=== PATIENT | female | born 1960 | race Caucasian/White ===

== ENCOUNTER 2022-09-12 20:34 | Outpatient (REF) | payer MEDICAID, SELFPAY ==
[2022-09-12 16:09] LABS: Abs Immature Grans 0.02 10^3/uL (0.0-0.06); Absolute Basophil Count 0.06 10^3/uL (0.0-0.2); Absolute Eosinophil Count 0.09 10^3/uL (0.0-0.7); Absolute Lymphocyte Count 2.05 10^3/uL (1.2-3.4); Absolute Monocyte Count 0.46 10^3/uL (0.1-0.8); Absolute Neutrophil Count 3.65 10^3/uL (1.2-6.7); Basophils % 0.9; Eosinophils % 1.4; HCT 37.1 % (36.0-46.0); HGB 12.4 g/dL (11.2-15.7); Immature Grans % 0.3; Lymphocytes % 32.4; MCH 30.4 pg (27.0-33.0); MCHC 33.4 % (32.0-36.0); MCV 91 fL (80-95); MPV 9.8 fL (8.0-11.0); Monocytes % 7.3; Neutrophils % 57.7; Platelet Count 298 10^3/uL (130-400); RBC 4.08 10^6/uL (3.93-5.22); RDW 12.5 % (11.7-14.6); RDW-SD 41.4 fL; WBC 6.33 10^3/uL (4.4-10.8)
[2022-09-13 08:33] LABS: IgE 11 IU/mL (<158)
== END 2022-09-12 20:35 | disposition home or self-care (01) ==
LOC: LBN 20:34
PROVIDERS: Visit Provider Physician Assistant Surgical
DX: J45.909 Unspecified asthma, uncomplicated (principal)
CPT/HCPCS: 82785; 85025

== ENCOUNTER → 2023-07-04 16:42 | Outpatient (CLI) | payer MEDICAID, SELFPAY ==
--- NOTE | 2023-07-04 | DI.RAD_ITS ---
Exam(s) XR CHEST 2V PA LATERAL EXAM: XR CHEST 2V PA LATERAL CLINICAL HISTORY: Cough, R05.9 TECHNIQUE: 2D digital imaging was performed. Two views. COMPARISON: CT CT CHEST LOW DOSE CA SCREENING from 09/19/2022 FINDINGS: HEART: Normal size. Aorta: Not dilated. PULMONARY VASCULATURE: Normal. LUNGS: Mild patchy infiltrate seen in the left mid and lower lobes. No area of consolidation. Right lung appears clear. PLEURAL SPACE: No pleural effusion or pneumothorax. BONE:Unremarkable for age. Soft tissues: Unremarkable. IMPRESSION: Mild infiltrates left lower lung field. DATA REPOSITORY: RADIATION DOSE DELIVERED:
== END ==
PROVIDERS: Visit Provider Physician Assistant Medical
DX: R05.9 Cough, unspecified (principal); R91.8 Other nonspecific abnormal finding of lung field
CPT/HCPCS: 71046

== ENCOUNTER → 2023-08-16 00:20 | Outpatient (CLI) | payer MEDICAID, SELFPAY ==
--- NOTE | 2023-08-16 10:45 | DI.CT_ITS ---
Exam(s) CT CHEST WO EXAM: CT CHEST WO CLINICAL HISTORY: prolonged allergic asthma exacerbation >3 months, J45.901, J45.909 TECHNIQUE: Imaging Protocol: Axial computed tomography images with coronal and sagittal reformatted images were created and reviewed CONTRAST MATERIAL: Intravenous: Omnipaque 350 Contrast volume:structured data ml. COMPARISON: CT CT CHEST LOW DOSE CA SCREENING from 09/19/2022 CR XR CHEST 2V PA LATERAL from 07/04/2023 FINDINGS: Pulmonary parenchyma: No consolidation. No dominant measurable mass. Scattered micro nodules, unchan ged from prior. Minimal emphysematous changes at the lung apices. Minimal scarring or atelectasis a t the inferior lingula. Tracheobronchial tree: No bronchiectasis . Mild bronchial wall thickening noted in the left lower lo be. Mild mucous plugging shows distally in the anterior aspect of the left lower lobe. Mediastinum and Shefali: No dominant adenopathy or fluid collection. Pleura: No effusion. No pneumothorax. Heart: The heart is not dilated. Minimal coronary artery calcifications are seen. Aorta: Thoracic aorta non-dilated. Mild atherosclerotic changes. Pulmonary arteries: No gross evidence of emboli. Upper abdomen: No acute findings. Bones: Degenerative changes in the spine. Soft tissues: Unremarkable. IMPRESSION: Mild bronchial wall thickening in the left lower lobe. Mild mucous plugging anteriorly in the left l ower lobe. Lingular scarring/atelectasis. RADIATION DOSE DELIVERED: Total DLP DATA REPOSITORY: All CT scans at this facility are submitted to the National Radiology Data Registry (NRDR) Dose Index Registry (DIR) with the [employer] (ACR). RADIATION OPTIMIZATION: All CT scans at this facility use at least one of these dose optimization te chniques: automated exposure control; mA and/or kV adjustment per patient size (includes targeted exa ms where dose is matched to clinical indication); or iterative reconstruction.
== END ==
PROVIDERS: Visit Provider Physician Assistant Surgical
DX: J45.909 Unspecified asthma, uncomplicated (principal); J45.901 Unspecified asthma with (acute) exacerbation
CPT/HCPCS: 71250

== ENCOUNTER 2023-08-17 19:59 | Outpatient (REF) | payer MEDICAID, SELFPAY ==
--- OUTSIDE RECORDS SUMMARY | 2023-08-17 20:10 | XMS_ITS ---
Author Organization Unknown Address [address] [place] [phone] Phone Care Team Providers Care Electric Truck Driver Name Role Phone MARIAMA Sanchez Attending Unavailable EMILIA Rouse Primary Unavailable Social History Type Status Start Date End Date Code Code Syst em Sex Female Hospital Discharge Instructions Should you have any questions prior to discharge, please contact a member of your healthcare team. If you have left the hospital and have any questions, please contact your primary care physician. Reason For Referral No Data Found Plan of Treatment No Data Found Encounters Encounter Diagnosis Start Date Code Code Sys tem Peripheral vascular disease 09/14/2022 [id number] SNOMED-CT Personal Care Team Section Performer Name Performer Role Active Date Inactive Da te
--- OUTSIDE RECORDS SUMMARY | 2023-08-17 20:11 | XMS_ITS | Encounter Summary ---
Author Organization [facility] Address [facility] [place] [address] Care Team Providers Care Personal Banker Name Role Phone Joey Ambrose APRN Primary Care Provider + Encounter Details Date Type Department Care Team (Late st Contact Info) Description 02/12/2023 [place] [phone] Park Gross PA [facility] [place] [address] Social History Tobacco Use Types Packs/Day Years Used Date Smoking Tobacco: Former Cigarettes Q uit: 2022 Smokeless Tobacco: Never Sex and Gender Information Value Date Recorded Sex Assigned at Not on file Gender Identity Not on file Sexual Orientation Not on file documented as of this encounter Miscellaneous Notes * Telephone Encounter - Park Gross PA - 02/12/2023 4:37 PM EST Call to pt to relay DM medication adjustment recommendations. No answer so left voicemail. Plan is to stop glipizide, increase Lantus to 18U and discuss timing of mealtime insulin, may need to increase either breakfast or lunch dose. Park Gross PA-C Department of Endocrinology [place], [place] documented in this encounter Plan of Treatment Not on file documented as of this encounter Visit Diagnoses Not on filedocumented in this encounter Care Teams Personal Banker Relationship Specialty Start Date End Date Joey Ambrose ORGANIZATIONAL CONSULTANT [address] [place] [address] [place] [address] PCP - General Family Medicine 11/09/22 documented as of this encounter
--- OUTSIDE RECORDS SUMMARY | 2023-08-17 20:11 | XMS_ITS | Encounter Summary ---
Author Organization [facility] [place] [address] Care Team Providers Care Cut Out Press Operator Name Role Phone Joey Ambrose APRN Primary Care Provider + Encounter Details Date Type Department Care Team (Late st Contact Info) Description 03/09/2023 Telephone [place] [phone] Veronica Rios RN Social History Tobacco Use Types Packs/Day Years Used Date Smoking Tobacco: Former Cigarettes Q uit: 2022 Smokeless Tobacco: Never Sex and Gender Information Value Date Recorded Sex Assigned at Not on file Gender Identity Not on file Sexual Orientation Not on file documented as of this encounter Miscellaneous Notes * Telephone Encounter - Lidia De La Paz RN - 03/14/2023 3:08 PM EST This RN called the patient, name and was verified. Patient wanted to know what the results of her A1c was, this RN gave her the results. Patient verbalized understanding. * Telephone Encounter - Lynette Robins - 03/14/2023 10:23 AM EST Patient returned call to nurse for lab results. Please call patient after noon on her cell phone listed [phone]. * Telephone Encounter - Veronica Rios RN - 03/09/2023 10:54 AM EST Copied from [facility] #[id number]. Topic: Specialty Dept CRMs - Generic Call >> Mar 09, 2023 10:44 AM May wrote: Specialist: Ginny Relationship (if other than patient-full name): Self Reason for Call: Patient returning call to provider documented in this encounter Plan of Treatment Not on file documented as of this encounter Visit Diagnoses Not on filedocumented in this encounter Care Teams Cut Out Press Operator Relationship Specialty Start Date End Date Joey Ambrose, BELT DRESSER [address] [place] [id number] PCP - General Family Medicine 11/09/22 documented as of this encounter
--- OUTSIDE RECORDS SUMMARY | 2023-08-17 20:11 | XMS_ITS | Encounter Summary ---
Author Organization [facility] [place] [address] Care Team Providers Care Armature Repairer Name Role Phone Joey Ambrose APRN Primary Care Provider + Encounter Details Date Type Department Care Team (Latest Contact Info) Description 02/08/2023 11:30 AM EST Laboratory Appointment Lab [address] [place] [phone] Type 2 diabetes mellitus with hyperglycemia, with long-term current use of insulin Social History Tobacco Use Types Packs/Day Years Used Date Smoking Tobacco: Former Cigarettes Q uit: 2022 Smokeless Tobacco: Never Sex and Gender Information Value Date Recorded Sex Assigned at Not on file Gender Identity Not on file Sexual Orientation Not on file documented as of this encounter Plan of Treatment Not on file documented as of this encounter Procedures Procedure Name Priority Date/Time Associated Diagnosis Comments HC HEMOGLOBIN A1C Routine 02/08/2023 11: 36 AM EST Type 2 diabetes mellitus with hyperglycemia, with long-term current use of insulin documented in this encounter Results * (ABNORMAL) Hemoglobin A1c (02/08/2023 11:36 AM EST) Hemoglobin A1C 7.6(H) 4.3 - 5.6 % [facility] Comment: Reference Range: 4.3 - 5.6% 5.7 - 6.4% - Increased Risk of Developing Diabetes Mellitus >= 6.5% - Consistent with diagnosis of Diabetes Mellitus In the absence of hyperglycemia (i.e. plasma glucose > 200 mg/dL) or classic symptoms of hyperglycemia a repeat measurement of HbA1c should be performed on a separate sample to confirm the diagnosis. Diagnosis and Classification of Diabetes Mellitus, Diabetes Care 2013; 36: Suppl. 1, S67-23 Est Avg Gluc 173 mg/dL [facility] Comment: Note: The eAG calculation has not been proven valid for women, individuals below 18 years old or above 70 years old, or individuals with hemoglobinopathies. Estimated average glucose (eAG) is calculated from the equation described in: Arthur DM, Chloe J, Compa R, et al. ??Translating the A1C assay into estimated average glucose values. ??Diabetes Care 2008:31(8):0519-7211. Additional resources are available on the ADA website (diabetes.org). Blood 02/08/2023 11:3 6 AM EST 02/08/2023 11:49 AM EST Narrative Resulting Agency Comment Spec In Lab Ajay Ferrari MD CHEMISTRY ORDERABLES [facility] [place] [id number] documented in this encounter Visit Diagnoses Diagnosis Type 2 diabetes mellitus with hyperglycemia, with long-term current use of insulin documented in this encounter Care Teams Armature Repairer Relationship Specialty Start Date End Date Joey Ambrose, REED [address] [place] [address] [place] [address] PCP - General Family Medicine 11/09/22 documented as of this encounter
--- OUTSIDE RECORDS SUMMARY | 2023-08-17 20:11 | XMS_ITS | Encounter Summary ---
Author Organization [facility] Address [facility] [place] [address] Care Team Providers Care Sales Agent Food Vending Service Name Role Phone Joey Ambrose APRN Primary Care Provider + Encounter Details Date Type Department Care Team (Late st Contact Info) Description 06/28/2023 10:30 AM EDT Office Visit [place] [phone] Roverto Burnette MD [facility] [place] [address] Type 2 diabetes mellitus with hyperglycemia, with long-term current use of insulin Social History Tobacco Use Types Packs/Day Years Used Date Smoking Tobacco: Former Cigarettes Q uit: 2022 Smokeless Tobacco: Never Sex and Gender Information Value Date Recorded Sex Assigned at Not on file Gender Identity Not on file Sexual Orientation Not on file documented as of this encounter Last Filed Vital Signs Vital Sign Reading Time Taken Comments Blood Pressure 148/82 06/28/2023 9:56 AM EDT Pulse 85 06/28/2023 9:56 AM EDT Temperature 35.6 ??C (96.1 ??F) 06/28/2023 9:56 AM ED T Respiratory Rate - - Oxygen Saturation 99% 06/28/2023 9:56 AM EDT Inhaled Oxygen Concentration - - Weight 81 kg (178 lb 9.6 oz) 06/28/2023 9:56 AM EDT Height 163.8 cm (5' 4.5) 06/28/2023 9:56 AM EDT Body Mass Index 30.18 06/28/2023 9:56 AM EDT documented in this encounter Progress Notes * Roverto Burnette MD - 06/28/2023 10:30 AM EDT Images from the original note were not included. We are asked to see this 62 year old woman to review Type 2 diabetes This patient has been in our practice since November 2022 , evaluated by HEAVEN Gross: From [place] 11/2022 Had a DM specialist in [place] and the last time she saw them she was on Lantus 20 units/day and was taking Humalog ~10 units before meals. Was also on Januvia. After move to [place], pt's new PCP had pt taking Lantus 10 units/day, now titrated up to 16 units and using a sliding scale for Humalog. Lowest A1C was 6.5% in [place]. Summer 2021 at time of referral to it was >13% From 02/2022 Patient concerns: pt says that DM has been out of control. Pt was having lows after starting glipizide. Decreased long acting insulin to 14U and eating sweets before bed to avoid overnight lows. Now at 16U of Lantus. Takes 4 units TID of mealtime insulin. Notable medical comorbidities: CKD, HTN Current DM meds: glipizide 10mg/day, humalog, lantus Latest Reference Range & Units 11/09/22 14:42 02/08/23 11:36 Hemoglobin A1C 4.3 - 5.6 % 8.3 (H) 7.6 (H) (H): Data is abnormally high Latest Reference Range & Units 11/09/22 14:42 11/09/22 14:45 LDL Chol Direct mg/dL 54 25-OH Vit D Total 21 - 100 ng/mL 51 25-OH Vit D Interp Sufficient GAD65 Ab <=0.02 nmol/L 0.02 TSH 0.27 - 4.20 mcIU/mL 0.99 Alb/Cr Ratio, Random 0 - 29 mcg/mg Cr 78 (H) (H): Data is abnormally high History Diabetes x 20 years or more Has gained 40 lbs since starting insulin (used weigh 40 lbs) Interim Tried ozempic but was nauseated Egan glipizide did much better but had many low sugar episodes Used trulicity in the past without problems Regimen Oral medications glipizide stopped Basal insulin lantus 22 Bolus (meal and correction) insulin novolog 10 units with meals 10 units correction as needed If pump: FREQUENCY OF SET CHANGES Every ___ Days Home glucose monitoring: TIR 25 % GMI 9.0 marked hyperglycemia after lunch (first meal of day) Episodes of hypoglycemia Warning signs: feels lite headed Frequency of self treated episodes around once a week Frequency of episodes needing assistance none Dietary plan: 24 hour diet recall: Breakast 2 eggs eng muffin sausage AM snack Lunch salad usually a sandwich Afternoon snack Dinner steak green beans After dinner snack Exercise routine Preferred exercise uses 2 lb weights Frequency daily aerobic is limited by asthma Diabetes complications review eyes + retinopathy ? Has had cataract surgery feet Abnormal shape NO Symptoms burning NO Foot ulcers: None NO Prior amputations Overall risk of foot problems Low YES Uses prescription Inserts Shoes kidneys none Autonomic neuropathies : NO Early satiety /nausea (gastroparesis) SOME Problems emptying bladder NO Unable to detect low sugars Persistent rapid heartrate tachycardia cardiac NO chest pain on exertion YES shortness of breath on 1 flight of stairs NO Shortness of breath at rest NO history of Cardiac stent Cardiac bypass surgery Congestive heart failure Peripheral vascular disease: Neck arteries (carotids) Leg arterieis Stroke Diabetes preventative services last eye exam: within 2 mo last urine protein measurement last kidney function test (creatinine) last cholesterol panel: regular drum drier operator visits: YES special shoes: YES flu shot : NO COVID NO vaccinations Has had covid once pneumovax: YES prevnar (pneumonia shot update) NO Kidney protection: Uses lisinopril or losartan type medications: YES, losartan Blood pressure 148/82 Heart protection: Uses low dose aspirin NO Uses cholesterol lowering medication ( statin) YES PMH 1) ashtma 2) DM2 3) tubal at age 25 4) oophorectomy, has one left 5) thyroid 6) poor L leg circulation? 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 appearance: pleasant conversant woman wt Change up 18 since last visit in feb eyes: no retinopathy seen by green light ext: no pitting edema feet: shape is normal skin is normal nails are not mycotic pulses in feet : dorsalis pedis-yes posterior tibial-yes neuro: gait is normal appreciation of 10 g of pressure is present Recent Results (from the past 24 hour(s)) TSH Result Value Ref Range TSH 2.32 0.27 - 4.20 mcIU/mL Creatinine Result Value Ref Range Creatinine 1.13 0.70 - 1.20 mg/dL Estimated GFR 55 (L) >=60 mL/min/1.73 m?? Hemoglobin A1c Result Value Ref Range Hemoglobin A1C 8.3 (H) 4.3 - 5.6 % Est Avg Gluc 191 mg/dL U Albumin/Cre Ratio Result Value Ref Range Alb/Cr Ratio, Random 108 (H) 0 - 29 mcg/mg Cr U Albumin Conc, Random 55.0 mg/L U Creatinine 51 mg/dL 1) DM2 - her diabetes control is reasonable overall (ha1C) BUT HER 2 WEEK SOFIYA LOOKS MUCH WORSE (gmi 9.0), tir 25 %. tHE ENTIRE DIURNAL GLUCOSE level is elevated . We could put back glyburide, which would risk returnof low sugar events but I am also concerned about the 18 lb weight gain - so I recommended adding Rybelsus 3 and then 7 mg to see if we couldn't get an HA1c under 8 % AND weight loss. She will let meknow if Rybelsus is not covered - if so perhaps we can returnt o dulaglutide injections at the 3.0 dose 2) CKD3A- mild 3) microalbuminuria- she is on losartan and has reasonable BP control 4) R 1st plantar MTP callus- this is in a worrisome location as it is in constant pressure while walking / standing- she has it regularly attended to by podiatry This was a 40 min visit in total time for precharting, interview and counseling, new medication discussion, review of outside labs as above, ordering labs and charting Bilateral first nail mycosis documented in this encounter Plan of Treatment Not on file documented as of this encounter Procedures Procedure Name Priority Date/Time Associated Diagnosis Comments HC CREATININE - NON BLOOD Routine 06/28/2023 11:19 AM EDT Type 2 diabetes mellitus with hyperglycemia, with long-term current use of insulin HC CREATININE Routine 06/28/2023 11:17 AM EDT Type 2 diabetes mellitus with hyperglycemia, with long-term current use of insulin HC VENIPUNCTURE Routine 06/28/2023 11:17 AM EDT Type 2 diabetes mellitus with hyperglycemia, with long-term current use of insulin HC HEMOGLOBIN A1C Routine 06/28/2023 11: 17 AM EDT Type 2 diabetes mellitus with hyperglycemia, with long-term current use of insulin documented in this encounter Results * (ABNORMAL) U Albumin/Cre Ratio (06/28/2023 11:19 AM EDT) Alb/Cr Ratio, Random 108(H) 0 - 29 mcg/mg Cr [facility] Comment: Reference Ranges: <30 mcg/mg: Normal 30-300 mcg/mg: Moderately increased albuminuria.* >300 mcg/mg: Severely increased albuminuria. * ACEI or ARB recommended if diabetic; suggested if BP>130/80 without diabetes ACEI or ARB strongly recommended if diabetic; recommended if BP>130/80 without diabetes Two of three specimens collected within a 3 to 6 month period should be abnormal before considering a patient to have albuminuria. Transient causes: exercise, fever, infection, CHF, marked hyperglycemia or hypertension. Persistent albuminuria indicates CKD and is an independent risk factor for ASCVD. ADA Standards of Medical Care in Diabetes-2016; KDIGO: Kidney International Supplements (2012) 2, 357? 362 U Albumin Conc, Random 55.0 mg/L [facility] U Creatinine 51 mg/dL [facility] Urine 06/28/2023 11:1 9 AM EDT 06/28/2023 11:28 AM EDT Narrative Resulting Agency Comment Spec In Lab Roverto Burnette MD URINE ORDERABLES Performing Organization Address City/[facility]/ZIP Co de Phone Number [facility] [place] [address] * TSH (06/28/2023 11:17 AM EDT) TSH 2.32 0.27 - 4.20 mcIU/mL [facility] Comment: Reference Interval (mcIU/mL): Females: ??First Trimester: 0.23-3.88 ??Second Trimester: 0.22-3.90 ??Third Trimester: 0.44-4.66 Blood 06/28/2023 11:1 7 AM EDT 06/28/2023 11:33 AM EDT Narrative Resulting Agency Comment Spec In Lab Roverto Burnette MD CHEMISTRY ORDERABLES Performing Organization Address [facility] Co de Phone Number [facility] [place] [address] * (ABNORMAL) Creatinine (06/28/2023 11:17 AM EDT) Creatinine 1.13 0.70 - 1.20 mg/dL [facility] Estimated GFR 55(L) >=60 mL/min/1. 73 m?? [facility] Comment: This patient's estimated GFR was calculated using the 2020 CKD-EPI equation. The estimated GFR can vary from the measured GFR by up to 30% in the absence of rapidly changing kidney function. Assessment of the estimated GFR is not appropriate when creatinine concentrations are rapidly changing. For clinical situations in which a more precise estimate of GFR is necessary, consider alternative methods of GFR estimation such as a 24-hour urine creatinine clearance. Assignment of CKD stage 1-5 for patients with an eGFR near the transition point between stages may be based on clinical assessment of muscle mass and symptoms in addition to eGFR. Blood 06/28/2023 11:1 7 AM EDT 06/28/2023 11:33 AM EDT Narrative Resulting Agency Comment Spec In Lab Roverto Burnette MD CHEMISTRY ORDERABLES Performing Organization Address City/[facility]/ZIP Co de Phone Number [facility] [place] [address] * (ABNORMAL) Hemoglobin A1c (06/28/2023 11:17 AM EDT) Hemoglobin A1C 8.3(H) 4.3 - 5.6 % [facility] Comment: Reference Range: 4.3 - 5.6% [...] Mellitus, Diabetes Care 2013; 36: Suppl. 1, S67-74 Est Avg Gluc 191 mg/dL [facility] Blood 06/28/2023 11:1 7 AM EDT 06/28/2023 11:33 AM EDT Narrative Resulting Agency Comment Spec In Lab Roverto Burnette MD CHEMISTRY ORDERABLES Performing Organization Address [facility] Co de Phone Number [facility] [place] [address] documented in this encounter Visit Diagnoses Diagnosis Type 2 diabetes mellitus with hyperglycemia, with long-term current use of insulin documented in this encounter Care Teams Sales Agent Food Vending Service Relationship Specialty Start Date End Date Joey Ambrose, REED [address] [place] [address] [place] [address] PCP - General Family Medicine 11/09/22 documented as of this encounter
--- OUTSIDE RECORDS SUMMARY | 2023-08-17 20:11 | XMS_ITS | Encounter Summary ---
Author Organization [facility] [place] [address] Care Team Providers Care Oim Consultant Name Role Phone Joey Ambrose APRN Primary Care Provider + Encounter Details Date Type Department Care Team (Late st Contact Info) Description 11/10/2022 Orders Only [place] [address] Park Gross PA [facility] [place] [address] Type 2 diabetes mellitus with hyperglycemia, with [...] documented as of this encounter Visit Diagnoses Diagnosis Type 2 diabetes mellitus with hyperglycemia, with long-term current use of insulin documented in this encounter Care Teams Oim Consultant Relationship Specialty Start Date End Date Joey Ambrose APRN [address] [place] [address] [place] [address] PCP - General Family Medicine 11/09/22 documented as of this encounter
--- OUTSIDE RECORDS SUMMARY | 2023-08-17 20:11 | XMS_ITS | Referral Summary ---
Author Organization [facility] Address [address] [place] [address] Care Team Providers Care Technology Infusion Specialist Name Role Phone Hubert Taladulce Joey Padma [facility] Primary Care Provider Social History Tobacco Use Types Packs/Day Years Used Date Smoking Tobacco: Never Assessed Sex and Gender Information Value Date Recorded Sex Assigned at Not on file Gender Identity Female 10/11/2022 8:17 EDT Sexual Orientation Not on file Plan of Treatment Not on file Care Teams Technology Infusion Specialist Relationship Specialty Start Date End Date Joey Ambrose, [facility] [address] [place] [address] [place] [phone] PCP - General Family Medicine - Primary Care 10/11/22
--- OUTSIDE RECORDS SUMMARY | 2023-08-17 20:11 | XMS_ITS | Encounter Summary ---
Author Organization [facility] Address [facility] [place] [address] Care Team Providers Care Laundry Machine Tender Name Role Phone Joey Ambrose APRN Primary Care Provider + Encounter Details Date Type Department Care Team (Late st Contact Info) Description 04/17/2023 Telephone [place] [phone] Park Gross PA [facility] [place] [address] Social History Tobacco Use Types Packs/Day Years Used Date Smoking Tobacco: Former Cigarettes Q uit: 2022 Smokeless Tobacco: Never Sex and Gender Information Value Date Recorded Sex Assigned at Not on file Gender Identity Not on file Sexual Orientation Not on file documented as of this encounter Miscellaneous Notes * Telephone Encounter - Park Gross PA - 04/17/2023 4:18 PM EDT Returned call to pt, attempted 4x and each time went to voicemail. Relayed instructions to nurse for her to call pt. Take Lantus as prescribed and hold mealtime insulin until eating again. Nurse had to leave message--no answer as well. No [facility] patient portal set up so unable to write message to patient. Park Gross PA-C Department of Endocrinology [place], [place] documented in this encounter Plan of Treatment Not on file documented as of this encounter Visit Diagnoses Not on filedocumented in this encounter Care Teams Laundry Machine Tender Relationship Specialty Start Date End Date Joey Ambrose, CREW SUPERVISOR [address] [place] [address] [place] [address] PCP - General Family Medicine 11/09/22 documented as of this encounter
--- OUTSIDE RECORDS SUMMARY | 2023-08-17 20:11 | XMS_ITS | Clinical Summary ---
Author Organization [facility] Address [address] [place] [address] Care Team Providers Care Pipe Fitter Welding Name Role Phone Hubert Soriano Joey Padma [facility] Primary Care Provider Social History Tobacco Use Types Packs/Day Years Used Date Smoking Tobacco: Never Assessed Sex and Gender Information Value Date Recorded Sex Assigned at Not on file Gender Identity Female 10/11/2022 8:17 EDT Sexual Orientation Not on file Plan of Treatment Health Maintenance Due Date Last Done Comments Hepatitis C Screen 1960 RSV Immunization ( o r 60+ Years) (1 - 1-dose 60+ series) 2019 COVID-19 Vaccine (2022- season) 2022 Care Teams Pipe Fitter Welding Relationship Specialty Start Date End Date Joey Ambrose, [facility]- [address] [place] [address] [place] [id number] PCP - General Family Medicine - Primary Care 10/11/22
--- OUTSIDE RECORDS SUMMARY | 2023-08-17 20:11 | XMS_ITS | Data Portability ---
Author Organization [facility] Address Susanne Whelan [facility] [place] [address] Care Team Providers Care Brake Tester Name Role Phone JESSI SAENZ Primary Care Provider Assessment No assessment recorded. Plan of Treatment Reminders Order Date Submit Date Provider Last Modified By Organization Details Last Modified Time Details Appointments Acute 10 2023 01:54P Daniel HARDY Not available Not available Not available Lab rapid strep group A, throat [address], [address], [address], 07/04/2023 15:03:14 influenza virus A + B + SARS-CoV- 2 (COVID19) Ag panel, rapid IA, upper respirato ry specimen [address], [address], 07/04/2023 15:03:17 urinalysi s, dipstick [address], [address], [address], 08/17/2023 16:24:41 culture, urine + sensitivi ty 2023 024 [email or web address] [address] [place], [address] 08/17/2023 18:46:20 microscop ic method, urine [address] [place], [address] 08/17/2023 18:50:38 Referral None recorded. Procedures None recorded. Surgeries None recorded. Imaging XR, chest, 2 view [address] [place], [address] 07/18/2023 08:57:41 Medication Orders prednison e 20 mg tablet 2023 024 [email or web address] [facility], [address] [place] [address], [id number], 08/17/2023 15:55:25 doxycycli ne hyclate 100 mg capsule 2023 024 [facility], [address] [place] [address], [id number], 08/17/2023 15:54:49 prednison e 20 mg tablet 2023 024 [facility], [address] [place] [address], [id number], 08/17/2023 16:42:35 ipratropi um 0.5 mg-albute rol 3 mg (2.5 mg base)/3 mL nebulizat ion soln 2023 024 [facility], [address] [place] [address], [id number], 08/17/2023 17:33:19 cephalexi n 500 mg capsule 2023 024 [facility], [address] [place] [address], [id number], 08/17/2023 16:42:34 Patient TargetsNo targets recorded. Patient Instructions Encounter Date Encounter Id Patient Instructions Last Modified By Organization Details Last Modified Time 07/04/2023 [id number] 1. X-rays have been ordered and will take place to the hospital today. I typically get results 2-3 hours later and we will communicate these to you when they become available and discuss further management. 2. In the meantime I have sent prescription for prednisone which she will take daily in the morning for total of 5 days. Please remember to take this medication with food. No ibuprofen at the same time. 3. If x-ray returned showing concerns for pneumonia I will also send prescription for antibiotic. If does not show pneumonia we will not send in prescription for antibiotic. Not available 07/04/2023 13:48:01 08/17/2023 [id number] 1. Your urine di p here is concerning for UTI thus I have gone ahead and started you on an antibiotic called cephalexin you will take twice a day for the next 7 days. I have sent a urine culture which will take 2 days to return. I will call you on Sunday to go over them and see how you are doing. 2. I am also concerned for exacerbation of your asthma given the increased need for your inhaler despite your use of your maintenance inhaler. I have sent prescription for prednisone 40 mg which you will take daily in the morning over the next 5 days. Please be careful to watch her blood sugars during this time. 3. I did review your recent CT scan which shows no signs of pneumonia. I do not feel that chest x-ray is needed today. 4. I do not expect you should have any sudden worsening of symptoms between now and Sunday when I called to follow-up. If so please seek follow-up as needed. Not available 08/17/2023 17:18:06 Reason for Referral None Reported. Results Created Date Observation Date Name Description Value Unit Range Abnormal Flag LastModifiedBy Organization Detail LastModifiedTime 07/04/19 24 07/04/2023 influ mike virus A + B + SARS- CoV-2 (COVI D19) Ag panel , rapid IA, upper respi rator y speci men Influenza A positi ve Not Available [address], [place], [address], 07/04/2023 12:31:18 07/04/19 24 07/04/2023 influ mike virus A + B + SARS- CoV-2 (COVI D19) Ag panel , rapid IA, upper respi rator y speci men Influenza B positi ve Not Available [address], [place], [address], 07/04/2023 12:31:18 07/04/19 24 07/04/2023 influ mike virus A + B + SARS- CoV-2 (COVI D19) Ag panel , rapid IA, upper respi rator y speci men SARS-COV-2 positi ve Not Available [address], [place], [address], 07/04/2023 12:31:18 07/04/19 24 07/04/2023 rapid strep group A, throa t Strep negati ve Not Available [address], [place], [address], 07/04/2023 12:30:41 08/17/19 24 08/17/2023 urina lysis , dipst ick Leukocytes Trace Not Available [address], [place], [address], 08/17/2023 16:05:03 08/17/19 24 08/17/2023 urina lysis , dipst ick Nitrite positi ve Not Available [address], [place], [address], 08/17/2023 16:05:03 08/17/19 24 08/17/2023 urina lysis , dipst ick Urobilinogen .2 Not Available [address] [address], [place], [address], 08/17/2023 16:05:03 08/17/19 24 08/17/2023 urina lysis , dipst ick Protein 300 Not Available Anand cruz [address], [place], [address], 08/17/2023 16:05:03 08/17/19 24 08/17/2023 urina lysis , dipst ick pH 7.5 Not Available Anand cruz [address], [place], [address], 08/17/2023 16:05:03 08/17/19 24 08/17/2023 urina lysis , dipst ick Blood Negati ve Not Available [address], [place], [address], 08/17/2023 16:05:03 08/17/19 24 08/17/2023 urina lysis , dipst ick Specific [place] 1.010 Not Available [address], [place], [address], 08/17/2023 16:05:03 08/17/19 24 08/17/2023 urina lysis , dipst ick Ketone Trace Not Available Anand cruz [address], [place], [address], 08/17/2023 16:05:03 08/17/19 24 08/17/2023 urina lysis , dipst ick Bilirubin Small Not Available Anand cruz [address], [place], [address], 08/17/2023 16:05:03 08/17/19 24 08/17/2023 urina lysis , dipst ick Glucose Negati ve Not Available [address], [place], [address], 08/17/2023 16:05:03 08/17/19 24 08/17/2023 urina lysis , dipst ick Appearance Clear Not Available [address], [place], [address], 08/17/2023 16:05:03 08/17/19 24 08/17/2023 urina lysis , dipst ick Color Dark Yellow Not Available [address], [place], [address], 08/17/2023 16:05:03 07/04/19 24 07/04/2023 XR, chest , 2 view No observ ation record ed. Not Available 07/05/2023 07:27:39 07/04/19 24 07/04/2023 XR, chest , 2 view Patien t Name: MARY DENNY Unit #: [id number] [facility] Savanna Hardy Accoun t #: [id number] Status : PRE CLI Primar y Care Provid er: Date of Exam: Sex: F Admiss ion Date: : 1960 Age: 62 Exam(s ) XR CHEST 2V PA LATERA L EXAM: XR CHEST 2V PA LATERA L CLINIC AL HISTOR Y: Cough, R05.9 TECHNI QUE: 2D digita l imagin g was perfor med. Two views. COMPAR RHONDA: CT CT CHEST LOW DOSE CA SCREEN ING from 2022 FINDIN GS: HEART: Normal size. Aorta: Not dilate d. PULMON IRVIN VASCUL ATURE: Normal . LUNGS: Mild patchy infilt rate seen in the left mid and lower lobes. No area of consol idatio n. Right lung appear s clear. PLEURA L SPACE: No pleura l effusi on or pneumo thorax . BONE:U nremar kable for age. Soft tissue s: Unrema rkable . IMPRES FIDELINA: Mild infilt rates left lower lung field. DATA REPOSI TORY: RADIAT ION DOSE DELIVE RED: Ordere d By: Savanna Hardy CC: ------ ------ ------ ------ ------ ------ ------ ------ ------ ------ ------ ------ - Dictat ed By: Hollie Ayala [id number] Transc ribed By: Lexa Hernandez 143 This is privil eged, confid ential inform ation intend ed only for the provid er named. Any use or distri bution by any person other than this provid er is strict ly prohib ited. If you receiv e this report in error, please notify us immedi ately at and return the origin al report to us at the addres s above. Thank- you. [email or web address] [facility] [address], [place], [address] 07/18/2023 08:57:41 Result Notes None recorded. Problems Name Status Onset Date Resolution Date Notes Provider Name and Address Organization Details Recorded Time Cough Active [address], [facility] [address], [facility] 07/04/2023 13:46:24 Pneumonia Active [address], [facility] [address], [facility] 07/04/2023 15:02:31 Asthma Active [address], [place], [address], [facility] 08/17/2023 16:41:58 Dysuria Active [address], [place], [address], [facility] 08/17/2023 16:48:50 Problem Notes None recorded. Procedures Surgical History Date Name Laterality Status Provider Name and Address Organization Details Recorded Time 4 Nebulizer tx completed [address], [place], [address], [facility] 08/17/2023 17:33:01 4 Nebulizer tx completed [address], [place], [address], [facility] 07/04/2023 15:07:04 Imaging Results Imaging Date Name Status LastModified by Organiz ation Details LastModified Time 07/04/2023 XR, chest, 2 view completed Information not available 07/05/2023 07:27:39 07/04/2023 XR, chest, 2 view completed [email or web address] [facility] [address], [place], [address] 07/18/2023 08:57:41 Procedure Notes None recorded. Medical Equipment None Reported. Allergies No known drug allergies Medications Name Sig Start Date Stop Date Status Note LastModified by Organization Details LastModified Time doxycycline hyclate 100 mg capsule Take 1 capsule twice a day by oral route for 5 days, for pneumonia . 08/16 completed Not Available Not Available Not Available ipratropium 0.5 mg-albutero l 3 mg (2.5 mg base)/3 mL nebulizatio n soln Inhale 3 mL by nebulizat ion route. 2023 active Not Available Not Available Not Avai lable prednisone 20 mg tablet Take 2 tablets every day by oral route with meal(s) for 5 days. 2023 active Not Available Not Available Not Avai lable magnesium oxide 400 mg (241.3 mg magnesium) tablet Take by oral route. active Not Available Not Available No t Available cephalexin 500 mg capsule Take 1 capsule twice a day by oral route for 7 days. 2023 active Not Available Not Available Not Avai lable cyclobenzap rine 5 mg tablet Take 1 tablet 3 times a day by oral route. active Not Available Not Available No t Available lidocaine active Not Available Not Chapis ilable Not Available Novolog Mix 70-30FlexPe n U-100 active Not Available Not Available Not Available Symbicort 160 mcg-4.5 mcg/actuati on HFA aerosol inhaler Inhale 2 puffs twice a day by inhalatio n route. active Not Available Not Available No t Available TechLITE Insulin Syringe active Not Available Not Available Not Available Rybelsus 7 mg tablet Take 1 tablet every day by oral route. active Not Available Not Available No t Available FreeStyle Daniel 2 Sensor active Not Available Not Available Not Available Vitals Date Recorded Body height Body mass index (BMI) Body weight Body temperature Oxygen saturation Oxygen saturation in Arterial blood by Pulse oximetry Heart rate Respiratory rate Systolic blood pressure Diastolic blood pressure Provider Name and Address Organization Details Last Updated DateTime 4 163.83 cm 30.1 kg/m2 16535.4 4 g 98.2 [degF] 97 % 97 % 93 /min 18 /min 132 mm[Hg] 82 mm[Hg] Liliana Vale [facility] 12:21:27 Date Recorded Body height Body mass index (BMI) Body weight Body temperature Oxygen saturation Oxygen saturation in Arterial blood by Pulse oximetry Heart rate Respiratory rate Oxygen saturation Oxygen saturation in Arterial blood by Pulse oximetry Heart rate Systolic blood pressure Diastolic blood pressure Provider Name and Address Organization Details Last Updated DateTime 4 163.83 cm 29.2 kg/m2 60539.6 9 g 98.1 [degF] 94 % 94 % 98 /min 20 /min 96 % 96 % 96 /min 112 mm[Hg] 75 mm[Hg] Rozina Weller MA [facility] 4 15:52:33 Social History Question Answer Notes LastModified by Organizat ion Details LastModified Time Tobacco Smoking Status [facility] 07/04/2023 12:23:26 When Did You Quit Smoking? 1-5yearssinc [email or web address] te Information not available 07/04/2023 What Was The Date Of Your Most Recent Tobacco Screening? 08/17/2023 [email or web address] Information not available 08/17/2023 Has Tobacco Cessation Counseling Been Provided? Yes Information not available 07/04/2023 On What Date Was Tobacco Cessation Counseling Provided? 08/17/2023 [email or web address] Information not available 08/17/2023 Do You Or Have You Ever Used Any Other Forms Of Tobacco Or Nicotine? No Information not available 07/04/2023 Sex: Female Functional Status None recorded. Mental Status None recorded. Family History Nothing Reported. Medical History No medical history recorded. Gynecological HistoryNo gynecological history recorded. Obstetrics History GPAL:G 0 P 0 0 0 0 Immunizations Vaccine Type Date Status Provider Name and Address Organization Details Recorded Time Td (adult), 2 Lf tetanus toxoid, preservative free, adsorbed 01/05/2017 completed Kala Irene RN [facility] 08/17/2023 16:07:40 Past Encounters Encounter ID Performer Location Encounter Start Date Encounter Closed Date Diagnosis/Indication Diagnosis SNOMED-CT Code [id number] [address],[facility] [address] [place] [address] 07/04/2023 10:37:13 07/04/2023 14:05:00 Pneumonia 185225360 [id number] [address],[facility] [address] [place] [address] 08/17/2023 13:55:26 08/17/2023 17:19:45 Dysuria 40673064 Asthma 105225334 Health Concerns Section Related Observation LastModified by Organization Detai ls LastModified Time None Recorded Concern Status LastModified by Organization Details LastModified Time None Recorded Advance Directives Directive None Recorded Payers Encounter Date Sequence Insurance Name Policy Number Policy Roberson Covered Member ID Roberson Member ID Guarantor Name 07/04/2023 1 [facility] (MEDICAID) Noreen Denny [id number] Noreen Denisha 08/17/2023 1 [facility] (MEDICAID) Noreenshana Denny [id number] Noreenshana Denny Notes Date Note Type Note Provider Name and Address Organization Details Recorded Time 07/04/2023 text/html HPI Notes: Mary brown is a 62-year-old female who has been sick for about 3 weeks. Has intermittent sore throat and now has developed some worsening congestion in the last couple of days making her feel like she is needed her inhaler often than usual. She reports cough has had yellow productive sputum. She has felt short of breath but does not feel that she has been excessively wheezing. She does endorse she had bronchitis about a month and a half ago where she did antibiotics and steroids. She tolerates steroids well. With her asthma she has never had to go to the emergency room or be admitted to the hospital. She has no history of COPD but she does endorse that she was a pack-a-day smoker until last year. She began smoking at age 7. She has been attempting to improve symptoms with use of Mucinex, Symbicort and albuterol. She uses her Symbicort twice a day during times of wellness and illness. When she is not ill she does not typically need her albuterol inhaler more than about once per week. She has been using it every 4 hours for the last several days. Does not have a nebulizer at home. [address], [place], [address], [facility]. 07/04/2023 15:26:26 08/17/2023 text/html HPI Notes: Mary brown is a 62-year-old female who presents with 2 complaints #1 is concern for urinary tract infection. For the past 3 days she has had urgency, frequency and dysuria but no visible hematuria. No back pain. She has not developed fevers or chills. No nausea or vomiting. Normal bowel. #2 is concern for increased cough, congestion and using inhalers and increased amounts. She states she has been dealing this this for about 5 months. She has an appointment with her house rn on the of this month to follow-up on her asthma. She uses Symbicort 2 puffs twice a day at all times and only reaches for her albuterol inhaler about once per week when not sick. During this last week she has been having to use it 2-3 times per day. She does not have history of COPD. About 4 weeks ago she was seen here and diagnosed with pneumonia. She had a negative COVID, flu, strep test. She did feel like she improved a bit after the doxycycline and steroids but now has had return of cough congestion and difficulty breathing. She has not had pain or swelling in her legs. She does endorse that she had a lung CT done yesterday and plans for follow-up with pulmonology at the end of the month. I will review these records. [address], [place], [address], [facility]. 08/17/2023 17:34:49 OBGyn Episode No OBEpisode recorded.
--- OUTSIDE RECORDS SUMMARY | 2023-08-17 20:11 | XMS_ITS | Encounter Summary ---
Author Organization [facility] [place] [address] Care Team Providers Care Childrens Club Attendant Name Role Phone Joey Ambrose APRN Primary Care Provider + Reason for Visit * Reason Onset Date Comments Medication Problem 06/29/2023 Encounter Details Date Type Department Care Team (Late st Contact Info) Description 06/29/2023 Telephone [place]ocr[place] [id number] Shawn Marc, contracts administrator Problem Social History Tobacco Use Types Packs/Day Years Used Date Smoking Tobacco: Former Cigarettes Q uit: 2022 Smokeless Tobacco: Never Sex and Gender Information Value Date Recorded Sex Assigned at Not on file Gender Identity Not on file Sexual Orientation Not on file documented as of this encounter Miscellaneous Notes * Telephone Encounter - Jordana Bhat - 06/29/2023 12:05 PM EDT Patient called back to state that insurance will cover semaglutide (Rybelsus) 3 mg tablet * Telephone Encounter - Shawn Marc RN - 06/29/2023 11:37 AM EDT TC to patient. Last name and verified. Confirmed that the medication that she shared in her message is a medication that she has already stopped glipizide. Confirmed with patient that the Rybelsus is one of the medications that Dr. Burnette sent to [facility], and that she needs to check with them to see if it is covered. If it is not covered there is the possibility of restarting the Trulicity, and the patient asked whether the Tulicity comes in a pill form. After quick review of Lexicomp itdoes not look like it does. Only injection form. Also the other medication that Dr. Burnette sent to [facility] is the insulin aspart U-100 (NovolOG Flexpen) pen is the 15 units 3x/day with meals.Patient to call back after checking to see whether Rybelsus is covered or not. Patient verbalized understanding. Milan Marc RN MSN Copied from [facility] #[id number]. Topic: Specialty Dept CRMs - Generic Call >> June 29, 2023 10:28 AM Lidia Pacheco wrote: Specialist: Dr. Burnette Relationship (if other than patient-full name): self Reason for Call: Patient seen by Dr. Burnette yesterday, she could not remember the name of the prescription she was on previosuly and Dr. Burnette was wondering what it was. Patient called to let him know it was glipizide 10 mg once daily. Patient not sure if Dr. Burnette wants to change the other prescription he sent to [email or web address] at all based on that previous prescription. Patient has not picked this upyet. Can you please advise? She states a detailed message may be left on her voicemail if no answer. documented in this encounter Plan of Treatment Not on file documented as of this encounter Visit Diagnoses Diagnosis Type 2 diabetes mellitus with hyperglycemia, with long-term current use of insulin documented in this encounter Care Teams Childrens Club Attendant Relationship Specialty Start Date End Date Joey Ambrose, RAISER HELPER [address] [place] [address] [place] [address] PCP - General Family Medicine 11/09/22 documented as of this encounter
--- OUTSIDE RECORDS SUMMARY | 2023-08-17 20:11 | XMS_ITS | Encounter Summary ---
Author Organization [facility]ly [facility] Address [facility] [place] [address] Care Team Providers Care Manager Product Design Name Role Phone Joey Ambrose APRN Primary Care Provider + Reason for Visit * Consultation (Routine) - Closed Specialty Diagnoses / Procedures Referred By Noa orr Referred To Contact Endocrinology Diagnoses Type 2 diabetes mellitus without complications Joey Ambrose, REED [address] [place] [address] [place] [address] [facility] [address] [place] [phone] Referral ID Status Reason Start Date Expiration Date Visits Re quested Visits Authorized [id number] Closed 08/17/2022 08/17/2023 1 1 Encounter Details Date Type Department Care Team (Late st Contact Info) Description 11/09/2022 1:00 PM EDT Office [place] [phone] Park Gross PA [facility] [address] Type 2 diabetes mellitus with hyperglycemia, with long-term current use of insulin Social History Tobacco Use Types Packs/Day Years Used Date Smoking Tobacco: Former Cigarettes Q uit: 2022 Smokeless Tobacco: Never Tobacco Cessation:Counseling Given: Not Answered Sex and Gender Information Value Date Recorded Sex Assigned at Not on file Gender Identity Not on file Sexual Orientation Not on file documented as of this encounter Last Filed Vital Signs Vital Sign Reading Time Taken Comments Blood Pressure 120/73 11/09/2022 12:26 PM EDT Pulse 84 11/09/2022 12:26 PM EDT Temperature 37.2 ??C (98.9 ??F) 11/09/2022 12:26 PM E DT Respiratory Rate - - Oxygen Saturation 98% 11/09/2022 12:26 PM EDT Inhaled Oxygen Concentration - - Weight 64.6 kg (142 lb 6.4 oz) 11/09/2022 12:26 PM EDT Height 163.8 cm (5' 4.5) 11/09/2022 12:26 PM ED T Body Mass Index 24.07 11/09/2022 12:26 PM EDT documented in this encounter Patient Instructions * Patient Instructions* Park Gross PA - 11/09/2022 1:00 PM EDT --Labs today, will contact with results --Will determine medication adjustments after review of labs --Follow up in 3mo, sooner as needed documented in this encounter Progress Notes * Park Gross PA - 11/09/2022 1:00 PM EDT Diabetes Clinic--New Patient Date: 11/09/22 REASON FOR VISIT: Noreen Denny presents today for evaluation and management of type 2 diabetes. Acquisition, summation and review of old medical records: I reviewed scanned medical notes from primary care provider dated 08/15/22 and in my review I saw recent move to the area, poorly controlled DM with blurred vision, CKD and HTN. HPI: Pt reports the following: Had a DM specialist in [place] and the last time she saw them she was on Lantus 20 units/day and was taking Humalog ~10 units before meals. Was also on Januvia. After move to [place], pt's new PCP had pt taking Lantus 10 units/day, now titrated up to 16 units and using a sliding scale for Humalog. Lowest A1C was 6.5% in [place]. Summer 2021 at time of referral to it was >13%. Had COVID 3wks ago, BG has been high although improving now as pt returns to baseline state of health. Pt has been exercising daily to get A1C down, needs cataract surgery and they want A1C <7%. Not losing weight and frustrated. Lifting weights and does calisthenic type exercise regimen that pt came up with that is in line with her physical capabilities. Saw podiatry and they want to remove toenails, but want pt to have better DM control before doing this. Using mupirocin ointment on L great toe and 5th toe, skin was red and starting to get infected,now improved and pt asking about need to continue using mupirocin. Thyroid history: sister had thyroid cancer (unknown type), pt has cysts on thyroid, previous provider advised checking annually, last check 1.5 years ago. H/O pancreatitis: none Pt had circulation test done recently in [place], [place]. Says that her L side isn't good. Pt's nephew is on Alogliptan and empagliflozin, asking if these would be appropriate for her. Pt smoking history--started at age 7yo and quit 14wks ago. Had labs done in September 2022 at new PCP office DIABETES HISTORY: Type of Diabetes: 2 Duration of Diabetes: 20 years, diagnosed in early 40's Was on Metformin and Januvia in the past, started insulin about 1 year ago FAMILY HISTORY OF DIABETES: father and mother with DM, sister with DM Diabetes complications Retinopathy/diabetic eye disease: has cataracts Neuropathy: yes Current foot problems: numbness and burning in feet Nephropathy: recent kidney US, small cyst, nothing to worry about, referral indicated CKD Macrovascular disease: Family h/o A-fib Current DM meds Basal/bolus insulin Glycemic monitoring: Checks blood sugars: Frequently scanning with Daneil 2. 14 day CGM report reviewed: Average glucose 195 Time in range: 51% High: 26% Very high: 23% Low/very low: 0% Sharp increase in glucose level from 9AM-12:30PM, then decrease to below 180 after 6pm suggesting pt not bolusing sufficiently for breakfast, but is bolusing enough for lunch. Hypoglycemic awareness: yes, feels lightheaded, shaking, can't think straight Has required assistance for low blood sugars: none Uses maple syrup for lows Diet/Lifestyle: 24 dietary recall: eats <45 carbs per meal, high protein Breakfast: 2 eggs, 2 toast, 2 sausage Lunch: 2 eggs, sausage, turkmen muffin Dinner: 1/2 cup frozen peas, 1 slice ham steak, 1/2 cup of salad Snacks: at night, cut up apple with cheese stick Beverages: water, coffee Exercise: daily, see above PAST MEDICAL HISTORY: Thyroid cysts Asthma Hyperlipidemia T2DM Bone disease ?osteoporosis SOCIAL HISTORY: Occupation: on disability Living situation: lives with brother Smoking: see above REVIEW OF SYSTEMS: Normal appetite No abdominal pain No nausea/vomiting No diarrhea or constipation No history of pancreatitis No numbness/tingling/burning in hands or feet No blurry vision No frequent UTIs +SOB in AM since COVID diagnosis All other systems negative. PHYSICAL EXAM: BP 120/73 (BP Location (NBP): Right arm) Pulse 84 Temp 37.2 ??C (98.9 ??F) (Temporal) Ht 163.8 cm (5' 4.5) Wt 64.6 kg (142 lb 6.4 oz) SpO2 98% BMI 24.07 kg/m?? General appearance: No acute distress, pleasant, HEET: EOMI, moist mucus membranes Neck: Trachea midline, no supraclavicular fat pads Lungs: normal resp effort, no resp distress MSK: moving all 4 extremities normally, normal gait Skin: no acanthosis nigricans, dry and in tact, no wide or violaceous striae Psychological: alert/oriented to place, time and person; normal affect; memory intact Extremities: 2+ DP pulses, normal sensation on feet to 10g monofilament, no wounds on feet, trace erythema L great and 5th toe Laboratory Data: Ordered Medications: Medications 11/09/22 1235 Medication Sig Taking? pravastatin (Pravachol) 40 mg tablet Take 40 mg by mouth daily. Yes TechLITE Pen Needle 31 gauge x 3/16 Needle USE 4 ONCE DAILY WITH LONG ACTION AND SHORT ACTING INSULIN Yes cyclobenzaprine (Flexeril) 5 mg tablet Take 5 mg by mouth 3 times daily as needed for Muscle spasms. Yes Symbicort 80-4.5 mcg/actuation HFA Aerosol Inhaler Inhale 2 puffs into the lungs 2 times daily. Yes humaLOG KwikPen 100 unit/mL Insulin Pen Inject subcutaneously 3 times daily (with meals). Yes mupirocin (Bactroban) 2 % Ointment APPLY TOPICALLY TO THE AFFECTED AREA(S) THREE TIMES A DAY Yes FreeStyle Daniel 2 Sensor Kit Yes FreeStyle Daniel 2 [place] Misc See Admin Instructions. Yes magnesium oxide (Mag-Ox) 400 mg (241.3 mg magnesium) Tablet Take 1 tablet by mouth daily. Yes montelukast (Singulair) 10 mg tablet Take 10 mg by mouth daily. Yes Lantus Solostar U-100 Insulin 100 unit/mL (3 mL) pen Inject subcutaneously daily. Yes Assessment: Noreen Denny is a 62 y.o. female with a PMH of poorly controlled T2DM on MDI and using CGM. PMH also includes thyroid cysts, ?osteoporosis, hyperlipidemia, asthma/COPD, former smoker. Discussion of pt's DM history revealed poor control summer 2021 which appears to have improved per review of CGM data. GMI not calculated on report but appears her A1C should be in the range of ~9%. Pt following healthy diet and exercising daily. Motivated to improve control and A1C per need for cataract surgery and desire for toenail removal. Complications include CKD per PCP referral and neuropathy. Advised review of labs before determining medication adjustments. Will check for RICHAR given pt's body habitus. Need to check on kidney function. May benefit from SGLT-2 inhibitor, but want to confirmT1/RICHAR vs T2 d/t concern for DKA if she is T1DM. Advise against GLP-1 agonist d/t BMI in normal range. Also would need to confirm about sister's thyroid cancer history to see if it's medullary. Willalso check LDL and vitamin D. Case was discussed with Dr. Roverto Burnette who also saw the pt together with this junior underwriter. Plan: --Labs today, will contact with results --Will determine medication adjustments after review of labs --Follow up in 3mo, sooner as needed For patients with Type II Diabetes, if we are starting/changing medication(s) we will provide 1-2 followup visits and thereafter provide a plan for the patient's diabetes to be managed by the primarycare provider It was a pleasure to be involved in the care of Noreen Denny. If you have any questions about the management and treatment plan as outlined above, or if I can be of further assistance, please do not hesitate to contact me. This visit involved 60 minutes total time spent seeing patient today, pre- charting/reviewing previous labs/office notes, placing orders and completing documentation. Park Gross PA-C (she/her/hers) Department of Endocrinology [place], [place] documented in this encounter Plan of Treatment Not on file documented as of this encounter Procedures Procedure Name Priority Date/Time Associated Diagnosis Comments HC CREATININE - NON BLOOD Routine 11/09/2022 2:45 PM EDT Type 2 diabetes mellitus with hyperglycemia, with long-term current use of insulin HC THYROID STIMULATING HORMONE, SERUM Routine 11/09/2022 2:42 PM EDT Type 2 diabetes mellitus with hyperglycemia, with long-term current use of insulin HC PCH ISLET CELL AB GLUTAMIC ACID Routine 11/09/2022 2:42 PM EDT Type 2 diabetes mellitus with hyperglycemia, with long-term current use of insulin HC VENIPUNCTURE Routine 11/09/2022 2:42 PM EDT Type 2 diabetes mellitus with hyperglycemia, with long-term current use of insulin HC LDL CHOLESTEROL, DIRECT Routine 11/09/2022 2:42 PM EDT Type 2 diabetes mellitus with hyperglycemia, with long-term current use of insulin HC HEMOGLOBIN A1C Routine 11/09/2022 2:4 2 PM EDT Type 2 diabetes mellitus with hyperglycemia, with long-term current use of insulin BASIC METABOLIC PANEL (NON-FASTING) Routine 11/09/2022 2:42 PM EDT Type 2 diabetes mellitus with hyperglycemia, with long-term current use of insulin documented in this encounter Results * (ABNORMAL) U Albumin/Cre Ratio (11/09/2022 2:45 PM EDT) Alb/Cr Ratio, Random 78(H) 0 - 29 mcg/mg Cr [facility] Comment: Reference Ranges: <30 [...] 2, 357? 362 U Albumin Conc, Random 78.3 mg/L [facility] U Creatinine 100 mg/dL [facility] Urine 11/09/2022 2:45 PM EDT 11/09/2022 2:54 PM EDT Narrative Resulting Agency Comment Spec In Lab Roverto Burnette MD URINE ORDERABLES Performing Organization Address City/[facility]/ZIP Co de Phone Number [facility] [place] [address] * Vitamin D, 25-Hydroxy (11/09/2022 2:42 PM EDT) 25-OH Vit D Total 51 21 - 100 ng/mL [facility] 25-OH Vit D Interp Sufficient [facility] Blood 11/09/2022 2:42 PM EDT 11/09/2022 2:47 PM EDT Narrative Resulting Agency Comment Spec In Lab Roverto Burnette MD CHEMISTRY ORDERABLES [facility] [place] [address] * TSH [place] (11/09/2022 2:42 PM EDT) TSH 0.99 0.27 - 4.20 mcIU/mL [facility] Comment: Reference Interval (mcIU/mL): Females: ??First Trimester: 0.23-3.88 ??Second Trimester: 0.22-3.90 ??Third Trimester: 0.44-4.66 Blood 11/09/2022 2:42 PM EDT 11/09/2022 2:47 PM EDT Narrative Resulting Agency Comment Spec In Lab Roverto Burnette MD CHEMISTRY ORDERABLES [facility] [place] [address] * (ABNORMAL) Basic Metabolic Panel (non-fasting) (11/09/2022 2:42 PM EDT) Glucose Lvl 124 65 - 199 mg/dL [facility] Comment:Diabetes: >=200 mg/d L plus symptoms BUN 24(H) 8 - 18 mg/dL [facility] Creatinine 1.12 0.70 - 1.20 mg/dL [facility] Sodium 142 135 - 145 mmol/L [facility] Potassium 4.5 3.5 - 5.0 mmol/L [facility] Comment: Please note: ??Patients with WBC >100,000 may have falsely elevated Potassium levels. ??For accurate Potassium quantification in these patients send serum separator tube (gold top) for subsequent determinations. ??Contact the Clinical Chemistry Laboratory if there are any questions. Chloride 105 98 - 107 mmol/L [facility] CO2 25 22 - 31 mmol/L [facility] Anion Gap 12 5 - 15 mmol/L [facility] Calcium 9.8 8.5 - 10.5 mg/dL [facility] Estimated GFR 55(L) >=60 mL/min/1. 73 m?? [facility] Comment: This patient's estimated [...] and symptoms in addition to eGFR. Blood 11/09/2022 2:42 PM EDT 11/09/2022 2:47 PM EDT Narrative Resulting Agency Comment Spec In Lab Roverto Burnette MD CHEMISTRY ORDERABLES Performing Organization Address [facility] Co de Phone Number [facility] [place] [place] [address] * LDL Cholesterol, Direct (11/09/2022 2:42 PM EDT) LDL Chol Direct 54 mg/dL [facility] Comment: Lowest Risk: <100 mg/dL Lower Risk: 100-129 mg/dL Borderline High Risk: 130-159 mg/dL High Risk: 160-189 mg/dL Very High Risk: >dg=687 mg/dL Blood 11/09/2022 2:42 PM EDT 11/09/2022 2:47 PM EDT Narrative Resulting Agency Comment Spec In Lab Roverto Burnette MD CHEMISTRY ORDERABLES Performing Organization Address [facility] de Phone Number [facility] [place] [address] * (ABNORMAL) Hemoglobin A1c (11/09/2022 2:42 PM EDT) Hemoglobin A1C 8.3(H) 4.3 - 5.6 % [facility] Comment: Reference Range: 4.3 [...] Mellitus, Diabetes Care 2013; 36: Suppl. 1, S67-29 Est Avg Gluc 192 mg/dL [facility] Comment: eAG equivalents for HbA1c percentages: HbA1c(%) ?eAG(mg/dL) 6.0 ?126 6.5 ?140 7.0 ?154 7.5 ?169 8.0 ?183 8.5 ?197 9.0 ?212 9.5 ?226 10.0 ? 240 Limitations: The eAG calculation has not been validated on women, individuals below 18 years old and above 70 years old, and individuals with hemoglobinopathies. Additional resources are available on the ADA website. Arthur DONOHUE, Chloe J, Compa R, et al. ??Translating the A1C assay into estimated average glucose values. ??Diabetes Care 2008:31(8):9766-1914. Blood 11/09/2022 2:42 PM EDT 11/09/2022 2:47 PM EDT Narrative Resulting Agency Comment Spec In Lab Roverto Burnette MD CHEMISTRY ORDERABLES [facility] [place] [address] * GAD65 Antibody Assay (11/09/2022 2:42 PM EDT) GAD65 Ab 0.02 <=0.02 nmol/L [facility] Comment: ADDITIONAL INFORMATION This test was developed and its performance characteristics determined by [facility] in a manner consistent with CLIA requirements. This test has not been cleared or approved by the U.S. Food and Drug Administration. Test Performed by: [facility] - [address] [address] [employer]: Rob Carbajal M.D. Ph.D.; CLIA# [id number] Blood 11/09/2022 2:42 PM EDT 11/09/2022 3:32 PM EDT Narrative Resulting Agency Comment Spec In Lab Roverto Burnette MD CHEMISTRY ORDERABLES [facility] [place] [address] documented in this encounter Visit Diagnoses Diagnosis Type 2 diabetes mellitus with hyperglycemia, with long-term current use of insulin documented in this encounter Care Teams Manager Product Design Relationship Specialty Start Date End Date Joey Ambrose, REED [address] [place] [address] [place] [address] PCP - General Family Medicine 11/09/22 documented as of this encounter
--- OUTSIDE RECORDS SUMMARY | 2023-08-17 20:11 | XMS_ITS ---
Author Organization Unknown Address [address] [place] [phone] Phone Care Team Providers Care Terra Cotta Roofer Helper Name Role Phone MARIAMA Sanchez Attending Unavailable [...] Code Code Sys tem Peripheral vascular disease 03/20/2023 [id number] SNOMED-CT Personal Care Team Section Performer Name Performer Role Active Date Inactive Da te
--- OUTSIDE RECORDS SUMMARY | 2023-08-17 20:11 | XMS_ITS | Clinical Summary ---
Author Organization [facility] Address [facility] [address] Care Team Providers Care Photo Finisher Name Role Phone Joey Ambrose APRN Primary Care Provider + Allergies Active Allergy Reactions Criticality Noted Date Comments Animal Dander 11/09/2022 Bee Pollen 11/09/2022 Pollen extracts, grass pollen. House Dust 11/09/2022 Medications Medication Sig Dispensed Refills Start Date End Date Status pravastatin (Pravachol) 40 mg tablet Take 40 mg by mouth daily. Active TechLITE Pen Needle 31 gauge x 3/16 Needle USE 4 ONCE DAILY WITH LONG ACTION AND SHORT ACTING INSULIN 10/24/2022 Active cyclobenzaprine (Flexeril) 5 mg tablet Take 5 mg by mouth 3 times daily as needed for Muscle spasms. Active Symbicort 80-4.5 mcg/actuation HFA Aerosol Inhaler Inhale 2 puffs into the lungs 2 times daily. 10/24/2022 Active humaLOG KwikPen 100 unit/mL Insulin Pen Inject subcutaneously 3 times daily (with meals). 09/26/2022 Active mupirocin (Bactroban) 2 % Ointment APPLY TOPICALLY TO THE AFFECTED AREA(S) THREE TIMES A DAY Active FreeStyle Daniel 2 Sensor Kit 11/07/2022 Active FreeStyle Daniel 2 [place] Misc See Admin Instructions. 08/17/2022 Active magnesium oxide (Mag-Ox) 400 mg (241.3 mg magnesium) Tablet Take 1 tablet by mouth daily. Active montelukast (Singulair) 10 mg tablet Take 10 mg by mouth daily. Active glipiZIDE XL (Glucotrol XL) 10 mg ER 24 hr tabletIndications :Type 2 diabetes mellitus with hyperglycemia, with long-term current use of insulin Take 1 tablet by mouth daily. 90 tablet 1 11/10/2022 Active losartan (Cozaar) 25 mg tabletIndications :Type 2 diabetes mellitus with hyperglycemia, with long-term current use of insulin Take 1 tablet by mouth daily. 90 tablet 3 02/08/2023 02/08/2024 Active omeprazole (PriLOSEC) [address] capsule Take 20 mg by mouth daily. Active semaglutide (Rybelsus) 7 mg tabletIndications :type 2 diabetes mellitus Take 1 tablet by mouth daily. Take on empty stomach, don't lie down, eat, drink or take other meds for 30 mins after taking this medication Indications: type 2 diabetes mellitus 90 tablet 3 06/28/2023 Active insulin aspart U-100 (NovoLOG Flexpen U-100 Insulin) 100 unit/mL (3 mL) Insulin PenIndications:Ty pe 2 diabetes mellitus with hyperglycemia, with long-term current use of insulin Inject 15 Units subcutaneously 3 times daily (with meals). 45 mL 3 06/28/2023 Active Lantus Solostar U-100 Insulin 100 unit/mL (3 mL) penIndications:Ty pe 2 diabetes mellitus with hyperglycemia, with long-term current use of insulin Inject 35 Units subcutaneously daily. 45 mL 3 07/02/2023 Active Encounters Date Type Department Care Team Description 06/29/2023 Telephone [place] [phone] Shawn Marc RN Medication Problem 06/28/2023 10:30 AM EDT Office [place] [phone] Roverto Burnette MD Type 2 diabetes mellitus with hyperglycemia, with long-term current use of insulin 06/28/2023 Travel 05/21/2023 Refill [place] [phone] Park Gross PA Type 2 diabetes mellitus with hyperglycemia, with long-term current use of insulin from Last 3 Months Social History Tobacco Use Types Packs/Day Years Used Date Smoking Tobacco: Former Cigarettes Q uit: 2022 Smokeless Tobacco: Never Tobacco Cessation:Counseling Given: Not Answered Sex and Gender Information Value Date Recorded Sex Assigned at Not on file Gender Identity Not on file Sexual Orientation Not on file Last Filed Vital Signs Vital Sign Reading [...] Mass Index 30.18 06/28/2023 9:56 AM EDT Plan of Treatment Health Maintenance Due Date Last Done Comments CT Colonography 1959 Colonoscopy 1959 Colorectal Cancer Screening 1959 FIT DNA 1959 FIT 1959 Sigmoidoscopy (10 year) with FIT yearly 1959 Sigmoidoscopy 1959 HIV screen 09/26/1977 Hepatitis C Screening 09/26/1977 Tdap adult 09/26/1978 Tetanus vaccine 09/26/1978 HPV test 09/26/1989 PAP Smear 09/26/1989 Breast Cancer Share Decision Needed 1999 Breast Cancer screening 1999 Zoster vaccine (1 of 2) 09/26/2009 Advance Directive 09/26/2014 Covid-19 Vaccine (1 - season) 2022 Influenza (Flu) vaccine (1 o f 1 - Influenza standard series) 10/07/2023 Procedures Procedure Name Priority Date/Time Associated Diagnosis [...] hyperglycemia, with long-term current use of insulin from Last 3 Months Results * (ABNORMAL) U Albumin/Cre Ratio (06/28/2023 11:19 AM EDT) Alb/Cr Ratio, Random 108(H) 0 - 29 mcg/mg Cr [facility] U Albumin Conc, Random 55.0 mg/L [facility] U Creatinine 51 mg/dL [facility] Urine 06/28/2023 11:1 9 AM EDT 06/28/2023 11:28 AM EDT Narrative Resulting Agency Comment Spec In Lab Roverto Burnette MD URINE ORDERABLES [facility] [place] [address] * (ABNORMAL) Creatinine (06/28/2023 11:17 AM EDT) Creatinine 1.13 0.70 - 1.20 mg/dL [facility] Estimated GFR [...] Burnette MD CHEMISTRY ORDERABLES Performing Organization Address [facility] Co de Phone Number [facility] [place] [address] * TSH (06/28/2023 11:17 AM EDT) TSH 2.32 0.27 - 4.20 mcIU/mL [facility] Comment: Reference Interval (mcIU/mL): Females: ??First Trimester: 0.23-3.88 ??Second Trimester: 0.22-3.90 ??Third Trimester: 0.44-4.66 Blood 06/28/2023 11:1 7 AM EDT 06/28/2023 11:33 AM EDT Narrative Resulting Agency Comment Spec In Lab Roverto Burnette MD CHEMISTRY ORDERABLES Performing Organization Address [facility] Co de Phone Number [facility] [place] [address] * (ABNORMAL) Hemoglobin A1c (06/28/2023 11:17 AM [...] 36: Suppl. 1, S67-29 Est Avg Gluc 191 mg/dL [facility] Blood 06/28/2023 11:1 7 AM EDT 06/28/2023 11:33 AM EDT Narrative Resulting Agency Comment Spec In Lab Roverto Burnette MD CHEMISTRY ORDERABLES [facility] [place] [address] from Last 3 Months Care Teams Photo Finisher Relationship Specialty Start Date End Date Joey Ambrose, SWEATBAND PERFORATOR [address] [place] [address] [place] [address] PCP - General Family Medicine 11/09/22
--- OUTSIDE RECORDS SUMMARY | 2023-08-17 20:11 | XMS_ITS | Continuity of Care Document ---
Author Organization [email or web address] [facility], [facility] Address [address] [place] [address] [address] [place] [address] Care Team Providers Care Professor Of Food Biochemistry Name Role Phone JESSI SAENZ Primary Care Provider Assessment No assessment recorded. Plan of Treatment Reminders Order Date Submit Date Provider Last Modified By Organization Details Last Modified Time Details Appointments Acute 10 2023 01:54P M JEN HARDY Not available Not available Not available Lab urinalysi s, dipstick 2023 024 [facility], [address] [place] [address], [address], [place], [address], 08/17/2023 16:24:41 culture, urine + sensitivi ty 2023 [email or web address] [place], [address] 08/17/2023 18:46:20 microscop ic method, urine 2023 [address] [place], [address] 08/17/2023 18:50:38 Referral None recorded. Procedures None recorded. Surgeries None recorded. Imaging None recorded. Medication Orders prednison e 20 mg tablet 2023 024 [facility], [address] [facility], [place], [address], 08/17/2023 16:42:35 ipratropi um 0.5 mg-albute rol 3 mg (2.5 mg base)/3 mL nebulizat ion soln 2023 024 [facility], [address] [place], [address], 08/17/2023 17:33:19 cephalexi n 500 mg capsule 2023 024 [facility], [address] [place], [address], 08/17/2023 16:42:34 Patient TargetsNo targets recorded. Patient Instructions Encounter Date Encounter Id Patient Instructions Last Modified By Organization Details Last Modified Time 08/17/2023 [id number] 1. Your urine di p here is [...] Range Abnormal Flag LastModifiedBy Organization Detail LastModifiedTime 08/17/1908/17/2023 urina lysis , dipst ick Leukocytes Trace Not Available [address], [place], [address], 08/17/2023 16:05:03 08/17/1908/1608/17/2023 urina lysis , dipst ick Nitrite positi ve Not Available [address], [place], [address], 08/17/2023 16:05:03 08/17/19 24 08/17/2023 urina lysis , dipst ick Urobilinogen .2 Not Available Frances knight[address], [place], [address], 08/17/2023 16:05:03 08/17/19 24 08/17/2023 urina lysis , dipst ick Protein 300 Not Available Anand [address], [place], [address], 08/17/2023 16:05:03 08/17/19 24 08/17/2023 urina lysis , dipst ick pH 7.5 Not Available Anand [address], [place], [address], 08/17/2023 16:05:03 08/17/19 24 08/17/2023 urina lysis , dipst ick Blood Negati ve Not Available [address], [place], [address], 08/17/2023 16:05:03 08/17/19 24 08/17/2023 urina lysis , dipst ick Specific [place] 1.010 Not Available [address], [place], [address], 08/17/2023 16:05:03 08/17/19 24 08/17/2023 urina lysis , dipst ick Ketone Trace Not Available Anand [address], [place], [address], 08/17/2023 16:05:03 08/17/19 24 08/17/2023 urina lysis , dipst ick Bilirubin Small Not Available Anand [address], [place], [address], 08/17/2023 16:05:03 08/17/19 24 08/17/2023 urina lysis , dipst ick Glucose Negati ve Not Available [address], [place], [address], 08/17/2023 16:05:03 08/17/19 24 08/17/2023 urina lysis , dipst ick Appearance Clear Not Available Jose [address], [place], [address], 08/17/2023 16:05:03 08/17/19 24 08/17/2023 urina lysis , dipst ick Color Dark Yellow Not Available [address], [place], [address], 08/17/2023 16:05:03 Result Notes None recorded. Problems Name Status Onset Date Resolution Date Notes Provider Name and Address Organization Details Recorded Time Cough Active [address], [place], [address], [facility] 07/04/2023 13:46:24 Pneumonia Active [address], [place], [address], [facility] 07/04/2023 15:02:31 Asthma Active [address], [place], [address], [facility] 08/17/2023 16:41:58 Dysuria Active [address], [place], [address], [facility] 08/17/2023 16:48:50 Problem Notes None recorded. Procedures Surgical History Date Name Laterality Status Provider Name and Address Organization Details Recorded Time 4 Nebulizer tx completed [address], [facility] [address], [facility] 08/17/2023 17:33:01 4 Nebulizer tx completed [address], [facility] [address], [facility] 07/04/2023 15:07:04 Imaging Results None recorded. Procedure Notes None recorded. Medical Equipment None [...] Updated DateTime 4 163.83 cm 29.2 kg/m2 77649.6 9 g 98.1 [degF] 94 % 94 % 98 /min 20 /min 96 % 96 % 96 /min 112 mm[Hg] 75 mm[Hg] Rozina Weller MA [facility] 4 15:52:33 Social History Question Answer Notes LastModified by Organizat ion Details LastModified Time Tobacco Smoking Status Former Smoker Liliana Hopperhussain [facility], [facility] 07/04/2023 12:23:26 When Did You Quit Smoking? 1-5yearssinc [email or web address] Information not available 07/04/2023 What Was The Date Of Your Most Recent Tobacco Screening? 08/17/2023 [email or web address] Information not available 08/17/2023 Has Tobacco Cessation Counseling Been Provided? Yes Information not available 07/04/2023 On What Date Was Tobacco Cessation Counseling Provided? 08/17/2023 [email or web address] Information not available 08/17/2023 Do You Or [...] tetanus toxoid, preservative free, adsorbed 01/05/2017 completed RAUDEL Guaman, [facility]. 08/17/2023 16:07:40 Past Encounters Encounter ID Performer Location Encounter Start Date Encounter Closed Date Diagnosis/Indication Diagnosis SNOMED-CT Code [id number] [address] [place] [address] 08/17/2023 13:55:26 08/17/2023 17:19:45 Dysuria [id number] Asthma [id number] Health Concerns Section Related Observation LastModified by Organization Detai ls LastModified Time None Recorded Concern Status LastModified by Organization Details LastModified Time None Recorded Payers Encounter Date Sequence Insurance Name Policy Number Policy Roberson Covered Member ID Roberson Member ID Guarantor Name 08/17/2023 1 [facility] (MEDICAID) Noreen Denny [id number] Noreen Denny Notes Date Note Type Note Provider Name and Address Organization Details Recorded Time 08/17/2023 text/html HPI Notes: Mary brown is [...] months. 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 [address], [place], [address], [facility]. 08/17/2023 17:34:49 OBGyn Episode No OBEpisode recorded.
--- OUTSIDE RECORDS SUMMARY | 2023-08-17 20:11 | XMS_ITS | Continuity of Care Document ---
Author Organization [facility], [facility] Address [address] [place] [address] [address] [place] [address] Care Team Providers Care X Ray Service Technician Name Role Phone JESSI SAENZ Primary Care Provider [phone] Assessment No assessment recorded. Plan of Treatment Reminders Order Date Submit Date Provider Last Modified By Organization Details Last Modified Time Details Appointments Acute 10 2023 01:54P Daniel CABRERA Not available Not available Not available Lab rapid strep group A, throat 2023 024 [facility], [address] [place] [address], [facility] [address], [place], [address], 07/04/2023 15:03:14 influenza virus A + B + SARS-CoV- 2 (COVID19) Ag panel, rapid IA, upper respirato ry specimen 2023 024 [facility], [address] [place] [address], [address], [place], [address], 07/04/2023 15:03:17 Referral None recorded. Procedures None recorded. Surgeries None recorded. Imaging XR, chest, 2 view 2023 024 [facility], [address], [address] 07/18/2023 08:57:41 Medication Orders prednison e 20 mg tablet 2023 024 [facility], [address] [place], [address], 08/17/2023 15:55:25 doxycycli ne hyclate 100 mg capsule 2023 024 [facility], [address] [place], [address], 08/17/2023 15:54:49 Patient TargetsNo targets recorded. Patient Instructions Encounter Date Encounter Id Patient Instructions Last Modified By Organization Details Last Modified Time 07/04/2023 [id number] 1. X-rays have been ordered and will [...] prescription for antibiotic. Not available 07/04/2023 13:48:01 Reason for Referral None Reported. Results Created Date Observation Date Name Description Value Unit Range Abnormal Flag LastModifiedBy Organization Detail LastModifiedTime 07/04/19 24 07/04/2023 influ mike virus A + B + SARS- CoV-2 (COVI D19) Ag panel , rapid IA, upper respi rator y speci men Influenza A positi ve Not Available [address], [place], [address], 07/04/2023 12:31:18 07/04/19 24 07/04/2023 influ mike virus A + B + SARS- CoV-2 (COVI D19) Ag panel , rapid IA, upper respi rator y speci men Influenza B positi ve Not Available [address] [address], [place], [address], 07/04/2023 12:31:18 07/04/19 24 07/04/2023 influ mike virus A + B + SARS- CoV-2 (COVI D19) Ag panel , rapid IA, upper respi rator y speci men SARS-COV-2 positi ve Not Available [address], [place], [address], 07/04/2023 12:31:18 07/04/19 24 07/04/2023 rapid strep group A, throa t Strep negati ve Not Available [address], [place], [address], 07/04/2023 12:30:41 07/04/19 24 07/04/2023 XR, chest , 2 view No observ ation record ed. [email or web address] Not Available 07/05/2023 07:27:39 07/04/19 24 07/04/2023 XR, chest , 2 view Patien t Name: MARY DENNY Unit #: [id number] Loc: DI Orderi ng [facility] er: Savanna Cabrera Accoun t #: [id number] Status : PRE CLI Primar [...] DOSE DELIVE RED: Ordere d By: Savanna Cabrera CC: ------ ------ ------ ------ ------ ------ ------ ------ ------ ------ ------ ------ - Dictat ed By: Hollie Ayala [id number] Transc ribed By: Lexa Hernandez 143 This is privil eged, confid ential inform ation intend ed only for the provid er named. Any use or distri bution by any person other than this provid er is strict ly prohib ited. If you receiv e this report in error, please notify us immedi ately at [phone] and return the origin al report to us at the addres s above. Thank- you. [email or web address] [facility] [address], [place], [address] 07/18/2023 08:57:41 Result Notes None recorded. Problems Name Status Onset Date Resolution Date Notes Provider Name and Address Organization Details Recorded Time Cough Active [address], [place], [address], [facility] 07/04/2023 13:46:24 Pneumonia Active [address], [facility] [address], [facility] 07/04/2023 15:02:31 Asthma Active [address], [facility] [address], [facility] 08/17/2023 16:41:58 Dysuria Active [address], [place], [address], [facility] 08/17/2023 16:48:50 Problem Notes None recorded. Procedures Surgical History Date Name Laterality Status Provider Name and Address Organization Details Recorded Time 4 Nebulizer tx completed [address], [place], [address], [facility] 08/17/2023 17:33:01 4 Nebulizer tx completed [address], [place], [address], [facility] 07/04/2023 15:07:04 Imaging Results None recorded. Procedure [...] and Address Organization Details Last Updated DateTime 163.83 cm 30.1 kg/m2 07365.4 4 g 98.2 [degF] 97 % 97 % 93 /min 18 /min 132 mm[Hg] 82 mm[Hg] Liliana Vale [facility] 12:21:27 Social History Question Answer Notes LastModified by Organizat ion Details LastModified Time Tobacco Smoking Status Former Smoker Liliana Vale rocky, [facility] 07/04/2023 12:23:26 When Did You Quit Smoking? 1-5yearssinc [email or web address] te Information not available 07/04/2023 What Was The Date Of Your Most Recent Tobacco Screening? 08/17/2023 [email or web address] Information not available 08/17/2023 Has Tobacco Cessation Counseling Been Provided? Yes Information not available 07/04/2023 On What Date Was Tobacco Cessation Counseling Provided? 08/17/2023 [email or web address] Information not available 08/17/2023 Do You Or [...] preservative free, adsorbed 01/05/2017 completed RAUDEL Guaman, [facility] 08/17/2023 16:07:40 Past Encounters Encounter ID Performer Location Encounter Start Date Encounter Closed Date Diagnosis/Indication Diagnosis SNOMED-CT Code [id number] [address] [place] [address] 07/04/2023 10:37:13 07/04/2023 14:05:00 Pneumonia [id number] Health Concerns Section Related Observation LastModified by Organization Detai ls LastModified Time None Recorded Concern Status LastModified by Organization Details LastModified Time None Recorded Payers Encounter Date Sequence Insurance Name Policy Number Policy Roberson Covered Member ID Roberson Member ID Guarantor Name 07/04/2023 1 [facility] (MEDICAID) Noreen Denny [id number] Noreen Denny Notes Date Note Type Note [...] a nebulizer at home. [address], [place], [address], [facility]. 07/04/2023 15:26:26 OBGyn Episode No OBEpisode recorded.
--- OUTSIDE RECORDS SUMMARY | 2023-08-17 20:11 | XMS_ITS | Encounter Summary ---
Author Organization [facility] Address [facility] [place] [address] Care Team Providers Care Accountant Systems Name Role Phone Joey Ambrose APRN Primary Care Provider + Reason for Visit * Reason Comments Medication Refill Encounter Details Date Type Department Care Team (Late st Contact Info) Description 05/21/2023 [place] [address] Park Gross PA [facility] [place] [address] Type 2 diabetes mellitus with hyperglycemia, with [...] encounter Miscellaneous Notes * Telephone Encounter - Shani Hardwick RN - 05/21/2023 2:26 PM EDT Called home/preferred number in chart, person answered and said that the patient does not live there anymore, they recommended to call the patient's cellphone number Called and spoke with patient. Requested that she confirm current medications for diabetes: Lantus 20 units daily - has missed about 30% of doses in the past month due to defective pens. Insulin lispro kwikpen 10 units before meals, three times a day Patient states, the doctor gave me a Novolog flexpen and it works much better. The other one, Lispro, does not have any effect 3. Patient is still taking glipizide, though this was to be discontinued as of 02/16/2023. Patient denies recent hypoglycemia, states she did experience hypoglycemia once or twice a night several weeks ago, no episodes recently States glucose has been running high, using Daniel CGM. Was on oral steroids for upper respiratory infection last week. Patient states she has not been exercising in the last few weeks due to cataractsurgery and upper respiratory infection Patient reports 3 Lantus pens have been defective in the last few months, notes the plunger locks and is not useable, pharmacy advised that she contact master pilot. Advised that Park COLLADO had recommended in February to discontinue glipizide as she is on basal/bolusinsulin, will send message to provider to confirm plan. Advised that patient contact [employer], customer service number provided. Confirmed that current Lantus pen is working well. Patient has appt with Dr. Burnette on 06/28/2023 Updated demographics in chart to reflect new phone # and address per patient documented in this encounter Plan of Treatment Not on file documented as of this encounter Visit Diagnoses Diagnosis Type 2 diabetes mellitus with hyperglycemia, with long-term current use of insulin documented in this encounter Care Teams Accountant Systems Relationship Specialty Start Date End Date Joey Ambrose APRN [address] [place] [address] [place] [address] PCP - General Family Medicine 11/09/22 documented as of this encounter
--- OUTSIDE RECORDS SUMMARY | 2023-08-17 20:11 | XMS_ITS | Encounter Summary ---
Author Organization [facility] [place] [address] Care Team Providers Care Chief Diversity Officer Name Role Phone Joey Ambrose APRN Primary Care Provider + Encounter Details Date Type Department Care Team (Late st Contact Info) Description 11/10/2022 Telephone [place] [phone] Park Gross PA [facility] [place] [address] Social History Tobacco Use Types Packs/Day Years Used Date Smoking Tobacco: Former Cigarettes Q uit: 2022 Smokeless Tobacco: Never Sex and Gender Information Value Date Recorded Sex Assigned at Not on file Gender Identity Not on file Sexual Orientation Not on file documented as of this encounter Miscellaneous Notes * Telephone Encounter - Park Gross PA - 11/10/2022 4:58 PM EDT Call to patient to relay lab results and plan for medication changes. Advised starting glipizide 10mg/day. Pt expressed understanding. She also indicated that in the past she has taken Trulicity and Ozempic, had a very strong negativereaction to Ozempic. Park Gross PA-C Department of Endocrinology [place], [place] documented in this encounter Plan of Treatment Not on file documented as of this encounter Visit Diagnoses Not on filedocumented in this encounter Care Teams Chief Diversity Officer Relationship Specialty Start Date End Date Joey Ambrose, REED [address] [place] [address] [place] [address] PCP - General Family Medicine 11/09/22 documented as of this encounter
--- OUTSIDE RECORDS SUMMARY | 2023-08-17 20:11 | XMS_ITS | Encounter Summary ---
[place] [address] Care Team Providers Care Tapper Hand Name Role Phone Joey Ambrose APRN Primary Care Provider + Encounter Details Date Type Department Care Team (Late st Contact Info) Description 04/17/2023 Telephone [place] [phone] Veronica Rios RN Social History Tobacco Use Types Packs/Day Years Used Date Smoking Tobacco: Former Cigarettes Q uit: 2022 Smokeless Tobacco: Never Sex and Gender Information Value Date Recorded Sex Assigned at Not on file Gender Identity Not on file Sexual Orientation Not on file documented as of this encounter Miscellaneous Notes * Telephone Encounter - Veronica Rios RN - 04/17/2023 2:44 PM EDT Copied from [facility] #[id number]. Topic: Specialty Dept CRMs - Generic Call >> Apr 17, 2023 9:55 AM Tristin Garcia wrote: Specialist: HEAVEN Tolentino Relationship (if other than patient-full name): self Reason for Call: Patient has cataract surgery tomorrow and is wondering if she should take the fulldose of her insulin as she cannot eat before the surgery? Please call to discuss. documented in this encounter Plan of Treatment Not on file documented as of this encounter Visit Diagnoses Not on filedocumented in this encounter Care Teams Tapper Hand Relationship Specialty Start Date End Date Joey Ambrose APRN [address] [place] [address] [place] [address] PCP - General Family Medicine 11/09/22 documented as of this encounter
--- OUTSIDE RECORDS SUMMARY | 2023-08-17 20:11 | XMS_ITS | Encounter Summary ---
Author Organization [facility] [place] [address] Care Team Providers Care Associate Director Financial Aid Name Role Phone Joey Ambrose APRN Primary Care Provider + Encounter Details Date Type Department Care Team (Latest Contact Info) Description 11/09/2022 Travel Social History Tobacco Use Types Packs/Day Years [...] on filedocumented in this encounter Care Teams Associate Director Financial Aid Relationship Specialty Start Date End Date Joey Ambrose APRN [address] [place] [address] [place] [address] PCP - General Family Medicine 11/09/22 documented as of this encounter
--- OUTSIDE RECORDS SUMMARY | 2023-08-17 20:11 | XMS_ITS | Encounter Summary ---
Author Organization [facility] Address [facility] [place] [address] Care Team Providers Care Community Pharmacist Name Role Phone Joey Ambrose APRN Primary Care Provider + Encounter Details Date Type Department Care Team (Late st Contact Info) Description 02/08/2023 10:30 AM EST Office Visit [place] [phone] Park Gross PA [facility] [place] [address] Type 2 diabetes mellitus with hyperglycemia, with [...] Sign Reading Time Taken Comments Blood Pressure 140/78 02/08/2023 10:05 AM EST Pulse 96 02/08/2023 10:05 AM EST Temperature 35.9 ??C (96.7 ??F) 02/08/2023 10:[address] Respiratory Rate - - Oxygen Saturation 96% 02/08/2023 10:05 AM EST Inhaled Oxygen Concentration - - Weight 69.4 kg (153 lb) 02/08/2023 10:05 AM EST Height 163.8 cm (5' 4.5) 02/08/2023 10:05 AM ES T Body Mass Index 25.86 02/08/2023 10:05 AM EST documented in this encounter Patient Instructions * Patient Instructions* Park Gross PA - 02/08/2023 10:30 AM EST --start losartan 25mg/day, advise BP check with PCP --will call with instructions (mobile number) about diabetes medication adjustments --Follow up in 3mo documented in this encounter Progress Notes * Park Gross PA - 02/08/2023 10:30 AM EST Diabetes Visit Note Name: Noreen Denny : 1960 PCP: Joey Ambrose, REED Date of visit: 02/08/2023 Reason for visit: follow up T2DM Plan from previous visit with HEAVEN Marc on 11/09/22: --Labs today, will contact with results --Will determine medication adjustments after review of labs --Follow up in 3mo, sooner as needed Call to patient to relay lab results and plan for medication changes. Advised starting glipizide 10mg/day. Pt expressed understanding. She also indicated that in the past she has taken Trulicity and Ozempic, had a very strong negativereaction to Ozempic. Interval history: Patient concerns: pt says that DM has been out of control. Pt was having lows after starting glipizide. Decreased long acting insulin to 14U and eating sweets before bed to avoid overnight lows. Now at 16U of Lantus. Takes 4 units TID of mealtime insulin. Notable medical comorbidities: CKD, HTN Current DM meds: glipizide 10mg/day, humalog, lantus CV risk reducing meds: pravastatin Glucose monitoring: daniel 2 Prescriber information: Park Gross PA-C ROS: Constitutional: Denies fever, fatigue, recent weight gain/loss Endocrine: Denies increased thirst or urination HEENT: Denies recent vision changes, dental issues Cardiovascular: Denies recent chest pain, heart palpitations Respiratory: Denies shortness of breath at rest GI: Denies diarrhea, constipation : Denies frequent/recent urinary tract infections Neurological: Denies headaches, dizziness Skin/Feet: Denies current diabetic foot ulcers Physical Exam: BP 140/78 (BP Location (NBP): Right arm) Pulse 96 Temp 35.9 ??C (96.7 ??F) (Temporal) Ht 163.8 cm (5' 4.5) Wt 69.4 kg (153 lb) SpO2 96% BMI 25.86 kg/m?? General appearance: Alert and cooperative. No acute distress. HEENT: EOMI Resp: breathing comfortably on room air, no audible stridor, normal respiratory effort Neuro: No observable neuro defects Skin: no visible acanthosis, jaundice or pallor Psych: normal affect, alert and oriented Laboratory Data: Ordered Medications: Medications 02/08/23 1016 Medication Sig Taking? glipiZIDE XL (Glucotrol XL) 10 mg ER 24 hr tablet Take 1 tablet by mouth daily. Yes pravastatin (Pravachol) 40 mg tablet Take 40 [...] 2 Sensor Kit Yes FreeStyle Daniel 2 [place] Misc See Admin Instructions. Yes magnesium oxide (Mag-Ox) 400 mg (241.3 mg magnesium) Tablet Take 1 tablet by mouth daily. Yes montelukast (Singulair) 10 mg tablet Take 10 mg by mouth daily. Yes Lantus Solostar U-100 Insulin 100 unit/mL (3 mL) pen Inject subcutaneously daily. Yes losartan (Cozaar) 25 mg tablet Take 1 tablet by mouth daily. Assessment: Noreen Denny is a 62 y.o. female with a PMH of poorly controlled T2DM on MDI and using CGM. PMH also includes thyroid cysts, ?osteoporosis, hyperlipidemia, asthma/COPD, former smoker. Reviewed CGM which was active 68% of the time, did not pick and shovel man on readings after 6pm for unclear reason, pt says she's been scanning. Advised of need to consult with attending MD and will contact pt with instructions. We also discussed her BP and GFR from labs done last visit which was 55. Advised starting an RASHI orARB for kidney protection and BP control. Pt remembers being on lisinopril and having dry cough, sowill start low dose losartan as BP is just above goal. Plan: --start losartan 25mg/day, advise BP check with PCP --will call with instructions (mobile number) about diabetes medication adjustments --Follow up in 3mo This was a 25 minute visit spent [id number] with patient discussing diabetes management and providing education including but not limited to information in history and plan. An additional 20 minutes was spent reviewing previous notes and labs, ordering labs and medications, in case consultation & completing documentation. I have reviewed the plan outlined above with the patient and the patient has verbalized understanding. Park Gross PA-C Department of Endocrinology [place], [place] documented in this encounter Plan of Treatment Not on file documented as of this encounter Results * (ABNORMAL) Hemoglobin A1c (02/08/2023 11:36 AM EST) Hemoglobin A1C 7.6(H) 4.3 - 5.6 % [facility] Comment: Reference Range: 4.3 - [...] Mellitus, Diabetes Care 2013; 36: Suppl. 1, M75-45 Est Avg Gluc 173 mg/dL [facility] Comment: Note: The eAG calculation has not been proven valid for women, individuals below 18 years old or above 70 years old, or individuals with hemoglobinopathies. Estimated average glucose (eAG) is calculated from the equation described in: rAthur DONOHUE, Chloe J, Compa R, et al. ??Translating the A1C assay into estimated average glucose values. ??Diabetes Care 2008:31(8):5864-6673. Additional resources are available on the ADA website (diabetes.org). Blood 02/08/2023 11:3 6 AM EST 02/08/2023 11:49 AM EST Narrative Resulting Agency Comment Spec In Lab Ajay Ferrari MD CHEMISTRY ORDERABLES [facility] [place] [address] documented in this encounter Visit Diagnoses Diagnosis Type 2 diabetes mellitus with hyperglycemia, with long-term current use of insulin documented in this encounter Care Teams Community Pharmacist Relationship Specialty Start Date End Date Joey Ambrose APRN [address] [place] [address] [place] [address] PCP - General Family Medicine 11/09/22 documented as of this encounter
--- OUTSIDE RECORDS SUMMARY | 2023-08-17 20:11 | XMS_ITS | Encounter Summary ---
Author Organization [facility] [place] [address] Care Team Providers Care Jukebox Routeman Name Role Phone Joey Ambrose APRN Primary Care Provider + Encounter Details Date Type Department Care Team (Late st Contact Info) Description 11/10/2022 Telephone [place] [phone] Veronica Rios RN Social History Tobacco Use Types Packs/Day Years Used Date Smoking Tobacco: Former Cigarettes Q uit: 2022 Smokeless Tobacco: Never Sex and Gender Information Value Date Recorded Sex Assigned at Not on file Gender Identity Not on file Sexual Orientation Not on file documented as of this encounter Miscellaneous Notes * Telephone Encounter - Veronica Rios RN - 11/10/2022 11:07 AM EDT Copied from [facility] #[id number]. Topic: Specialty Dept CRMs - Generic Call >> Nov 10, 2022 10:35 AM Lynette Robins wrote: Specialist: Park Gross PA Relationship (if other than patient-full name): self Reason for Call: Patient stated she received a call from Park last night about 530 to review labsand medication. Patient was unable to take the call and was hoping to check on that as she is currently at the pharmacy. Please call to discuss. documented in this encounter Plan of Treatment Not on file documented as of this encounter Visit Diagnoses Not on filedocumented in this encounter Care Teams Jukebox Routeman Relationship Specialty Start Date End Date Joey Ambrose, EVENT STAFF MEMBER [address] [place] [address] [place] [address] PCP - General Family Medicine 11/09/22 documented as of this encounter
--- OUTSIDE RECORDS SUMMARY | 2023-08-17 20:11 | XMS_ITS | Encounter Summary ---
Author Organization [facility] [place] [address] Care Team Providers Care Offal Trimmer Name Role Phone Joey Ambrose APRN Primary Care Provider + Encounter Details Date Type Department Care Team (Late st Contact Info) Description 04/17/2023 Tele[place] [phone] Veronica Rios RN Social History Tobacco Use Types Packs/Day Years Used Date Smoking Tobacco: Former Cigarettes Q uit: 2022 Smokeless Tobacco: Never Sex and Gender Information Value Date Recorded Sex Assigned at Not on file Gender Identity Not on file Sexual Orientation Not on file documented as of this encounter Miscellaneous Notes * Telephone Encounter - Veronica Rios RN - 04/17/2023 4:17 PM EDT Called pt back and left message with providers instructions Let her know to keep the Lantus dose the same and she'll hold mealtime insulin until she starts eating again. documented in this encounter Plan of Treatment Not on file documented as of this encounter Visit Diagnoses Not on filedocumented in this encounter Care Teams Offal Trimmer Relationship Specialty Start Date End Date Joey Ambrose APRN [address] [place] [address] [place] [address] PCP - General Family Medicine 11/09/22 documented as of this encounter
--- OUTSIDE RECORDS SUMMARY | 2023-08-17 20:11 | XMS_ITS | Encounter Summary ---
Author [facility] [place] [address] Care Team Providers Care Test Facility Engineer Name Role Phone Joey Ambrose APRN Primary Care Provider + Encounter Details Date Type Department Care Team (Latest Contact Info) Description 02/08/2023 Travel Social History Tobacco Use Types Packs/Day [...] on filedocumented in this encounter Care Teams Test Facility Engineer Relationship Specialty Start Date End Date Joey Ambrose APRN [address] [place] [address] [place] [address] PCP - General Family Medicine 11/09/22 documented as of this encounter
--- OUTSIDE RECORDS SUMMARY | 2023-08-17 20:11 | XMS_ITS | Encounter Summary ---
Author Organization [facility] [place] [address] Care Team Providers Care Pocket Operator Name Role Phone Joey Ambrose APRN Primary Care Provider + Encounter Details Date Type Department Care Team (Latest Contact Info) Description 06/28/2023 Travel Social History Tobacco Use Types Packs/Day [...] on filedocumented in this encounter Care Teams Pocket Operator Relationship Specialty Start Date End Date Joey Ambrose APRN [address] [place] [address] [place] [address] PCP - General Family Medicine 11/09/22 documented as of this encounter
--- OUTSIDE RECORDS SUMMARY | 2023-08-17 20:11 | XMS_ITS | Encounter Summary ---
[place] [address] Care Team Providers Care Dipper And Drier Name Role Phone Joey Ambrose APRN Primary Care Provider + Encounter Details Date Type Department Care Team (Late st Contact Info) Description 03/13/2023 [place] [phone] Jackie Lomeli, RN Social History Tobacco Use Types Packs/Day Years Used Date Smoking Tobacco: Former Cigarettes Q uit: 2022 Smokeless Tobacco: Never Sex and Gender Information Value Date Recorded Sex Assigned at Not on file Gender Identity Not on file Sexual Orientation Not on file documented as of this encounter Miscellaneous Notes * Telephone Encounter - Sowmya Wilson RN - 03/14/2023 10:12 AM EST Copied from [facility] #[id number]. Topic: Specialty Dept CRMs - Test Results >> Mar 12, 2023 3:20 PM Adrianne Hernandez wrote: Test Results Request Specialist: Park Gross PA Relationship (if other than patient-full name): self Ordering Provider: Park Gross PA Type of Test: A1C Date of Test: 02/08/23 Where Was This Test Performed: [facility] [place] [place] >> Mar 13, 2023 1:56 PM Tristin Garcia wrote: Patient is calling to follow up on results. Please call to discuss. Call to pt to go over her A1C and to communicate message from Park MCBRIDE. No answer, LVM on cell. Call to pt on her home #, spoke to someone and left generic message asking to have pt call the ([facility] * Telephone Encounter - Jackie Lomeli RN - 03/13/2023 9:51 AM EST Called and left general message identifying self and where calling from, requesting that patient please call back Endocrinology. * Telephone Encounter - Jackie Lomeli RN - 03/13/2023 9:51 AM EST ----- Message from HEAVEN Marc sent at 03/09/2023 1:58 PM EST ----- Regarding: DM medication instructions Pt returned my call one month after I left a message. Can you call her and give her DM medication instructions? Plan is to stop glipizide, increase Lantus to 18U and discuss timing of mealtime insulin. Make sureshe is taking 15-20 minutes before eating. If she's compliant with the timing, we may need to increase either breakfast or lunch dose, but she can discuss this further at her visit with Dr. Burnette in May. Park Lund documented in this encounter Plan of Treatment Not on file documented as of this encounter Visit Diagnoses Not on filedocumented in this encounter Care Teams Dipper And Drier Relationship Specialty Start Date End Date Joey Ambrose APRN [address] [place] [address] [place] [address] PCP - General Family Medicine 11/09/22 documented as of this encounter
--- OUTSIDE RECORDS SUMMARY | 2023-08-17 20:12 | XMS_ITS | Encounter Summary ---
Author Organization [facility] Address [address] [place] [address] Care Team Providers Care Emulsification Operator Name Role Phone Hubert Soriano Joey Padma [facility] Primary Care Provider Encounter Details Date Type Department Care Team (Late st Contact Info) Description 09/12/2022 Lab Requisition [facility] Pathology & Laboratory Medicine - [facility] [address] [place] [address] Outr Resulting Lab, Provider Social History Tobacco Use Types Packs/Day Years Used Date Smoking Tobacco: Never Assessed Sex and Gender Information Value Date Recorded Sex Assigned at Not on file Gender Identity Female 10/11/2022 8:17 EDT Sexual Orientation Not on file documented as of this encounter Plan of Treatment Not on file documented as of this encounter Procedures Procedure Name Priority Date/Time Associated Diagnosis Comments IGE Routine 09/12/2022 14:30 EDT documented in this encounter Results * IGE (09/12/2022 14:30 EDT) IgE 11 <158 IU/mL 09/13/2022 8:27 EDT [facility] Blood VENOUS BLOOD / Unknown 09/12/2022 14:30 EDT 09/12/2022 21:27 EDT Provider Outr Resulting Lab CHEMISTRY & BLOOD GAS ORDERABLES [facility] [address] [place] [address] documented in this encounter Visit Diagnoses Not on filedocumented in this encounter Care Teams Emulsification Operator Relationship Specialty Start Date End Date Joey Ambrose, [facility]- [address] [place] [address] [place] [phone] PCP - General Family Medicine - Primary Care 10/11/22 documented as of this encounter
--- OUTSIDE RECORDS SUMMARY | 2023-08-17 20:12 | XMS_ITS | Encounter Summary ---
Author Organization [facility] Address [address] [place] [address] Care Team Providers Care Power Checker Name Role Phone Hubert Soriano Joey Padma [facility] Primary Care Provider Reason for Visit * Reason Comments Leg Pain * Vascular Lab (Routine) - Authorization Not Required Specialty Diagnoses / Procedures Referred By Noa orr Referred To Contact Diagnoses Unspecified disturbances of skin sensation Cramp and spasm Procedures US LOWER ARTERIAL DUPLEX Esther Hernández, DP [address] [place] [address] [facility] Vascular Lab Referral ID Status Reason Start Date Expiration Date Visits Requested Visits Authorized [id number] Authorization Not Required 09/15/2022 1 1 Encounter Details Date Type Department Care Team (Latest Contact Info) Description 10/13/2022 14:30 EDT Ancillary Procedure [facility] [address] [place] [address] Unspecified disturbances of skin sensation; Cramp and spasm; Peripheral arterial disease ([facility]) Social History Tobacco Use Types Packs/Day Years Used Date Smoking Tobacco: Never Assessed Sex and Gender Information Value Date Recorded Sex Assigned at Not on file Gender Identity Female 10/11/2022 8:17 EDT Sexual Orientation Not on file documented as of this encounter Progress Notes * Shlomo Dwyer - 10/13/2022 1430 EDT [place] outreach. documented in this encounter Plan of Treatment Not on file documented as of this encounter Procedures Procedure Name Priority Date/Time Associated Diagnosis Comments US LOWER ARTERIAL DUPLEX Routine 10/13/2022 15:10 EDT Unspecified disturbances of skin sensation Cramp and spasm documented in this encounter Results * US LOWER ARTERIAL DUPLEX BILATERAL WITH DUSTY (LIMITED) (10/13/2022 15:10 EDT) Right arm BP 153 mmHg [facility] Left arm BP 161 mmHg [facility] RIGHT DUSTY DIGIT 106 mmHg [facility] Right TBI 0.66 [facility] Right posterior tibial 152 mmHg [facility] RTDOPED 157 mmHg [facility] Right DUSTY 0.98 [facility] LEFT DUSTY DIGIT 93 mmHg [facility] Left TBI 0.58 [facility] Left posterior tibial 141 mmHg [facility] LTDOPED 138 mmHg [facility] Left DUSTY 0.88 [facility] Right HUMAN RELATIONS PROFESSOR dist sys PSV 157 cm/s [facility] Right profunda sys PSV 168 cm/s [facility] Right super femoral prox sys PSV 98 cm/s [facility] Right super femoral mid sys PSV 208 cm/s [facility] Right super femoral mid ratio 2.1 [facility] Right super femoral dist sys PSV 121 cm/s [facility] Right popliteal dist sys PSV 130 cm/s [facility] Right AT dist sys PSV 82 cm/s [facility] Right PT dist sys PSV 61 cm/s [facility] Left HUMAN RELATIONS PROFESSOR dist sys PSV 153 cm/s [facility] Left profunda sys PSV 62 cm/s [facility] Left super femoral prox sys PSV 266 cm/s MERGE CARDIO Left super femoral prox sys ratio 2.8 MERGE C[facility]IO Left super femoral mid sys PSV 152 cm/s [facility] Left super femoral dist sys PSV 214 cm/s MER[facility] Left super femoral dist sys ratio 1.9 [facility] Left popliteal dist sys PSV 80 cm/s [facility] Left AT dist sys PSV 45 cm/s [facility] Left PT dist sys PSV 58 cm/s [facility] Anatomical Region Laterality Modality Vascular Ultrasound Narrative 10/20/2022 9:54 EDT ?Right lower extremity: ??moderate stenosis of the superficial femoral artery. ??Normal physiologic test at rest. ?Left lower extremity: ??two moderate stensoses of the superficial femoral artery. ??Mild arterial insufficiency at rest. Right Lower Physiologic Pulse Volume Recording Right ankle: mildly diminished Right digit: mildly diminished Doppler Waveform Right posterior tibial: biphasic Right dorsalis pedis: triphasic Left Lower Physiologic Pulse Volume Recording Left ankle: mildly diminished Left digit: mildly diminished Doppler Waveform Left posterior tibial: biphasic Left dorsalis pedis: biphasic Arterial HPI and Indications Atherosclerosis with claudation. Bilateral foot numbness. Arterial Past Medical History PVD, Former tobacco use and Diabetes Mellitus. [facility] documented in this encounter Visit Diagnoses Diagnosis Unspecified disturbances of skin sensation Cramp and spasm Peripheral arterial disease ([facility]) Peripheral vascular disease, unspecified documented in this encounter Care Teams Power Checker Relationship Specialty Start Date End Date Joey Ambrose, [facility]- [address] [place] [phone] PCP - General Family Medicine - Primary Care 10/11/22 documented as of this encounter
[2023-08-17 22:31] LABS: Bacteria Rare HPF (Negative); C & S Indicated? C&S Done As Ordered; Casts 5-10 Hyaline LPF (Negative); Crystals Negative HPF (Negative); Epithelial Cells Rare HPF (Negative); Mucus Negative (Negative); Other Cells Rare Renal (Negative); RBC 0-2 HPF (0-2)
== END 2023-08-17 20:00 | disposition home or self-care (01) ==
LOC: LBN 19:59
PROVIDERS: Visit Provider Physician Assistant Medical
DX: R30.0 Dysuria (principal)
CPT/HCPCS: 81015; 87086

== ENCOUNTER → 2023-08-24 13:43 | Outpatient (CLI) | payer MEDICAID, SELFPAY ==
--- NOTE | 2023-08-24 | DI.RAD_ITS ---
Exam(s) XR CHEST 2V PA LATERAL EXAM: XR CHEST 2V PA LATERAL CLINICAL HISTORY: COUGH, R05.9 TECHNIQUE: 2D digital imaging was performed. Two views. COMPARISON: No exams were available for comparison FINDINGS: HEART: Normal size. Aorta: Not dilated. PULMONARY VASCULATURE: Normal. MEDIASTINUM: Unremarkable. LUNGS: Clear. PLEURAL SPACE: No pleural effusion or pneumothorax. BONE:Unremarkable for age. SOFT TISSUES: Unremarkable. IMPRESSION: No acute abnormality. DATA REPOSITORY: RADIATION DOSE DELIVERED:
== END ==
PROVIDERS: Visit Provider Nurse Practitioner Family
DX: R05.9 Cough, unspecified (principal)
CPT/HCPCS: 71046

== ENCOUNTER 2023-08-26 14:13 | Emergency (ER) | payer MEDICAID, SELFPAY ==
--- NOTE | 2023-08-26 14:15 | RT.EKG_ITS ---
APPROVED REPORT Exam: Resting ECG Reason for Exam: SOB Patient Location: E HR:108 bpm ECG Measurements Heart Rate 108 AXIS NC 104 P 39 QRSd 76 QRS 55 QT 331 T 64 QTc 444 Conclusion Sinus tachycardia...rate> 99 sinus tachycardia, normal axis, normal intervals, non ischemic
[2023-08-26 14:20] VITALS: BP 147/82; PULSE 103; RESP 18; TEMP 36.3; O2SAT 95
[2023-08-26 14:26] VITALS: RESP 20
--- OUTSIDE RECORDS SUMMARY | 2023-08-26 14:27 | XMS_ITS | Continuity of Care Document ---
Author Organization [facility], [facility] Address [address] [place] [address] [address] [place] [address] Care Team Providers Care Contract Specialist Name Role Phone JESSI SAENZ Primary Care Provider [phone] Assessment No assessment recorded. Plan of Treatment Reminders Order Date Submit Date Provider Last Modified By Organization Details Last Modified Time Details Appointments None recorded. Lab influenza virus A + B + SARS-CoV-2 (COVID19) Ag panel, rapid IA, upper respiratory specimen 2023 024 [email or web address] [facility], [address] [place] [address], [address], [place], [address], 4 13:05:12 Referral None recorded. Procedures None recorded. Surgeries None recorded. Imaging XR, chest, 2 view 2023 024 [facility], [address], [address] 4 15:37:29 Medication Orders ipratropium 0.5 mg-albutero l 3 mg (2.5 mg base)/3 mL nebulizatio n soln 2023 024 [email or web address] [facility], [address] [place], [address], 4 13:37:39 Patient TargetsNo targets recorded. Patient Instructions Encounter Date Encounter Id Patient Instructions Last Modified By Organization Details Last Modified Time 08/24/2023 [id number] Today you received another nebulizer treatment (the medication was a combination of albuterol and ipratropium). Your oxygen level is normal, even with activity, but your heart rate is slightly above normal. Your COVID/flu testing was negative. We are getting a chest xray, and I will call with results as soon as those have returned. Keep your pulmonology appointment as scheduled. I do recommend drinking lots of clear water to avoid dehydration and keep your mucous thin. You can also take an over the counter medication to keep mucous thin and easier to cough up, called Mucinex (guafenesin). If you continue to have light headedness, or have any episodes of passing out, you feel chest pain or pressure, a fast heart rate that does not improve with rest, or coughing up blood, you should seek care through the emergency room. [email or web address] Not available 08/24/2023 13:24:57 Reason for Referral None Reported. Results Created Date Observation Date Name Description Value Unit Range Abnormal Flag LastModifiedBy Organization Detail LastModifiedTime 08/24/19 24 08/24/2023 influ mike virus A + B + SARS- CoV-2 (COVI D19) Ag panel , rapid IA, upper respi rator y speci men Influenza A negati ve Not Available [address] [address], [place], [address], 08/24/2023 13:02:42 08/24/19 24 08/24/2023 influ mike virus A + B + SARS- CoV-2 (COVI D19) Ag panel , rapid IA, upper respi rator y speci men Influenza B negati ve Not Available [address], [place], [address], 08/24/2023 13:02:42 08/24/19 24 08/24/2023 influ mike virus A + B + SARS- CoV-2 (COVI D19) Ag panel , rapid IA, upper respi rator y speci men SARS-COV-2 negati ve Not Available [address], [place], [address], 08/24/2023 13:02:42 08/24/19 24 08/24/2023 XR, chest , 2 view Patien t Name: Mary Denny Unit #: [id number] Loc: DI Orderi ng Provid er: MARY JO SANDERS April t #: [id number] Status : REG CLI Primar y Care Provid er: Unknow n,Unkn own Date of Exam: Sex: F Admiss ion Date: : 1960 Age: 62 Exam(s ) XR CHEST 2V PA LATERA L EXAM: XR CHEST 2V PA LATERA L CLINIC AL HISTOR Y: COUGH, R05.9 TECHNI QUE: 2D digita l imagin g was perfor med. Two views. COMPAR RHONDA: No exams were availa ble for compar rhonda FINDIN GS: HEART: Normal size. Aorta: Not dilate d. PULMON IRVIN VASCUL ATURE: Normal . MEDIAS TINUM: Unrema rkable . LUNGS: Clear. PLEURA L SPACE: No pleura l effusi on or pneumo thorax . BONE:U nremar kable for age. SOFT TISSUE S: Unrema rkable . IMPRES FIDELINA: No acute abnorm ality. DATA REPOSI TORY: RADIAT ION DOSE DELIVE RED: Ordere d By: MARY JO SANDERS CC: ------ ------ ------ ------ ------ ------ ------ ------ ------ ------ ------ ------ - Dictat ed By: Hollie Ayala 151 151 Transc ribed By: Lexa Hernandez 1511 This is privil eged, confid ential inform ation intend ed only for the provid er named. Any use or distri bution by any person other than this provid er is strict ly prohib ited. If you receiv e this report in error, please notify us immedi ately at and return the origin al report to us at the addres s above. Thank- you. [email or web address] [facility] [address], [facility] [address] 08/24/2023 15:43:51 Result Notes None recorded. Problems Name Status Onset Date Resolution Date Notes Provider Name and Address Organization Details Recorded Time Cough Active [address], [facility] [address], [facility] 07/04/2023 13:46:24 Pneumonia Active [address], [facility] [id number] [place] [address] 07/04/2023 15:02:31 Asthma Active [address], [facility] [address] [place] [address] 08/17/2023 16:41:58 Dysuria Active [address], [facility] [address], [facility] 08/17/2023 16:48:50 Problem Notes None recorded. Procedures Surgical History Date Name Laterality Status Provider Name and Address Organization Details Recorded Time 4 Nebulizer tx completed [address], [facility] [address], [facility] 08/24/2023 13:09:07 4 Nebulizer tx completed [address]Y [address], [facility] [address] 08/17/2023 17:33:01 4 Nebulizer tx completed MAURY [address] Dr, [facility] [address], [facility] 07/04/2023 15:07:04 Imaging [...] oral route with meal(s) for 5 days. 08/23 completed Not Available Not Available Not Available magnesium oxide 400 mg (241.3 mg magnesium) tablet Take by oral route. active Not Available Not Available No t Available cephalexin 500 mg capsule Take 1 capsule twice a day by oral route for 7 days. 08/23 completed Not Available Not Available Not Available montelukast 10 mg tablet Take 1 tablet every day by oral route. active Not Available Not Available No t Available cyclobenzap rine 5 mg tablet Take 1 [...] Organization Details Last Updated DateTime 163.83 cm 29.1 kg/m2 14453.8 9 g 98.1 [degF] 99 % 99 % 105 /min 20 /min 109 mm[Hg] 73 mm[Hg] Rozina Weller MA [facility] 12:18:42 Social History Question Answer Notes LastModified by Organizat ion Details LastModified Time Tobacco Smoking Status Former Smoker Liliana Vale rocky, [facility] 07/04/2023 12:23:26 When Did You Quit Smoking? 1-5yearssinc [email or web address] te Information not available 07/04/2023 What Was The Date Of Your Most Recent Tobacco Screening? 08/24/2023 [email or web address] Information not available 08/24/2023 Has Tobacco Cessation Counseling Been Provided? Yes Information not available 07/04/2023 On What Date Was Tobacco Cessation Counseling Provided? 08/24/2023 [email or web address] Information not available 08/24/2023 Do You Or Have You Ever Used [...] free, adsorbed 01/05/2017 completed Kala Irene RN [facility], [facility] 08/17/2023 16:07:40 Past Encounters Encounter ID Performer Location Encounter Start Date Encounter Closed Date Diagnosis/Indication Diagnosis SNOMED-CT Code [id number] [address] [place] [address] 08/17/2023 13:55:26 08/17/2023 17:19:45 Dysuria [id number] Asthma [id number] AGATHA CASTILLO [address] [place] [address] 08/24/2023 12:09:12 08/24/2023 13:30:40 Cough [id number] Health Concerns Section Related Observation LastModified by Organization Melly [employer] LastModified Time None Recorded Concern Status LastModified by Organization Details LastModified Time None Recorded Payers Encounter Date Sequence Insurance Name Policy Number Policy Roberson Covered Member ID Roberson Member ID Guarantor Name 08/24/2023 1 [facility] (MEDICAID) Noreen Denny [id number] Noreen Denny Notes Date Note Type Note Provider Name and Address Organization Details Recorded Time 08/24/2023 text/html HPI Notes: Dary nt with recent visit 1 week ago to this office, treated with cephalexin for presumed UTI, concern for asthma flare (due to symptoms for several months), and prednisone burst prescribed for 5 days. Since then, has continued chronic Symbicort twice a day, daily Singulair, and using rescue inhaler up to 4 times per day with minimal improvement in symptoms. She normally only uses rescue inhaler 1-2 times per week when asthma symptoms are managed. Patient does not have home nebulizer, but she felt she did notice improvement in symptoms for up to 24 hours with use of Duoneb at last visit. Since then, she has been feeling lightheaded, and short of breath with minimal exertion. Denies any fevers. Has a loose cough, with feeling of sputum to back of throat, but cough is non-productive. Denies any hemoptysis. She feels an ache to her lungs in her back, and tightness to anterior chest/lungs. Denies any chest pain/pressure, or palpitations. Denies any syncopal episodes. Patient is followed by [facility] and [facility] pulmonology, has next scheduled appointment with other sports coach or instructor on 08/28/23. Did have CT scan chest performed 08/16/23, and did have PN on CXR obtained 07/04/23 through this office. (treated with doxycycline 100 mg BID X5 days) AGATHA CASTILLO [address], [place], [address], [facility]. 08/24/2023 14:24:05 OBGyn Episode No OBEpisode recorded.
--- OUTSIDE RECORDS SUMMARY | 2023-08-26 14:27 | XMS_ITS ---
Author Organization Unknown Address [address] [place] [address] [phone] Phone Care Team Providers Care Optical Glass Wet Inspector Name Role Phone MARIAMA Sanchez Attending Unavailable [...] Code Sys tem Peripheral vascular disease 09/14/2022 [id number] SNOMED-CT Personal Care Team Section Performer Name Performer Role Active Date Inactive Da te
--- OUTSIDE RECORDS SUMMARY | 2023-08-26 14:27 | XMS_ITS | Data Portability ---
Author Organization [facility] Address Susanne Whelan [facility] [place] [address] Care Team Providers Care Strike On Machine Operator Name Role Phone JESSI SAENZ Primary Care Provider [phone] Assessment No assessment recorded. Plan of Treatment Reminders Order Date Submit Date Provider Last Modified By Organization Details Last Modified Time Details Appointments None recorded. Lab rapid strep group A, throat [address], [facility], [place], [address], 4 15:03:14 influenza virus A + B + SARS-CoV-2 (COVID19) Ag panel, rapid IA, upper respiratory specimen [address], [facility] 2, [place], [address], 4 15:03:17 urinalysis, dipstick [address], [address], [place], [address], 4 16:24:41 culture, urine + sensitivity 2023 024 [facility], [address] [place], [address] 4 08:48:23 microscopic method, urine 2023 024 [facility], [address] [place] [address] [place], [address] 4 08:29:51 influenza virus A + B + SARS-CoV-2 (COVID19) Ag panel, rapid IA, upper respiratory specimen 2023 024 [email or web address] [facility], [address] [facility], [address], [place], [address], 4 13:05:12 Referral None recorded. Procedures None recorded. Surgeries None recorded. Imaging XR, chest, 2 view 2023 024 [facility], [address] [place] [address] [place], [address] 4 08:57:41 XR, chest, 2 view 2023 024 [facility], [address] [place] [address] [place], [address] 4 15:37:29 Medication Orders prednisone 20 mg tablet 2023 024 [email or web address] [facility], [address] [place], [address], 4 13:08:08 doxycycline hyclate 100 mg capsule 2023 024 [facility], [address] [place], [address], 4 15:54:49 prednisone 20 mg tablet 2023 024 [facility], [address] [place], [address], 4 13:08:12 ipratropium 0.5 mg-albutero l 3 mg (2.5 mg base)/3 mL nebulizatio n soln 2023 024 [facility], [address] [place], [address], 4 17:33:19 cephalexin 500 mg capsule 2023 024 [facility], [address] [place], [address], 4 13:08:06 ipratropium 0.5 mg-albutero l 3 mg (2.5 mg base)/3 mL nebulizatio n soln 2023 024 [email or web address] [facility], [address] [place], [address], 4 13:37:39 Patient TargetsNo targets recorded. Patient Instructions Encounter Date Encounter Id Patient Instructions Last Modified By Organization Details Last Modified Time 07/04/2023 [id number] 1. X-rays have been ordered and will [...] for antibiotic. Not available 07/04/2023 13:48:01 08/17/2023 [id number] 1. Your urine di p here is [...] follow-up as needed. Not available 08/17/2023 17:18:06 08/24/2023 [id number] Today you received another nebulizer treatment (the [...] should seek care through the emergency room. [email or web address] Not available 08/24/2023 13:24:57 Reason for Referral None Reported. Results Created Date Observation Date Name Description Value Unit Range Abnormal Flag LastModifiedBy Organization Detail LastModifiedTime 07/04/19 24 07/04/2023 influ mike virus A + B + SARS- CoV-2 (COVI D19) Ag panel , rapid IA, upper respi rator y speci men Influenza A positi ve Not Available [address], [place], [address], 07/04/2023 12:31:18 07/04/19 24 07/04/2023 influ mike virus A + B + SARS- CoV-2 (COVI D19) Ag panel , rapid IA, upper respi rator y speci men Influenza B positi ve Not Available [address], [place], [address], 07/04/2023 12:31:18 07/04/19 24 07/04/2023 influ mike virus A + B + SARS- CoV-2 (COVI D19) Ag panel , rapid IA, upper respi rator y speci men SARS-COV-2 positi ve Not Available [address], [place], [address], 07/04/2023 12:31:18 07/04/19 24 07/04/2023 rapid strep group A, throa t Strep negati ve Not Available [address], [place], [address], 07/04/2023 12:30:41 08/17/19 24 08/17/2023 MICRO SCOPI C FINDI NGS WBC 5-10 hpf 0-5 Not Available [address] [place], [address] 08/17/2023 22:33:18 08/17/19 24 08/17/2023 MICRO SCOPI C FINDI NGS RBC 0-2 hpf 0-2 Not Available [address] [place], [address] 08/17/2023 22:33:18 08/17/19 24 08/17/2023 MICRO SCOPI C FINDI NGS epithelial cells Rare hpf negati ve Not Available [address] [place], [address] 08/17/2023 22:33:18 08/17/19 24 08/17/2023 MICRO SCOPI C FINDI NGS other cells Rare Renal negati ve Not Available [address] [place], [address] 08/17/2023 22:33:18 08/17/19 24 08/17/2023 MICRO SCOPI C FINDI NGS bacteria Rare hpf negati ve Not Available [address] [place], [address] 08/17/2023 22:33:18 08/17/19 24 08/17/2023 MICRO SCOPI C FINDI NGS crystals Negati ve hpf negati ve Not Available [address] [place], [address] 08/17/2023 22:33:18 08/17/19 24 08/17/2023 MICRO SCOPI C FINDI NGS mucus Negati ve negati ve Not Available [address] [place], [address] 08/17/2023 22:33:18 08/17/19 24 08/17/2023 MICRO SCOPI C FINDI NGS casts 5-10 Hyalin e lpf negati ve Not Available [address] [place], [address] 08/17/2023 22:33:18 08/17/19 24 08/17/2023 MICRO SCOPI C FINDI NGS C S indicated? C S Done As Ordere d Not Available [address] [place], [address] 08/17/2023 22:33:18 08/17/19 24 08/19/2023 URINE CULTU RE urine culture Not Available [address] [place], [address] 08/19/2023 07:34:19 08/17/19 24 08/19/2023 URINE CULTU RE urine culture colon ies/m L Not Available [address] [place], [address] 08/19/2023 07:34:19 08/17/19 24 08/20/2023 URINE CULTU RE urine culture Not Available [address] [place], [address] 08/20/2023 07:48:25 08/17/19 24 08/20/2023 URINE CULTU RE urine culture colon ies/m L Not Available [address] [place], [address] 08/20/2023 07:48:25 08/17/19 24 08/17/2023 urina lysis , dipst ick Leukocytes Trace Not Available [address], [facility] [place], [address], 08/17/2023 16:05:03 08/17/19 24 08/17/2023 urina lysis , dipst ick Nitrite positi ve Not Available [address], [place], [address], 08/17/2023 16:05:03 08/17/19 24 08/17/2023 urina lysis , dipst ick Urobilinogen .2 Not Available Frances knight[address], [place], [address], 08/17/2023 16:05:03 08/17/19 24 08/17/2023 urina lysis , dipst ick Protein 300 Not Available Anand [address], [place], [address], 08/17/2023 16:05:03 08/17/19 24 08/17/2023 urina lysis , dipst ick pH 7.5 Not Available Anand [address], [place], [address], 08/17/2023 16:05:03 08/17/19 24 08/17/2023 urina lysis , dipst ick Blood Negati ve Not Available [address], [place], [address], 08/17/2023 16:05:03 08/17/19 24 08/17/2023 urina lysis , dipst ick Specific Bussey 1.010 Not Available [address], [place], [address], 08/17/2023 16:05:03 08/17/19 24 08/17/2023 urina lysis , dipst ick Ketone Trace Not Available Anand [address], [place], [address], 08/17/2023 16:05:03 08/17/19 24 08/17/2023 urina lysis , dipst ick Bilirubin Small Not Available [address], [place], [address], 08/17/2023 16:05:03 08/17/19 24 08/17/2023 urina lysis , dipst ick Glucose Negati ve Not Available [address], [place], [address], 08/17/2023 16:05:03 08/17/19 24 08/17/2023 urina lysis , dipst ick Appearance Clear Not Available [address], [place], [address], 08/17/2023 16:05:03 08/17/19 24 08/17/2023 urina lysis , dipst ick Color Dark Yellow Not Available [address], [place], [address], 08/17/2023 16:05:03 08/24/19 24 08/24/2023 influ mike virus A + B + SARS- CoV-2 (COVI D19) Ag panel , rapid IA, upper respi rator y speci men Influenza A negati ve Not Available [address], [place], [address], 08/24/2023 13:02:42 08/24/19 24 08/24/2023 influ mike virus A + B + SARS- CoV-2 (COVI D19) Ag panel , rapid IA, upper respi rator y speci men Influenza B negati ve Not Available [address], [place], [address], 08/24/2023 13:02:42 08/24/19 24 08/24/2023 influ mike virus A + B + SARS- CoV-2 (COVI D19) Ag panel , rapid IA, upper respi rator y speci men SARS-COV-2 negati ve Not Available [address], [place], [address], 08/24/2023 13:02:42 07/04/19 24 07/04/2023 XR, chest , 2 view No observ ation record ed. Not Available 07/05/2023 07:27:39 07/04/19 24 07/04/2023 XR, chest , 2 view Patien t Name: MARY DENNY Unit #: [id number] [facility] Savanna Hardy Accoun t #: [id number] Status : PRE CLI Primar [...] ------ - Dictat ed By: Hollie Ayala 143 143 Transc ribed By: Lxea Hernandez 143 This is privil eged, confid ential inform ation intend ed only for the provid er named. Any use or distri bution by any person other than this provid er is strict ly prohib ited. If you receiv e this report in error, please notify us immedi netoalfonzo at and return the origin al report to us at the addres s above. Thank- you. [email or web address] [facility] [address], [place], [address] 07/18/2023 08:57:41 08/24/19 24 08/24/2023 XR, chest , 2 view Patien t Name: Mary Denny Unit #: [id number] Loc: DI Orderi ng Provid er: MARY JO SANDERS t #: [id number] Status : REG CLI Primar y [...] ------ - Dictat ed By: Hollie Ayala 1511 Transc ribed By: Lexa Hernandez 1511 This is privil eged, confid ential inform ation intend ed only for the provid er named. Any use or distri bution by any person other than this provid er is strict ly prohib ited. If you receiv e this report in error, please notify us immedi netoly at and return the origin al report to us at the addres s above. Thank- you. [facility] [address], [place], [address] 08/24/2023 15:43:51 Result Notes None recorded. Problems Name Status Onset Date Resolution Date Notes Provider Name and Address Organization Details Recorded Time Cough Active [address], [place], [address], [facility] 07/04/2023 13:46:24 Pneumonia Active [address], [place], [address], [facility] 07/04/2023 15:02:31 Asthma Active [address], [place], [address], [facility] 08/17/2023 16:41:58 Dysuria Active [address], [place], [address], [facility] 08/17/2023 16:48:50 Problem Notes None recorded. Procedures Surgical History Date Name Laterality Status Provider Name and Address Organization Details Recorded Time 4 Nebulizer tx completed AGATHA CASTILLO [address] [place], [facility] [address], [facility] 08/24/2023 13:09:07 4 Nebulizer tx completed [address], [facility] [address], [facility] 08/17/2023 17:33:01 4 Nebulizer tx completed [address], [facility] [address], [facility] 07/04/2023 15:07:04 Imaging Results Imaging Date Name Status LastModified by Organiz ation Details LastModified Time 07/04/2023 XR, chest, 2 view completed Information not available 07/05/2023 07:27:39 07/04/2023 XR, chest, 2 view completed [email or web address] [address] [facility] [place], [address] 07/18/2023 08:57:41 08/24/2023 XR, chest, 2 view completed [email or web address] [address] [place], [address] 08/24/2023 15:43:51 Procedure Notes None recorded. Medical Equipment None [...] Last Updated DateTime 163.83 cm 30.1 kg/m2 76744.4 4 g 98.2 [degF] 97 % 97 % 93 /min 18 /min 132 mm[Hg] 82 mm[Hg] [facility]iana [facility] 12:21:27 Date Recorded Body height Body mass index (BMI) Body weight Body temperature Oxygen saturation Oxygen saturation in Arterial blood by Pulse oximetry Heart rate Respiratory rate Oxygen saturation Oxygen saturation in Arterial blood by Pulse oximetry Heart rate Systolic blood pressure Diastolic blood pressure Provider Name and Address Organization Details Last Updated DateTime 4 163.83 cm 29.2 kg/m2 78013.6 9 g 98.1 [degF] 94 % 94 % 98 /min 20 /min 96 % 96 % 96 /min 112 mm[Hg] 75 mm[Hg] Rozina Weller [facility] 4 15:52:33 Date Recorded Body height Body mass index (BMI) Body weight Body temperature Oxygen saturation Oxygen saturation in Arterial blood by Pulse oximetry Heart rate Respiratory rate Systolic blood pressure Diastolic blood pressure Provider Name and Address Organization Details Last Updated DateTime 4 163.83 cm 29.1 kg/m2 29763.8 9 g 98.1 [degF] 99 % 99 % 105 /min 20 /min 109 mm[Hg] 73 mm[Hg] Rozina Weller [facility] 4 12:18:42 Social History Question Answer Notes LastModified by Organizat ion Details LastModified Time Tobacco Smoking Status Former Smoker Liliana Vale [place], [facility] 07/04/2023 12:23:26 When Did You Quit Smoking? 1-5yearssinc [email or web address] Information not available 07/04/2023 What Was The Date Of Your Most Recent Tobacco Screening? 08/24/2023 [email or web address] Information not available 08/24/2023 Has Tobacco Cessation Counseling Been Provided? Yes Information not available 07/04/2023 On What Date Was Tobacco Cessation Counseling Provided? 08/24/2023 [email or web address] Information not available 08/24/2023 Do You Or [...] preservative free, adsorbed 01/05/2017 completed RAUDEL Guaman, [facility] 08/17/2023 16:07:40 Past Encounters Encounter ID Performer Location Encounter Start Date Encounter Closed Date Diagnosis/Indication Diagnosis SNOMED-CT Code [id number] [address] [place] [address] 07/04/2023 10:37:13 07/04/2023 14:05:00 Pneumonia [id number] [address],[facility] [address] [place] [address] 08/17/2023 13:55:26 08/17/2023 17:19:45 Dysuria [id number] Asthma [id number] AGATHA CASTILLO [address],[facility] [address] [place] [address] 08/24/2023 12:09:12 08/24/2023 13:30:40 Cough [id number] Health Concerns Section Related Observation LastModified by Organization Detai ls LastModified Time None Recorded Concern Status LastModified by Organization Details LastModified Time None Recorded Advance Directives Directive None Recorded Payers Encounter Date Sequence Insurance Name Policy Number Policy Roberson Covered Member ID Roberson Member ID Guarantor Name 07/04/2023 1 [facility] (MEDICAID) Noreen Denny [id number] Noreenshana Denny 08/17/2023 1 [facility] (MEDICAID) Noreen Denny [id number] Noreen Denny 08/24/2023 1 [facility] (MEDICAID) Noreen Denny [id number] Noreenshana Denny Notes Date Note Type Note [...] a nebulizer at home. [address], [place], [address], [facility]. 07/04/2023 15:26:26 08/17/2023 text/html HPI Notes: Mary [...] months. She has an appointment with her phlebotomy tech on the of this month to follow-up [...] the month. I will review these records. SAVANNA HARDY PA-C [address], [place], [address], [facility]. 08/17/2023 17:34:49 08/24/2023 text/html HPI Notes: Dary gardner with recent visit 1 week ago to [...] any syncopal episodes. Patient is followed by [facility] and [facility] pulmonology, has next scheduled appointment with phlebotomy tech on 08/28/23. Did have CT scan chest performed 08/16/23, and did have PN on CXR obtained 07/04/23 through this office. (treated with doxycycline 100 mg BID X5 days) AGATHA CASTILLO [address], [place], [address], [facility]. 08/24/2023 14:24:05 OBGyn Episode No OBEpisode recorded.
--- OUTSIDE RECORDS SUMMARY | 2023-08-26 14:27 | XMS_ITS ---
Author Organization Unknown Address [address] [place] [phone] Phone Care Team Providers Care Well Flow Operator Name Role Phone MARIAMA Sanchez Attending Unavailable [...] Code Sys tem Peripheral vascular disease 03/20/2023 [id number] SNOMED-CT Personal Care Team Section Performer Name Performer Role Active Date Inactive Da te
--- OUTSIDE RECORDS SUMMARY | 2023-08-26 14:28 | XMS_ITS | Encounter Summary ---
Author Organization [facility] Address [facility] [place] [address] Care Team Providers Care Hat Renovator Name Role Phone Joey Ambrose APRN Primary Care Provider + Encounter Details Date Type Department Care Team (Late st Contact Info) Description 02/08/2023 10:30 AM EST Office [place] [id number] Park Gross PA [facility] [place] [address] Type 2 diabetes mellitus with hyperglycemia, with [...] 2 Sensor Kit Yes FreeStyle Daniel [address] [place] Misc See Admin Instructions. 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 An additional 20 minutes was spent reviewing previous notes and labs, ordering labs and medications, in case consultation & completing documentation. I have reviewed the plan outlined above with the patient and the patient has verbalized understanding. Park Gross PA-C Department of Endocrinology [place], [place] documented in this encounter Plan of Treatment Not on file documented as of this encounter Results * (ABNORMAL) Hemoglobin A1c (02/08/2023 11:36 AM EST) Hemoglobin A1C 7.6(H) 4.3 - 5.6 % [facility] Comment: Reference Range: 4.3 - [...] Mellitus, Diabetes Care 2013; 36: Suppl. 1, I21-73 Est Avg Gluc 173 mg/dL [facility] Comment: Note: The eAG calculation has not been proven valid for women, individuals below 18 years old or above 70 years old, or individuals with hemoglobinopathies. Estimated average glucose (eAG) is calculated from the equation described in: Arthur DONOHUE, Chloe J, Compa R, et al. ??Translating the A1C assay into estimated average glucose values. ??Diabetes Care 2008:31(8):1380-1537. Additional resources are available on the ADA website (diabetes.org). Blood 02/08/2023 11:3 6 AM EST 02/08/2023 11:49 AM EST Narrative Resulting Agency Comment Spec In Lab Ajay Ferrari MD CHEMISTRY ORDERABLES [facility] [place] [address] documented in this encounter Visit Diagnoses Diagnosis Type 2 diabetes mellitus with hyperglycemia, with long-term current use of insulin documented in this encounter Care Teams Hat Renovator Relationship Specialty Start Date End Date Joey Ambrose APRN [address] [place] [address] [place] [address] PCP - General Family Medicine 11/09/22 documented as of this encounter
--- OUTSIDE RECORDS SUMMARY | 2023-08-26 14:28 | XMS_ITS | Encounter Summary ---
Author Organization [facility] Address [facility] [place] [address] Care Team Providers Care Mold Making Supervisor Name Role Phone Joey Ambrose APRN Primary Care Provider + Reason for Visit * Consultation (Routine) - Closed Specialty Diagnoses / Procedures Referred By Noa orr Referred To Contact Endocrinology Diagnoses Type 2 diabetes mellitus without complications Joey Ambrose, REED [address] [place] [address] [place] [address] [facility] [address] [place] [phone] Referral ID Status Reason Start Date Expiration Date Visits Re quested Visits Authorized [id number] Closed 08/17/2022 08/17/2023 1 1 Encounter Details Date Type Department Care Team (Late st Contact Info) Description 11/09/2022 1:00 PM EDT Office Visit [place] [address] Park Gross PA [facility] [address] Type 2 diabetes mellitus with [...] the following: Had a DM specialist in [place] and the last time she saw them she was on Lantus 20 units/day and was taking Humalog ~10 units before meals. Was also on Januvia. After move to [place], pt's new PCP had pt taking Lantus 10 units/day, now titrated up to 16 units and using a sliding scale for Humalog. Lowest A1C was 6.5% in [place]. Summer 2021 at time of referral to [...] Pt had circulation test done recently in [place], [place]. Says that her L side isn't [...] monitoring: Checks blood sugars: Frequently scanning with Daniel 2. 14 day CGM report reviewed: Average [...] toast, 2 sausage Lunch: 2 eggs, sausage, bulgarian muffin Dinner: 1/2 cup frozen peas, 1 [...] 2 Sensor Kit Yes FreeStyle Daniel 2 [place] Misc See Admin Instructions. Yes magnesium oxide [...] also saw the pt together with this senior technical writer. Plan: --Labs today, will contact with results [...] Park Gross PA-C (she/her/hers) Department of Endocrinology [place], [place] documented in this encounter Plan of [...] Random 78(H) 0 - 29 mcg/mg Cr [facility] Comment: Reference Ranges: <30 mcg/mg: [...] 362 U Albumin Conc, Random 78.3 mg/L [facility] U Creatinine 100 mg/dL [facility] Urine 11/09/2022 2:45 PM EDT 11/09/2022 2:54 PM EDT Narrative Resulting Agency Comment Spec In Lab Roverto Burnette MD URINE ORDERABLES Performing Organization Address City/[facility]/ZIP Co de Phone Number [facility] [place] [address] * Vitamin D, 25-Hydroxy (11/09/2022 2:42 PM EDT) 25-OH Vit D Total 51 21 - 100 ng/mL [facility] 25-OH Vit D Interp Sufficient [facility] Blood 11/09/2022 2:42 PM EDT 11/09/2022 2:47 PM EDT Narrative Resulting Agency Comment Spec In Lab Roverto Burnette MD CHEMISTRY ORDERABLES [facility] [place] [address] * TSH [place] (11/09/2022 2:42 PM EDT) TSH 0.99 0.27 - 4.20 mcIU/mL [facility] Comment: Reference Interval (mcIU/mL): Females: ??First Trimester: 0.23-3.88 ??Second Trimester: 0.22-3.90 ??Third Trimester: 0.44-4.66 Blood 11/09/2022 2:42 PM EDT 11/09/2022 2:47 PM EDT Narrative Resulting Agency Comment Spec In Lab Roverto Burnette MD CHEMISTRY ORDERABLES [facility] [place] [address] * (ABNORMAL) Basic Metabolic Panel (non-fasting) (11/09/2022 2:42 PM EDT) Glucose Lvl 124 65 - 199 mg/dL [facility] Comment:Diabetes: >=200 mg/d L plus symptoms BUN 24(H) 8 - 18 mg/dL [facility] Creatinine 1.12 0.70 - 1.20 mg/dL [facility] Sodium 142 135 - 145 mmol/L [facility] Potassium 4.5 3.5 - 5.0 mmol/L [facility] Comment: Please note: ??Patients with WBC >100,000 may have falsely elevated Potassium levels. ??For accurate Potassium quantification in these patients send serum separator tube (gold top) for subsequent determinations. ??Contact the Clinical Chemistry Laboratory if there are any questions. Chloride 105 98 - 107 mmol/L [facility] CO2 25 22 - 31 mmol/L [facility] Anion Gap 12 5 - 15 mmol/L [facility] Calcium 9.8 8.5 - 10.5 mg/dL [facility] Estimated GFR 55(L) >=60 mL/min/1. 73 m?? [facility] Comment: This patient's estimated GFR [...] Burnette MD CHEMISTRY ORDERABLES Performing Organization Address [facility] Co de Phone Number [facility] [place] [address] * LDL Cholesterol, Direct (11/09/2022 2:42 PM EDT) LDL Chol Direct 54 mg/dL [facility] Comment: Lowest Risk: <100 mg/dL Lower Risk: 100-129 mg/dL Borderline High Risk: 130-159 mg/dL High Risk: 160-189 mg/dL Very High Risk: >ov=465 mg/dL Blood 11/09/2022 2:42 PM EDT 11/09/2022 2:47 PM EDT Narrative Resulting Agency Comment Spec In Lab Roverto Burnette MD CHEMISTRY ORDERABLES Performing Organization Address [facility] de Phone Number [facility] [place] [address] * (ABNORMAL) Hemoglobin A1c (11/09/2022 2:42 PM EDT) Hemoglobin A1C 8.3(H) 4.3 - 5.6 % [facility] Comment: Reference Range: 4.3 - [...] Mellitus, Diabetes Care 2013; 36: Suppl. 1, S67-82 Est Avg Gluc 192 mg/dL [facility] Comment: eAG equivalents for HbA1c percentages: [...] into estimated average glucose values. ??Diabetes Care 2008:31(8):0619-4769. Blood 11/09/2022 2:42 PM EDT 11/09/2022 2:47 PM EDT Narrative Resulting Agency Comment Spec In Lab Roverto Burnette MD CHEMISTRY ORDERABLES [facility] [place] [address] * GAD65 Antibody Assay (11/09/2022 2:42 PM EDT) GAD65 Ab 0.02 <=0.02 nmol/L [facility] Comment: ADDITIONAL INFORMATION This test was developed and its performance characteristics determined by [facility] in a manner consistent with CLIA requirements. This test has not been cleared or approved by the U.S. Food and Drug Administration. Test Performed by: [facility] - [address] [address] Gardener Florist: Rob Carbajal M.D. Ph.D.; CLIA# [id number] Blood 11/09/2022 2:42 PM EDT 11/09/2022 3:32 PM EDT Narrative Resulting Agency Comment Spec In Lab Roverto Burnette MD CHEMISTRY ORDERABLES [facility] [place] [address] documented in this encounter Visit Diagnoses Diagnosis Type 2 diabetes mellitus with hyperglycemia, with long-term current use of insulin documented in this encounter Care Teams Mold Making Supervisor Relationship Specialty Start Date End Date Joey Ambrose, REED [address] [place] [address] [place] [address] PCP - General Family Medicine 11/09/22 documented as of this encounter
--- OUTSIDE RECORDS SUMMARY | 2023-08-26 14:28 | XMS_ITS | Encounter Summary ---
Author Organization [facility] [place] [address] Care Team Providers Care Phone Engineer Name Role Phone Joey Ambrose APRN Primary Care Provider + Encounter Details Date Type Department Care Team (Late st Contact Info) Description 11/10/2022 Telephone [place] [phone] Park Gross PA [facility] [place] [address] Social History Tobacco Use Types Packs/Day Years [...] Ozempic. Park Gross PA-C Department of Endocrinology [place], [place] documented in this encounter Plan of Treatment Not on file documented as of this encounter Visit Diagnoses Not on filedocumented in this encounter Care Teams Phone Engineer Relationship Specialty Start Date End Date Joey Ambrose, REED [address] [place] [address] [place] [address] PCP - General Family Medicine 11/09/22 documented as of this encounter
--- OUTSIDE RECORDS SUMMARY | 2023-08-26 14:28 | XMS_ITS | Encounter Summary ---
Author Organization [facility] Address [address] [place] [address] Care Team Providers Care Business Analyst Intern Name Role Phone Hubert Soriano Joey Padma [facility] Primary Care Provider Reason for Visit * Reason Comments Leg Pain * Vascular Lab (Routine) - Authorization Not Required Specialty Diagnoses / Procedures Referred By Noa orr Referred To Contact Diagnoses Unspecified disturbances of skin sensation Cramp and spasm Procedures US LOWER ARTERIAL DUPLEX Esther Hernández, DP [address] [place] [address] [facility] Vascular Lab Referral ID Status Reason Start Date Expiration Date Visits Requested Visits Authorized [id number] Authorization Not Required 09/15/2022 1 1 Encounter Details Date Type Department Care Team (Latest Contact Info) Description 10/13/2022 14:30 EDT Ancillary Procedure [facility] Vascular Surgery [facility] [address] [place] [address] Unspecified disturbances of skin sensation; Cramp and spasm; Peripheral arterial disease ([facility]) Social History Tobacco Use Types Packs/Day Years Used Date Smoking Tobacco: Never Assessed Sex and Gender Information Value Date Recorded Sex Assigned at Not on file Gender Identity Female 10/11/2022 8:17 EDT Sexual Orientation Not on file documented as of this encounter Progress Notes * Shlomo Dwyer - 10/13/2022 1430 EDT [facility]. 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 Esther [facility] documented in this encounter Visit Diagnoses Diagnosis Unspecified disturbances of skin sensation Cramp and spasm Peripheral arterial disease ([facility]) Peripheral vascular disease, unspecified documented in this encounter Care Teams Business Analyst Intern Relationship Specialty Start Date End Date Joey Ambrose, [facility]- [address] [place] [phone] PCP - General Family Medicine - Primary Care 10/11/22 documented as of this encounter
--- OUTSIDE RECORDS SUMMARY | 2023-08-26 14:28 | XMS_ITS | Encounter Summary ---
Author Organization [place] [address] Care Team Providers Care Visual Merchandising Specialist Name Role Phone Joey Ambrose APRN Primary [...] on filedocumented in this encounter Care Teams Visual Merchandising Specialist Relationship Specialty Start Date End Date Joey Ambrose APRN [address] [place] [address] [place] [address] PCP - General Family Medicine 11/09/22 documented as of this encounter
--- OUTSIDE RECORDS SUMMARY | 2023-08-26 14:28 | XMS_ITS | Clinical Summary ---
Author Organization [facility] Address [address] [place] [address] Care Team Providers Care Social Service Worker Name Role Phone Hubert Soriano Joey Padma [facility] Primary Care Provider Social History Tobacco Use [...] COVID-19 Vaccine (2022- season) 2022 Care Teams Social Service Worker Relationship Specialty Start Date End Date Joey Ambrose, [facility]- [address] [place] [address] [place] [phone] PCP - General Family Medicine - Primary Care 10/11/22
--- OUTSIDE RECORDS SUMMARY | 2023-08-26 14:28 | XMS_ITS | Encounter Summary ---
Author Organization [facility] [place] [address] Care Team Providers Care Radiagraph Operator Name Role Phone Joey Ambrose APRN [...] on filedocumented in this encounter Care Teams Radiagraph Operator Relationship Specialty Start Date End Date Joey Ambrose APRN [address] [place] [address] [place] [address] PCP - General Family Medicine 11/09/22 documented as of this encounter
--- OUTSIDE RECORDS SUMMARY | 2023-08-26 14:28 | XMS_ITS | Encounter Summary ---
Author Organization [facility] Address [address] [place] [address] Care Team Providers Care Manager Company Name Role Phone Hubert Soriano Joey Padma [facility] Primary Care Provider Encounter Details Date Type Department Care Team (Late st Contact Info) Description 09/12/2022 Lab Requisition [facility] Pathology & Laboratory Medicine - [facility] [address] [place] [address] Outr Resulting Lab, Provider Social History Tobacco [...] IgE 11 <158 IU/mL 09/13/2022 8:27 EDT [facility] Blood VENOUS BLOOD / Unknown 09/12/2022 14:30 EDT 09/12/2022 21:27 EDT Provider Outr Resulting Lab CHEMISTRY & BLOOD GAS ORDERABLES [facility] [address] [place] [address] documented in this encounter Visit Diagnoses Not on filedocumented in this encounter Care Teams Manager Company Relationship Specialty Start Date End Date Joey Ambrose, [facility]- [address] [place] [address] [place] [phone] PCP - General Family Medicine - Primary Care 10/11/22 documented as of this encounter
--- OUTSIDE RECORDS SUMMARY | 2023-08-26 14:28 | XMS_ITS | Encounter Summary ---
Author Organization [facility] [place] [address] Care Team Providers Care Master Ocean Yacht Name Role Phone Joey Ambrose APRN Primary Care Provider + Encounter Details Date Type Department Care Team (Late st Contact Info) Description 11/10/2022 Telephone [place] [phone] Veronica Rios RN Social History Tobacco Use [...] 11:07 AM EDT Copied from [facility] #[id number]. Topic: Specialty Dept CRMs - Generic Call [...] on filedocumented in this encounter Care Teams Master Ocean Yacht Relationship Specialty Start Date End Date Joey Ambrose, CROP INSURANCE CLAIMS ADJUSTER [address] [place] [address] [place] [address] PCP - General Family Medicine 11/09/22 documented as of this encounter
--- OUTSIDE RECORDS SUMMARY | 2023-08-26 14:28 | XMS_ITS | Clinical Summary ---
Author Organization [facility] Address [facility] [place] [address] Care Team Providers Care Machinist Linotype Name Role Phone Joey Ambrose APRN Primary [...] Sensor Kit 11/07/2022 Active FreeStyle Daniel 2 [place] Misc See Admin Instructions. 08/17/2022 Active magnesium [...] Team Description 06/29/2023 Telephone [place] [address] Shawn Marc RN Medication Problem 06/28/2023 10:30 AM EDT Office [place] [phone] Roverto Burnette MD Type 2 diabetes mellitus with hyperglycemia, with long-term current use of insulin 06/28/2023 Travel from Last 3 Months Social History Tobacco [...] 2) 09/26/2009 Advance Directive 09/26/2014 Covid-19 Vaccine ( - 2022- season) 2022 Influenza (Flu) vaccine (1 o [...] [facility] Creatinine 51 mg/dL [facility] Urine 06/28/2023 11:1 9 AM EDT 06/28/2023 11:28 AM EDT Narrative Resulting Agency Comment Spec In Lab Roverto Burnette MD URINE ORDERABLES [facility] [place] [address] * (ABNORMAL) Creatinine (06/28/2023 11:17 AM EDT) [...] Burnette MD CHEMISTRY ORDERABLES Performing Organization Address [facility] Co de Phone Number [facility] [place] [address] * TSH (06/28/2023 11:17 AM EDT) TSH 2.32 0.27 - 4.20 mcIU/mL [facility] Comment: Reference Interval (mcIU/mL): Females: ??First Trimester: 0.23-3.88 ??Second Trimester: 0.22-3.90 ??Third Trimester: 0.44-4.66 Blood 06/28/2023 11:1 7 AM EDT 06/28/2023 11:33 AM EDT Narrative Resulting Agency Comment Spec In Lab Roverto Burnette MD CHEMISTRY ORDERABLES Performing Organization Address [facility] de Phone Number [facility] [place] [address] * (ABNORMAL) Hemoglobin A1c (06/28/2023 11:17 AM [...] Mellitus, Diabetes Care 2013; 36: Suppl. 1, S6774 Est Avg Gluc 191 mg/dL [facility] Blood 06/28/2023 11:1 7 AM EDT 06/28/2023 11:33 AM EDT Narrative Resulting Agency Comment Spec In Lab Roverto Burnette MD CHEMISTRY ORDERABLES [facility] [place] [address] from Last 3 Months Care Teams Machinist Linotype Relationship Specialty Start Date End Date Joey Ambrose, ADJUNCT HISTORY INSTRUCTOR [address] [place] [address] [place] [address] PCP - General Family Medicine 11/09/22
--- OUTSIDE RECORDS SUMMARY | 2023-08-26 14:28 | XMS_ITS | Encounter Summary ---
Author Organization [facility] [place] [address] Care Team Providers Care Event Marketing Assistant Name Role Phone Joey Ambrose APRN Primary Care Provider + Encounter Details Date Type Department Care Team (Late st Contact Info) Description 03/09/2023 Telephone [place] [phone] Veronica Rios RN Social History Tobacco Use [...] after noon on her cell phone listed [phone]. * Telephone Encounter - Veronica Rios RN - 03/09/2023 10:54 AM EST Copied from [facility] #[id number]. Topic: Specialty Dept CRMs - Generic Call >> Mar 09, 2023 10:44 AM May wrote: Specialist: Ginny Relationship (if other than patient-full name): Self Reason for Call: Patient returning call to provider documented in this encounter Plan of Treatment Not on file documented as of this encounter Visit Diagnoses Not on filedocumented in this encounter Care Teams Event Marketing Assistant Relationship Specialty Start Date End Date Joey Ambrose, CORK WIRER [address] [place] [id number] PCP - General Family Medicine 11/09/22 documented as of this encounter
--- OUTSIDE RECORDS SUMMARY | 2023-08-26 14:28 | XMS_ITS | Referral Summary ---
Author Organization [facility] Address [address] [place] [address] Care Team Providers Care Sand Blaster Name Role Phone Hubert Taladulce Joey Padma [facility] Primary Care Provider Social History Tobacco Use Types Packs/Day Years Used Date Smoking Tobacco: Never Assessed Sex and Gender Information Value Date Recorded Sex Assigned at Not on file Gender Identity Female 10/11/2022 8:17 EDT Sexual Orientation Not on file Plan of Treatment Not on file Care Teams Sand Blaster Relationship Specialty Start Date End Date Joey Ambrose, [facility]- [address] [place] [address] [place] [phone] PCP - General Family Medicine - Primary Care 10/11/22
--- OUTSIDE RECORDS SUMMARY | 2023-08-26 14:28 | XMS_ITS | Encounter Summary ---
Author Organization [facility] Address [facility] [place] [address] Care Team Providers Care Manager Telemetry Name Role Phone Joey Ambrose APRN Primary Care Provider + Encounter Details Date Type Department Care Team (Late st Contact Info) Description 02/12/2023 Telephone [place] [phone] Park Gross PA [facility] [address] Social History Tobacco Use Types Packs/Day Years [...] dose. Park Gross PA-C Department of Endocrinology [place], [place] documented in this encounter Plan of Treatment Not on file documented as of this encounter Visit Diagnoses Not on filedocumented in this encounter Care Teams Manager Telemetry Relationship Specialty Start Date End Date Joey Ambrose DUTY MANAGER [address] [place] [address] [place] [address] PCP - General Family Medicine 11/09/22 documented as of this encounter
--- OUTSIDE RECORDS SUMMARY | 2023-08-26 14:28 | XMS_ITS | Encounter Summary ---
Author Organization [facility] [place] [address] Care Team Providers Care Sander Machine Name Role Phone Joey Ambrose APRN Primary Care Provider + Reason for Visit * Reason Onset Date Comments Medication Problem 06/29/2023 Encounter Details Date Type Department Care Team (Late st Contact Info) Description 06/29/2023 Telephone [place] [phone] Shawn Marc, hydrodynamics teacher Problem Social History Tobacco Use Types Packs/Day [...] the medications that Dr. Burnette sent to [facility], and that she needs to check with [...] Marc RN MSN Copied from [facility] #[id number]. Topic: Specialty Dept CRMs - Generic Call [...] the other prescription he sent to [facility] all based on that previous prescription. [...] insulin documented in this encounter Care Teams Sander Machine Relationship Specialty Start Date End Date Joey Ambrose, BLISS PRESS OPERATOR [address] [place] [address] [place] [address] PCP - General Family Medicine 11/09/22 documented as of this encounter
--- OUTSIDE RECORDS SUMMARY | 2023-08-26 14:28 | XMS_ITS | Encounter Summary ---
[place] [address] Care Team Providers Care Gateman Name Role Phone Joey Ambrose APRN Primary Care Provider + Encounter Details Date Type Department Care Team (Late st Contact Info) Description 04/17/2023 Telephone [place] [phone] Veronica Rios RN Social History Tobacco Use [...] - 04/17/2023 2:44 PM EDT Copied from [facility] #[id number]. Topic: Specialty Dept CRMs - Generic Call [...] on filedocumented in this encounter Care Teams Gateman Relationship Specialty Start Date End Date Joey Ambrose APRN [address] [place] [address] [place] [address] PCP - General Family Medicine 11/09/22 documented as of this encounter
--- OUTSIDE RECORDS SUMMARY | 2023-08-26 14:28 | XMS_ITS | Continuity of Care Document ---
Author Organization [facility], [facility] Address [address] [place] [address] 2 [place] [address] Care Team Providers Care Field Service Poultry Technician Name Role Phone JESSI SAENZ Primary Care Provider Assessment No assessment recorded. Plan of Treatment Reminders Order Date Submit Date Provider Last Modified By Organization Details Last Modified Time Details Appointments None recorded. Lab rapid strep group A, throat [address], [address] [place] [address], [facility], [place], [address], 4 15:03:14 influenza virus A + B + SARS-CoV-2 (COVID19) Ag panel, rapid IA, upper respiratory specimen [address], [address] [place] [address], [facility], [place], [address], 4 15:03:17 Referral None recorded. Procedures None recorded. Surgeries None recorded. Imaging XR, chest, 2 view 2023 024 [facility], [address] [place], [address] 4 08:57:41 Medication Orders prednisone 20 mg tablet 2023 [facility], [address] [facility], [place], [address], 13:08:08 doxycycline hyclate 100 mg capsule 2023 024 [facility], [address] [place], [address], 15:54:49 Patient TargetsNo targets recorded. Patient Instructions Encounter Date Encounter Id Patient Instructions Last Modified By Organization Details Last Modified Time 07/04/2023 [id number] 1. X-rays have been ordered and will [...] men Influenza A positi ve Not Available [address], [address], 07/04/2023 12:31:18 07/04/19 24 07/04/2023 influ mike virus A + B + SARS- CoV-2 (COVI D19) Ag panel , rapid IA, upper respi rator y speci men Influenza B positi ve Not Available [address], [place], [address], 07/04/2023 12:31:18 07/04/19 24 07/04/2023 influ mike virus A + B + SARS- CoV-2 (COVI D19) Ag panel , rapid IA, upper respi rator y speci men SARS-COV-2 positi ve Not Available [address], [place], [address], 07/04/2023 12:31:18 07/04/19 24 07/04/2023 rapid strep group A, throa t Strep negati ve Not Available [address], [place], [address], 07/04/2023 12:30:41 07/04/19 24 07/04/2023 XR, chest , 2 view No observ ation record ed. [email or web address] Not Available 07/05/2023 07:27:39 07/04/19 24 07/04/2023 XR, chest , 2 view Patien t Name: MARY DENNY Unit #: [id number] Loc: DI Orderi [facility] er: Savanna Cabrera Accoun t #: [id number] Status : PRE CLI Primar [...] report in error, please notify us immedi hussein at and return the origin al report to us at the addres s above. Thank- you. [email or web address] [facility] [address], [place], [address] 07/18/2023 08:57:41 08/24/19 24 08/24/2023 XR, chest , 2 view Patien t Name: Mary Denny Unit #: [id number] Loc: DI Orderi ng Provid er: MARY JO SANDERS t #: [id number] Status : REG CLI Primar y [...] error, please notify us immedi netoly at [phone] and return the origin al report to us at the addres s above. Thank- you. [facility] [address], [place], [address] 08/24/2023 15:43:51 Result Notes None recorded. Problems Name Status Onset Date Resolution Date Notes Provider Name and Address Organization Details Recorded Time Cough Active [address], [place], [address], [facility] 07/04/2023 13:46:24 Pneumonia Active [address], [place], [address], [facility] 07/04/2023 15:02:31 Asthma Active [address], [place], [address], [facility] 08/17/2023 16:41:58 Dysuria Active [address], [place], [address], [facility] 08/17/2023 16:48:50 Problem Notes None recorded. Procedures Surgical History Date Name Laterality Status Provider Name and Address Organization Details Recorded Time 4 Nebulizer tx completed AGATHA CASTILLO [address], [place], [address], [facility] 08/24/2023 13:09:07 4 Nebulizer tx completed [address], [place], [address], [facility] 08/17/2023 17:33:01 4 Nebulizer tx completed [address], [facility] [address], [facility] 07/04/2023 15:07:04 Imaging Results None recorded. Procedure [...] Last Updated DateTime 163.83 cm 30.1 kg/m2 49310.4 4 g 98.2 [degF] 97 % 97 % 93 /min 18 /min 132 mm[Hg] 82 mm[Hg] Liliana Vale [facility] 12:21:27 Social History Question Answer Notes LastModified by Organizat ion Details LastModified Time Tobacco Smoking Status Former Smoker Liliana hidalgo, [facility] 07/04/2023 12:23:26 When Did You Quit Smoking? 1-5yearssinc elastcigaret te Information not available 07/04/2023 What Was The Date Of Your Most Recent Tobacco Screening? 08/24/2023 Information not available 08/24/2023 Has Tobacco Cessation Counseling Been Provided? Yes Information not available 07/04/2023 On What Date Was Tobacco Cessation Counseling Provided? 08/24/2023 [email or web address] Information not available 08/24/2023 Do You Or [...] free, adsorbed 01/05/2017 completed Kala Irene RN [facility], [place] - [facility]. 08/17/2023 16:07:40 Past Encounters Encounter ID Performer Location Encounter Start Date Encounter Closed Date Diagnosis/Indication Diagnosis SNOMED-CT Code [id number] [facility] - [address] [place] [address] 07/04/2023 10:37:13 07/04/2023 14:05:00 Pneumonia [id number] Health Concerns Section Related Observation LastModified by Organization Detai ls LastModified Time None Recorded Concern Status LastModified by Organization Details LastModified Time None Recorded Payers Encounter Date Sequence Insurance Name Policy Number Policy Roberson Covered Member ID Roberson Member ID Guarantor Name 07/04/2023 1 [facility] (MEDICAID) Noreen Denny [id number] Noreen Denny Notes Date Note Type Note [...] a nebulizer at home. [address], [place], [address], [facility]. 07/04/2023 15:26:26 OBGyn Episode No OBEpisode recorded.
--- OUTSIDE RECORDS SUMMARY | 2023-08-26 14:28 | XMS_ITS | Encounter Summary ---
[place] [address] Care Team Providers Care Crime Scene Photographer Name Role Phone Joey Ambrose APRN Primary Care Provider + Encounter Details Date Type Department Care Team (Late st Contact Info) Description 03/13/2023 [place] [phone] Jackie Lomeli, RN Social History Tobacco Use [...] - 03/14/2023 10:12 AM EST Copied from [facility] #[id number]. Topic: Specialty Dept CRMs - Test Results >> Mar 12, 2023 3:20 PM Adrianne Hernandez wrote: Test Results Request Specialist: Park Gross PA Relationship (if other than patient-full name): self Ordering Provider: Park Gross PA Type of Test: A1C Date of Test: 02/08/23 Where Was This Test Performed: [facility] [place] >> Mar 13, 2023 1:56 PM Tristin [...] on filedocumented in this encounter Care Teams Crime Scene Photographer Relationship Specialty Start Date End Date Joey Ambrose APRN [address] [place] [address] [place] [address] PCP - General Family Medicine 11/09/22 documented as of this encounter
--- OUTSIDE RECORDS SUMMARY | 2023-08-26 14:28 | XMS_ITS | Encounter Summary ---
Author Organization [facility] Address [facility] [place] [address] Care Team Providers Care Sql Tech Name Role Phone Joey Ambrose APRN Primary Care Provider + Encounter Details Date Type Department Care Team (Late st Contact Info) Description 06/28/2023 10:30 AM EDT Office [place] [phone] Roverto Burnette MD [facility] DR END[place] [address] Type 2 diabetes mellitus with hyperglycemia, with [...] Ginny 11/2022 Had a DM specialist in [place] and the last time she saw them she was on Lantus 20 units/day and was taking Humalog ~10 units before meals. Was also on Januvia. After move to [place], pt's new PCP had pt taking Lantus 10 units/day, now titrated up to 16 units and using a sliding scale for Humalog. Lowest A1C was 6.5% in [place]. Summer 2021 at time of referral to [...] lbs) Interim Tried ozempic but was nauseated [place] glipizide did much better but had many [...] function test (creatinine) last cholesterol panel: regular pump house technician visits: YES special shoes: YES flu shot [...] Random 108(H) 0 - 29 mcg/mg Cr [facility] Comment: Reference Ranges: <30 mcg/mg: [...] 362 U Albumin Conc, Random 55.0 mg/L [facility] U Creatinine 51 mg/dL [facility] Urine 06/28/2023 11:1 9 AM EDT 06/28/2023 11:28 AM EDT Narrative Resulting Agency Comment Spec In Lab Roverto Burnette MD URINE ORDERABLES Performing Organization Address City/[facility]/ZIP Co de Phone Number [facility] [place] [place] [address] * TSH (06/28/2023 11:17 AM EDT) TSH 2.32 0.27 - 4.20 mcIU/mL [facility] Comment: Reference Interval (mcIU/mL): Females: ??First Trimester: 0.23-3.88 ??Second Trimester: 0.22-3.90 ??Third Trimester: 0.44-4.66 Blood 06/28/2023 11:1 7 AM EDT 06/28/2023 11:33 AM EDT Narrative Resulting Agency Comment Spec In Lab Roverto Burnette MD CHEMISTRY ORDERABLES Performing Organization Address [facility] Co de Phone Number [facility] [place] [place] [address] * (ABNORMAL) Creatinine (06/28/2023 11:17 AM EDT) Creatinine 1.13 0.70 - 1.20 mg/dL [facility] Estimated GFR 55(L) >=60 mL/min/1. 73 m?? [facility] Comment: This patient's estimated GFR [...] Burnette MD CHEMISTRY ORDERABLES Performing Organization Address City/[facility]/ZIP Co de Phone Number [facility] [place] [address] * (ABNORMAL) Hemoglobin A1c (06/28/2023 11:17 AM EDT) Hemoglobin A1C 8.3(H) 4.3 - 5.6 % [facility] [...] 1, S67-74 Est Avg Gluc 191 mg/dL [facility] Blood 06/28/2023 11:1 7 AM EDT 06/28/2023 11:33 AM EDT Narrative Resulting Agency Comment Spec In Lab Roverto Burnette MD CHEMISTRY ORDERABLES Performing Organization Address [facility] Co de Phone Number [facility] [place] [place] [address] documented in this encounter Visit Diagnoses Diagnosis Type 2 diabetes mellitus with hyperglycemia, with long-term current use of insulin documented in this encounter Care Teams Sql Tech Relationship Specialty Start Date End Date Joey Ambrose, REED [address] [place] [address] [place] [address] PCP - General Family Medicine 11/09/22 documented as of this encounter
--- OUTSIDE RECORDS SUMMARY | 2023-08-26 14:28 | XMS_ITS | Encounter Summary ---
Author Organization [facility] [place] [address] Care Team Providers Care Mud Mixer Operator Name Role Phone Joey Ambrose APRN Primary Care Provider + Encounter Details Date Type Department Care Team (Late st Contact Info) Description 04/17/2023 [place] [phone] Veronica Rios RN Social History Tobacco Use [...] on filedocumented in this encounter Care Teams Mud Mixer Operator Relationship Specialty Start Date End Date Joey Ambrose APRN [address] [place] [address] [place] [address] PCP - General Family Medicine 11/09/22 documented as of this encounter
--- OUTSIDE RECORDS SUMMARY | 2023-08-26 14:28 | XMS_ITS | Continuity of Care Document ---
Author Organization [facility], [facility] Address [address] [place] [address] [address] [place] [address] Care Team Providers Care Bird Tender Name Role Phone JESSI SAENZ Primary Care Provider Assessment No assessment recorded. Plan of Treatment Reminders Order Date Submit Date Provider Last Modified By Organization Details Last Modified Time Details Appointments None recorded. Lab urinalysis, dipstick 2023 024 [facility], [address] [place] [address], [address], [place], [address], 4 16:24:41 culture, urine + sensitivity [address] [facility] [place], [address] 4 08:48:23 microscopic method, urine [address] [place], [address] 4 08:29:51 Referral None recorded. Procedures None recorded. Surgeries None recorded. Imaging None recorded. Medication Orders prednisone 20 mg tablet 2023 024 [facility], [address] [facility], [place], [address], 4 13:08:12 ipratropium 0.5 mg-albutero l 3 mg (2.5 mg base)/3 mL nebulizatio n soln 2023 024 [facility], [address] [place], [address], 4 17:33:19 cephalexin 500 mg capsule 2023 024 [facility], [address] [place], [address], 4 13:08:06 Patient TargetsNo targets recorded. Patient Instructions Encounter Date Encounter Id Patient Instructions Last Modified By Organization Details Last Modified Time 08/17/2023 [id number] 1. Your urine di p here is [...] Range Abnormal Flag LastModifiedBy Organization Detail LastModifiedTime 08/17/19 24 08/17/2023 urina lysis , dipst ick Leukocytes Trace Not Available [address], [address], 08/17/2023 16:05:03 08/17/19 24 08/17/2023 urina lysis , dipst ick Nitrite positi ve Not Available [address] [place], [address], 08/17/2023 16:05:03 08/17/19 24 08/17/2023 urina lysis , dipst ick Urobilinogen .2 Not Available [address], [place], [address], 08/17/2023 16:05:03 08/17/19 24 08/17/2023 urina lysis , dipst ick Protein 300 Not Available Anand nancy [address], [place], [address], 08/17/2023 16:05:03 08/17/19 24 08/17/2023 urina lysis , dipst ick pH 7.5 Not Available Anand [address], [place], [address], 08/17/2023 16:05:03 08/17/19 24 08/17/2023 urina lysis , dipst ick Blood Negati ve Not Available [address], [place], [address], 08/17/2023 16:05:03 08/17/19 24 08/17/2023 urina lysis , dipst ick Specific Stone 1.010 Not Available [address], [place], [address], 08/17/2023 16:05:03 08/17/19 24 08/17/2023 urina lysis , dipst ick Ketone Trace Not Available Anand [address], [place], [address], 08/17/2023 16:05:03 08/17/19 24 08/17/2023 urina lysis , dipst ick Bilirubin Small Not Available Anand [address], [place], [address], 08/17/2023 16:05:03 08/17/19 24 08/17/2023 urina lysis , dipst ick Glucose Negati ve Not Available [address], [place], [address], 08/17/2023 16:05:03 08/17/19 24 08/17/2023 urina lysis , dipst ick Appearance Clear Not Available Jose [address], [place], [address], 08/17/2023 16:05:03 08/17/19 24 08/17/2023 urina lysis , dipst ick Color Dark Yellow Not Available [address], [place], [address], 08/17/2023 16:05:03 08/24/19 24 08/24/2023 XR, chest , 2 view Patien t Name: Mary Denny Unit #: [id number] Loc: [facility] MARY JO SANDERS Accoun t #: [id number] Status : REG CLI Primar y [...] ------ ------ ------ - Dictat ed By: oHllie Ayala 1511 Transc ribed By: Lexa Hernandez 1511 This is privil eged, confid ential inform ation intend ed only for the provid er named. Any use or distri bution by any person other than this [facility] is strict ly prohib ited. If you receiv e this report in error, please notify us immedi netoly at and return the origin al report to us at the addres s above. Thank- you. [email or web address] [facility] [address], [place], [address] 08/24/2023 15:43:51 Result Notes None recorded. Problems Name Status Onset Date Resolution Date Notes Provider Name and Address Organization Details Recorded Time Cough Active [address], [place], [address], [facility] 07/04/2023 13:46:24 Pneumonia Active [address], [place], [address], [facility] 07/04/2023 15:02:31 Asthma Active [address], [place], [address], [facility] 08/17/2023 16:41:58 Dysuria Active [address], [facility] [address], [facility] 08/17/2023 16:48:50 Problem Notes None recorded. Procedures Surgical History Date Name Laterality Status Provider Name and Address Organization Details Recorded Time 4 Nebulizer tx completed AGATHA CASTILLO [address], [facility] [address], [facility] 08/24/2023 13:09:07 4 Nebulizer tx completed [address], [facility] [address], [facility] 08/17/2023 17:33:01 4 Nebulizer tx completed [address], [facility] [address], [facility] 07/04/2023 15:07:04 Imaging Results None [...] day by oral route for 7 days. 07/12/ 2024 07/19 /2024 completed Not Available Not Available Not Available [...] Updated DateTime 4 163.83 cm 29.2 kg/m2 13023.6 9 g 98.1 [degF] 94 % 94 % 98 /min 20 /min 96 % 96 % 96 /min 112 mm[Hg] 75 mm[Hg] Rozina Weller MA [facility] 15:52:33 Social History Question Answer Notes LastModified by Organizat ion Details LastModified Time Tobacco Smoking Status Former Smoker Liliana hidalgo [facility] 07/04/2023 12:23:26 When Did You Quit Smoking? 1-5yearssinc elastcigaret te Information not available 07/04/2023 What Was The Date Of Your Most Recent Tobacco Screening? 08/24/2023 [email or web address] Information not available 08/24/2023 Has Tobacco Cessation Counseling Been Provided? Yes Information not available 07/04/2023 On What Date Was Tobacco Cessation Counseling Provided? 08/24/2023 [email or web address] Information not available 08/24/2023 Do You Or [...] free, adsorbed 01/05/2017 completed Kala Irene RN [facility], [place] - [facility] 08/17/2023 16:07:40 Past Encounters Encounter ID Performer Location Encounter Start Date Encounter Closed Date Diagnosis/Indication Diagnosis SNOMED-CT Code [id number] [address] [place] [address] 08/17/2023 13:55:26 08/17/2023 17:19:45 Dysuria [id number] Asthma [id number] Health Concerns Section Related Observation LastModified by Organization Detai ls LastModified Time None Recorded Concern Status LastModified by Organization Details LastModified Time None Recorded Payers Encounter Date Sequence Insurance Name Policy Number Policy Roberson Covered Member ID Roberson Member ID Guarantor Name 08/17/2023 1 [facility] (MEDICAID) Noreen Denny [id number] Noreen Laceyell Notes Date Note Type Note Provider Name [...] months. She has an appointment with her network technician on the of this month to follow-up [...] will review these records. [address], [place], [address], [facility]. 08/17/2023 17:34:49 OBGyn Episode No OBEpisode recorded.
--- OUTSIDE RECORDS SUMMARY | 2023-08-26 14:28 | XMS_ITS | Encounter Summary ---
Author Organization [facility] Address [facility] [place] [address] Care Team Providers Care Tack Cleaner Name Role Phone Joey Ambrose APRN Primary Care Provider + Encounter Details Date Type Department Care Team (Late st Contact Info) Description 04/17/2023 [place] [address] Park Gross PA [facility] [place] [address] Social History Tobacco Use Types Packs/Day Years [...] to leave message--no answer as well. No [facility] patient portal set up so unable to write message to patient. Park Gross PA-C Department of Endocrinology [place], [place] documented in this encounter Plan of Treatment Not on file documented as of this encounter Visit Diagnoses Not on filedocumented in this encounter Care Teams Tack Cleaner Relationship Specialty Start Date End Date Joey Ambrose, SET UP WORKER [address] [place] [address] [place] [address] PCP - General Family Medicine 11/09/22 documented as of this encounter
--- OUTSIDE RECORDS SUMMARY | 2023-08-26 14:28 | XMS_ITS | Encounter Summary ---
Author Organization [facility] [place] [address] Care Team Providers Care Study Abroad Coordinator Name Role Phone Joey Ambrose APRN Primary Care Provider + Encounter Details Date Type Department Care Team (Late st Contact Info) Description 11/10/2022 Orders [place] [address] Park Gross PA [facility] [place] [address] Type 2 diabetes mellitus with hyperglycemia, with [...] insulin documented in this encounter Care Teams Study Abroad Coordinator Relationship Specialty Start Date End Date Joey Ambrose APRN [address] [place] [address] [place] [address] PCP - General Family Medicine 11/09/22 documented as of this encounter
--- OUTSIDE RECORDS SUMMARY | 2023-08-26 14:28 | XMS_ITS | Encounter Summary ---
Author Organization [facility] [place] [address] Care Team Providers Care Net Solutions Architect Name Role Phone Joey Ambrose APRN Primary [...] on filedocumented in this encounter Care Teams Net Solutions Architect Relationship Specialty Start Date End Date Joey Ambrose APRN [address] [place] [address] [place] [address] PCP - General Family Medicine 11/09/22 documented as of this encounter
--- OUTSIDE RECORDS SUMMARY | 2023-08-26 14:28 | XMS_ITS | Encounter Summary ---
Author Organization [facility] Address [facility] [place] [address] Care Team Providers Care Professional Bondsman Name Role Phone Joey Ambrose APRN Primary Care Provider + Reason for Visit * Reason Comments Medication Refill Encounter Details Date Type Department Care Team (Late st Contact Info) Description 05/21/2023 [place] [address] Park Gross PA [facility] [place] [address] Type 2 diabetes mellitus with hyperglycemia, with [...] not useable, pharmacy advised that she contact fun house attendant. Advised that Park COLLADO had recommended in February to discontinue glipizide as she is on basal/bolusinsulin, will send message to provider to confirm plan. Advised that patient contact [employer], customer service number provided. Confirmed that current [...] insulin documented in this encounter Care Teams Professional Bondsman Relationship Specialty Start Date End Date Joey Ambrose APRN [address] [place] [address] [place] [address] PCP - General Family Medicine 11/09/22 documented as of this encounter
--- OUTSIDE RECORDS SUMMARY | 2023-08-26 14:28 | XMS_ITS | Encounter Summary ---
Author Organization [facility] [place] [address] Care Team Providers Care Content Coordinator Name Role Phone Joey Ambrose APRN Primary Care Provider + Encounter Details Date Type Department Care Team (Latest Contact Info) Description 02/08/2023 11:30 AM EST Laboratory Appointment Lab [address] [place] [id number] Type 2 diabetes mellitus with hyperglycemia, with [...] Hemoglobin A1C 7.6(H) 4.3 - 5.6 % [facility] [...] Mellitus, Diabetes Care 2013; 36: Suppl. 1, S67-31 Est Avg Gluc 173 mg/dL [facility] Comment: Note: The eAG calculation has not been proven valid for women, individuals below 18 years old or above 70 years old, or individuals with hemoglobinopathies. Estimated average glucose (eAG) is calculated from the equation described in: Arthur DM, Chloe J, Compa R, et al. ??Translating the A1C assay into estimated average glucose values. ??Diabetes Care 2008:31(8):9583-8495. Additional resources are available on the ADA website (diabetes.org). Blood 02/08/2023 11:3 6 AM EST 02/08/2023 11:49 AM EST Narrative Resulting Agency Comment Spec In Lab Ajay Ferrari MD CHEMISTRY ORDERABLES [facility] [place] [id number] documented in this encounter Visit Diagnoses Diagnosis Type 2 diabetes mellitus with hyperglycemia, with long-term current use of insulin documented in this encounter Care Teams Content Coordinator Relationship Specialty Start Date End Date Joey Ambrose, REED [address] [place] [address] [place] [address] PCP - General Family Medicine 11/09/22 documented as of this encounter
--- NOTE | 2023-08-26 14:30 | DI.RAD_ITS ---
Exam(s) XR CHEST 2V PA LATERAL EXAM: XR CHEST 2V PA LATERAL CLINICAL HISTORY: cough. TECHNIQUE: 2D digital imaging was performed. COMPARISON: CR XR CHEST 2V PA LATERAL from 07/04/[address] CHEST WO from 08/16/2023 CR XR CHEST 2V PA LATERAL from 08/24/2023 FINDINGS: 2 views: Heart size is normal. The mediastinum is not widened. Right lung is clear. There is mild scarring in the left lower lobe retrocardiac region, unchanged fr om 08/24/2023 but not previously evident on chest x-ray of 07/04/2023. Recent chest CT scan performed 08/16/2023 revealed left lower lobe bronchial wall thickening. IMPRESSION: Subtle left lower lobe findings as described above.I note that recent CT scan performed 08/16/2023 re vealed abnormal bronchial wall thickening in the left lower lobe in this region. No other pulmonary findings and no pleural effusions. DATA REPOSITORY: RADIATION DOSE DELIVERED:
[2023-08-26 14:35] VITALS: PULSE 105
--- NOTE | 2023-08-26 14:43 | ED.GENADUL_ITS ---
Discharge Plan Disposition Patient Disposition: Home Discharge Details Clinical Impression: Allergic asthma, PND (post-nasal drip), Cough, Episodic lightheadedness, Globus sensation, Anxiety about health Primary Care Provider: Unknown,Unknown ED Provider: Azalea Huber Home Meds and New Rx's Prescriptions: No Action albuterol sulfate 90 mcg/actuation HFA aerosol inhaler 1 puff inhalation Q4H PRN (DME) FreeStyle Daniel 2 Sensor Kit See Rx Instructions .Route Rx Instructions: As directed insulin aspart U-100 [Novolog FlexPen U-100 Insulin] 100 unit/mL (3 mL) insulin pen 100 unit subcut DIRECTED cyclobenzaprine 5 mg tablet 5 mg PO QHS loratadine [Allergy Relief (loratadine)] 10 mg tablet 10 mg PO DAILY Qty: 30 0RF budesonide-formoterol [Symbicort] 160-4.5 mcg/actuation HFA aerosol inhaler 2 puff inhalation BID Qty: 10.2 12RF lidocaine [DermacinRx Lidocan] 5 % adhesive patch,medicated 1 patch topical DAILY Rx Instructions: leave on most painful area for up to 12 hrs Rybelsus 7 mg tablet 7 mg PO DAILY magnesium oxide 400 mg magnesium capsule 400 mg PO DAILY losartan [Cozaar] 25 mg tablet 25 mg PO DAILY Discharge Instructions Additional Instructions: PLEASE MAKE SURE YOU ARE TAKING LORATADINE, MUCINEX AND FLONASE DAILY A FORMER SMOKER IT WILL BE DIFFICULT FOR YOUR TO CLEAR YOUR MUCUS A REFERRAL HAS BEEN PLACED TO ENT PLEASE FOLLOW UP WITH YOUR DOCTOR ABOUT THE RYBELSUS, IT MAY BE CAUSING YOUR LIGHTHEADEDNESS KEEP A BLOOD SUGAR LOG TO DISCUSS WITH YOUR PCP Referrals: Lito Mancera MD [ [facility] STAFF PHYSICIAN] - (GLOBUS SENSATION ) Discharge Data Discharge Date/Time-TO BE ENTERED AT DEPARTURE: 08/26/23 16:20 HPI General Date/Time Provider Initiated Documentation: 08/26/23 14:26 . Limitations to Documentation: no limitations . Information obtained by: patient and old records reviewed . HPI Narrative: 62-year-old female with past medical history of allergic asthma, diabetes, GERD, former tobacco use presents for evaluation of persistent lightheadedness and shortness of breath. She states she feels like she cannot take a deep breath. This is not associated with any chest pain. She states that she feels like she is going to pass out but she has not had any loss of consciousness. She states that this is been ongoing for quite some time and she is worried that it might be related to her diabetes medication that she was started on over a month ago. She states that she feels like she just has a bunch of stuff in her throat and is worried that maybe she has thyroid cancer. She denies any voice change or difficulty swallowing. She reports that she is lost 10 pounds on this new medication. When asked if she is eating and drinking, she reports that she only eats peanut butter and jelly sandwiches. Related Data Home Medications ?Medication ?Instructions ?Recorded ?Confirmed albuterol sulfate 90 mcg/actuation 1 puff inhalation Q4H PRN 09/11/22 08/26/23 aerosol inhaler flash glucose sensor (FreeStyle 09/11/22 08/26/23 Daniel 2 Sensor kit) insulin aspart U-100 100 unit/mL 100 unit subcut DIRECTED 09/11/22 08/26/23 (3 mL) subcutaneous pen (Novolog FlexPen U-100 Insulin aspart) cyclobenzaprine 5 mg tablet 5 mg PO QHS 09/12/22 08/26/23 loratadine 10 mg tablet (Allergy 10 mg PO DAILY #30 tabs 09/12/22 08/26/23 Relief (loratadine)) budesonide-formoterol HFA 160 2 puff inhalation BID #10.2 grams 11/23/22 08/26/23 mcg-4.5 mcg/actuation aerosol inhaler (Symbicort) lidocaine 5 % topical patch 1 patch topical DAILY 08/26/23 08/26/23 (DermacinRx Lidocan) losartan 25 mg tablet (Cozaar) 25 mg PO DAILY 08/26/23 08/26/23 magnesium oxide 400 mg PO DAILY 08/26/23 08/26/23 semaglutide 7 mg tablet (Rybelsus) 7 mg PO DAILY 08/26/23 08/26/23 Previous Rx's ?Medication ?Instructions ?Recorded loratadine 10 mg tablet (Allergy 10 mg PO DAILY #30 tabs 09/12/22 Relief (loratadine)) budesonide-formoterol HFA 160 2 puff inhalation BID #10.2 grams 11/23/22 mcg-4.5 mcg/actuation aerosol inhaler (Symbicort) Allergies Allergy/AdvReac Type Severity Reaction Status Date / Time animal dander Allergy Intermediate Other (See Verified 08/26/23 14:23 Comment) grass pollen Allergy Intermediate Other (See Verified 08/26/23 14:23 Comment) pollen extracts Allergy Intermediate Other (See Verified 08/26/23 14:23 Comment) smoke Allergy Intermediate Other (See Uncoded 08/26/23 14:23 Comment) Dust Allergy Mild Other (See Uncoded 08/26/23 14:23 Comment) General Stated Complaint: Dizzy/Sync MAYCOL: 2 Exam Narrative Exam Narrative: Review of Systems: All systems reviewed & are unremarkable except as noted in HPI and below Well-developed, no acute distress NCAT PERRL, normal conjunctiva RRR no murmur Unlabored respiratory effort no hypoxia or tachypnea, coarse breath sounds with wheezing bilaterally Loose cough Nondistended abdomen soft nontender Extremities w/o deformity, no cyanosis, no edema No rashes or lesions. no focal neurologic deficits Appropriate mood and affect Course Vital Signs Vital signs: Vital Signs Temperature 36.3 C L 08/26/23 14:20 Pulse 103 H 08/26/23 14:20 Respiratory Rate 18 08/26/23 14:20 Blood Pressure 147/82 H 08/26/23 14:20 Pulse Oximetry 95 08/26/23 14:20 Temperature 36.3 C L 08/26/23 14:20 Temperature Source Skin 08/26/23 14:20 Pulse 103 H 08/26/23 14:20 Pulse 105 H 08/26/23 14:35 Respiratory Rate 18 08/26/23 14:20 Blood Pressure 147/82 H 08/26/23 14:20 Blood Pressure Position Sitting 08/26/23 14:20 Pulse Oximetry 95 08/26/23 14:20 Oxygen Delivery Method Room Air 08/26/23 14:20 Oxygen Flow Rate 0 08/26/23 14:20 Pain Level 8 08/26/23 14:20 Medical Decision Making Emergent evaluation of lightheadedness and cough. I reviewed the patient's medical record and noted that she had did have pulmonology visit recently, they thought that her cough symptoms were secondary to some as per upper respiratory, allergic type symptoms. They also started her on a PPI. Recent chest CT does not demonstrate concerning abnormality other than bronchial thickening. She had a normal myocardial perfusion study in February 2023 with normal LV function, I doubt that the symptoms are related to ACS though she is at higher risk for coronary disease given her history. Her EKG today demonstrates sinus tachycardia, normal axis, no acute ischemic ST segment changes. She is not endorsing any concerning symptoms for chest pain pressure or other anginal equivalents. Will give a breathing treatment due to her bilateral wheezing. Will check lab work and give some IV fluids Lab work reviewed. There are no clinically significant abnormalities. No elevated white blood cell count. No anemia. Her creatinine is slightly elevated 1.4, no priors for comparison. A1c is elevated at 8.2. Her thyroid function is within normal limits. Her chest x-ray does not demonstrate an acute abnormality. Her vital signs have been monitored and she has not had any hypoxia, significant tachypnea or dysrhythmia. The patient had some significant anxiety around the time of discharge. She kept saying that she cannot breathe she cannot talk that there is something in her throat. At this time the patient displays no visible abnormalities of concern. She is swallowing and speaking normally, I do not appreciate any signs of airway compromise. I suspect that her symptoms are because of mucus and I recommended that she continue antihistamine Flonase Mucinex. It does not seem that she has been compliant with medications in general. Due to her insistence of something in her throat, she was referred to ENT for scope. At this time no emergent medical condition has been identified. Discharged in good condition. Medical Records Medical records reviewed: Yes I reviewed the patient's medical records. Quality:SDOH Health Related Social Needs: No Data to Display PFSH All Active Problems (Updated 08/26/23 @ 16:06 by Azalea Huber MD) Anxiety about health (Acute) Globus sensation (Acute) Episodic lightheadedness (Acute) Cough (Acute) PND (post-nasal drip) (Acute) Former cigarette smoker (Acute) GERD (gastroesophageal reflux disease) (Chronic) Chest pressure (Acute) Snoring (Acute) Allergic asthma (Acute) Diabetic feet (Acute) Acute asthma (Acute) Type 2 diabetes mellitus (Acute) Social History (Updated 09/11/22 @ 10:55 by Saundra Maloney) Smoking/Tobacco Use Status: Former Tobacco Use Smoking risk assessment performed?: Yes Substance use type: does not use Additional Social history: Former tobacco user:1 ppd started at 7 yrs old. Comments: Pt reports she quit smoking last week in July 2022.
[2023-08-26 14:51] LABS: Absolute Basophil Count 0.05 10^3/uL (0.0-0.2); Absolute Eosinophil Count 0.18 10^3/uL (0.0-0.7); Absolute Monocyte Count 0.57 10^3/uL (0.1-0.8); Absolute Neutrophil Count 6.86 10^3/uL (1.2-6.7); Basophils % 0.5 %; Eosinophils % 1.8 %; HCT 38.2 % (36.0-46.0); HGB 12.8 g/dL (11.2-15.7); Lymphocytes % 22.1 %; MCH 29.7 pg (27.0-33.0); MCHC 33.5 % (32.0-36.0); MCV 89 fL (80-95); MPV 8.7 fL (8.0-11.0); Monocytes % 5.7 %; Neutrophils % 68.9 %; Platelet Count 284 10^3/uL (130-400); RBC 4.31 10^6/uL (3.93-5.22); RDW 13.1 % (11.7-14.6); RDW-SD 42.9 fL; WBC 9.96 10^3/uL (4.4-10.8)
[2023-08-26 15:04] LABS: Hemoglobin A1C 8.2 % (<5.7)
[2023-08-26 15:17] LABS: ALT 34 U/L (14-59); AST 25 U/L (15-37); Albumin 3.1 g/dL (3.4-5.0); Alkaline Phosphatase 119 U/L (46-116); Anion Gap 9.2 mmol/L (3-11); BUN 21 mg/dL (7-18); Bilirubin, Total 0.38 mg/dL (0.2-1.0); CO2 27.8 mmol/L (21.0-32.0); CREATININE 1.4 mg/dL (0.55-1.02); Calcium 9.2 mg/dL (8.5-10.1); Chloride 104 mmol/L (98-107); Estimated GFR 42.27 (mL/min/1.73m2); Glucose 148 mg/dL (74-106); Magnesium 2.2 mg/dL (1.8-2.4); NT-proBNP 58 pg/mL (<300); Sodium 141 mmol/L (136-145); TSH 1.15 uIU/Ml (0.36-3.74); Total Protein 7.3 g/dL (6.4-8.2); Troponin I < 50 ng/L (< or =60)
[2023-08-26] MEDS: Albuterol/Ipratropium 3 ML UPD VIAL UPD (15:22)
[2023-08-26] MEDS: Normal Saline 1,000 ML 1000 ML IV (15:22)
[2023-08-26 16:24] VITALS: BP 122/84; PULSE 87; RESP 16; O2SAT 94
== END 2023-08-26 16:20 | disposition home or self-care (01) ==
PROVIDERS: Emergency Provider Emergency Medicine
DX: R06.02 Shortness of breath (principal); R42 Dizziness and giddiness; E11.9 Type 2 diabetes mellitus without complications; R05.9 Cough, unspecified; R09.A2 Foreign body sensation, throat; R45.89 Other symptoms and signs involving emotional state; R09.82 Postnasal drip
CPT/HCPCS: 36416; 80053; 82962; 93005; 94640; 96360; 99284; 71046; 83036; 83735; 83880; 84443; 84484; 85025; 93010; 99283; J7620

== ENCOUNTER 2023-11-02 13:05 | Outpatient (CLI) | payer MEDICARE, MEDICAID, SELFPAY ==
--- NOTE | 2023-11-02 | DI.RAD_ITS ---
Exam(s) XR CHEST 2V PA LATERAL EXAM: XR CHEST 2V PA LATERAL CLINICAL HISTORY: R05.3 Chronic cough TECHNIQUE: 2D digital imaging was performed of the chest. Two images were obtained. PA and lateral views were obtained. COMPARISON: CR XR CHEST 2V PA LATERAL from 08/26/2023 FINDINGS: MEDIASTINUM: Normal. HEART: Normal. PULMONARY VASCULATURE: Normal. LUNGS: Clear. PLEURAL SPACE: No pleural effusion or pneumothorax. BONE:Within normal limits for the patient's age. OTHER FINDINGS:Normal. IMPRESSION: No acute pulmonary findings. DATA REPOSITORY: RADIATION DOSE DELIVERED:
== END 2023-11-02 13:25 ==
LOC: DI 13:06
PROVIDERS: PCP Registered Nurse; Visit Provider Physician Assistant Medical
DX: R05.3 Chronic cough (principal)
CPT/HCPCS: 71046

== ENCOUNTER 2023-11-15 16:07 | Outpatient (REF) | payer MEDICARE, MEDICAID, SELFPAY ==
--- OUTSIDE RECORDS SUMMARY | 2023-11-15 16:09 | XMS_ITS | Clinical Summary ---
Author Organization [facility] Address [facility] [place] [address] Care Team Providers Care Litigation Examiner Name Role Phone Joey Ambrose APRN Primary [...] Sensor Kit 11/07/2022 Active FreeStyle Daniel 2 Gilbert Misc See Admin Instructions. 08/17/2022 Active magnesium [...] subcutaneously daily. 45 mL 3 07/02/2023 Active dulaglutide (Trulicity) 0.75 mg/0.5 mL Pen InjectorIndicatio ns:Type 2 diabetes mellitus with hyperglycemia, with long-term current use of insulin Inject 0.5 mLs subcutaneously once a week. 6 mL 3 10/09/2023 Active dulaglutide (Trulicity) 1.5 mg/0.5 mL Pen InjectorIndicatio ns:Type 2 diabetes mellitus with hyperglycemia, with long-term current use of insulin Inject 0.5 mLs subcutaneously once a week. 6 mL 3 10/09/2023 Active Encounters Date Type Department Care Team Description 10/09/2023 Orders [place] [phone] Roverto Burnette MD Type 2 diabetes mellitus with hyperglycemia, with long-term current use of insulin 09/18/2023 [place] [phone] Georgette Westfall CCMA Prior Authorization 08/27/2023 [place] [phone] Shani Hardwick RN from Last 3 Months Social History Tobacco [...] 06/28/2023 9:56 AM EDT Plan of Treatment Upcoming Encounters Date Type Department Care Team (Late st Contact Info) Description 12/20/2023 10:30 AM EST Office [place] [phone] Park Gross PA [facility] [place] [address] Health Maintenance Due Date Last Done Comments CT Colonography 1960 Colonoscopy 1960 Colorectal Cancer Screening 1960 FIT DNA 1960 FIT 1960 Sigmoidoscopy (10 year) with FIT yearly 1960 Sigmoidoscopy 1960 HIV screen 09/26/1977 Hepatitis C Screening 09/26/1977 Tetanus/Diphtheria/Pertussis Vaccines (1 - Tdap) 09/26 HPV test 09/26/1989 PAP Smear 09/26/1989 Breast Cancer Share Decision Needed 1999 Breast Cancer screening 1999 Zoster vaccine (1 of 2) 09/26/2009 Advance Directive 09/26/2014 Covid-19 Vaccine ( season) 2023 Influenza (Flu) vaccine (1 o f 1 - Influenza standard series) 10/07/2023 Care Teams Litigation Examiner Relationship Specialty Start Date End Date Joey Ambrose, VISCOSITY TESTER [address] [place] [address] PCP - General Family Medicine 11/09/22
--- OUTSIDE RECORDS SUMMARY | 2023-11-15 16:09 | XMS_ITS | Continuity of Care Document ---
Author Organization [email or web address], [facility] Address [address] [place] [address] [address] [place] [address] Care Team Providers Care Housekeeping Associate Name Role Phone JESSI SAENZ Primary Care Provider Assessment No assessment recorded. Plan of Treatment Reminders Order Date Submit Date Provider Last Modified By Organization Details Last Modified Time Details Appointments Nurse Visit 10 2023 01:18P M NECSJ Nurse Not available Not available Not available Lab influenza virus A + B + SARS-CoV- 2 (COVID19) Ag panel, rapid IA, upper respirato ry specimen 2023 024 [email or web address] [facility], [address] [place] [address], [address], [place], [address], 08/24/2023 13:05:12 Referral None recorded. Procedures None recorded. Surgeries None recorded. Imaging XR, chest, 2 view 2023 024 [facility], [address] [place], [address] 08/24/2023 15:37:29 Medication Orders ipratropi um 0.5 mg-albute rol 3 mg (2.5 mg base)/3 mL nebulizat ion soln 2023 024 [email or web address] [facility], [address] [place], [address], 08/24/2023 13:37:39 Patient TargetsNo targets recorded. Patient Instructions Encounter Date Encounter Id Patient Instructions Last Modified By Organization Details Last Modified Time 08/24/2023 [id number] Today you received another nebulizer treatment (the [...] should seek care through the emergency room. Not available 08/24/2023 13:24:57 Reason for Referral None Reported. Results Created Date Observation Date Name Description Value Unit Range Abnormal Flag Note LastModifiedBy Organization Detail LastModifiedTime 08/24/19 24 08/24/2023 influ mike virus A + B + SARS- CoV-2 (COVI D19) Ag panel , rapid IA, upper respi rator y speci men Influenza A negati ve Not Available [address], [place], [address], 08/24/2023 13:02:42 08/24/19 24 08/24/2023 influ mike virus A + B + SARS- CoV-2 (COVI D19) Ag panel , rapid IA, upper respi rator y speci men Influenza B negati ve Not Available [address], [place], [address], 08/24/2023 13:02:42 08/24/19 24 08/24/2023 influ mike virus A + B + SARS- CoV-2 (COVI D19) Ag panel , rapid IA, upper respi rator y speci men SARS-COV-2 negati ve Not Available [address], [place], [address], 08/24/2023 13:02:42 08/24/19 24 08/24/2023 XR, chest , 2 view Patien t Name: Mary Denny Unit #: [id number] Loc: DI Orderi ng Provid er: MARY JO SANDERS Accoun t #: [id number] Status : REG CLI Primar y [...] ------ ------ - Dictat ed By: Hollie Aayla 151 151 Transc ribed By: Lexa Hernandez [...] at the addres s above. Thank- you. [email or web address] [facility] [address] [place], [address] 08/24/2023 15:43:51 11/02/19 24 11/02/2023 XR, chest , 2 view No observ ation record ed. Not Available 2023 16:07:14 11/02/19 24 11/02/2023 XR, chest , 2 view Patien t Name: Mary Denny Unit #: [id number] Loc: [facility] No[facility] ng [facility] er: Savanna Cabrera Accoun t #: [id number] Status : REG CLI Primar y Care Provid er: VanWoe rt,And babs Date of Exam: Sex: F Admiss ion Date: : 1960 Age: 63 Exam(s ) XR CHEST 2V PA LATERA L EXAM: XR CHEST 2V PA LATERA L CLINIC AL HISTOR Y: R05.3 Chroni c cough TECHNI QUE: 2D digita l imagin g was perfor med of the chest. Two images were obtain ed. PA and latera l views were obtain ed. COMPAR RHONDA: CR XR CHEST 2V PA LATERA L from 2023 FINDIN GS: MEDIAS TINUM: Normal . HEART: Normal . PULMON IRVIN VASCUL ATURE: Normal . LUNGS: Clear. PLEURA L SPACE: No pleura l effusi on or pneumo thorax . BONE:W ithin normal limits for the patien t's age. OTHER FINDIN GS:Nor mal. IMPRES FIDELINA: No acute pulmon irvin findin gs. DATA REPOSI TORY: RADIAT ION DOSE DELIVE RED: Ordere d By: Savanna Cabrera CC: ------ ------ ------ ------ ------ ------ ------ ------ ------ ------ ------ ------ - Dictat ed By: Ajay Mina M.D. [id number] Transc ribed By: Ajay Mina 1313 This is privil eged, confid ential inform ation intend ed only for the provid er named. Any use or distri bution by any person other than this provid er is strict ly prohib ited. If you receiv e this report in error, please notify us immedi hussein at and return the origin al report to us at the addres s above. Thank- you. [facility] [address] [place], [address] 11/02/2023 15:16:37 Result Notes Documentation Provider Name and Address Organization Details Recorded Time Xr, Chest, 2 View : Patient Name: Noreen Denny Unit #: [id number] Loc: Ordering Provider: DELMI SANDERS Status: REG CLI Primary Care Provider: Unknown,Unknown Date of Exam: Sex: F Admission Date: 08/24/23 : 1960 Age: 62 Exam(s) XR CHEST 2V PA LATERAL EXAM: XR CHEST 2V PA LATERAL CLINICAL HISTORY: COUGH, R05.9 TECHNIQUE: 2D digital imaging was performed. Two views. COMPARISON: No exams were available for comparison FINDINGS: HEART: Normal size. Aorta: Not dilated. PULMONARY VASCULATURE: Normal. MEDIASTINUM: Unremarkable. LUNGS: Clear. PLEURAL SPACE: No pleural effusion or pneumothorax. BONE:Unremarkable for age. SOFT TISSUES: Unremarkable. IMPRESSION: No acute abnormality. DATA REPOSITORY: RADIATION DOSE DELIVERED: Ordered By: DELMI SANDERS CC: - Dictated By: Mabel Hernandez M.D. 08/24/23 1512 08/24/23 1512 Transcribed By: Mabel Hernandez 08/24/23 1512 This is privileged, confidential information intended only for the provider named. Any use or distribution by any person other than this provider is strictly prohibited. If you receive this report in error, please notify us immediately at [phone] and return the original report to us at the address above. Thank-you. [address], [place], [address], [facility] 08/24/2023 15:43:51 Problems Name Problem SNOMED Code Status Onset Date Resolution Date Notes Provider Name and Address Organization Details Recorded Time Cough 44503165 Active [address], [facility] [address], [facility] 4 13:46:24 Pneumonia 261081002 Active [address], [place], [address], [facility] 4 15:02:31 Asthma 159949279 Active [address], [place], [address], [facility] 4 16:41:58 Dysuria 49319405 Active [address], [place], [address], [facility] 4 16:48:50 Persistent cough 293460888 Active [address], [place], [address], [facility] 4 11:21:00 Problem Notes None recorded. Procedures Surgical History Date Name Laterality Status Provider Name and Address Organization Details Recorded Time 4 Nebulizer tx completed AGATHA [address], [place], [address], [facility] 08/24/2023 13:09:07 4 Nebulizer tx completed MAURY [address], [place], [address], [facility] 08/17/2023 17:33:01 4 Nebulizer tx completed MAURY [address], [place], [address], [facility] 07/04/2023 15:07:04 Imaging [...] 2 tablets every day by oral route in the morning for 5 days. 2023 active Not Available [...] Updated DateTime 4 163.83 cm 29.1 kg/m2 57009.8 9 g 98.1 [degF] 99 % 99 % 105 /min 20 /min 109 mm[Hg] 73 mm[Hg] Rozina Weller MA [facility] 4 12:18:42 Social History Question Answer Notes LastModified by Organizat ion Details LastModified Time Tobacco Smoking Status Former Smoker Liliana Vale [facility], [facility] 07/04/2023 12:23:26 When Did You Quit Smoking? 1-5yearssinc elastcigaret te Information not available 07/04/2023 What Was The Date Of Your Most Recent Tobacco Screening? 11/02/2023 [email or web address] Information not available 11/02/2023 On What Date Was Tobacco Cessation Counseling Provided? 11/02/2023 [email or web address] Information not available 11/02/2023 Sex: Female Functional Status None recorded. Mental Status None recorded. Family History Nothing Reported. Medical History No medical history recorded. Gynecological HistoryNo gynecological history recorded. Obstetrics History GPAL:G 0 P 0 0 0 0 Immunizations Vaccine Type Date Status Provider Name and Address Organization Details Recorded Time Td (adult), 2 Lf tetanus toxoid, preservative free, adsorbed 01/05/2017 completed Kala Irene RN [facility] 08/17/2023 16:07:40 Past Encounters Encounter ID Performer Location Encounter Start Date Encounter Closed Date Diagnosis/Indication Diagnosis SNOMED-CT Code Diagnosis ICD10 Code [id number] [address] [place] [address] 08/17/2023 13:55:26 08/17/2023 17:19:45 Dysuria 34899634 R30.0 Asthma 718937632 J45.90 [id number] AGATHA CASTILLO [address] [place] [address] 08/24/2023 12:09:12 08/24/2023 13:30:40 Cough 83934370 R05.9 Health Concerns Section Related Observation LastModified by Organization Detai ls LastModified Time None Recorded Concern Status LastModified by Organization Details LastModified Time None Recorded Payers Encounter Date Sequence Insurance Name Policy Number Policy Roberson Covered Member ID Roberson Member ID Guarantor Name 08/24/2023 2 [facility] (MEDICAID) Noreen Denny [id number] Noreen Denny Notes Date Note Type Note [...] any syncopal episodes. Patient is followed by [facility] and [facility] pulmonology, has next scheduled appointment with emissions testing technician on 08/28/23. Did have CT scan chest performed 08/16/23, and did have PN on CXR obtained 07/04/23 through this office. (treated with doxycycline 100 mg BID X5 days) [address], [place], [address], [facility]. 08/24/2023 14:24:05 OBGyn Episode No OBEpisode recorded.
--- OUTSIDE RECORDS SUMMARY | 2023-11-15 16:09 | XMS_ITS | Continuity of Care Document ---
Author Organization [facility], [facility] Address [address] [place] [address] [address] [place] [address] Care Team Providers Care Charge Master Analyst Name Role Phone JESSI SAENZ Primary Care Provider Assessment No assessment recorded. Plan of Treatment Reminders Order Date Submit Date Provider Last Modified By Organization Details Last Modified Time Details Appointments Nurse Visit 10 2023 01:18P M NECSDebbi Nurse Not available Not available Not available Lab urinalysi s, dipstick 2023 024 [facility], [address] [place] [address], [address], [place], [address], 08/17/2023 16:24:41 culture, urine + sensitivi ty [address] [place], [address] 08/20/2023 08:48:23 microscop ic method, urine [address] [place], [address] 08/18/2023 08:29:51 Referral None recorded. Procedures None recorded. Surgeries None recorded. Imaging None recorded. Medication Orders prednison e 20 mg tablet 2023 024 [place] [facility], [address] [facility], [place], [address], 08/24/2023 13:08:12 ipratropi um 0.5 mg-albute rol 3 mg (2.5 mg base)/3 mL nebulizat ion soln 2023 024 [facility], [address] [place], [address], 08/17/2023 17:33:19 cephalexi n 500 mg capsule 2023 024 [facility], [address] [place], [address], 08/24/2023 13:08:06 Patient TargetsNo targets recorded. Patient Instructions Encounter Date Encounter Id Patient Instructions Last Modified By Organization Details Last Modified Time 08/17/2023 [id number] 1. Your urine di p here is [...] Abnormal Flag Note LastModifiedBy Organization Detail LastModifiedTime 08/17/1908/17/2023 urina lysis , dipst ick Leukocytes Trace Not Available Cristi brown [address], [place], [address], 08/17/2023 16:05:03 08/17/19 24 08/17/2023 urina lysis , dipst ick Nitrite positi ve Not Available [address], [place], [address], 08/17/2023 16:05:03 08/17/19 24 08/17/2023 urina lysis , dipst ick Urobilinogen .2 Not Available [address], [place], [address], 08/17/2023 16:05:03 08/17/19 24 08/17/2023 urina lysis , dipst ick Protein 300 Not Available [address], [place], [address], 08/17/2023 16:05:03 08/17/19 24 08/17/2023 urina lysis , dipst ick pH 7.5 Not Available [address], [place], [address], 08/17/2023 16:05:03 08/17/19 24 08/17/2023 urina lysis , dipst ick Blood Negati ve Not Available [address], [place], [address], 08/17/2023 16:05:03 08/17/19 24 08/17/2023 urina lysis , dipst ick Specific [place] 1.010 Not Available [address], [place], [address], 08/17/2023 16:05:03 08/17/19 24 08/17/2023 urina lysis , dipst ick Ketone Trace Not Available [address], [place], [address], 08/17/2023 16:05:03 08/17/19 24 08/17/2023 urina lysis , dipst ick Bilirubin Small Not Available [address], [place], [address], 08/17/2023 16:05:03 08/17/19 24 08/17/2023 urina lysis , dipst ick Glucose Negati ve Not Available [address], [place], [address], 08/17/2023 16:05:03 08/17/19 24 08/17/2023 urina lysis , dipst ick Appearance Clear Not Available [address], [place], [address], 08/17/2023 16:05:03 08/17/19 24 08/17/2023 urina lysis , dipst ick Color Dark Yellow Not Available [address], [place], [address], 08/17/2023 16:05:03 08/24/19 24 08/24/2023 XR, chest , 2 view Patien t Name: Mary Denny Unit #: [id number] Loc: [facility] er: MARY JO SANDERS t #: [id number] Status : REG CLI Primar y [...] error, please notify us immedi netoly at [phone] and return the origin al report to us at the addres s above. Thank- you. [email or web address] [facility] [address], [place], [address] 08/24/2023 15:43:51 11/02/19 24 11/02/2023 XR, chest , 2 view No observ ation record ed. Not Available 2023 16:07:14 11/02/19 24 11/02/2023 XR, chest , 2 view Brendan orr Name: Mary Denny Unit #: [id number] Loc: DI Orderi ng Provid er: Savanna Hardy Accoun t #: [id number] Status : REG CLI Primar [...] ------ ------ - Dictat ed By: Ajay iMna M.D. 1313 1313 Transc ribed By: Ajay Mina 1313 This is privil eged, confid ential inform ation intend ed only for the provid er named. Any use or distri bution by any person other than this [facility] er is strict ly prohib ited. If you receiv e this report in error, please notify us immedi ately at and return the origin al report to us at the addres s above. Thank- you. [email or web address] [facility] [address] [facility] [place], [address] 11/02/2023 15:16:37 Result Notes None recorded. Problems Name Problem SNOMED Code Status Onset Date Resolution Date Notes Provider Name and Address Organization Details Recorded Time Cough 23078715 Active 024 SAVANNA HARDY PA-C [address], [place], [address], [facility] 4 13:46:24 Pneumonia 324734938 Active [address], [facility] [address] , [facility] 4 15:02:31 Asthma 329011429 Active [address], [facility] [address] , [facility] 4 16:41:58 Dysuria 59336435 Active [address], [facility] [address] , [facility] 4 16:48:50 Persistent cough 862842870 Active [address], [facility] [address] , [facility] 4 11:21:00 Problem Notes None recorded. Procedures Surgical History Date Name Laterality Status Provider Name and Address Organization Details Recorded Time 4 Nebulizer tx completed [address], [place], [address], [facility] 08/24/2023 13:09:07 4 Nebulizer tx completed [address], [facility] [address], [facility] 08/17/2023 17:33:01 4 Nebulizer tx completed [address]Y [address], [facility] [address], [facility] 07/04/2023 15:07:04 Imaging Results None recorded. Procedure [...] Organization Details Last Updated DateTime 163.83 cm 29.2 kg/m2 93905.6 9 g 98.1 [degF] 94 % 94 % 98 /min 20 /min 96 % 96 % 96 /min 112 mm[Hg] 75 mm[Hg] Rozina Weller MA [facility] 15:52:33 Social History Question Answer Notes LastModified by Organizat ion Details LastModified Time Tobacco Smoking Status Former Smoker [facility], [facility] 07/04/2023 12:23:26 When Did You Quit Smoking? 1-5yearssinc elastcigaret te Information not available 07/04/2023 What Was The Date Of Your Most Recent Tobacco Screening? 11/02/2023 [email or web address] Information not available 11/02/2023 On What Date Was Tobacco Cessation Counseling Provided? 11/02/2023 [email or web address] Information not available 11/02/2023 Sex: Female Functional [...] free, adsorbed 01/05/2017 completed [facility], [facility] 08/17/2023 16:07:40 Past Encounters Encounter ID Performer Location Encounter Start Date Encounter Closed Date Diagnosis/Indication Diagnosis SNOMED-CT Code Diagnosis ICD10 Code [id number] [address] [address] 08/17/2023 13:55:26 08/17/2023 17:19:45 Dysuria 16497193 R30.0 Asthma 185270395 J45.90 9 Health Concerns Section Related Observation LastModified by Organization Detai ls LastModified Time None Recorded Concern Status LastModified by Organization Details LastModified Time None Recorded Payers Encounter Date Sequence Insurance Name Policy Number Policy Roberson Covered Member ID Roberson Member ID Guarantor Name 08/17/2023 2 [facility] (MEDICAID) Noreenshana Denny [id number] Noreen Denny Notes Date Note Type Note [...] months. She has an appointment with her director consumer affairs on the of this month to follow-up [...] will review these records. [address], [place], [address], [facility]. 08/17/2023 17:34:49 OBGyn Episode No OBEpisode recorded.
--- OUTSIDE RECORDS SUMMARY | 2023-11-15 16:09 | XMS_ITS ---
Author Organization Unknown Address [address] [place] [phone] Phone Care Team Providers Care Residential Installer Name Role Phone MARIAMA Sanchez Attending Unavailable [...] Code Sys tem Peripheral vascular disease 09/14/2022 [id number] SNOMED-CT Personal Care Team Section Performer Name Performer Role Active Date Inactive Da te
--- OUTSIDE RECORDS SUMMARY | 2023-11-15 16:09 | XMS_ITS | Encounter Summary ---
Author Organization [facility] Address [facility] [place] [address] Care Team Providers Care Manager Care Management Name Role Phone Joey Ambrose APRN Primary Care Provider + Encounter Details Date Type Department Care Team (Late st Contact Info) Description 10/09/2023 Orders [place] [address] Roverto Burnette MD [facility] [place] [address] Type 2 diabetes mellitus with hyperglycemia, with long-term current use of insulin Social History Tobacco Use Types Packs/Day Years Used Date Smoking Tobacco: Former Cigarettes Q uit: 2022 Smokeless Tobacco: Never Sex and Gender Information Value Date Recorded Sex Assigned at Not on file Gender Identity Not on file Sexual Orientation Not on file documented as of this encounter Plan of Treatment Upcoming Encounters Date Type Department Care Team (Late st Contact Info) Description 12/20/2023 10:30 AM EST Office [place] [address] Park Gross PA [facility] [place] [address] documented as of this encounter Visit Diagnoses Diagnosis Type 2 diabetes mellitus with hyperglycemia, with long-term current use of insulin documented in this encounter Care Teams Manager Care Management Relationship Specialty Start Date End Date Joey Ambrose APRN [address] [place] [address] [address] [place] [address] PCP - General Family Medicine 11/09/22 documented as of this encounter
--- OUTSIDE RECORDS SUMMARY | 2023-11-15 16:09 | XMS_ITS | Continuity of Care Document ---
Author Organization [place] [facility] [employer] [facility] Address [address] [facility] [address] [place] [address] Care Team Providers Care Net Development Manager Name Role Phone JESSI SAENZ Primary Care Provider [phone] Assessment No assessment recorded. Plan of Treatment Reminders Order Date Submit Date Provider Last Modified By Organization Details Last Modified Time Details Appointments Nurse Visit 10 2023 01:18P M NECSJ Nurse Not available Not available Not available Lab SARS CoV 2 RNA (COVID-19 ), QL, long term care phlebotomist-PCR, respirato ry specimen 2023 024 [facility], [address], [place], [address] 11/15/2023 13:30:49 Referral None recorded. Procedures None recorded. Surgeries None recorded. Imaging None recorded. Medication Orders None recorded. Patient TargetsNo targets recorded. Patient InstructionsNo instructions recorded. Reason for Referral None Reported. Results Created Date Observation Date Name Description Value Unit Range Abnormal Flag Note LastModifiedBy Organization Detail LastModifiedTime 11/02/19 24 11/02/2023 XR, chest , 2 view No observ ation record ed. Not Available 2023 16:07:14 11/02/19 24 11/02/2023 XR, chest , 2 view Patien t Name: Mary Denny kevin Sanchez Unit #: [id number] Loc: DI Orderi ng Provid er: Savanna Cabrera Accoun t #: [id number] Status : REG CLI Primar [...] Dictat ed By: Ajay Mina M.D. 1313 1313 Transc ribed By: Ajay Mina 1313 This is privil eged, confid ential inform ation intend ed only for the provid er named. Any use or distri bution by any person other than this [facility] er is strict ly prohib ited. If you receiv e this report in error, please notify us immedi ately at and return the origin al report to us at the addres s above. Thank- you. [facility] [address] [place], [address] 11/02/2023 15:16:37 Result Notes None recorded. Problems Name Problem SNOMED Code Status Onset Date Resolution Date Notes Provider Name and Address Organization Details Recorded Time Cough 45228286 Active [address], [place], [address], [facility] 13:46:24 Pneumonia 245197427 Active [address], [place], [address], [facility] 4 15:02:31 Asthma 874145616 Active [address], [place], [address], [facility] 16:41:58 Dysuria 19224057 Active [address], [place], [address], [facility] 16:48:50 Persistent cough 823573773 Active [address], [place], [address], [facility] 11:21:00 Problem Notes None recorded. Procedures Surgical History Date Name Laterality Status Provider Name and Address Organization Details Recorded Time 4 Nebulizer tx completed [address]AT[address], [place], [address], [facility] 08/24/2023 13:09:07 4 Nebulizer tx completed [address], [place], [address], [facility] 08/17/2023 17:33:01 4 Nebulizer tx [address], [place], [address], [facility] 07/04/2023 15:07:04 Imaging Results None recorded. Procedure [...] Not Available Not Available Not Available Vitals None Recorded Social History Question Answer Notes LastModified by Organizat ion Details LastModified Time Tobacco Smoking Status Former Smoker Liliana Vale [facility], [place] [facility]. 07/04/2023 12:23:26 When Did You Quit Smoking? 1-5yearssinc elastcigaret te Information not available 07/04/2023 What Was The Date Of Your Most Recent Tobacco Screening? 11/02/2023 [email or web address] Information not available 11/02/2023 On What Date Was Tobacco Cessation Counseling Provided? 11/02/2023 [email or web address] Information not available 11/02/2023 Sex: Female Functional [...] free, adsorbed 01/05/2017 completed Kala Irene RN [facility] 08/17/2023 16:07:40 Past Encounters Encounter ID Performer Location Encounter Start Date Encounter Closed Date Diagnosis/Indication Diagnosis SNOMED-CT Code Diagnosis ICD10 Code [id number] SAVANNA CABRERA PA-C [address] [place] [address] 11/02/2023 10:46:46 11/02/2023 11:34:42 Persistent cough 476741709 R05.3 [id number] Kala Irene RN [address] [place] [address] 11/15/2023 13:19:55 11/15/2023 13:27:43 Exposure to SARS-CoV-2 097446758 Z20.822 Health Concerns Section Related Observation LastModified by Organization Detai ls LastModified Time None Recorded Concern Status LastModified by Organization Details LastModified Time None Recorded Payers Encounter Date Sequence Insurance Name Policy Number Policy Roberson Covered Member ID Roberson Member ID Guarantor Name 11/15/2023 1 [place] [employer] Noreen Denny [id number] Noreen Denny 11/15/2023 2 [facility] (MEDICAID) Noreen Denny [id number] Noreen Denny OBGyn Episode No OBEpisode recorded.
--- OUTSIDE RECORDS SUMMARY | 2023-11-15 16:09 | XMS_ITS | Data Portability ---
Author Organization [facility] Address Susanne Whelan [facility] [place] [address] Care Team Providers Care Principal System Software Engineer Name Role Phone JOEY SAENZ Primary Care Provider Assessment No assessment recorded. Plan of Treatment Reminders Order Date Submit Date Provider Last Modified By Organization Details Last Modified Time Details Appointments Nurse Visit 10 2023 01:18P M NECSJ Nurse Not available Not available Not available Lab rapid strep group A, throat [address], [address], [address], 07/04/2023 15:03:14 influenza virus A + B + SARS-CoV- 2 (COVID19) Ag panel, rapid IA, upper respirato ry specimen [address], [address], 07/04/2023 15:03:17 urinalysi s, dipstick [address], [address], [address], 08/17/2023 16:24:41 culture, urine + sensitivi ty 2023 024 [facility], [address] [place] [address] [place], [address] 08/20/2023 08:48:23 microscop ic method, urine [address] [place], [address] 08/18/2023 08:29:51 influenza virus A + B + SARS-CoV- 2 (COVID19) Ag panel, rapid IA, upper respirato ry specimen 2023 024 [email or web address] [facility], [address] [place] [address], [address], [place], [address], 08/24/2023 13:05:12 SARS CoV 2 RNA (COVID-19 ), QL, repair miller-PCR, respirato ry specimen [address] [place], [address] 11/15/2023 13:30:49 Referral None recorded. Procedures None recorded. Surgeries None recorded. Imaging XR, chest, 2 view [address], [address] 07/18/2023 08:57:41 XR, chest, 2 view [address] [place], [address] 08/24/2023 15:37:29 XR, chest, 2 view [address] [place], [address] 11/02/2023 13:30:08 Medication Orders prednison e 20 mg tablet 2023 024 [email or web address] [facility], [address] [place], [address], 08/24/2023 13:08:08 doxycycli ne hyclate 100 mg capsule 2023 024 [facility], [address] [place] [address], [address], 08/17/2023 15:54:49 prednison e 20 mg tablet 2023 024 [facility], [address] [place] [address], [address], 08/24/2023 13:08:12 ipratropi um 0.5 mg-albute rol 3 mg (2.5 mg base)/3 mL nebulizat ion soln 2023 024 [facility], [address] [place] [address], [address], 08/17/2023 17:33:19 cephalexi n 500 mg capsule 2023 024 [facility], [address] [place] [address], [address], 08/24/2023 13:08:06 ipratropi um 0.5 mg-albute rol 3 mg (2.5 mg base)/3 mL nebulizat ion soln 2023 024 [email or web address] [facility], [address] [place] [address], [address], 08/24/2023 13:37:39 prednison e 20 mg tablet 2023 024 [facility], [address] [place] [address], [address], 11/02/2023 14:24:52 Patient TargetsNo targets recorded. Patient Instructions Encounter Date Encounter Id Patient Instructions Last Modified By Organization Details Last Modified Time 07/04/2023 [id number] 1. X-rays have been ordered and will [...] for antibiotic. Not available 07/04/2023 13:48:01 08/17/2023 [id number] 1. Your urine di p here is [...] as needed. Not available 08/17/2023 17:18:06 08/24/2023 [id number] Today you received another nebulizer treatment (the [...] should seek care through the emergency room. [email or web address] Not available 08/24/2023 13:24:57 11/02/2023 [id number] 1. I am concerne d about possibility of pneumonia and thus I am sending you up to the hospital to get a chest x-ray. I will get these results back in a couple of hours and we will call you to review findings 2. Please continue to use your inhalers and nebulizer at home as prescribed. 3. Given how much you are having to use your inhalers and nebulizers I will place you on prednisone daily for total of 5 days but may also add antibiotic after x-ray returns. Not available 11/02/2023 11:25:36 Reason for Referral None Reported. Results Created Date Observation Date Name Description Value Unit Range Abnormal Flag Note LastModifiedBy Organization Detail LastModifiedTime 07/04/19 24 07/04/2023 influ mike virus A + B + SARS- CoV-2 (COVI D19) Ag panel , rapid IA, upper respi rator y speci men Influenza A positi ve Not Available [address] [address], [place], [address], 07/04/2023 12:31:18 07/04/19 24 07/04/2023 influ mike virus A + B + SARS- CoV-2 (COVI D19) Ag panel , rapid IA, upper respi rator y speci men Influenza B positi ve Not Available [address] [address], [place], [address], 07/04/2023 12:31:18 07/04/19 24 07/04/2023 influ mike virus A + B + SARS- CoV-2 (COVI D19) Ag panel , rapid IA, upper respi rator y speci men SARS-COV-2 positi ve Not Available [address], [place], [address], 07/04/2023 12:31:18 07/04/19 24 07/04/2023 rapid strep group A, throa t Strep negati ve Not Available [address] [address], [place], [address], 07/04/2023 12:30:41 08/17/19 24 08/17/2023 MICRO SCOPI C FINDI NGS WBC 5-10 hpf 0-5 Not Available Edilberto cruz [address] [place], [address] 08/17/2023 22:33:18 08/17/19 24 08/17/2023 MICRO SCOPI C FINDI NGS RBC 0-2 hpf 0-2 Not Available Edilberto cruz [address] [address] [place], [address] 08/17/2023 22:33:18 08/17/19 24 08/17/2023 MICRO SCOPI C FINDI NGS epithelial cells Rare hpf negati ve Not Available [address] [place], [address] 08/17/2023 22:33:18 08/17/19 24 08/17/2023 MICRO SCOPI C FINDI NGS other cells Rare Renal negati ve Not Available [address] [place], [address] 08/17/2023 22:33:18 08/17/19 24 08/17/2023 MICRO SCOPI C FINDI NGS bacteria Rare hpf negati ve Not Available [address] [place], [address] 08/17/2023 22:33:18 08/17/19 24 08/17/2023 MICRO SCOPI C FINDI NGS crystals Negati ve hpf negati ve Not Available [address] [place], [address] 08/17/2023 22:33:18 08/17/19 24 08/17/2023 MICRO SCOPI C FINDI NGS mucus Negati ve negati ve Not Available [address] [place], [address] 08/17/2023 22:33:18 08/17/19 24 08/17/2023 MICRO SCOPI C FINDI NGS casts 5-10 Hyalin e lpf negati ve Not Available [address] [place], [address] 08/17/2023 22:33:18 08/17/19 24 08/17/2023 MICRO SCOPI C FINDI NGS C S indicated? C S Done As Ordere d Not Available [address] [place], [address] 08/17/2023 22:33:18 08/17/19 24 08/19/2023 URINE CULTU RE urine culture Urine Cultu re Proba ble conta minat ed colle ction APPEA JEFE Mixed Gram Posit jayme Mavis APPEA JEFE Gram Negat jayme Jihan COLON Y COUNT Not Available [address] [place], [address] 08/19/2023 07:34:19 08/17/19 24 08/19/2023 URINE CULTU RE urine culture colon ies/m L 10,00 0 - 50,00 0 COLON Y COUNT <10,0 00 Day 1 Resul t ISOLA CONCHITA BELOW O:GPF M (ORGA NISM ID: 1.1) - GRAM POSIT JAYME MAVIS ,MIXE D Urine Cultu re (ORGA NISM ID: 1.1) - COLON Y COUNT (ORGA NISM ID: 1.1) - 10,00 0 - 50,00 0 O:GNR (ORGA NISM ID: 1.2) - GRAM NEGAT JAYME JIHAN Urine Cultu re (ORGA NISM ID: 1.2) - COLON Y COUNT (ORGA NISM ID: 1.2) - <10,0 00 Not Available [address] [place], [address] 08/19/2023 07:34:19 08/17/19 24 08/20/2023 URINE CULTU RE urine culture Urine Cultu re Proba ble conta minat ed colle ction APPEA JEFE Mixed Gram Posit jayme Mavis APPEA JEFE Gram Negat jayme Jihan APPEA JEFE Mixed Gram Posit jayme Mavis APPEA JEFE Gram Negat jayme Jihan COLON Y COUNT Not Available [address] [place], [address] 08/20/2023 07:48:25 08/17/19 24 08/20/2023 URINE CULTU RE urine culture colon ies/m L 10,00 0 - 50,00 0 COLON Y COUNT <10,0 00 COLON Y COUNT 10,00 0 - 50,00 0 COLON Y COUNT <10,0 00 Day 1 Resul t ISOLA CONCHITA BELOW Day 2 Resul t ISOLA CONCHITA BELOW O:GPF M (ORGA NISM ID: 1.1) - GRAM POSIT JAYME MAVIS ,MIXE D Urine Cultu re (ORGA NISM ID: 1.1) - COLON Y COUNT (ORGA NISM ID: 1.1) - 10,00 0 - 50,00 0 O:GNR (ORGA NISM ID: 1.2) - GRAM NEGAT JAYME JIHAN Urine Cultu re (ORGA NISM ID: 1.2) - COLON Y COUNT (ORGA NISM ID: 1.2) - <10,0 00 Not Available [facility] [address], [place], [address] 08/20/2023 07:48:25 08/17/19 24 08/17/2023 urina lysis , dipst ick Leukocytes Trace Not Available [address], [place], [address], 08/17/2023 16:05:03 08/17/19 24 08/17/2023 urina lysis , dipst ick Nitrite positi ve Not Available [address], [place], [address], 08/17/2023 16:05:03 08/17/19 24 08/17/2023 urina lysis , dipst ick Urobilinogen .2 Not Available [address], [place], [address], 08/17/2023 16:05:03 08/17/19 24 08/17/2023 urina lysis , dipst ick Protein 300 Not Available [address], [place], [address], 08/17/2023 16:05:03 08/17/19 24 08/17/2023 urina lysis , dipst ick pH 7.5 Not Available [address], [place], [address], 08/17/2023 16:05:03 08/17/19 24 08/17/2023 urina lysis , dipst ick Blood Negati ve Not Available [address], [place], [address], 08/17/2023 16:05:03 08/17/19 24 08/17/2023 urina lysis , dipst ick Specific [place] 1.010 Not Available [address], [place], [address], 08/17/2023 16:05:03 08/17/19 24 08/17/2023 urina lysis , dipst ick Ketone Trace Not Available [address], [place], [address], 08/17/2023 16:05:03 08/17/19 24 08/17/2023 urina lysis , dipst ick Bilirubin Small Not Available [address], [place], [address], 08/17/2023 16:05:03 08/17/19 24 08/17/2023 urina lysis , dipst ick Glucose Negati ve Not Available [address], [place], [address], 08/17/2023 16:05:03 08/17/19 24 08/17/2023 urina lysis , dipst ick Appearance Clear Not Available [address], [place], [address], 08/17/2023 16:05:03 08/17/19 24 08/17/2023 urina lysis , dipst ick Color Dark Yellow Not Available [address], [place], [address], 08/17/2023 16:05:03 08/24/19 24 08/24/2023 influ imke virus A + B + SARS- CoV-2 (COVI D19) Ag panel , rapid IA, upper respi rator y speci men Influenza A negati ve Not Available [address], [place], [address], 08/24/2023 13:02:42 08/24/19 24 08/24/2023 influ mike virus A + B + SARS- CoV-2 (COVI D19) Ag panel , rapid IA, upper respi rator y speci men Influenza B negati ve Not Available [address], [place], [address], 08/24/2023 13:02:42 08/24/19 24 08/24/2023 influ mike virus A + B + SARS- CoV-2 (COVI D19) Ag panel , rapid IA, upper respi rator y speci men SARS-COV-2 negati ve Not Available [address], [place], [address], 08/24/2023 13:02:42 07/04/19 24 07/04/2023 XR, chest , 2 view No observ ation record ed. [email or web address] Not Available 2023 07:27:39 07/04/19 24 07/04/2023 XR, chest , 2 view Patien t Name: MARY DENNY Chelsey Unit #: [id number] Loc: DI Mika ng Provid er: Savanna Hardy Accoun t #: [id number] Status : PRE CLI Primar [...] - Dictat ed By: Hollie Ayala 1435 1435 Transc ribed By: Lexa Hernandez 1435 This is privil eged, confid ential inform ation intend ed only for the provid er named. Any use or distri bution by any person other than this provid er is strict ly prohib ited. If you receiv e this report in error, please notify us [email or web address] duquely at [phone] and return the origin al report to us at the addres s above. Thank- you. [email or web address] [facility] [address], [place], [address] 07/18/2023 08:57:41 08/24/19 24 08/24/2023 XR, chest , 2 view Patien t Name: Mary Denny Unit #: [id number] Loc: DI Orderi ng Provid er: MARY JO SANDERS April t #: [id number] Status : REG CLI Primar y [...] ------ - Dictat ed By: Hollie Ayala [id number] Transc ribed By: Lexa Hernandez 1511 This [...] you. [facility] [address], [place], [address] 08/24/2023 15:43:51 11/02/19 24 11/02/2023 XR, chest , 2 view No observ ation record ed. Not Available 2023 16:07:14 11/02/19 24 11/02/2023 XR, chest , 2 view Patien t Name: Mary Denny Unit #: [id number] Loc: DI Orderi ng [facility] er: Savanna Hardy Accoun t #: [id number] Status : REG CLI Primar y Care Provid er: VanWlaila rt,And babs Date of Exam: Sex: F [...] at the addres s above. Thank- you. [email or web address] [facility] [address], [place], [address] 11/02/2023 15:16:37 Result Notes Documentation Provider Name and Address Organization Details Recorded Time Xr, Chest, 2 View : Patient Name: NOREEN DENNY Unit #: [id number] Loc: DI Ordering Provider: Savanna Hardy 3 Status: PRE CLI Primary Care Provider: Date of Exam: 07/04/23 Sex: F Admission Date: 07/04/23 : 1960 Age: 62 Exam(s) XR CHEST 2V PA LATERAL EXAM: XR CHEST 2V PA LATERAL CLINICAL HISTORY: Cough, R05.9 TECHNIQUE: 2D digital imaging was performed. Two views. COMPARISON: CT CT CHEST LOW DOSE CA SCREENING from 09/19/2022 FINDINGS: HEART: Normal size. Aorta: Not dilated. PULMONARY VASCULATURE: Normal. LUNGS: Mild patchy infiltrate seen in the left mid and lower lobes. No area of consolidation. Right lung appears clear. PLEURAL SPACE: No pleural effusion or pneumothorax. BONE:Unremarkable for age. Soft tissues: Unremarkable. IMPRESSION: Mild infiltrates left lower lung field. DATA REPOSITORY: RADIATION DOSE DELIVERED: Ordered By: Savanna Hardy CC: - Dictated By: Mabel Hernandez M.D. 07/04/23 1435 07/04/23 1435 Transcribed By: Mabel Hernandez 07/04/23 2922 This is privileged, confidential information intended only for the provider named. Any use or distribution by any person other than this provider is strictly prohibited. If you receive this report in error, please notify us immediately at [phone] and return the original report to us at the address above. Thank-you. Kala Irene RN [facility], [facility] 07/18/2023 08:57:41 Xr, Chest, 2 View : Patient Name: Noreen Denny Unit #: [id number] Loc: DI Ordering Provider: DELMI SANDERS Status: REG [facility] Primary Care Provider: Unknown,Unknown Date of Exam: [...] - Dictated By: Mabel Hernandez M.D. 08/24/23 15108/24/231511 Transcribed By: Mabel Hernandez 08/24/231511 This is privileged, confidential information intended only for the provider named. Any use or distribution by any person other than this provider is strictly prohibited. If you receive this report in error, please notify us immediately at [phone] and return the original report to us at the address above. Thank-you. DELMI SANDERS, AGATHA [address], [place], [address], [facility] 08/24/2023 15:43:51 Xr, Chest, 2 View : Patient Name: Noreen Denny Unit #: [id number] Loc: DI Ordering Provider: Savanna Hardy 0 Status: REG I Primary Care Provider: Joey Moreau Date of Exam: Sex: F Admission Date: 11/02/23 : 1960 Age: 63 Exam(s) XR CHEST 2V PA LATERAL EXAM: XR CHEST 2V PA LATERAL CLINICAL HISTORY: R05.3 Chronic cough TECHNIQUE: 2D digital imaging was performed of the chest. Two images were obtained. PA and lateral views were obtained. COMPARISON: CR XR CHEST 2V PA LATERAL from 08/26/2023 FINDINGS: MEDIASTINUM: Normal. HEART: Normal. PULMONARY VASCULATURE: Normal. LUNGS: Clear. PLEURAL SPACE: No pleural effusion or pneumothorax. BONE:Within normal limits for the patient's age. OTHER FINDINGS:Normal. IMPRESSION: No acute pulmonary findings. DATA REPOSITORY: RADIATION DOSE DELIVERED: Ordered By: Savanna Hardy CC: - Dictated By: Ajay Mina M.D. 11/02/23 1313 11/02/23 1313 Transcribed By: Ajay Mina 11/02/23 1313 This is privileged, confidential information intended only for the provider named. Any use or distribution by any person other than this provider is strictly prohibited. If you receive this report in error, please notify us immediately at [phone] and return the original report to us at the address above. Thank-you. ANAND Escoto, [facility] 11/02/2023 15:16:37 Problems Name Problem SNOMED Code Status Onset Date Resolution Date Notes Provider Name and Address Organization Details Recorded Time Cough 49581737 Active [address], [place], [address], [facility] 4 13:46:24 Pneumonia 394813120 Active [address], [place], [address], [facility] 4 15:02:31 Asthma 521212630 Active [address], [place], [address], [facility] 4 16:41:58 Dysuria 10409453 Active [address], [place], [address], [facility] 4 16:48:50 Persistent cough 144154613 Active [address], [place], [address], [facility] 4 11:21:00 Problem Notes None recorded. Procedures Surgical History Date Name Laterality Status Provider Name and Address Organization Details Recorded Time 4 Nebulizer tx completed [address], [place], [address], [facility] 08/24/2023 13:09:07 4 Nebulizer tx completed [address], [place], [address], [facility] 08/17/2023 17:33:01 4 Nebulizer tx completed [address], [place], [address], [facility] 07/04/2023 15:07:04 Imaging Results Imaging Date Name Status LastModified by Organiz ation Details LastModified Time 07/04/2023 XR, chest, 2 view completed [email or web address] Information not available 07/05/2023 07:27:39 07/04/2023 XR, chest, 2 view completed [email or web address] [address] [place], [address] 07/18/2023 08:57:41 08/24/2023 XR, chest, 2 view completed [email or web address] [address] [place], [address] 08/24/2023 15:43:51 11/02/2023 XR, chest, 2 view completed Information not available 11/02/2023 16:07:14 11/02/2023 XR, chest, 2 view completed [address] [place], [address] 11/02/2023 15:16:37 Procedure Notes None recorded. Medical Equipment None [...] Updated DateTime 4 163.83 cm 30.1 kg/m2 75447.4 4 g 98.2 [degF] 97 % 97 % 93 /min 18 /min 132 mm[Hg] 82 mm[Hg] Liliana Vale [facility] 4 12:21:27 Date Recorded Body height Body mass index (BMI) Body weight Body temperature Oxygen saturation Oxygen saturation in Arterial blood by Pulse oximetry Heart rate Respiratory rate Oxygen saturation Oxygen saturation in Arterial blood by Pulse oximetry Heart rate Systolic blood pressure Diastolic blood pressure Provider Name and Address Organization Details Last Updated DateTime 4 163.83 cm 29.2 kg/m2 25039.6 9 g 98.1 [degF] 94 % 94 % 98 /min 20 /min 96 % 96 % 96 /min 112 mm[Hg] 75 mm[Hg] Rozina Weller MA [facility] 4 15:52:33 Date Recorded Body height Body mass index (BMI) Body weight Body temperature Oxygen saturation Oxygen saturation in Arterial blood by Pulse oximetry Heart rate Respiratory rate Systolic blood pressure Diastolic blood pressure Provider Name and Address Organization Details Last Updated DateTime 4 163.83 cm 29.1 kg/m2 03040.8 9 g 98.1 [degF] 99 % 99 % 105 /min 20 /min 109 mm[Hg] 73 mm[Hg] Rozina [place] MA [facility] 4 12:18:42 Date Recorded Body height Body mass index (BMI) Body weight Oxygen saturation Oxygen saturation in Arterial blood by Pulse oximetry Heart rate Respiratory rate Body temperature Systolic blood pressure Diastolic blood pressure Provider Name and Address Organization Details Last Updated DateTime 163.83 cm 29.1 kg/m2 90584.8 9 g 96 % 96 % 101 /min 19 /min 99.3 [degF] 120 mm[Hg] 75 mm[Hg] Delmi Mina MA [facility] 11:08:18 Social History Question Answer Notes LastModified by Organizat ion Details LastModified Time Tobacco Smoking Status Former Smoker Liliana Vale [facility], [facility] 07/04/2023 12:23:26 When Did You Quit Smoking? 1-5yearssinc elastcigaret te Information not available 07/04/2023 What Was The Date Of Your Most Recent Tobacco Screening? 11/02/2023 [email or web address] Information not available 11/02/2023 On What Date Was Tobacco Cessation Counseling Provided? 11/02/2023 [email or web address] Information not available 11/02/2023 Sex: Female Functional [...] free, adsorbed 01/05/2017 completed Kala Irene RN [facility], [facility] 08/17/2023 16:07:40 Past Encounters Encounter ID Performer Location Encounter Start Date Encounter Closed Date Diagnosis/Indication Diagnosis SNOMED-CT Code Diagnosis ICD10 Code [id number] [address] [place] [address] 07/04/2023 10:37:13 07/04/2023 14:05:00 Pneumonia 396416232 J18.[id number] [place] [address] 08/17/2023 13:55:26 08/17/2023 17:19:45 Dysuria 04511067 R30.0 Asthma 295390951 J45.90 [id number] AGATHA CASTILLO [address] [place] [address] 08/24/2023 12:09:12 08/24/2023 13:30:40 Cough 55421244 R05.9 [id number] SAVANNA HARDY PA-C [address] [place] [address] 11/02/2023 10:46:46 11/02/2023 11:34:42 Persistent cough 311084298 R05.3 [id number] Kala Irene RN [address] [place] [address] 11/15/2023 13:19:55 11/15/2023 13:27:43 Exposure to SARS-CoV-2 061664698 Z20.822 Health Concerns Section Related Observation LastModified by Organization Detai ls LastModified Time None Recorded Concern Status LastModified by Organization Details LastModified Time None Recorded Advance Directives Directive None Recorded Payers Encounter Date Sequence Insurance Name Policy Number Policy Roberson Covered Member ID Roberson Member ID Guarantor Name 07/04/2023 2 [employer] ([employer]ICAID) Noreen Denny [id number] Noreen Denny 08/17/2023 2 [employer] ([employer]ICA[employer]) Noreen Denny [id number] Noreen Denny 08/24/2023 2 [employer] ([employer]ICAID) Noreen Denny [id number] Noreen Denny 11/02/2023 1 [place] [employer] Noreen Denny [id number] Noreen Denny 11/02/2023 2 [employer] (MEDICAID) Noreen Denny [id number] Noreen Denny 11/15/2023 1 [place] Noreen Denny [id number] Noreen Denny 11/15/2023 2 [employer] ([employer]ICAID) Noreen Denny [id number] Noreen Denny Notes Date Note Type Note [...] a nebulizer at home. [address], [place], [address], [facility]. 07/04/2023 15:26:26 08/17/2023 text/html HPI Notes: Mary [...] months. She has an appointment with her kraft mill operator on the of this month to follow-up [...] records. SAVANNA HARDY PA-C [address], [place], [address], [facility]. 08/17/2023 17:34:49 08/24/2023 text/html HPI Notes: Dary nt with [...] any syncopal episodes. Patient is followed by [facility] and [facility] pulmonology, has next scheduled appointment with kraft mill operator on 08/28/23. Did have CT scan chest performed 08/16/23, and did have PN on CXR obtained 07/04/23 through this office. (treated with doxycycline 100 mg BID X5 days) AGATHA CASTILLO [address], [place], [address], [facility]. 08/24/2023 14:24:05 11/02/2023 text/html HPI Notes: Mary brown is a 63-year-old female with history of asthma who presents with 3 weeks of chest congestion which she cannot seem to improve despite using her DuoNeb 4 times a day. When she is not sick she only uses it about once per day. Also using her rescue inhaler once per day. Does not typically need it when she is not sick. She has been using her Symbicort twice daily at baseline. She has not developed fevers but feels a rattle in her chest. She has not had nausea or vomiting. She does feel short of breath and has been wheezing and sputum has become yellow. SAVANNA HARDY PA-C [address], [place], [address], [facility]. 11/02/2023 18:24:08 OBGyn Episode No OBEpisode recorded.
--- OUTSIDE RECORDS SUMMARY | 2023-11-15 16:09 | XMS_ITS | Continuity of Care Document ---
Author Organization [facility] [employer] [facility] CLAR[employer] [facility], [facility] Address [address] [place] [address] Care Team Providers Care Stud Dairy Cattle Farmer Name Role Phone JOEY SAENZ Primary Care Provider Assessment No assessment recorded. Plan of Treatment Reminders Order Date Submit Date Provider Last Modified By Organization Details Last Modified Time Details Appointments Nurse Visit 10 2023 01:18P M NECSDebbi Nurse Not available Not available Not available Lab None recorded. Referral None recorded. Procedures None recorded. Surgeries None recorded. Imaging XR, chest, 2 view 2023 024 [facility], [address], [place], [address] 11/02/2023 13:30:08 Medication Orders prednison e 20 mg tablet 2023 024 [facility], [address] [place], [address], 11/02/2023 14:24:52 Patient TargetsNo targets recorded. Patient Instructions Encounter Date Encounter Id Patient Instructions Last Modified By Organization Details Last Modified Time 11/02/2023 [id number] 1. I am concerne d about possibility [...] Patien t Name: Mary Denny Unit #: [id number] Loc: DI Orderi ng Provid er: Savanna Cabrera Accoun t #: [id number] Status : REG CLI Primar [...] - Dictat ed By: Ajay Mina M.D. 09/27/ 1312 Transc ribed By: Ajay Mina 1312 This is privil eged, confid ential inform ation intend ed only for the provid er named. Any use or distri bution by any person other than this provid er is strict ly prohib ited. If you receiv e this report in error, please notify us immedi netoly at [phone] and return the origin al report to us at the addres s above. Thank- you. [email or web address] [facility] [address], [place], [address] 11/02/2023 15:16:37 Result Notes Documentation Provider Name and Address Organization Details Recorded Time Xr, Chest, 2 View : Patient Name: Noreen Denny Unit #: [id number] Loc: DI Ordering Provider: Savanna Cabrera 0 Status: REG CLI Primary Care Provider: Joey Moreau Date of [...] REPOSITORY: RADIATION DOSE DELIVERED: Ordered By: Savanna Cabrera CC: - Dictated By: Ajay Mina M.D. 11/02/23131211/02/231312 Transcribed By: Ajay Mina 11/02/231312 This is privileged, confidential information intended only for the provider named. Any use or distribution by any person other than this provider is strictly prohibited. If you receive this report in error, please notify us immediately at [phone] and return the original report to us at the address above. Thank-you. Rozina Weller MA [facility], [facility] 11/02/2023 15:16:37 Problems Name Problem SNOMED Code Status Onset Date Resolution Date Notes Provider Name and Address Organization Details Recorded Time Cough 13921930 Active [address], [place], [address], [facility] 4 13:46:24 Pneumonia 738417731 Active [address], [place], [address], [facility] 4 15:02:31 Asthma 064692934 Active [address], [place], [address], [facility] 4 16:41:58 Dysuria 20925083 Active [address], [place], [address], [facility] 4 16:48:50 Persistent cough 078902174 Active [address], [place], [address], [facility] 4 11:21:00 Problem Notes None recorded. Procedures Surgical History Date Name Laterality Status Provider Name and Address Organization Details Recorded Time 4 Nebulizer tx completed [address], [place], [address], [facility] 08/24/2023 13:09:07 4 Nebulizer tx completed [address], [place], [address], [facility] 08/17/2023 17:33:01 4 Nebulizer tx completed [address], [place], [address], [facility] 07/04/2023 15:07:04 Imaging Results None recorded. [...] Updated DateTime 4 163.83 cm 29.1 kg/m2 10420.8 9 g 96 % 96 % 101 /min 19 /min 99.3 [degF] 120 mm[Hg] 75 mm[Hg] Lidia Mina MA [facility] 4 11:08:18 Social History Question Answer Notes LastModified by Organizat ion Details LastModified Time Tobacco Smoking Status Former Smoker Liliana Vale [facility], [facility] 07/04/2023 12:23:26 When Did You Quit Smoking? 1-5yearssinc elastcigaret te Information not available 07/04/2023 What Was The Date Of Your Most Recent Tobacco Screening? 11/02/2023 [email or web address] Information not available 11/02/2023 On What Date Was Tobacco Cessation Counseling Provided? 11/02/2023 [email or web address] Information not available 11/02/2023 Sex: Female Functional [...] free, adsorbed 01/05/2017 completed Kala Irene RN [facility], [facility] 08/17/2023 16:07:40 Past Encounters Encounter ID Performer Location Encounter Start Date Encounter Closed Date Diagnosis/Indication Diagnosis SNOMED-CT Code Diagnosis ICD10 Code [id number] SAVANNA CABRERA PA-C [address] [place] [address] 11/02/2023 10:46:46 11/02/2023 11:34:42 Persistent cough 445334957 R05.3 Health Concerns Section Related Observation LastModified by Organization Detai ls LastModified Time None Recorded Concern Status LastModified by Organization Details LastModified Time None Recorded Payers Encounter Date Sequence Insurance Name Policy Number Policy Roberson Covered Member ID Roberson Member ID Guarantor Name 11/02/2023 1 [place] [employer] Noreen Denny [id number] Noreen Denny 11/02/2023 2 [facility] (MEDICAID) Noreen Denny [id number] Noreen Denny Notes Date Note Type Note Provider Name and Address Organization Details Recorded Time 11/02/2023 text/html HPI Notes: Mary brown is [...] wheezing and sputum has become yellow. SAVANNA CABRERA PA-C [address], [place], [address], [facility]. 11/02/2023 18:24:08 OBGyn Episode No OBEpisode recorded.
--- OUTSIDE RECORDS SUMMARY | 2023-11-15 16:09 | XMS_ITS ---
Author Organization Unknown Address [address] [place] [phone] Phone Care Team Providers Care Newspaper Correspondent Name Role Phone MARIAMA Sanchez Attending Unavailable [...] Code Sys tem Peripheral vascular disease 03/20/2023 [id number] SNOMED-CT Personal Care Team Section Performer Name Performer Role Active Date Inactive Da te
--- OUTSIDE RECORDS SUMMARY | 2023-11-15 16:10 | XMS_ITS | Encounter Summary ---
Author Organization [facility] [place] [address] Care Team Providers Care First Aid Instructor Name Role Phone Joey Ambrose APRN Primary Care Provider + Encounter Details Date Type Department Care Team (Late st Contact Info) Description 11/10/2022 Orders [place] [phone] Park Gross [place] [facility] [place] [address] Type 2 diabetes mellitus with hyperglycemia, with [...] 10:30 AM EST Office [place] [address] Park Gross [place] [facility] [place] [address] documented as of this encounter Visit Diagnoses Diagnosis Type 2 diabetes mellitus with hyperglycemia, with long-term current use of insulin documented in this encounter Care Teams First Aid Instructor Relationship Specialty Start Date End Date Joey Ambrose APRN [address] [place] [address] [place] [address] PCP - General Family Medicine 11/09/22 documented as of this encounter
--- OUTSIDE RECORDS SUMMARY | 2023-11-15 16:10 | XMS_ITS | Encounter Summary ---
Author Organization [facility] Address [facility] [place] [address] Care Team Providers Care Tube Backer Name Role Phone Joey Ambrose APRN Primary Care Provider + Encounter Details Date Type Department Care Team (Late st Contact Info) Description 06/28/2023 10:30 AM EDT Office Visit [place] [phone] Roverto Burnette MD [facility] [place] [address] Type 2 diabetes mellitus with hyperglycemia, with [...] Ginny 11/2022 Had a DM specialist in [place] and the last time she saw them she was on Lantus 20 units/day and was taking Humalog ~10 units before meals. Was also on Januvia. After move to [place], pt's new PCP had pt taking Lantus 10 units/day, now titrated up to 16 units and using a sliding scale for Humalog. Lowest A1C was 6.5% in [place]. Summer 2021 at time of referral to [...] lbs) Interim Tried ozempic but was nauseated [place] glipizide did much better but had many [...] function test (creatinine) last cholesterol panel: regular tufter operator visits: YES special shoes: YES flu [...] documented in this encounter Plan of Treatment Upcoming Encounters Date Type Department Care Team (Late st Contact Info) Description 12/20/2023 10:30 AM EST Office Visit Endocrinology at [facility] [place] [address] Park Gross PA [facility] [place] [address] documented as of this encounter Procedures Procedure Name Priority Date/Time Associated Diagnosis Comments U ALBUMIN/CRE RATIO Routine 06/28/2023 1 1:19 AM EDT Type 2 diabetes mellitus with hyperglycemia, with long-term current use of insulin CREATININE Routine 06/28/2023 11:17 AM EDT Type 2 diabetes mellitus with hyperglycemia, with long-term current use of insulin TSH Routine 06/28/2023 11:17 AM EDT Type 2 diabetes mellitus with hyperglycemia, with long-term current use of insulin HEMOGLOBIN A1C Routine 06/28/2023 11:17 AM EDT Type 2 diabetes mellitus with hyperglycemia, with long-term current use of insulin documented in this encounter Results * (ABNORMAL) U Albumin/Cre Ratio (06/28/2023 11:19 AM EDT) Albumin / Creatinin Ratio, Urine 108(H) 0 - 29 mcg/mg Cr [facility] Comment: Reference Ranges: <30 mcg/mg: [...] [employer] Supplements (2012) 2, 357? 362 Albumin, Urine 55.0 mg/L [facility] Creatinine, Urine 51 mg/dL [facility] Urine 06/28/2023 11:1 9 AM EDT 06/28/2023 11:28 AM EDT Narrative Resulting Agency Comment Spec In Lab Roverto Burnette MD URINE ORDERABLES Performing Organization Address [facility] Co de Phone Number [facility] [place] [address] * TSH (06/28/2023 11:17 AM EDT) Thyroid Stimulating Hormone 2.32 0.27 - 4.20 mcIU/mL [facility] Comment: Reference Interval (mcIU/mL): Females: ??First Trimester: 0.23-3.88 ??Second Trimester: 0.22-3.90 ??Third Trimester: 0.44-4.66 Blood 06/28/2023 11:1 7 AM EDT 06/28/2023 11:33 AM EDT Narrative Resulting Agency Comment Spec In Lab Roverto Burnette MD CHEMISTRY ORDERABLES Performing Organization Address [facility] de Phone Number [facility] [place] [address] * (ABNORMAL) Creatinine (06/28/2023 11:17 AM EDT) Creatinine 1.13 0.70 - 1.20 mg/dL [facility] Est Glomerular Filtration Rate 55(L) >=60 mL/min/1. 73 m?? [facility] Comment: This patient's estimated GFR [...] Burnette MD CHEMISTRY ORDERABLES Performing Organization Address City/[facility] Co de Phone Number [facility] [place] [address] * (ABNORMAL) Hemoglobin A1c (06/28/2023 11:17 AM EDT) Hemoglobin A1c 8.3(H) 4.3 - 5.6 % [facility] Comment: Reference Range: 4.3 - [...] Mellitus, Diabetes Care 2013; 36: Suppl. 1, S67-18 Estimated Average Glucose 191 mg/dL [facility] Blood 06/28/2023 11:1 7 AM EDT 06/28/2023 11:33 AM EDT Narrative Resulting Agency Comment Spec In Lab Roverto Burnette MD CHEMISTRY ORDERABLES Performing Organization Address City/[facility] Co de Phone Number [facility] [place] [address] documented in this encounter Visit Diagnoses Diagnosis Type 2 diabetes mellitus with hyperglycemia, with long-term current use of insulin documented in this encounter Care Teams Tube Backer Relationship Specialty Start Date End Date Joey Ambrose, REED [address] [place] [address] [place] [address] PCP - General Family Medicine 11/09/22 documented as of this encounter
--- OUTSIDE RECORDS SUMMARY | 2023-11-15 16:10 | XMS_ITS | Encounter Summary ---
Author Organization [facility] Address [facility] [place] [address] Care Team Providers Care Honing Machine Try Out Setter Name Role Phone Joey Ambrose APRN Primary Care Provider + Reason for Visit * Consultation (Routine) - Closed Specialty Diagnoses / Procedures Referred By Noa orr Referred To Contact Endocrinology Diagnoses Type 2 diabetes mellitus without complications Joey Ambrose, REED [address] [place] [address] [place] [address] [facility] Endocrinology [address] [place] [phone] Referral ID Status Reason Start Date Expiration Date Visits Re quested Visits Authorized [id number] Closed 08/17/2022 08/17/2023 1 1 Encounter Details Date Type Department Care Team (Late st Contact Info) Description 11/09/2022 1:00 PM EDT [place] [address] Park Gross PA [facility] [place] [address] Type 2 diabetes mellitus with [...] the following: Had a DM specialist in [place] and the last time she saw them she was on Lantus 20 units/day and was taking Humalog ~10 units before meals. Was also on Januvia. After move to [place], pt's new PCP had pt taking Lantus 10 units/day, now titrated up to 16 units and using a sliding scale for Humalog. Lowest A1C was 6.5% in [place]. Summer 2021 at time of referral to [...] Pt had circulation test done recently in [place], [place]. Says that her L side isn't [...] toast, 2 sausage Lunch: 2 eggs, sausage, georgian muffin Dinner: 1/2 cup frozen peas, 1 [...] 2 Sensor Kit Yes FreeStyle Daniel 2 Morning View Misc See Admin Instructions. Yes magnesium oxide [...] also saw the pt together with this tag writer. Plan: --Labs today, will contact with [...] Park Gross PA-C (she/her/hers) Department of Endocrinology [place], [place] documented in this encounter Plan of Treatment Upcoming Encounters Date Type Department Care Team (Late st Contact Info) Description 12/20/2023 10:30 AM EST Office [place] [address] Park Gross PA [facility] [place] [address] documented as of this encounter Procedures Procedure Name Priority Date/Time Associated Diagnosis Comments U ALBUMIN/CRE RATIO Routine 11/09/2022 2 :45 PM EDT Type 2 diabetes mellitus with hyperglycemia, with long-term current use of insulin TSH CASCADE Routine 11/09/2022 2:42 PM EDT Type 2 diabetes mellitus with hyperglycemia, with long-term current use of insulin GAD65 ANTIBODY ASSAY Routine 11/09/2022 2:42 PM EDT Type 2 diabetes mellitus with hyperglycemia, with long-term current use of insulin VITAMIN D, 25-HYDROXY Routine 11/09/2022 2:42 PM EDT Type 2 diabetes mellitus with hyperglycemia, with long-term current use of insulin LDL CHOLESTEROL, DIRECT Routine 11/09/2022 2:42 PM EDT Type 2 diabetes mellitus with hyperglycemia, with long-term current use of insulin HEMOGLOBIN A1C Routine 11/09/2022 2:42 PM EDT Type 2 diabetes mellitus with hyperglycemia, with long-term current use of insulin BASIC METABOLIC PANEL Routine 11/09/2022 2:42 PM EDT Type 2 diabetes mellitus with hyperglycemia, with long-term current use of insulin documented in this encounter Results * (ABNORMAL) U Albumin/Cre Ratio (11/09/2022 2:45 PM EDT) Albumin / Creatinin Ratio, Urine 78(H) 0 - 29 mcg/mg Cr [facility] Comment: Reference Ranges: <30 mcg/mg: [...] Supplements (2012) 2, 357? 362 Albumin, Urine 78.3 mg/L [facility] Creatinine, Urine 100 mg/dL [facility] Urine 11/09/2022 2:45 PM EDT 11/09/2022 2:54 PM EDT Narrative Resulting Agency Comment Spec In Lab Roverto Burnette MD URINE ORDERABLES Performing Organization Address City/[facility]/ZIP Co de Phone Number [facility] [place] [address] * Vitamin D, 25-Hydroxy (11/09/2022 2:42 PM EDT) Vitamin D Total 25 OH 51 21 - 100 ng/mL [facility] Vit D Interp Sufficient [facility] Blood 11/09/2022 2:42 PM EDT 11/09/2022 2:47 PM EDT Narrative Resulting Agency Comment Spec In Lab Roverto Burnette MD CHEMISTRY ORDERABLES Performing Organization Address City/[facility]/ZIP Co de Phone Number [facility] [place] [address] * TSH Bluejacket (11/09/2022 2:42 PM EDT) Thyroid Stimulating Hormone 0.99 0.27 - 4.20 mcIU/mL [facility] Comment: Reference Interval (mcIU/mL): Females: ??First Trimester: 0.23-3.88 ??Second Trimester: 0.22-3.90 ??Third Trimester: 0.44-4.66 Blood 11/09/2022 2:42 PM EDT 11/09/2022 2:47 PM EDT Narrative Resulting Agency Comment Spec In Lab Roverto Burnette MD CHEMISTRY ORDERABLES [facility] [place] [address] * (ABNORMAL) Basic Metabolic Panel (non-fasting) (11/09/2022 2:42 PM EDT) Glucose 124 65 - 199 mg/dL [facility] Comment:Diabetes: >=200 mg/d L plus symptoms Blood Urea Nitrogen 24(H) 8 - 18 mg/dL [facility] Creatinine 1.12 0.70 - 1.20 mg/dL [facility] Sodium 142 135 - 145 mmol/L [facility] Potassium 4.5 3.5 - 5.0 mmol/L [facility] Comment: Please note: ??Patients with WBC >100,000 may have falsely elevated Potassium levels. ??For accurate Potassium quantification in these patients send serum separator tube (gold top) for subsequent determinations. ??Contact the Clinical Chemistry Laboratory if there are any questions. Chloride 105 98 - 107 mmol/L [facility] Carbon Dioxide 25 22 - 31 mmol/L [facility] Anion Gap 12 5 - 15 mmol/L [facility] Calcium 9.8 8.5 - 10.5 mg/dL [facility] Est Glomerular Filtration Rate 55(L) >=60 mL/min/1. 73 m?? [facility] Comment: This patient's estimated GFR [...] Burnette MD CHEMISTRY ORDERABLES Performing Organization Address [facility] Co de Phone Number [facility] [place] [address] * LDL Cholesterol, Direct (11/09/2022 2:42 PM EDT) LDL Cholesterol, Direct 54 mg/dL [facility] Comment: Lowest Risk: <100 mg/dL Lower Risk: 100-129 mg/dL Borderline High Risk: 130-159 mg/dL High Risk: 160-189 mg/dL Very High Risk: >db=570 mg/dL Blood 11/09/2022 2:42 PM EDT 11/09/2022 2:47 PM EDT Narrative Resulting Agency Comment Spec In Lab Roverto Burnette MD CHEMISTRY ORDERABLES Performing Organization Address [facility] de Phone Number [facility] [place] [address] * (ABNORMAL) Hemoglobin A1c (11/09/2022 2:42 PM EDT) Hemoglobin A1c 8.3(H) 4.3 - 5.6 % [facility] Comment: Reference Range: 4.3 - [...] Mellitus, Diabetes Care 2013; 36: Suppl. 1, E92-05 Estimated Average Glucose 192 mg/dL [facility] Comment: eAG equivalents for HbA1c [...] into estimated average glucose values. ??Diabetes Care 2008:31(8):0505-8079. Blood 11/09/2022 2:42 PM EDT 11/09/2022 2:47 PM EDT Narrative Resulting Agency Comment Spec In Lab Roverto Burnette MD CHEMISTRY ORDERABLES Performing Organization Address City/State/[facility] Co de Phone Number [facility] [place] [address] * GAD65 Antibody Assay (11/09/2022 2:42 PM EDT) Gad65 Ab (MAY) 0.02 <=0.02 nmol/L [facility] Comment: ADDITIONAL INFORMATION This test was developed and its performance characteristics determined by [facility] in a manner consistent with CLIA requirements. This test has not been cleared or approved by the U.S. Food and Drug Administration. Test Performed by: [facility] - [address] [address] Purse Seining Hand: Rob Carbajal M.D. Ph.D.; CLIA# [id number] Blood 11/09/2022 2:42 PM EDT 11/09/2022 3:32 PM EDT Narrative Resulting Agency Comment Spec In Lab Roverto Burnette MD LAB SEND OUT ORDERAB LES Performing Organization Address City/State/[facility] Co de Phone Number [facility] [place] [address] documented in this encounter Visit Diagnoses Diagnosis Type 2 diabetes mellitus with hyperglycemia, with long-term current use of insulin documented in this encounter Care Teams Honing Machine Try Out Setter Relationship Specialty Start Date End Date Joey Ambrose, MANAGER TECHNOLOGY [address] [place] [address] [place] [address] PCP - General Family Medicine 11/09/22 documented as of this encounter
--- OUTSIDE RECORDS SUMMARY | 2023-11-15 16:10 | XMS_ITS | Encounter Summary ---
Author Organization [facility] [place] [address] Care Team Providers Care Agency Director Name Role Phone Hubert SorianoRileydebbi Rouse APRN Primary Care Provider + Encounter Details Date Type Department Care Team (Late st Contact Info) Description 04/17/2023 Telephone [place] [address] Veronica Rios RN Social History Tobacco Use [...] 10:30 AM EST Office [place] [address] Park Gross PA [facility] [address] documented as of this encounter Visit Diagnoses Not on filedocumented in this encounter Care Teams Agency Director Relationship Specialty Start Date End Date Joey Ambrose, DECK MATE [address] [place] [address] [place] [address] PCP - General Family Medicine 11/09/22 documented as of this encounter
--- OUTSIDE RECORDS SUMMARY | 2023-11-15 16:10 | XMS_ITS | Encounter Summary ---
Author Organization [facility] [place] [address] Care Team Providers Care Associate Professor Of Pathology Name Role Phone Joey Ambrose APRN Primary Care Provider + Encounter Details Date Type Department Care Team (Late st Contact Info) Description 03/09/2023 [place] [phone] Veronica Rios RN Social History Tobacco Use [...] after noon on her cell phone listed [phone]. * Telephone Encounter - Veronica Rios RN - 03/09/2023 10:54 AM EST Copied from [facility] #[id number]. Topic: Specialty Dept CRMs - Generic Call >> Mar 09, 2023 10:44 AM May wrote: Specialist: Ginny Relationship (if other than patient-full name): Self Reason for Call: Patient returning call to provider documented in this encounter Plan of Treatment Upcoming Encounters Date Type Department Care Team (Late st Contact Info) Description 12/20/2023 10:30 AM EST Office [place] [address] Park Gross PA [facility] [place] [address] documented as of this encounter Visit Diagnoses Not on filedocumented in this encounter Care Teams Associate Professor Of Pathology Relationship Specialty Start Date End Date Joey Ambrose APRN [address] [place] [address] [place] [address] PCP - General Family Medicine 11/09/22 documented as of this encounter
--- OUTSIDE RECORDS SUMMARY | 2023-11-15 16:10 | XMS_ITS | Encounter Summary ---
Author Organization [facility] [place] [address] Care Team Providers Care Reefer Truck Driver Name Role Phone Joey Ambrose APRN Primary Care Provider + Encounter Details Date Type Department Care Team (Late st Contact Info) Description 11/10/2022 Telephone [place] [address] Park Gross PA [facility] [place] [address] Social History Tobacco Use Types Packs/Day Years [...] Ozempic. Park Gross PA-C Department of Endocrinology [place], [place] documented in this encounter Plan of Treatment Upcoming Encounters Date Type Department Care Team (Late st Contact Info) Description 12/20/2023 10:30 AM EST Office Visit [place] [address] Park Gross PA [facility] [place] [address] documented as of this encounter Visit Diagnoses Not on filedocumented in this encounter Care Teams Reefer Truck Driver Relationship Specialty Start Date End Date Joey Ambrose, PREPARATION DEPARTMENT SUPERVISOR [address] [place] [address] [place] [address] PCP - General Family Medicine 11/09/22 documented as of this encounter
--- OUTSIDE RECORDS SUMMARY | 2023-11-15 16:10 | XMS_ITS | Encounter Summary ---
Author Organization [facility] Address [facility] [place] [address] Care Team Providers Care Principal Librarian Name Role Phone Joey Ambrose APRN Primary Care Provider + Encounter Details Date Type Department Care Team (Late st Contact Info) Description 02/08/2023 10:30 AM EST Office Visit [place] [phone] Park Gross PA [facility] [place] [address] Type 2 diabetes mellitus with hyperglycemia, with [...] 2 Sensor Kit Yes FreeStyle Daniel 2 Sevier Misc See Admin Instructions. Yes magnesium oxide [...] active 68% of the time, did not pickle pumper on readings after 6pm for unclear reason, [...] This was a 25 minute visit spent [id number] with patient discussing diabetes management and providing education including but not limited to information in history and plan. An additional 20 minutes was spent reviewing previous notes and labs, ordering labs and medications, in case consultation & completing documentation. I have reviewed the plan outlined above with the patient and the patient has verbalized understanding. Park Gross PA-C Department of Endocrinology [place], [place] documented in this encounter Plan of Treatment Upcoming Encounters Date Type Department Care Team (Late st Contact Info) Description 12/20/2023 10:30 AM EST Office Visit [place] [address] Park Gross PA [facility] [place] [address] documented as of this encounter Results * (ABNORMAL) Hemoglobin A1c (02/08/2023 11:36 AM EST) Hemoglobin A1c 7.6(H) 4.3 - 5.6 % [facility] Comment: Reference Range: 4.3 - [...] Mellitus, Diabetes Care 2013; 36: Suppl. 1, S674 Estimated Average Glucose 173 mg/dL [facility] Comment: Note: The eAG calculation has not been proven valid for women, individuals below 18 years old or above 70 years old, or individuals with hemoglobinopathies. Estimated average glucose (eAG) is calculated from the equation described in: Arthur DM, Chloe J, Compa R, et al. ??Translating the A1C assay into estimated average glucose values. ??Diabetes Care 2008:31(8):0696-6738. Additional resources are available on the ADA website (diabetes.org). Blood 02/08/2023 11:3 6 AM EST 02/08/2023 11:49 AM EST Narrative Resulting Agency Comment Spec In Lab Ajay Ferrari MD CHEMISTRY ORDERABLES [facility] [place] [address] documented in this encounter Visit Diagnoses Diagnosis Type 2 diabetes mellitus with hyperglycemia, with long-term current use of insulin documented in this encounter Care Teams Principal Librarian Relationship Specialty Start Date End Date Joey Ambrose APRN [address] [place] [address] [place] [address] PCP - General Family Medicine 11/09/22 documented as of this encounter
--- OUTSIDE RECORDS SUMMARY | 2023-11-15 16:10 | XMS_ITS | Encounter Summary ---
Author Organization [facility] Address [address] [place] [address] Care Team Providers Care Optician Name Role Phone Hubert SorianoJoey Padma [facility] Primary Care Provider Encounter Details Date Type Department Care Team (Late st Contact Info) Description 09/12/2022 Lab Requisition [facility] Pathology & Laboratory Medicine - [facility] [address] [place] [address] Outr Resulting Lab, Provider Social History Tobacco [...] IgE 11 <158 IU/mL 09/13/2022 8:27 EDT [facility] Blood VENOUS BLOOD / Unknown 09/12/2022 14:30 EDT 09/12/2022 21:27 EDT Provider Outr Resulting Lab CHEMISTRY & BLOOD GAS ORDERABLES [facility] [address] [place] [address] documented in this encounter Visit Diagnoses Not on filedocumented in this encounter Care Teams Optician Relationship Specialty Start Date End Date Joey Ambrose, [facility]- [address] [place] [address] [place] [address] PCP - General Family Medicine - Primary Care 10/11/22 documented as of this encounter
--- OUTSIDE RECORDS SUMMARY | 2023-11-15 16:10 | XMS_ITS | Referral Summary ---
Author Organization [facility] Address [address] [place] [address] Care Team Providers Care Restaurant Host Name Role Phone Hubert Taladulce Joey Padma [facility] Primary Care Provider Social History Tobacco Use Types Packs/Day Years Used Date Smoking Tobacco: Never Assessed Sex and Gender Information Value Date Recorded Sex Assigned at Not on file Gender Identity Female 10/11/2022 8:17 EDT Sexual Orientation Not on file Plan of Treatment Not on file Care Teams Restaurant Host Relationship Specialty Start Date End Date Joey Ambrose, [facility]- [address] [place] [address] [place] [address] PCP - General Family Medicine - Primary Care 10/11/22
--- OUTSIDE RECORDS SUMMARY | 2023-11-15 16:10 | XMS_ITS | Encounter Summary ---
Author Organization [facility] Address [facility] [place] [address] Care Team Providers Care Wrist Closer Name Role Phone Joey Ambrose APRN Primary [...] 10:30 AM EST Office Visit [place] [address] Park Gross PA [facility] [address] documented as of this encounter Visit Diagnoses Not on filedocumented in this encounter Care Teams Wrist Closer Relationship Specialty Start Date End Date Joey Ambrose APRN [address] [place] [address] [place] [address] PCP - General Family Medicine 11/09/22 documented as of this encounter
--- OUTSIDE RECORDS SUMMARY | 2023-11-15 16:10 | XMS_ITS | Encounter Summary ---
Author Organization [facility] Address [facility] [place] [address] Care Team Providers Care Teaching Fellow Name Role Phone Joey Ambrose APRN Primary [...] 10:30 AM EST Office [place] [address] Park Gross PA [facility] [place] [address] documented as of this encounter Visit Diagnoses Not on filedocumented in this encounter Care Teams Teaching Fellow Relationship Specialty Start Date End Date Joey Ambrose APRN [address] [place] [address] [place] [address] PCP - General Family Medicine 11/09/22 documented as of this encounter
--- OUTSIDE RECORDS SUMMARY | 2023-11-15 16:10 | XMS_ITS | Clinical Summary ---
Author Organization [facility] Address [address] [place] [address] Care Team Providers Care Coupon And Bond Collection Clerk Name Role Phone Hubert Soriano Joey Padma [facility] Primary Care Provider Social History Tobacco [...] COVID-19 Vaccine (2022- season) 2022 Care Teams Coupon And Bond Collection Clerk Relationship Specialty Start Date End Date Joey Ambrose, [facility]- [address] [place] [address] [place] [phone] PCP - General Family Medicine - Primary Care 10/11/22
--- OUTSIDE RECORDS SUMMARY | 2023-11-15 16:10 | XMS_ITS | Encounter Summary ---
Author Organization [facility] [place] [address] Care Team Providers Care Pelletizer Name Role Phone Joey Ambrose APRN Primary Care Provider + Reason for Visit * Reason Onset Date Comments Medication Problem 06/29/2023 Encounter Details Date Type Department Care Team (Late st Contact Info) Description 06/29/2023 Telephone [place] [phone] Shawn Marc, applications systems analyst Problem Social History Tobacco Use Types Packs/Day [...] the medications that Dr. Burnette sent to [facility], and that she needs to check with [...] understanding. Milan Marc RN MSN Copied from [facility] #[id number]. Topic: Specialty Dept CRMs - Generic Call [...] the other prescription he sent to [facility] at all based on that previous prescription. Patient has not picked this upyet. Can you please advise? She states a detailed message may be left on her voicemail if no answer. documented in this encounter Plan of Treatment Upcoming Encounters Date Type Department Care Team (Late st Contact Info) Description 12/20/2023 10:30 AM EST Office Visit [place] [address] Park Gross PA [facility] [place] [address] documented as of this encounter Visit Diagnoses Diagnosis Type 2 diabetes mellitus with hyperglycemia, with long-term current use of insulin documented in this encounter Care Teams Pelletizer Relationship Specialty Start Date End Date Joey Ambrose, SUPERVISOR FILTRATION [address] [place] [address] [place] [address] PCP - General Family Medicine 11/09/22 documented as of this encounter
--- OUTSIDE RECORDS SUMMARY | 2023-11-15 16:10 | XMS_ITS | Encounter Summary ---
[place] [address] Care Team Providers Care Ross Carrier Driver Name Role Phone Joey Ambrose APRN Primary Care Provider + Encounter Details Date Type Department Care Team (Late st Contact Info) Description 03/13/2023 [place] [address] Jacike Lomeli, RN Social History Tobacco Use Types [...] - 03/14/2023 10:12 AM EST Copied from [facility] #[id number]. Topic: Specialty Dept CRMs - Test Results >> Mar 12, 2023 3:20 PM Adrianne Hernandez wrote: Test Results Request Specialist: Park Gross PA Relationship (if other than patient-full name): self Ordering Provider: Park Gross PA Type of Test: A1C Date of Test: 02/08/23 Where Was This Test Performed: [facility] >> Mar 13, 2023 1:56 PM Tristin [...] 10:30 AM EST Office [place] [address] Park Gross PA [facility] [place] [address] documented as of this encounter Visit Diagnoses Not on filedocumented in this encounter Care Teams Ross Carrier Driver Relationship Specialty Start Date End Date Joey Ambrose APRN [address] [place] [address] [place] [address] PCP - General Family Medicine 11/09/22 documented as of this encounter
--- OUTSIDE RECORDS SUMMARY | 2023-11-15 16:10 | XMS_ITS | Encounter Summary ---
Author Organization [facility] [place] [address] Care Team Providers Care Field Training Manager Name Role Phone Joey Ambrose APRN Primary Care Provider + Encounter Details Date Type Department Care Team (Late st Contact Info) Description 02/12/2023 Telephone [place] [address] [address] Gross PA [facility] [place] [address] Social History Tobacco Use Types Packs/Day Years [...] dose. Park Gross PA-C Department of Endocrinology [place], [place] documented in this encounter Plan of Treatment Upcoming Encounters Date Type Department Care Team (Late st Contact Info) Description 12/20/2023 10:30 AM EST Office Visit [place] [address] Gross PA [facility] [place] [address] documented as of this encounter Visit Diagnoses Not on filedocumented in this encounter Care Teams Field Training Manager Relationship Specialty Start Date End Date Joey Ambrose, FARM LABOR CONTRACTOR [address] [place] [address] [place] [address] PCP - General Family Medicine 11/09/22 documented as of this encounter
--- OUTSIDE RECORDS SUMMARY | 2023-11-15 16:10 | XMS_ITS | Encounter Summary ---
[place] [address] Care Team Providers Care Medical Office Representative Name Role Phone Hubert Joey Soriano Padma [facility] Primary Care Provider + Encounter Details Date Type Department Care Team (Late st Contact Info) Description 04/17/2023 [place] [address] Veronica Rios RN Social History [...] - 04/17/2023 2:44 PM EDT Copied from [facility] #[id number]. Topic: Specialty Dept CRMs - Generic Call [...] 10:30 AM EST [place] [address] Park Gross PA [facility] [place] [address] documented as of this encounter Visit Diagnoses Not on filedocumented in this encounter Care Teams Medical Office Representative Relationship Specialty Start Date End Date Joey Ambrose APRN [address] [place] [address] [place] [address] PCP - General Family Medicine 11/09/22 documented as of this encounter
--- OUTSIDE RECORDS SUMMARY | 2023-11-15 16:10 | XMS_ITS | Encounter Summary ---
Author Organization [facility] Address [facility] [place] [address] Care Team Providers Care Mathematics Professor Name Role Phone Joey Ambrose APRN Primary Care Provider + Encounter Details Date Type Department Care Team (Latest Contact Info) Description 02/08/2023 11:30 AM EST Laboratory Appointment Lab [address] [place] [phone] Type 2 diabetes mellitus with hyperglycemia, with [...] 10:30 AM EST Office [place] [address] Park Gross PA [facility] [place] [address] documented as of this encounter Procedures Procedure Name Priority Date/Time Associated Diagnosis Comments HEMOGLOBIN A1C Routine 02/08/2023 11:36 AM EST Type 2 diabetes mellitus with hyperglycemia, with long-term current use of insulin documented in this encounter Results * (ABNORMAL) Hemoglobin A1c (02/08/2023 11:36 AM EST) Hemoglobin A1c 7.6(H) 4.3 - 5.6 % [facility] Comment: Reference Range: 4.3 - [...] Diabetes Care 2013; 36: Suppl. 1, S67-74 Estimated Average Glucose 173 mg/dL [facility] Comment: Note: The eAG calculation has not been proven valid for women, individuals below 18 years old or above 70 years old, or individuals with hemoglobinopathies. Estimated average glucose (eAG) is calculated from the equation described in: Arthur DONOHUE, Chloe J, Compa R, et al. ??Translating the A1C assay into estimated average glucose values. ??Diabetes Care 2008:31(8):8061-3750. Additional resources are available on the ADA website (diabetes.org). Blood 02/08/2023 11:3 6 AM EST 02/08/2023 11:49 AM EST Narrative Resulting Agency Comment Spec In Lab Ajay Ferrari MD CHEMISTRY ORDERABLES [facility] [place] [address] documented in this encounter Visit Diagnoses Diagnosis Type 2 diabetes mellitus with hyperglycemia, with long-term current use of insulin documented in this encounter Care Teams Mathematics Professor Relationship Specialty Start Date End Date Joey Ambrose APRN [address] [place] [address] [place] [address] PCP - General Family Medicine 11/09/22 documented as of this encounter
--- OUTSIDE RECORDS SUMMARY | 2023-11-15 16:10 | XMS_ITS | Encounter Summary ---
Author Organization [facility] Address [facility] [place] [address] Care Team Providers Care Lineman Service Or Work Dispatcher Name Role Phone Joey Ambrose APRN Primary Care Provider + Reason for Visit * Reason Comments Medication Refill Encounter Details Date Type Department Care Team (Late st Contact Info) Description 05/21/2023 [place] [address] Park Gross PA [facility] [place] [address] Type 2 diabetes mellitus with hyperglycemia, with [...] not useable, pharmacy advised that she contact zoo director. Advised that Park COLLADO had recommended in February to discontinue glipizide as she is on basal/bolusinsulin, will send message to provider to confirm plan. Advised that patient contact [email or web address], customer service number provided. Confirmed that current Lantus pen is working well. Patient has appt with Dr. Burnette on 06/28/2023 Updated demographics in chart to reflect new phone # and address per patient documented in this encounter Plan of Treatment Upcoming Encounters Date Type Department Care Team (Late st Contact Info) Description 12/20/2023 10:30 AM EST Office [place] [address] Park Gross PA [facility] [place] [address] documented as of this encounter Visit Diagnoses Diagnosis Type 2 diabetes mellitus with hyperglycemia, with long-term current use of insulin documented in this encounter Care Teams Lineman Service Or Work Dispatcher Relationship Specialty Start Date End Date Joey Ambrose, GROCERY SACKER [address] [place] [address] [address] [place], [place] [address] PCP - General Family Medicine 11/09/22 documented as of this encounter
--- OUTSIDE RECORDS SUMMARY | 2023-11-15 16:10 | XMS_ITS | Encounter Summary ---
[place] [address] Care Team Providers Care Plug Assembler Name Role Phone Hubert EdgarJoey cardona Padma [facility] Primary Care Provider + Encounter Details Date Type Department Care Team (Late st Contact Info) Description 11/10/2022 Telephone [place] [address] Veronica Rios RN Social History Tobacco Use [...] - 11/10/2022 11:07 AM EDT Copied from [facility] #[id number]. Topic: Specialty Dept CRMs - Generic Call [...] 10:30 AM EST Office [place] [address] Park Gross PA [facility] [place] [address] documented as of this encounter Visit Diagnoses Not on filedocumented in this encounter Care Teams Plug Assembler Relationship Specialty Start Date End Date Joey Ambrose, TRAMPOLINE TEAM COACH [address] [place] [address] [place] [address] PCP - General Family Medicine 11/09/22 documented as of this encounter
--- OUTSIDE RECORDS SUMMARY | 2023-11-15 16:10 | XMS_ITS | Encounter Summary ---
Author Organization [facility] Address [address] [place] [address] Care Team Providers Care Supervisor Wound Name Role Phone Hubert Soriano Joey Padma [facility] Primary Care Provider Reason for Visit * Reason Comments Leg Pain * Vascular Lab (Routine) - Authorization Not Required Specialty Diagnoses / Procedures Referred By Noa orr Referred To Contact Diagnoses Unspecified disturbances of skin sensation Cramp and spasm Procedures US LOWER ARTERIAL DUPLEX Esther Hernández, [address] [place] [address] [facility] Vascular Lab Referral ID Status Reason Start Date Expiration Date Visits Requested Visits Authorized [id number] Authorization Not Required 09/15/2022 1 1 Encounter Details Date Type Department Care Team (Latest Contact Info) Description 10/13/2022 14:30 EDT Ancillary Procedure [facility] Vascular Surgery [facility] [address] [place] [address] Unspecified disturbances of skin sensation; Cramp and spasm; Peripheral arterial disease ([facility]) Social History Tobacco Use Types Packs/Day Years Used Date Smoking Tobacco: Never Assessed Sex and Gender Information Value Date Recorded Sex Assigned at Not on file Gender Identity Female 10/11/2022 8:17 EDT Sexual Orientation Not on file documented as of this encounter Progress Notes * Shlomo Dwyer - 10/13/2022 1430 EDT [place] [facility]. documented in this encounter Plan of Treatment Not on file documented as of this encounter Procedures Procedure Name Priority Date/Time Associated Diagnosis Comments US LOWER ARTERIAL DUPLEX BILATERAL WITH DUSTY (LIMITED) Routine 10/13/2022 15:10 EDT Unspecified disturbances of [...] CARDIO Left DUSTY 0.88 MERGE CARDIO Right TIMBER SETTER dist sys PSV 157 cm/s MERGE CARDIO [...] sys PSV 61 cm/s MERGE CARDIO Left TIMBER SETTER dist sys PSV 153 cm/s MERGE CARDIO [...] Former tobacco use and Diabetes Mellitus. Esther Hernández [facility] documented in this encounter Visit Diagnoses Diagnosis Unspecified disturbances of skin sensation Cramp and spasm Peripheral arterial disease ([facility]) Peripheral vascular disease, unspecified documented in this encounter Care Teams Supervisor Wound Relationship Specialty Start Date End Date Joey Ambrose, [facility]- [address] [place] [address] [place] [address] PCP - General Family Medicine - Primary Care 10/11/22 documented as of this encounter
--- OUTSIDE RECORDS SUMMARY | 2023-11-15 16:10 | XMS_ITS | Encounter Summary ---
Author Organization [facility] [place] [address] Care Team Providers Care Sound Art Instructor Name Role Phone Joey Ambrose APRN Primary Care Provider + Encounter Details Date Type Department Care Team (Late st Contact Info) Description 08/27/2023 Telephone [place] [phone] Shani Hardwick RN Social History Tobacco Use Types Packs/Day Years Used Date Smoking Tobacco: Former Cigarettes Q uit: 2022 Smokeless Tobacco: Never Sex and Gender Information Value Date Recorded Sex Assigned at Not on file Gender Identity Not on file Sexual Orientation Not on file documented as of this encounter Miscellaneous Notes * Telephone Encounter - Lashell Ley - 08/28/2023 3:50 PM EDT Left VM for patient to call and schedule with RETREAD MOLD OPERATOR/PARER * Telephone Encounter - Shani Hardwick RN - 08/27/2023 3:32 PM EDT Called and spoke with patient She started Rybelsus on 06/28/2023, was on 5 mg dose and then increased to 7 mg dose for the past two weeks. Last dose of Rybelsus was Sunday Reports in the past week, she developed throat tightness and difficulty breathing Reports she felt severely lightheaded, went to walk-in clinic on Wednesday 08/23 and was given a breathing treatment,I feel like that made it worse, states she was also seen in the ED on 08/25 and lungs examined, was told they are clear. Feels that the issue is in her throat She is waiting to hear from an ENT within the next couple of days, has been advised to call the ENTif no reply in 2 days Blood work showed no signs of infection, thyroid fine, negative for flu, strep, bronchitis Has been prescribed Mucinex DM and Zyrtec Denies pain with swallowing Advised to continue to HOLD Rybelsus for now, though this is not a known side effect, and will speak with provider for further recommendation Advised to call ENT for endoscopy Seek emergency care if dizziness, lightheadedness, worsening throat tightness, or breathing difficulty continues. Patient due for follow up now with JULIAN per Dr. Burnette documented in this encounter Plan of Treatment Upcoming Encounters Date Type Department Care Team (Late st Contact Info) Description 12/20/2023 10:30 AM EST Office [place] [address] Park Gross PA [facility] [place] [address] documented as of this encounter Visit Diagnoses Not on filedocumented in this encounter Care Teams Sound Art Instructor Relationship Specialty Start Date End Date Joey Ambrose APRN [address] [place] [address] [place] [id number] PCP - General Family Medicine 11/09/22 documented as of this encounter
--- OUTSIDE RECORDS SUMMARY | 2023-11-15 16:10 | XMS_ITS | Encounter Summary ---
Author Organization [facility] Address [facility] [place] [address] Care Team Providers Care Control Valve Mechanic Name Role Phone Joey Ambrose APRN Primary [...] 10:30 AM EST Office [place] [address] Park Gross PA [facility] [place] [address] documented as of this encounter Visit Diagnoses Not on filedocumented in this encounter Care Teams Control Valve Mechanic Relationship Specialty Start Date End Date Joey Ambrose APRN [address] [place] [address] [place] [address] PCP - General Family Medicine 11/09/22 documented as of this encounter
--- OUTSIDE RECORDS SUMMARY | 2023-11-15 16:10 | XMS_ITS | Encounter Summary ---
Author Organization [facility] Address [facility] [place] [address] Care Team Providers Care Material Handling Supervisor Name Role Phone Joey Ambrose APRN Primary Care Provider + Encounter Details Date Type Department Care Team (Late st Contact Info) Description 04/17/2023 [place] [address] Park Gross PA [facility] [address] Social History Tobacco Use Types Packs/Day Years [...] to leave message--no answer as well. No [facility] patient portal set up so unable to write message to patient. Park Gross PA-C Department of Endocrinology [place], [place] documented in this encounter Plan of Treatment Upcoming Encounters Date Type Department Care Team (Late st Contact Info) Description 12/20/2023 10:30 AM EST Office [place] [address] Park Gross PA [facility] [place] [address] documented as of this encounter Visit Diagnoses Not on filedocumented in this encounter Care Teams Material Handling Supervisor Relationship Specialty Start Date End Date Joey Ambrose, BILL RECAPITULATION CLERK [address] [place] [address] [place] [address] PCP - General Family Medicine 11/09/22 documented as of this encounter
--- OUTSIDE RECORDS SUMMARY | 2023-11-15 16:10 | XMS_ITS | Encounter Summary ---
[place] [address] Care Team Providers Care Rag Willow Operator Name Role Phone Hubert SorianoRileydebbi Rouse APRN Primary Care Provider + Reason for Visit * Reason Onset Date Comments Prior Authorization 09/18/2023 Encounter Details Date Type Department Care Team (Late st Contact Info) Description 09/18/2023 Telephone [place] [phone] Georgette Westfall CCMA Prior Authorization Social History Tobacco Use Types Packs/Day Years Used Date Smoking Tobacco: Former Cigarettes Q uit: 2022 Smokeless Tobacco: Never Sex and Gender Information Value Date Recorded Sex Assigned at Not on file Gender Identity Not on file Sexual Orientation Not on file documented as of this encounter Miscellaneous Notes * Telephone Encounter - Veronica Rios RN - 10/11/2023 9:08 AM EDT Called and spoke with pt. She is ok with starting the Trulicity again and will pick it up from her pharmacy later today. * Telephone Encounter - Jordana Chin - 10/05/2023 9:15 AM EDT Images from the original note were not included. PA Outcome: PA Denial [place] [address] DENIED: Rybelsus 7mg Case/Reference #: [id number] Additional Information from Insurance: * Telephone Encounter - Georgette Westfall CCMA - 09/18/2023 9:30 AM EDT Images from the original note were not included. PA Submitted Submitted Date: Date Submitted: 09/18/2023 Medication Prior Authorization Patient: Noreen Denny Patient : 1960 Insurance Company: [place] Medicaid Sent via: [facility] Chavez: [id number] Physician: Roverto Burnette Medication Requested: semaglutide (Rybelsus) 7 mg tablet Frequency/Sig: Take 1 tablet by mouth daily. Disp: 90 Refills: 3 Currently taking: yes If yes, how lon06/2022 Diagnosis for this medication: Type 2 diabetes mellitus with hyperglycemia, with long-term current use of insulin [E11.65, Z79.4] Prior medications trialed in this patient: Medication: Trulicity Approx Dates: Outcome/Adverse Reactions: Inadequate response Medication: Ozempic Approx Dates: 2022 Outcome/Adverse Reactions: Side effects/nausea Medication: Glipizide Approx Dates: 11/2022-Current Outcome/Adverse Reactions: Inadequate response 11/09/2022 Was on Metformin and Januvia in the past, started insulin about 1 year ago ains abnormal data Hemoglobin A1c Order: [id number] Status: Final result Visible to patient: No (not released) Dx: Type 2 diabetes mellitus with hypergl... 0 Result Notes Component Ref Range & Units 2 mo ago 7 mo ago 10 mo ago Hemoglobin A1c 4.3 - 5.6 % 8.3 High 7.6 High CM 8.3 High CM Comment: Reference Range: 4.3 - 5.6% 5.7 - 6.4% - Increased Risk of Developing Diabetes Mellitus >= 6.5% - Consistent with diagnosis of Diabetes Mellitus documented in this encounter Plan of Treatment Upcoming Encounters Date Type Department Care Team (Late st Contact Info) Description 12/20/2023 10:30 AM EST Office [place] [address] Park Gross PA [facility] [address] documented as of this encounter Visit Diagnoses Not on filedocumented in this encounter Care Teams Rag Willow Operator Relationship Specialty Start Date End Date Joey Ambrose, REED [address] [place] [address] [place] [address] PCP - General Family Medicine 11/09/22 documented as of this encounter
[2023-11-15 17:07] LABS: Source Nasal/Nares
[2023-11-15 18:37] LABS: COVID-19 PCR Negative (Negative)
== END 2023-11-15 16:08 | disposition home or self-care (01) ==
LOC: LBN 16:07
PROVIDERS: PCP Registered Nurse; Visit Provider Physician Assistant Medical
DX: Z20.822 Contact with and (suspected) exposure to COVID-19 (principal)
CPT/HCPCS: 87635

== ENCOUNTER → 2023-11-19 10:19 | Outpatient (BNVA) | payer MEDICARE, MEDICAID, SELFPAY | PROVIDERS: PCP Registered Nurse; Referring Provider Registered Nurse; Visit Provider Physician Assistant Surgical | DX: J45.909 Unspecified asthma, uncomplicated (principal); K21.9 Gastro-esophageal reflux disease without esophagitis; Z87.891 Personal history of nicotine dependence | CPT/HCPCS: 99214 ==

== ENCOUNTER 2024-01-25 13:26 | Outpatient (CLI) | payer MEDICARE, SELFPAY ==
--- OUTSIDE RECORDS SUMMARY | 2024-01-25 13:34 | XMS_ITS | Continuity of Care Document ---
Author Organization [facility] Address [address] [place] [address] Care Team Providers Care Customer Success Director Name Role Phone Joey Moreau Primary Care Physician [facility] Date[facility] 12/12/22 - 12/12/[address] [address] Discharge Disposition: Home or Self Care Attending Physician: Joey Moreau SURGERY ATTENDANT Admitting Physician: Joey Moreau SURGERY ATTENDANT Referring Physician: Joey Moreau SURGERY ATTENDANT Allergies, Adverse Reactions, Alerts Substance Reaction Severity Status Animal Dander Moderate Active Januvia Swelling Severe Active Victoza Throat swelling Severe Active Dust Mild Active Pollen 1 Moderate Active 1Pollen extracts, grass pollen. Assessment and Plan Future Appointments Future Scheduled Tests Radiology* BD Bone Density DEXA Axial Skeleton 12/12/22 Immunizations Given and Recorded Vaccine Date Status Refusal Reason tetanus/diphth/pertuss (Tdap) adult/adol 01/05/17 Recorded Medications albuterol 90 mcg/inh aerosol inhaler 1 puffs, Inhale, every 4 hr, PRN as needed for wheezing, # 8 g, 0 Refill(s), Pharmacy: [facility] #[id number] Start Date: 08/15/22 Status: Ordered ALCOHOL PADS ALCOHOL PADS, Alcohol pred pad, Supply, See instructions, # 100 EA, 6 Refill(s), Pharmacy: [facility] #[id number] Start Date: 08/15/22 Status: Ordered ALCOHOL PREP PADS 100S ALCOHOL PREP PADS 100S, USE DIRECTED Start Date: 09/26/22 Status: Ordered BD SHARPS CONTAINER 1 GALLON BD SHARPS CONTAINER 1 GALLON, BD SHARPS CONTAINER 1 GALLON, Supply, See instructions, # 1 EA, 3 Refill(s), Pharmacy: [facility] #58 Start Date: 08/16/22 Status: Ordered cyclobenzaprine 5 mg oral tablet See Instructions, PRN as needed for muscle spasm, 1 tab Oral three times a day as needed for restless legs or back pain., # 45 tab, 2 Refill(s), Pharmacy: [facility] #58 Start Date: 10/10/22 Status: Ordered FREESTY LIBR KIT 2 SENSOR FREESTY LIBR KIT 2 SENSOR, 0 Refill(s) Start Date: 09/26/22 Status: Ordered FREESTY LIBR MIS 2 READER FREESTY LIBR MIS 2 READER, 0 Refill(s) Start Date: 09/26/22 Status: Ordered FREESTYLE DANIEL 2 READER DEVICE FREESTYLE DANIEL 2 READER DEVICE, USE DIRECTED Start Date: 09/26/22 Status: Ordered FREESTYLE DANIEL 2 SENSOR FREESTYLE DANIEL 2 SENSOR, 0 Refill(s) Start Date: 09/26/22 Status: Ordered Freestyle Daniel 2 Sensor Kit Freestyle Daniel 2 Sensor Kit, Freestyle Daniel 2 Sensor Kit: Apply one sensor for 14 days, replace and apply new sensor in fresh location., Supply, See instructions, # 2 EA, 6 Refill(s), Pharmacy: [facility] #58 Start Date: 10/11/22 Status: Ordered FREESTYLE DANIEL II FREESTYLE DANIEL II, FREESTYLE DANIEL II meter kit, Supply, See instructions, # 1 EA, 1 Refill(s), Pharmacy: [facility] #[id number] Start Date: 08/15/22 Status: Ordered glipiZIDE 10 mg oral tablet, extended release TAKE ONE TABLET BY MOUTH EVERY DAY Start Date: 12/12/22 Status: Ordered HumaLOG KwikPen 100 units/mL injectable solution See Instructions, TAKE PER SLIDING SCALE: 70-120=0 UNITS, 121-150=2 UNITS, 151- 200 4=UNITS, 201-250=5 UNITS, 251-300=6 UNITS, 301-350=7 UNITS, 351-400=8 UNITS, # 15 mL, 3 Refill(s), Pharmacy: [facility] #[id number], 163, cm, 09/28/22 13:40:00 EDT, Height Start Date: 12/11/22 Status: Ordered Insulin Pen Needle (any brand Covered) 31 x 5 mm Insulin Pen Needle (any brand Covered) 31 x 5 mm, Insulin Pen Needle (any brand Covered) 31 x 5 mm,1 box of #90 uses 4 daily With long acting insulin and Short acting insulin prior to each meal 3x/day, Supply, See instructions, # 1 EA, 6 Refill(s), Pharmacy: [facility] #58 Start Date: 09/12/22 Status: Ordered Lantus 100 units/mL subcutaneous solution 16 units =, Subcutaneous, Daily, 16 units subcutaneous once in the morning, # 15 mL, 6 Refill(s), Pharmacy: [facility] #58 Start Date: 10/20/22 Status: Ordered loratadine 10 mg oral tablet 10 mg = 1 tab, Oral, Daily, # 30 tab, 0 Refill(s) Start Date: 09/26/22 Status: Ordered Mag-Ox 400 oral tablet 400 mg = 1 tab, Oral, Daily, # 90 tab, 3 Refill(s), Pharmacy: [facility] #58 Start Date: 09/11/22 Status: Ordered montelukast 10 mg oral tablet TAKE ONE TABLET BY MOUTH EVERY DAY Start Date: 09/26/22 Status: Ordered mupirocin 2% topical ointment 1 hector, Topical, TID, # 30 g, 0 Refill(s), Pharmacy: [facility] #58 Start Date: 08/23/22 Status: Ordered NovoLOG FlexPen 100 units/mL injectable solution See Instructions, at beginning of meal or within 20 minutes of starting a meal With sliding scale. Sliding scale: 70-120 0 units 121-150 2 units 151-200 4 units 201-250 5 units 251-300 6 units 301-350 7 units 351-400 8 units >400 call provider rotate njection sites, # 15 mL, 6 Refill(s), Pharmacy: [facility] #58 Start Date: 08/15/22 Status: Ordered PEN NEEDLES MIS [id number] PEN NEEDLES MIS [id number], 0 Refill(s) Start Date: 09/26/22 Status: Ordered pravastatin 40 mg oral tablet 40 mg = 1 tab, Oral, Daily, # 90 tab, 3 Refill(s), Pharmacy: [facility] #58 Start Date: 09/08/22 Status: Ordered Right Wrist Brace Right Wrist Brace, Apply to wrist during the day when doing lifting or painful activities., Supply,See instructions, # 1 EA, 0 Refill(s) Start Date: 10/20/22 Status: Ordered Symbicort 80 mcg-4.5 mcg/inh inhalation aerosol 2 puffs, Inhale, BID, # 10.2 g, 6 Refill(s), Pharmacy: [facility] #[id number] Start Date: 10/11/22 Status: Ordered TECHLITE PEN NEEDLE 31GX3/16 TECHLITE PEN NEEDLE 31GX3/16, USE 4 ONCE DAILY WITH LONG ACTION AND SHORT ACTING INSULIN Start Date: 09/26/22 Status: Ordered Ventolin HFA 90 mcg/inh inhalation aerosol 1 puffs, Inhale, every 4 hr, PRN as needed for wheezing, # 18 g, 4 Refill(s), Pharmacy: [facility] #[id number] Start Date: 10/25/22 Status: Ordered Problem List Condition Confirmation Course Effective Dates Status H ealth Status Informant Acute gastritis Confirmed Active Acute sinusitis Confirmed Active Benign essential hypertension Confirmed 03/12/13 Active Chronic constipation Confirmed 11/21/11 Active COPD (chronic obstructive pulmonary disease) Confirmed 02/21/12 Active Muscle cramps Confirmed 12/11/19 Active Leg cramps, sleep related Confirmed Active Body dermatophytosis Confirmed Active Disease caused by 2019 novel coronavirus 1 Confirmed 10/24/22 Active [id number] of left forearm Confirmed Active GERD (gastroesophageal reflux disease) Confirmed 03/12/13 Active History of visual disturbance 2 Confirmed 10/24/11 Active Bilateral hip pain Confirmed 09/12/17 Active History of strep sore throat 3 Confirmed 06/24/12 Active HLD (hyperlipidemia) Confirmed Active Microalbuminuria Confirmed 03/09/17 Active Onychomycosis Confirmed 03/12/13 Active Osteoporosis 4 Confirmed 02/22/12 Active Proteinuria Confirmed Active Restless leg syndrome Confirmed Active Restless legs syndrome Confirmed Active Seasonal allergic rhinitis Confirmed 04/13/17 Active Snoring Confirmed Active Tobacco use disorder Confirmed 10/24/11 Active DM II (diabetes mellitus, type II), controlled Confirmed Active 1Problem added by Rule (IC_COVID19_AUTO_PROBLEM) following SARS-CoV-2 (COVID- 19)/Flu/RSV (GeneXpert)from Nasal Swab collected on 24-OCT-2022 10:45:00 EDT tested positive for COVID-19. 2Vision blurred more in left that right (per note endocrinology 11/10/20) 3Multiple occurrances. 4Bilat hips. Procedures Procedure Date Related Diagnosis Body Site Status Lung cancer screening 1 08/14/22 C ompleted Ultrasound 2 10/21/20 Completed Transvaginal ultrasonography of pelvis 3 12/13/17 Completed Bone density scan 07/11/17 Complet ed Mammogram - screening 4 07/11/17 C ompleted Colonoscopy 02/20/12 Completed Hysterectomy 5 02/17/[address]Low dose [address] scan 2Thyroid. Non toxic diffuse goiter. 3Uterus deviated to the left, no mass, unable to identify ovaries. 4No evidence of malignancy bilaterally. Previous 12/04/11. 5Partial one tube and ovary remaining. Social History Social History Type Response Tobacco Former tobacco user Tobacco Use:. 1 PPD per day. Started age 8.0 Years. 1 Sex Female 1Pt reports she quit smoking last week in July 2022 Patient Care team information Care Team Personnel Name: Mona Forman Position: Ambulatory - RN/BOOM OPERATOR (Andre) Member Role: Conveyancer Name: Joey Moreau NP Position: Physician Member Role: Informed Provider Address: Address: [address] [place] [id number] Care Team Related Persons Name: SADI GONZALEZ Address: Home [address] [place] [phone] Name: HOLLIS GONZALEZ
--- OUTSIDE RECORDS SUMMARY | 2024-01-25 13:34 | XMS_ITS | Continuity of Care Document ---
Author Organization [facility] Address [address] [place] [address] Care Team Providers Care Alligator Trapper Name Role Phone Joey Moreau Primary Care Physician Encounter [facility] Date(s): 02/02/23 - 02/02/[address] [address] Encounter Diagnosis Osteopenia(Discharge Diagnosis) - 02/02/23 Discharge Disposition: Home or Self Care Attending Physician: Joey Moreau INSTRUCTIONAL FACILITATOR Admitting Physician: Joey Moreau NP Referring Physician: Joey Moreau INSTRUCTIONAL FACILITATOR Allergies, Adverse Reactions, Alerts Substance Reaction Severity Status Animal Dander Moderate Active Januvia Swelling Severe Active Victoza Throat swelling Severe Active Dust Mild Active Pollen 1 Moderate Active 1Pollen extracts, grass pollen. Assessment and Plan Future Appointments Future Scheduled Tests Laboratory* Ferritin 01/11/23 Immunizations Given and Recorded Vaccine Date Status Refusal Reason tetanus/diphth/pertuss (Tdap) adult/adol 01/05/17 Recorded Medications albuterol 90 mcg/inh aerosol inhaler 1 puffs, Inhale, every 4 hr, PRN as needed for wheezing, # 8 g, 0 Refill(s), Pharmacy: [facility] #[id number] Start Date: 08/15/22 Status: Ordered ALCOHOL PADS ALCOHOL PADS, Alcohol pred pad, Supply, See instructions, # 100 EA, 6 Refill(s), Pharmacy: [facility] #[id number] Start Date: 08/15/22 Status: Ordered ALCOHOL PREP PAD MED 70% ALCOHOL PREP PAD MED 70%, 0 Refill(s) Start Date: 01/08/23 Status: Ordered ALCOHOL PREP PADS 100S ALCOHOL PREP PADS 100S, USE DIRECTED Start Date: 09/26/22 Status: Ordered BD SHARPS CONTAINER 1 GALLON BD SHARPS CONTAINER 1 GALLON, BD SHARPS CONTAINER 1 GALLON, Supply, See instructions, # 1 EA, 3 Refill(s), Pharmacy: [facility] #58 Start Date: 08/16/22 Status: Ordered ciprofloxacin 500 mg oral tablet 500 mg = 1 tab, Oral, every 12 hr, # 14 tab, 0 Refill(s), Pharmacy: [facility] #58, 163.83, cm, 01/10/23 10:34:00 EST, Height, 64.86, kg, 01/10/23 10:36:00 EST, Weight Dosing Start Date: 01/12/23 Stop Date: 01/19/23 Status: Ordered cyclobenzaprine 5 mg oral tablet 1 tab, Oral, TID, PRN NEEDED FOR RESTLESS LEGS OR BACK PAIN NEEDED FOR MUSCLE SPASM, # 45 tab, 2 Refill(s), Pharmacy: [facility] #58, 162.56, cm, 01/31/23 13:50:00 EST, Height, 64.41, kg,01/31/23 13:53:00 EST, Weight Dosing Start Date: 02/01/23 Status: Ordered FREESTY LIBR KIT 2 SENSOR FREESTY LIBR KIT 2 SENSOR, 0 Refill(s) Start Date: 09/26/22 Status: Ordered FREESTY LIBR MIS 2 READER FREESTY LIBR MIS 2 READER, 0 Refill(s) Start Date: 09/26/22 Status: Ordered FREESTYLE KIT SENSOR FREESTYLE KIT SENSOR, 0 Refill(s) Start Date: 01/08/23 Status: Ordered FREESTYLE DANIEL 14 DAY SENSOR FREESTYLE DANIEL 14 DAY SENSOR, APPLY ONE SENSOR EVERY 14 DAYS, REPLACE AND APPLY NEW SENSOR IN FRESH LOCATION Start Date: 01/08/23 Status: Ordered FREESTYLE DANIEL 2 READER DEVICE [...] instructions, # 2 EA, 6 Refill(s), Pharmacy: [facility] #58 Start Date: 10/11/22 Status: Ordered FREESTYLE DANIEL II FREESTYLE DANIEL II, FREESTYLE DANIEL II meter kit, Supply, See instructions, # 1 EA, 1 Refill(s), Pharmacy: [facility] #[id number] Start Date: 08/15/22 Status: Ordered gabapentin 100 mg oral capsule See Instructions, take 1 capsules PO at night,, # 90 cap, 0 Refill(s), Pharmacy: [facility] #58, 163.83, cm, 01/10/23 10:34:00 EST, Height, 64.86, kg, 01/10/23 10:36:00 EST, Weight Dosing Start Date: 01/10/23 Status: Ordered glipiZIDE 10 mg oral tablet, extended release TAKE ONE TABLET BY MOUTH EVERY DAY Start Date: 12/12/22 Status: Ordered HumaLOG KwikPen 100 units/mL injectable solution See Instructions, TAKE PER SLIDING SCALE: 70-120=0 UNITS, 121-150=2 UNITS, 151- 200 4=UNITS, 201-250=5 UNITS, 251-300=6 UNITS, 301-350=7 UNITS, 351-400=8 UNITS, # 15 mL, 3 Refill(s), Pharmacy: [facility] #58, 163, cm, 09/28/22 13:40:00 EDT, Height, 67.45, kg, 12/12/22 10:10:00 EST, Weight Dosing Start Date: 12/14/22 Status: Ordered Insulin Pen Needle (any brand Covered) 31 x 5 mm Insulin Pen Needle (any brand Covered) 31 x 5 mm, Insulin Pen Needle (any brand Covered) 31 x 5 mm,1 box of #90 uses 4 daily With long acting insulin and Short acting insulin prior to each meal 3x/day, Supply, See instructions, # 1 EA, 6 Refill(s), Pharmacy: [facility] #58 Start Date: 09/12/22 Status: Ordered Lantus 100 units/mL subcutaneous solution 16 units =, Subcutaneous, Daily, 16 units subcutaneous once in the morning, # 15 mL, 6 Refill(s), Pharmacy: [facility] #58 Start Date: 10/20/22 Status: Ordered loratadine 10 mg oral tablet 10 mg = 1 tab, Oral, Daily, # 30 tab, 0 Refill(s) Start Date: 09/26/22 Status: Ordered Mag-Ox 400 oral tablet 400 mg = 1 tab, Oral, Daily, # 90 tab, 3 Refill(s), Pharmacy: [facility] #58, 162.56, cm, 01/31/23 13:50:00 EST, Height, 64.41, kg, 01/31/23 13:53:00 EST, Weight Dosing Start Date: 02/01/23 Status: Ordered montelukast 10 mg oral tablet TAKE ONE TABLET BY MOUTH EVERY DAY Start Date: 09/26/22 Status: Ordered mupirocin 2% topical ointment 1 hector, Topical, TID, # 30 g, 0 Refill(s), Pharmacy: [facility] #58 Start Date: 08/23/22 Status: Ordered PEN NEEDLES MIS [id number] PEN NEEDLES MIS 92MR7SI, 0 Refill(s) Start Date: 09/26/22 Status: Ordered pravastatin 40 mg oral tablet 40 mg = 1 tab, Oral, Daily, # 90 tab, 3 Refill(s), Pharmacy: [facility] #58 Start Date: 09/08/22 Status: Ordered Right Wrist Brace Right Wrist Brace, Apply to wrist during the day when doing lifting or painful activities., Supply,See instructions, # 1 EA, 0 Refill(s) Start Date: 10/20/22 Status: Ordered Symbicort 80 mcg-4.5 mcg/inh inhalation aerosol 2 puffs, Inhale, BID, # 10.2 g, 6 Refill(s), Pharmacy: [facility] #[id number] Start Date: 10/11/22 Status: Ordered TECHLITE PEN NEEDLE 31GX3/16 TECHLITE PEN NEEDLE 31GX3/16, USE 4 ONCE DAILY WITH LONG ACTION AND SHORT ACTING INSULIN Start Date: 09/26/22 Status: Ordered Ventolin HFA 90 mcg/inh inhalation aerosol 1 puffs, Inhale, every 4 hr, PRN as needed for wheezing, # 18 g, 4 Refill(s), Pharmacy: [facility] #[id number] Start Date: 10/25/22 Status: Ordered Vitamin D3 1000 intl units oral capsule 25 mcg = 1 cap, Oral, Daily, take one capsule daily, # 90 cap, 0 Refill(s), Pharmacy: [facility] #58, 163.83, cm, 01/10/23 10:34:00 EST, Height, 64.86, kg, 01/10/23 10:36:00 EST, Weight Dosing Start Date: 01/10/23 Status: Ordered Problem List Condition Confirmation Course Effective Dates Status H ealth Status Informant Acute gastritis Confirmed Active Acute sinusitis Confirmed Active Benign essential hypertension Confirmed 03/12/13 Active Chronic constipation Confirmed 11/21/11 Active COPD (chronic obstructive pulmonary disease) Confirmed 02/21/12 Active Muscle cramps Confirmed 12/11/19 Active Leg cramps, sleep related Confirmed Active Body dermatophytosis Confirmed Active [id number] of left forearm Confirmed Active GERD (gastroesophageal reflux disease) Confirmed 03/12/13 Active History of visual disturbance 1 Confirmed 10/24/11 Active Bilateral hip pain Confirmed 09/12/17 Active History of strep sore throat 2 Confirmed 06/24/12 Active HLD (hyperlipidemia) Confirmed Active Microalbuminuria Confirmed 03/09/17 Active Onychomycosis Confirmed 03/12/13 Active Osteoporosis 3 Confirmed 02/22/12 Active Proteinuria Confirmed Active Restless leg syndrome Confirmed Active Restless legs syndrome Confirmed Active Seasonal allergic rhinitis Confirmed 04/13/17 Active Snoring Confirmed Active Tobacco use disorder Confirmed 10/24/11 Active DM II (diabetes mellitus, type II), controlled Confirmed Active 1Vision blurred more in left that right (per note endocrinology 11/10/20) 2Multiple occurrances. 3Bilat hips. Procedures Procedure Date Related Diagnosis Body [...] Personnel Name: Mona Forman Position: Ambulatory - RN/SENIOR TELECOMMUNICATIONS SPECIALIST (Andre) Member Role: Clerical Dentist Assistant Name: Joey Moreau INSTRUCTIONAL FACILITATOR Position: Physician Member Role: Informed Provider Address: Address: [address] [place] [address] [place] [address]- Care Team Related Persons Name: SADI GONZALEZ Address: Home [address] [place] [phone] Name: HOLLIS GONZALEZ
--- OUTSIDE RECORDS SUMMARY | 2024-01-25 13:34 | XMS_ITS | Continuity of Care Document ---
Author Organization [facility] Address [address] [place] [address] Care Team Providers Care Culture Manager Name Role Phone Joey Moreau Primary Care Physician [facility] - 03/27/[address] [address] Discharge Disposition: Home or Self Care Attending Physician: Joey Moreau CEILING INSTALLER Admitting Physician: Joey Moreau CEILING INSTALLER Referring Physician: Joey Moreau CEILING INSTALLER Allergies, Adverse Reactions, Alerts Substance Reaction Severity Status Animal Dander Moderate Active Januvia Swelling Severe Active Victoza Throat swelling Severe Active Dust Mild Active Pollen 1 Moderate Active 1Pollen extracts, grass pollen. Assessment and Plan Future Appointments Diagnostic Tests Pending * Urinalysis Notify Lab 03/27/23 Future Scheduled Tests Laboratory* Ferritin 01/11/23 Immunizations Given and Recorded Vaccine Date Status Refusal Reason tetanus/diphth/pertuss (Tdap) adult/adol 01/05/17 Recorded Medications albuterol 90 mcg/inh aerosol inhaler 1 puffs, Inhale, every 4 hr, PRN as needed for wheezing, # 8 g, 0 Refill(s), Pharmacy: [facility] #[id number] Start Date: 08/15/22 Status: Ordered ALCOHOL PADS ALCOHOL PADS, Alcohol pred pad, Supply, See instructions, # 100 EA, 6 Refill(s), Pharmacy: [facility] #[id number] Start Date: 08/15/22 Status: Ordered ALCOHOL PREP PAD MED 70% ALCOHOL PREP PAD MED 70%, 0 Refill(s) Start Date: 01/08/23 Status: Ordered ALCOHOL PREP PADS 100S ALCOHOL PREP PADS 100S, USE DIRECTED Start Date: 09/26/22 Status: Ordered Bactrim DS 800 mg-160 mg oral tablet 1 tab, Oral, BID, # 20 tab, 0 Refill(s), Pharmacy: [facility] #58, 162.56, cm, 01/31/23 13:50:00 EST, Height, 74.15, kg, 03/27/23 13:49:00 EST, Weight Dosing Start Date: 03/27/23 Stop Date: 04/06/23 Status: Ordered BD SHARPS CONTAINER 1 GALLON BD SHARPS CONTAINER 1 GALLON, BD SHARPS CONTAINER 1 GALLON, Supply, See instructions, # 1 EA, 3 Refill(s), Pharmacy: [facility] #58 Start Date: 08/16/22 Status: Ordered ciprofloxacin 500 mg oral tablet 500 mg = 1 tab, Oral, every 12 hr, # 14 tab, 0 Refill(s), Pharmacy: [facility] #58, 163.83, cm, 01/10/23 10:34:00 EST, Height, 64.86, kg, 01/10/23 10:36:00 EST, Weight Dosing Start Date: 01/12/23 Stop Date: 01/19/23 Status: Ordered cyclobenzaprine 5 mg oral tablet 1 tab, Oral, TID, PRN NEEDED FOR RESTLESS LEGS OR BACK PAIN NEEDED FOR MUSCLE SPASM, # 45 tab, 2 Refill(s), Pharmacy: [facility] #58, 162.56, cm, 01/31/23 13:50:00 EST, Height, [...] instructions, # 2 EA, 6 Refill(s), Pharmacy: [facility] #58 Start Date: 10/11/22 Status: Ordered FREESTYLE DANIEL II FREESTYLE DANIEL II, FREESTYLE DANIEL II meter kit, Supply, See instructions, # 1 EA, 1 Refill(s), Pharmacy: [facility] #[id number] Start Date: 08/15/22 Status: Ordered gabapentin 100 mg oral capsule See Instructions, take 1 capsules PO at night,, # 90 cap, 0 Refill(s), Pharmacy: [facility] #58, 163.83, cm, 01/10/23 10:34:00 EST, Height, [...] UNITS, # 15 mL, 3 Refill(s), Pharmacy: [facility] #58, 163, cm, 09/28/22 13:40:00 EDT, Height, [...] instructions, # 1 EA, 6 Refill(s), Pharmacy: [facility] #58 Start Date: 09/12/22 Status: Ordered Lantus 100 units/mL subcutaneous solution 16 units =, Subcutaneous, Daily, 16 units subcutaneous once in the morning, # 15 mL, 6 Refill(s), Pharmacy: [facility] #58 Start Date: 10/20/22 Status: Ordered lidocaine 5% topical film 1 patches, Topical, Daily, remove patches after 12 hours, # 30 patches, 2 Refill(s), Pharmacy: [facility] #58, 162.56, cm, 01/31/23 13:50:00 EST, Height, 74.15, kg, 03/27/23 13:49:00 EST, Weight Dosing Start Date: 03/27/23 Status: Ordered loratadine 10 mg oral tablet 10 mg = 1 tab, Oral, Daily, # 30 tab, 0 Refill(s) Start Date: 09/26/22 Status: Ordered losartan 25 mg oral tablet 25 mg = 1 tab, Oral, Daily, [facility] Started 02/08/23, # 90 tab, 0 Refill(s) Start Date: 02/20/23 Status: Ordered Mag-Ox 400 oral tablet 400 mg = 1 tab, Oral, Daily, # 90 tab, 3 Refill(s), Pharmacy: [facility] #58, 162.56, cm, 01/31/23 13:50:00 EST, Height, 64.41, kg, 01/31/23 13:53:00 EST, Weight Dosing Start Date: 02/01/23 Status: Ordered montelukast 10 mg oral tablet TAKE ONE TABLET BY MOUTH EVERY DAY Start Date: 09/26/22 Status: Ordered mupirocin 2% topical ointment 1 hector, Topical, TID, # 30 g, 0 Refill(s), Pharmacy: [facility] #58 Start Date: 08/23/22 Status: Ordered PEN NEEDLES MIS [id number] PEN NEEDLES MIS 76AU2ZD, 0 Refill(s) Start Date: 09/26/22 Status: Ordered pravastatin 40 mg oral tablet 40 mg = 1 tab, Oral, Daily, # 90 tab, 3 Refill(s), Pharmacy: [facility] #58 Start Date: 09/08/22 Status: Ordered Right Wrist Brace Right Wrist Brace, Apply to wrist during the day when doing lifting or painful activities., Supply,See instructions, # 1 EA, 0 Refill(s) Start Date: 10/20/22 Status: Ordered Symbicort 80 mcg-4.5 mcg/inh inhalation aerosol 2 puffs, Inhale, BID, # 10.2 g, 6 Refill(s), Pharmacy: [facility] #[id number] Start Date: 10/11/22 Status: Ordered TECHLITE PEN NEEDLE 31GX3/16 TECHLITE PEN NEEDLE 31GX3/16, USE 4 ONCE DAILY WITH LONG ACTION AND SHORT ACTING INSULIN Start Date: 09/26/22 Status: Ordered Ventolin HFA 90 mcg/inh inhalation aerosol 1 puffs, Inhale, every 4 hr, PRN as needed for wheezing, # 18 g, 4 Refill(s), Pharmacy: [facility] #[id number] Start Date: 10/25/22 Status: Ordered Vitamin D3 1000 intl units oral capsule 25 mcg = 1 cap, Oral, Daily, take one capsule daily, # 90 cap, 0 Refill(s), Pharmacy: [facility] #58, 163.83, cm, 01/10/23 10:34:00 EST, Height, [...] related Confirmed Active Body dermatophytosis Confirmed Active [id number] of left forearm Confirmed Active GERD (gastroesophageal [...] 12/04/11. 5Partial one tube and ovary remaining. Results Laboratory List Name Date .Urinalysis POCT 03/27/23 Urinalysis Microscopic 03/27/23 Most recent to oldest [Reference Range]: 1 UA WBC [0-3] 10-25 *ABN* (03/27/23 2:44 PM) UA RBC [0-2] 0-2 (03/27/23 2:44 PM) UA Bacteria Moderate /HPF *ABN* (03/27/23 2:44 PM) UA Mucous None Seen /HPF (03/27/23 2:44 PM) UA Squam Epithelial [None Seen] Rare (03/27/23 2:44 PM) UA Culture Ind?. Indicated (03/27/23 2:44 PM) Method of Collect POC Clean Catch *NA* (03/27/23 2:44 PM) Specific [place], Ur POC 1.010 *NA* (03/27/23 2:44 PM) Specimen Color POC Pale Yellow *NA* (03/27/23 2:44 PM) Glucose, Urine POC [Negative] Negative (03/27/23 2:44 PM) Bilirubin, Urine POC [Negative] Negative (03/27/23 2:44 PM) Ketones, Urine POC [Negative] Negative (03/27/23 2:44 PM) Blood, Urine POC [Negative] Trace *ABN* (03/27/23 2:44 PM) pH, Urine POC 6.5 *NA* (03/27/23 2:44 PM) Protein, Urine POC [Negative] Negative (03/27/23 2:44 PM) Urobilinogen, Urine POC Normal (03/27/23 2:44 PM) Nitrite, Urine POC [Negative] Negative (03/27/23 2:44 PM) Leuk Esterase, Urine POC [Negative] Mode rate *ABN* (03/27/23 2:44 PM) Clarity, Urine POC [Clear] Clear (03/27/23 2:44 PM) Orders for Microbiology Reports Name Date Urine Culture 03/27/23 Microbiology Reports TEST:Urine Culture STATUS:Order in Progress BODY SITE: SOURCE:Urine COLLECTED DATE/TIME:03/27/23 2:44 PM PRELIMINARY REPORT >100,000 cfu/ml Escherichia coli Susceptibility to follow. Social History Social History Type Response Tobacco Former tobacco user Tobacco Use:. 1 PPD per day. Started age 8.0 Years. 1 Sex Female 1Pt reports she quit smoking last week in July 2022 Patient Care team information Care Team Personnel Name: Mona Forman Position: Ambulatory - RN/FINANCIAL SERVICES SALES REPRESENTATIVE (Andre) Member Role: Family Support Specialist Name: Joey Moreau NP Position: Physician Member Role: Informed Provider Address: Address: [address] [place] [phone] [place] Care Team Related Persons Name: SADI GONZALEZ Address: Home [address] [place] [address], [phone] Name: HOLLIS GONZALEZ
--- OUTSIDE RECORDS SUMMARY | 2024-01-25 13:34 | XMS_ITS | Continuity of Care Document ---
Author Organization [facility] Address [address] [place] [address] Care Team Providers Care Plant And Maintenance Technician Name Role Phone Joey Ambrose Primary Care Physician Encounter [facility] Date(s): 08/24/22 - 08/24/[address] [address] [place] Encounter Diagnosis Former smoker(Discharge Diagnosis) - 08/24/22 Asthma(Discharge Diagnosis) - 08/24/22 Discharge Disposition: Home or Self Care Attending Physician: Joey Ambrose MOCCASIN SEWER Admitting Physician: Joey Ambrose MOCCASIN SEWER Referring Physician: Joey Ambrose MOCCASIN SEWER Allergies, Adverse Reactions, Alerts No Known Medication Allergies Assessment and Plan Future Appointments Future Scheduled Tests Laboratory* Comprehensive Metabolic Panel 08/23/22 * CBC w/o Diff 08/23/22 Radiology* CT Low Dose Lung Screening 08/15/22 * US Renal Bilateral 08/18/22 Medications albuterol 90 mcg/inh aerosol inhaler 1 puffs, Inhale, every 4 hr, PRN as needed for wheezing, # 8 g, 0 Refill(s), Pharmacy: [facility] #[id number] Start Date: 08/15/22 Status: Ordered ALCOHOL PADS ALCOHOL PADS, Alcohol pred pad, Supply, See instructions, # 100 EA, 6 Refill(s), Pharmacy: [facility] #[id number] Start Date: 08/15/22 Status: Ordered BD SHARPS CONTAINER 1 GALLON BD SHARPS CONTAINER 1 GALLON, BD SHARPS CONTAINER 1 GALLON, Supply, See instructions, # 1 EA, 3 Refill(s), Pharmacy: [facility] #[id number] Start Date: 08/16/22 Status: Ordered Freestyle Daniel 14 day Sensor Kit Freestyle Daniel 14 day Sensor Kit, Freestyle Daniel 14 day Sensor Kit: Apply one sensor for 14 days,replace and apply new sensor in fresh location., Supply, See instructions, # 6 EA, 3 Refill(s), Pharmacy: [facility] #58 Start Date: 08/16/22 Status: Ordered FREESTYLE DANIEL II FREESTYLE DANIEL II, FREESTYLE DANIEL II meter kit, Supply, See instructions, # 1 EA, 1 Refill(s), Pharmacy: [facility] #[id number] Start Date: 08/15/22 Status: Ordered Insulin Pen Needle (any brand Covered) 31 x 5 mm Insulin Pen Needle (any brand Covered) 31 x 5 mm, Insulin Pen Needle (any brand Covered) 31 x 5 mm,1 box of #90 uses 4 daily With long acting insulin and Short acting insulin prior to each meal 3x/day, Supply, See instructions, # 1 EA, 6 Refill(s),... Start Date: 08/15/22 Status: Ordered Lantus 100 units/mL subcutaneous solution 10 units =, Subcutaneous, Daily, 10 units subcutaneous once in the morning, # 10 mL, 6 Refill(s) Start Date: 08/15/22 Status: Ordered mupirocin 2% topical ointment 1 hector, Topical, TID, # 30 g, 0 Refill(s), Pharmacy: [facility] #58 Start Date: 08/23/22 Status: Ordered NovoLOG FlexPen 100 units/mL injectable solution See Instructions, at beginning of meal or within 20 minutes of starting a meal With sliding scale. Sliding scale: 70-120 0 units 121-150 2 units 151-200 4 units 201-250 5 units 251-300 6 units 301-350 7 units 351-400 8 units >400 call... Start Date: 08/15/22 Status: Ordered Symbicort 80 mcg-4.5 mcg/inh inhalation aerosol 2 puffs, Inhale, BID, # 6.9 g, 6 Refill(s), Pharmacy: [facility] #[id number] Start Date: 08/16/22 Status: Ordered Social History Social History Type Response Tobacco Former tobacco user Tobacco Use:. 1 PPD per day. Started age 8.0 Years. 1 Sex Female 1Pt reports she quit smoking last week in July 2022 Patient Care team information Care Team Personnel Name: Mona Forman Position: Ambulatory - RN/WHITING MACHINE OPERATOR (Andre) Member Role: Explosive Ordnance Disposal Technician Name: Joey Ambrose MOCCASIN SEWER Position: Physician Member Role: Primary Care Physician Care Team Related Persons Name: SADI GONZALEZ Address: [address] [phone] Name: HOLLIS GONZALEZ Address: [place]
--- OUTSIDE RECORDS SUMMARY | 2024-01-25 13:34 | XMS_ITS | Continuity of Care Document ---
Author Organization [facility] Address [address] [place] [address] Care Team Providers Care Chainstitch Zipper Setter Name Role Phone Joey Moreau Primary Care Physician Encounter [facility] Date(s): 12/12/22 - 12/12/[address] [address] Encounter Diagnosis Pain in left foot(Discharge Diagnosis) - 12/12/22 Discharge Disposition: Home or Self Care Attending Physician: Joey Moreau VALANCE CUTTER Admitting Physician: Joey Moreau NP Referring Physician: Joey Moreau VALANCE CUTTER Allergies, Adverse Reactions, Alerts Substance Reaction Severity [...] wheezing, # 8 g, 0 Refill(s), Pharmacy: [facility] #[id number] Start Date: 08/15/22 Status: Ordered ALCOHOL PADS ALCOHOL PADS, Alcohol pred pad, Supply, See instructions, # 100 EA, 6 Refill(s), Pharmacy: [facility] #[id number] Start Date: 08/15/22 Status: Ordered ALCOHOL PREP PADS 100S ALCOHOL PREP PADS 100S, USE DIRECTED Start Date: 09/26/22 Status: Ordered BD SHARPS CONTAINER 1 GALLON BD SHARPS CONTAINER 1 GALLON, BD SHARPS CONTAINER 1 GALLON, Supply, See instructions, # 1 EA, 3 Refill(s), Pharmacy: [facility] #58 Start Date: 08/16/22 Status: Ordered cyclobenzaprine 5 mg oral tablet See Instructions, PRN as needed for muscle spasm, 1 tab Oral three times a day as needed for restless legs or back pain., # 45 tab, 2 Refill(s), Pharmacy: [facility] #58 Start Date: 10/10/22 Status: Ordered FREESTY [...] instructions, # 2 EA, 6 Refill(s), Pharmacy: [facility] #58 Start Date: 10/11/22 Status: Ordered FREESTYLE DANIEL II FREESTYLE DANIEL II, FREESTYLE DANIEL II meter kit, Supply, See instructions, # 1 EA, 1 Refill(s), [id number] Start Date: 08/15/22 Status: Ordered glipiZIDE 10 mg oral tablet, extended release TAKE ONE TABLET BY MOUTH EVERY DAY Start Date: 12/12/22 Status: Ordered HumaLOG KwikPen 100 units/mL injectable solution See Instructions, TAKE PER SLIDING SCALE: 70-120=0 UNITS, 121-150=2 UNITS, 151- 200 4=UNITS, 201-250=5 UNITS, 251-300=6 UNITS, 301-350=7 UNITS, 351-400=8 UNITS, # 15 mL, 3 Refill(s), [id number], 163, cm, 09/28/22 13:40:00 EDT, Height Start [...] instructions, # 1 EA, 6 Refill(s), Pharmacy: [facility] #58 Start Date: 09/12/22 Status: Ordered Lantus 100 units/mL subcutaneous solution 16 units =, Subcutaneous, Daily, 16 units subcutaneous once in the morning, # 15 mL, 6 Refill(s), Pharmacy: [facility] #58 Start Date: 10/20/22 Status: Ordered loratadine 10 mg oral tablet 10 mg = 1 tab, Oral, Daily, # 30 tab, 0 Refill(s) Start Date: 09/26/22 Status: Ordered Mag-Ox 400 oral tablet 400 mg = 1 tab, Oral, Daily, # 90 tab, 3 Refill(s), Pharmacy: [facility] #58 Start Date: 09/11/22 Status: Ordered montelukast 10 mg oral tablet TAKE ONE TABLET BY MOUTH EVERY DAY Start Date: 09/26/22 Status: Ordered mupirocin 2% topical ointment 1 hector, Topical, TID, # 30 g, 0 Refill(s), Pharmacy: [facility] #58 Start Date: 08/23/22 Status: Ordered NovoLOG [...] sites, # 15 mL, 6 Refill(s), Pharmacy: [facility] #58 Start Date: 08/15/22 Status: Ordered PEN NEEDLES MIS [id number] PEN NEEDLES MIS [id number], 0 Refill(s) Start Date: 09/26/22 Status: Ordered pravastatin 40 mg oral tablet 40 mg = 1 tab, Oral, Daily, # 90 tab, 3 Refill(s), Pharmacy: [facility] #58 Start Date: 09/08/22 Status: Ordered Right Wrist Brace Right Wrist Brace, Apply to wrist during the day when doing lifting or painful activities., Supply,See instructions, # 1 EA, 0 Refill(s) Start Date: 10/20/22 Status: Ordered Symbicort 80 mcg-4.5 mcg/inh inhalation aerosol 2 puffs, Inhale, BID, # 10.2 g, 6 Refill(s), Pharmacy: [facility] #[id number] Start Date: 10/11/22 Status: Ordered TECHLITE PEN NEEDLE 31GX3/16 TECHLITE PEN NEEDLE 31GX3/16, USE 4 ONCE DAILY WITH LONG ACTION AND SHORT ACTING INSULIN Start Date: 09/26/22 Status: Ordered Ventolin HFA 90 mcg/inh inhalation aerosol 1 puffs, Inhale, every 4 hr, PRN as needed for wheezing, # 18 g, 4 Refill(s), Pharmacy: [facility] #[id number] Start Date: 10/25/22 Status: Ordered Problem List [...] 2019 novel coronavirus 1 Confirmed 10/24/22 Active [id number] of left forearm Confirmed Active GERD (gastroesophageal [...] Personnel Name: Mona Forman Position: Ambulatory - RN/SMASH HAND (Andre) Member Role: Filler Feeder Name: Joey Moreau NP Position: Physician Member Role: Informed Provider Address: Address: [address] [place] [address] [place], [place] [address] Care Team Related Persons Name: SADI GONZALEZ Address: Home [address] [place] [phone] Name: HOLLIS GONZALEZ
--- OUTSIDE RECORDS SUMMARY | 2024-01-25 13:34 | XMS_ITS | Continuity of Care Document ---
Author Organization [facility] Address [address] [place] [address] Care Team Providers Care Wastewater Project Engineer Name Role Phone Joey Ambrose Primary Care Physician Encounter [facility] Date(s): 08/17/22 - 08/17/[address] [address] Discharge Disposition: Home Allergies, Adverse Reactions, Alerts No Known Medication Allergies Assessment and Plan Future Appointments Future Scheduled Tests Radiology* CT Low Dose Lung Screening 08/15/22 * US Renal Bilateral 08/18/22 Medications albuterol 90 mcg/inh aerosol inhaler 1 puffs, Inhale, every 4 hr, PRN as needed for wheezing, # 8 g, 0 Refill(s), Pharmacy: [facility] #[id number] Start Date: 08/15/22 Status: Ordered ALCOHOL PADS ALCOHOL PADS, Alcohol pred pad, Supply, See instructions, # 100 EA, 6 Refill(s), Pharmacy: [facility] #[id number] Start Date: 08/15/22 Status: Ordered BD SHARPS CONTAINER 1 GALLON BD SHARPS CONTAINER 1 GALLON, BD SHARPS CONTAINER 1 GALLON, Supply, See instructions, # 1 EA, 3 Refill(s), Pharmacy: [facility] #58 Start Date: 08/16/22 Status: Ordered Freestyle Daniel 14 day Sensor Kit Freestyle Daniel 14 day Sensor Kit, Freestyle Daniel 14 day Sensor Kit: Apply one sensor for 14 days,replace and apply new sensor in fresh location., Supply, See instructions, # 6 EA, 3 Refill(s), Pharmacy: [facility] #58 Start Date: 08/16/22 Status: Ordered FREESTYLE DANIEL II FREESTYLE DANIEL II, FREESTYLE DANIEL II meter kit, Supply, See instructions, # 1 EA, 1 Refill(s), Pharmacy: [facility] #[id number] Start Date: 08/15/22 Status: Ordered Insulin Pen [...] 6 Refill(s) Start Date: 08/15/22 Status: Ordered NovoLOG FlexPen 100 units/mL injectable [...] BID, # 6.9 g, 6 Refill(s), Pharmacy: [facility] #58 Start Date: 08/16/22 Status: Ordered Social History Social History Type Response Tobacco Former tobacco user Tobacco Use:. 1 PPD per day. Started age 7.0 Years. 1 Sex Female 1Pt reports she quit smoking last week in July 2022 Patient Care team information Care Team Personnel Name: Mona Forman Position: Ambulatory - RN/PARTS COUNTER ASSOCIATE (Andre) Member Role: Allergist Immunologist Name: Joey Ambrose NP Position: Physician Member Role: Primary Care Physician Care Team Related Persons Name: SADI GONZALEZ Address: Home [address] [place] [phone] Name: HOLLIS GONZALEZ Address: Home
--- OUTSIDE RECORDS SUMMARY | 2024-01-25 13:34 | XMS_ITS | Continuity of Care Document ---
Author Organization [facility] Address [address] [place] [address] Care Team Providers Care Regroover Name Role Phone Joey Moreau Primary Care Physician ( [phone] Encounter [facility] Date(s): 12/10/23 - 12/10/[address] [address] Discharge Disposition: Home or Self Care Attending Physician: Joey Moreau NP Admitting Physician: Joey Moraeu NP Referring Physician: Joey Moreau STRADDLE CARRIER OPERATOR Allergies, Adverse Reactions, Alerts Substance Criticality Severity Reaction Reaction Severity Status Animal Dander High criticality Moderate Active Januvia High criticality Severe Swelling Act virgie Dust Low criticality Mild Acti ve Rybelsus 1 High criticality Moderate Breathing abnormal Active Victoza High criticality Severe Throat swelling Active Pollen 2 High criticality Moderate Act virgie 1Throat tightening x 2 weeks, difficulty swallowing 2Pollen extracts, grass pollen. Assessment and Plan Future Appointments Future Scheduled Tests Laboratory* Ferritin 01/11/23 Immunizations Given and Recorded Vaccine Date Status Refusal Reason tetanus/diphth/pertuss (Tdap) adult/adol 01/05/17 Recorded Medications albuterol 90 mcg/inh aerosol inhaler 1 puffs, Inhale, every 4 hr, PRN as needed for wheezing, # 8 g, 3 Refill(s), Pharmacy: [facility]#93, 162.56, cm, 01/31/23 13:50:00 EST, Height, 77.75, kg, 05/01/23 8:57:00 EDT, Weight Dosing Start Date: 05/21/23 Status: Ordered ALCOHOL PADS ALCOHOL PADS, Alcohol pred pad, Supply, See instructions, # 100 EA, 6 Refill(s), Pharmacy: [facility] #93 Start Date: 05/21/23 Status: Ordered Artificial Tears 1 drop prn ou, 0 Refill(s) Start Date: 06/05/23 Status: Ordered BD SHARPS CONTAINER 1 GALLON BD SHARPS CONTAINER 1 GALLON, BD SHARPS CONTAINER 1 GALLON, Supply, See instructions, # 1 EA, 3 Refill(s), Pharmacy: [facility] #58 Start Date: 08/16/22 Status: Ordered cyclobenzaprine 10 mg oral tablet 10 mg = 1 tab, Oral, TID, PRN as needed for muscle spasm, # 30 tab, 1 Refill(s), Pharmacy: [facility] #93, 162.56, cm, 01/31/23 13:50:00 EST, Height, 84.4, kg, 12/10/23 11:38:00 EST, Weight Dosing Start Date: 12/10/23 Status: Ordered cyclobenzaprine 5 mg oral tablet See Instructions, TAKE ONE TABLET BY MOUTH THREE TIMES A DAY NEEDED FOR RESTLESS LEGS OR BACK PAIN NEEDED FOR MUSCLE SPASMS, # 270 tab, 1 Refill(s), Pharmacy: [facility] #93, 162.56, cm, 01/31/23 13:50:00 EST, Height, 77.8, kg, 09/03/23 10:57:00 EDT, Weight Dosing Start Date: 11/07/23 Status: Ordered fluticasone 50 mcg/inh nasal spray See Instructions, INSTILL 1 SPRAY INTO BOTH NOSTRILS EVERY MORNING, # 16 mL, 3 Refill(s), Pharmacy:[facility] #93, 162.56, cm, 01/31/23 13:50:00 EST, Height, 77.75, kg, 05/01/23 8:57:00 EDT, Weight Dosing Start Date: 07/18/23 Status: Ordered Freestyle Daniel 2 Sensor Kit Freestyle Daniel 2 Sensor Kit, Freestyle Daniel 2 Sensor Kit: Apply one sensor for 14 days, replace and apply new sensor in fresh location., Supply, See instructions, # 2 EA, 12 Refill(s), Pharmacy: [facility] #93 Start Date: 05/21/23 Status: Ordered FREESTYLE DANIEL II FREESTYLE DANIEL II, FREESTYLE DANIEL II meter kit, Supply, See instructions, # 1 EA, 1 Refill(s), Pharmacy: [facility] #[id number] Start Date: 08/15/22 Status: Ordered gabapentin 100 mg oral capsule See Instructions, take 1 capsules PO at night,, # 90 cap, 0 Refill(s), Pharmacy: [facility] #58, 163.83, cm, 01/10/23 10:34:00 EST, Height, [...] UNITS, # 15 mL, 3 Refill(s), Pharmacy: [facility] #93, 162.56, cm, 01/31/23 13:50:00 EST, Height, 77.75, kg, 05/01/23 8:57:00 EDT, Weight Dosing Start Date: 05/21/23 Status: Ordered Insulin Glargine Solostar Pen 100 units/mL subcutaneous solution 22 units =, Subcutaneous, Daily, # 400 mL, 1 Refill(s), Pharmacy: [facility] #93, 162.56, cm, 01/31/23 13:50:00 EST, Height, 77.75, kg, 05/01/23 8:57:00 EDT, Weight Dosing Start Date: 05/28/23 Status: Ordered Insulin Pen Needle (any brand Covered) 31 x 5 mm Insulin Pen Needle (any brand Covered) 31 x 5 mm, Insulin Pen Needle (any brand Covered) 31 x 5 mm,1 box of #90 uses 4 daily With long acting insulin and Short acting insulin prior to each meal 3x/day, Supply, See instructions, # 1 EA, 6 Refill(s), Pharmacy: [facility] #93 Start Date: 05/21/23 Status: Ordered ipratropium-albuterol 0.5 mg-2.5 mg/3 mL inhalation solution INHALE THE CONTENTS OF ONE VIAL VIA NEBULIZER FOUR TIMES A DAY NEEDED FOR WHEEZING Start Date: 12/10/23 Status: Ordered lidocaine 5% topical film See Instructions, APPLY ONE PATCH TOPICALLY TO THE SKIN DIRECTED, 12 HOURS ON AND THEN 12 HOURS OFF, # 30 patches, 2 Refill(s), Pharmacy: [facility] #93, 162.56, cm, 01/31/23 13:50:00 EST, Height, 77.8, kg, 09/03/23 10:57:00 EDT, Weight Dosing Start Date: 11/05/23 Status: Ordered loratadine 10 mg oral tablet 10 mg = 1 tab, Oral, Daily, # 30 tab, 0 Refill(s) Start Date: 09/26/22 Status: Ordered losartan 25 mg oral tablet 25 mg = 1 tab, Oral, Daily, [facility] Started 02/08/23, # 90 tab, 0 Refill(s) Start Date: 02/20/23 Status: Ordered Mag-Ox 400 oral tablet 800 mg = 2 tab, Oral, Daily, # 180 tab, 3 Refill(s), Pharmacy: [facility] #93, 162.56, cm, 01/31/23 13:50:00 EST, Height, 77.8, kg, 09/03/23 10:57:00 EDT, Weight Dosing Start Date: 10/03/23 Status: Ordered montelukast 10 mg oral tablet TAKE ONE TABLET BY MOUTH EVERY DAY Start Date: 09/26/22 Status: Ordered mupirocin 2% topical ointment 1 hector, Topical, TID, # 30 g, 0 Refill(s), Pharmacy: [facility] #58 Start Date: 08/23/22 Status: Ordered omeprazole 20 mg oral delayed release capsule TAKE 1 CAPSULE BY MOUTH DAILY Start Date: 09/03/23 Status: Ordered pravastatin 40 mg oral tablet 40 mg = 1 tab, Oral, Daily, # 90 tab, 3 Refill(s), Pharmacy: [facility] #93, 162.56, cm, 01/31/2313:50:00 EST, Height, 77.75, kg, 05/01/23 8:57:00 EDT, Weight Dosing Start Date: 05/21/23 Status: Ordered Right Wrist Brace Right Wrist Brace, Apply to wrist during the day when doing lifting or painful activities., Supply,See instructions, # 1 EA, 0 Refill(s) Start Date: 10/20/22 Status: Ordered Rybelsus 3 mg oral tablet 3 mg = 1 tab, Oral, Daily, take at least 30 minutes before first food, beverage, or other oral meds, # 30 tab, 0 Refill(s) Start Date: 06/29/23 Status: Ordered Rybelsus 7 mg oral tablet 90 EA, 0 Refill(s), TAKE 1 TABLET BY MOUTH EVERY DAY TAKE ON AN EMPTY STOMACH AND DO NOT LIE DOWN, EAT, DRINK OR TAKE OTHER MEDICATIONS FOR 30 MINUTES AFTER VICKY, 0 Refill(s) Start Date: 07/10/23 Status: Ordered Spiriva Respimat 1.25 mcg/inh inhalation aerosol INHALE TWO PUFFS BY MOUTH EVERY DAY Start Date: 09/03/23 Status: Ordered Symbicort 80 mcg-4.5 mcg/inh inhalation aerosol 2 puffs, Inhale, BID, # 10.2 g, 6 Refill(s), Pharmacy: [facility] #93, 162.56, cm, 01/31/23 13:50:00 EST, Height, 77.75, kg, 05/01/23 8:57:00 EDT, Weight Dosing Start Date: 05/21/23 Status: Ordered TECHLITE PEN NEEDLE 31GX3/16 TECHLITE PEN NEEDLE 31GX3/16, USE 4 ONCE DAILY WITH LONG ACTION AND SHORT ACTING INSULIN Start Date: 09/26/22 Status: Ordered Trulicity Pen 0.75 mg/0.5 mL subcutaneous solution INJECT 0.5ML UNDER THE SKIN ONCE WEEKLY Start Date: 12/10/23 Status: Ordered UNIFINE PENTIPS PLUS 31GX3/16 UNIFINE PENTIPS PLUS 31GX3/16, See Instructions, USE 1 NEEDLE WITH INSULIN PENS, 4 TIMES DAILY, # 100 EA, 6 Refill(s), Pharmacy: [facility] #93, 162.56, cm, 01/31/23 13:50:00 EST, Height, 77.8, kg, 09/03/23 10:57:00 EDT, Weight Dosing Start Date: 12/02/23 Status: Ordered Ventolin HFA 90 mcg/inh inhalation aerosol 1 puffs, Inhale, every 4 hr, PRN as needed for wheezing, # 18 g, 4 Refill(s), Pharmacy: [facility] #93, 162.56, cm, 01/31/23 13:50:00 EST, Height, 77.75, kg, 05/01/23 8:57:00 EDT, Weight Dosing Start Date: 05/21/23 Status: Ordered Vitamin D3 1000 intl units oral capsule 25 mcg = 1 cap, Oral, Daily, take one capsule daily, # 90 cap, 0 Refill(s), Pharmacy: [facility] #58, 163.83, cm, 01/10/23 10:34:00 EST, Height, 64.86, kg, 01/10/23 10:36:00 EST, Weight Dosing Start Date: 01/10/23 Status: Ordered ZyrTEC 10 mg oral tablet 10 mg = 1 tab, Oral, Daily, # 90 tab, 0 Refill(s), Pharmacy: [facility] #93, 162.56, cm, 01/31/2313:50:00 EST, Height, 77.75, kg, 05/01/23 8:57:00 EDT, Weight Dosing Start Date: 07/09/23 Status: Ordered Problem List Condition Confirmation Course Effective Dates Status H ealth Status Informant Altered gait Confirmed Active Acute gastritis Confirmed Active Acute sinusitis Confirmed Active Benign essential hypertension Confirmed 03/12/13 Active Chronic constipation Confirmed 11/21/11 Active COPD (chronic obstructive pulmonary disease) Confirmed 02/21/12 Active Muscle cramps Confirmed 12/11/19 Active Leg cramps, sleep related Confirmed Active Body dermatophytosis Confirmed Active [id number] of left forearm Confirmed Active GERD (gastroesophageal reflux disease) Confirmed 03/12/13 Active History of visual disturbance 1 Confirmed 10/24/11 Active Bilateral hip pain Confirmed 09/12/17 Active History of strep sore throat 2 Confirmed 06/24/12 Active HLD (hyperlipidemia) Confirmed Active Onychauxis Confirmed Active Hypomagnesemia Confirmed Active Hyperkeratosis Confirmed Active Microalbuminuria Confirmed 03/09/17 Active Onychomycosis Confirmed 03/12/13 Active Osteoporosis 3 Confirmed 02/22/12 Active Lumbar spine pain Confirmed Active Proteinuria Confirmed Active Restless leg syndrome Confirmed Active Restless legs syndrome Confirmed Active Seasonal allergic rhinitis Confirmed 04/13/17 Active Snoring Confirmed Active DM II (diabetes mellitus, type II), [...] ovary remaining. Results Laboratory List Name Date CBC w/o Diff 12/10/23 Comprehensive Metabolic Panel (CMP) 12/09 Hemoglobin A1c 12/10/23 Lipid Panel 12/10/23 Most recent to oldest [Reference Range]: 1 WBC [5.0-10.0 x10^3/mcL] 7.0 x10^3/mcL (12/10/23 11:19 AM) RBC [4.1-5.3 x10^6/mcL] 3.6 x10^6/mcL *LOW* (12/10/23 11:19 AM) BUN [7-18 mg/dL] 17 mg/dL (12/10/23 11:19 AM) Cholesterol Total [50-200 mg/dL] 169 mg/ dL (12/10/23 11:19 AM) LDL [0-130 mg/dL] 75 mg/dL (12/10/23 11:19 AM) Glucose Level [74-106 mg/dL] 114 mg/dL *HI* (12/10/23 11:19 AM) Potassium Level [3.5-5.1 mmol/L] 4.4 mmo l/L (12/10/23 AM) MCV [80.0-96.0 fL] 93.5 fL (12/10/23 AM) HDL [40-60 mg/dL] 77 mg/dL *HI* (12/10/23 AM) AST [15-37 unit/L] 27 unit/L (12/10/23 AM) ALT [14-59 unit/L] 34 unit/L (12/10/23 AM) MCHC [31.0-35.0 g/dL] 31.2 g/dL (12/10/23 AM) Sodium Level [136-145 mmol/L] 142 mmol/L (12/10/23) Hct [37.0-47.0 %] 33.3 % *LOW* (12/10/23) Triglycerides [0-150 mg/dL] 86 mg/dL (12/10/23) Calcium Level [8.5-10.1 mg/dL] 9.1 mg/dL (12/10/23 AM) Albumin Level [3.4-5.0 g/dL] 3.2 g/dL *LOW* (12/10/23) Protein Total [6.4-8.2 g/dL] 7.5 g/dL (12/10/23 AM) MCH [26.0-32.0 pg] 29.2 pg (12/10/23 AM) Bilirubin Total [0.2-1.0 mg/dL] 0.2 mg/d L (12/10/23 AM) Hgb [12.0-16.0 g/dL] 10.4 g/dL *LOW* (12/10/23) Alk Phos [46-146 unit/L] 159 unit/L *HI* (12/10/23 AM) Platelets [130-450 x10^3/mcL] 314 x10^3/ mcL (12/10/23 11: AM) CO2 [21-32 mmol/L] 30 mmol/L (12/10/23 AM) eGFR Non-AA [>=60] 43 *LOW* (12/10/23 11:19 AM) eGFR AA [>=60] 43 *LOW* (12/10/23 11:19 AM) Hemoglobin A1c [4.0-5.6 %] 8.0 % 1 *HI* (12/10/23 11:19 AM) Chloride Level [98-107 mmol/L] 104 mmol/ L (12/10/23 11:19 AM) RDW-CV [11.5-14.5 %] 14.3 % (12/10/23 11:19 AM) Creatinine Level [0.55-1.02 mg/dL] 1.37 mg/dL *HI* (12/10/23 11:19 AM) 1Interpretive Data: New test method effective 03-06-23. Establishment of new HA1c baseline is recommended. The following A1c interpretive data reflect the 2017 [place] Diabetes Association (ADA) guidelinesand will be reported with each A1c result: Normal: <5.7% Prediabetes: 5.7 - 6.4% Diagnostic for diabetes (if confirmed): ???6.5% Social History Social History Type Response Tobacco Former tobacco user Tobacco Use:. 1 PPD per day. Started age 7.0 Years. 1 Sex Female Sex Representation Female (finding) 1Pt reports she quit smoking last week in July 2022 Patient Care team information Care Team Personnel Name: Joey Moreau STRADDLE CARRIER OPERATOR Position: Physician Member Role: Informed Provider Address: [address] [place] [address] Care Team Related Persons Name: SADI GONZALEZ Name: HOLLIS GONZALEZ Insurance Providers Guarantor name: EMILE GONZALEZ Health Plan Information #: 1 Payer: [facility] MEDICAID Member Number: [id number] Policy Number: NA Health Plan Information #: 2 Payer: [facility] MEDICAID Member Number: [id number] Policy Number: NA Health Plan Information #: 3 Payer: MED[employer] Member Number: NA Policy Number: NA
--- OUTSIDE RECORDS SUMMARY | 2024-01-25 13:34 | XMS_ITS | Continuity of Care Document ---
Author Organization [facility] Address [address] [place] [address] Care Team Providers Care Adult Literacy Teacher Name Role Phone Joey Ambrose Primary Care Physician Encounter [facility] Date(s): 08/15/22 - 08/15/[address] [address] Discharge Disposition: Home Allergies, Adverse Reactions, Alerts No Known Medication Allergies Assessment and Plan Future Appointments Future Scheduled Tests Radiology* CT Abdomen and Pelvis w/ Contrast 08/15/22 * CT Low Dose Lung Screening 08/15/22 Medications albuterol 90 mcg/inh aerosol inhaler 1 puffs, Inhale, every 4 hr, PRN as needed for wheezing, # 8 g, 0 Refill(s), Pharmacy: [facility] #[id number] Start Date: 08/15/22 Status: Ordered ALCOHOL PADS ALCOHOL PADS, Alcohol pred pad, Supply, See instructions, # 100 EA, 6 Refill(s), Pharmacy: [facility] #[id number] Start Date: 08/15/22 Status: Ordered BD SHARPS CONTAINER 1 GALLON BD SHARPS CONTAINER 1 GALLON, BD SHARPS CONTAINER 1 GALLON, Supply, See instructions, # 1 EA, 3 Refill(s), Pharmacy: [facility] #58 Start Date: 08/16/22 Status: Ordered Freestyle Daniel 14 day Sensor Kit Freestyle Daniel 14 day Sensor Kit, Freestyle Daniel 14 day Sensor Kit: Apply one sensor for 14 days,replace and apply new sensor in fresh location., Supply, See instructions, # 6 EA, 3 Refill(s), Pharmacy: [facility] #58 Start Date: 08/16/22 Status: Ordered FREESTYLE DANIEL II FREESTYLE DANIEL II, FREESTYLE DANIEL II meter kit, Supply, See instructions, # 1 EA, 1 Refill(s), Pharmacy: [facility] #[id number] Start Date: 08/15/22 Status: Ordered Insulin Pen [...] BID, # 6.9 g, 6 Refill(s), Pharmacy: [facility] #58 Start Date: 08/16/22 Status: Ordered Social History Social History Type Response Tobacco Former tobacco user Tobacco Use:. 1 PPD per day. Started age 7.0 Years. 1 Sex Female 1Pt reports she quit smoking last week in July 2022 Patient Care team information Care Team Personnel Name: Mona Forman Position: Ambulatory - RN/SANITARIAN (Andre) Member Role: Assistant Professor Of Economics Name: Joey Ambrose NP Position: Physician Member Role: Primary Care Physician Care Team Related Persons Name: SADI GONZALEZ Address: [address] [phone] Name: HOLLIS GONZALEZ Address: Home
--- OUTSIDE RECORDS SUMMARY | 2024-01-25 13:34 | XMS_ITS | Continuity of Care Document ---
Author Organization [facility] Address [address] [place] [address] Care Team Providers Care Incinerator Plant Laborer Name Role Phone Joey Moreau Primary Care Physician [facility] Date(s): 04/09/23 - 04/09/[address] [address] Discharge Disposition: Home or Self Care Attending Physician: Joey Moreau TRAINING ANALYST Admitting Physician: Joey Moreau TRAINING ANALYST Allergies, Adverse Reactions, Alerts Substance Reaction Severity [...] wheezing, # 8 g, 0 Refill(s), Pharmacy: [facility] #[id number] Start Date: 08/15/22 Status: Ordered ALCOHOL PADS ALCOHOL PADS, Alcohol pred pad, Supply, See instructions, # 100 EA, 6 Refill(s), Pharmacy: [facility] #[id number] Start Date: 08/15/22 Status: Ordered Bactrim DS 800 mg-160 mg oral tablet 1 tab, Oral, BID, # 20 tab, 0 Refill(s), Pharmacy: [facility] #58, 162.56, cm, 01/31/23 13:50:00 EST, Height, 74.15, kg, 03/27/23 13:49:00 EST, Weight Dosing Start Date: 03/27/23 Stop Date: 04/06/23 Status: Ordered BD SHARPS CONTAINER 1 GALLON BD SHARPS CONTAINER 1 GALLON, BD SHARPS CONTAINER 1 GALLON, Supply, See instructions, # 1 EA, 3 Refill(s), Pharmacy: [facility] #58 Start Date: 08/16/22 Status: Ordered cyclobenzaprine 5 mg oral tablet 1 tab, Oral, TID, PRN NEEDED FOR RESTLESS LEGS OR BACK PAIN NEEDED FOR MUSCLE SPASM, # 270 tab, 1 Refill(s), Pharmacy: [facility] #58, 162.56, cm, 01/31/23 13:50:00 EST, Height, 74.85, kg, 04/09/23 13:03:00 EST, Weight Dosing Start Date: 04/09/23 Status: Ordered Freestyle Daniel 2 Sensor Kit Freestyle Daniel 2 Sensor Kit, Freestyle Daniel 2 Sensor Kit: Apply one sensor for 14 days, replace and apply new sensor in fresh location., Supply, See instructions, # 2 EA, 12 Refill(s), Pharmacy: [facility] #58 Start Date: 04/09/23 Status: Ordered FREESTYLE DANIEL II FREESTYLE DANIEL II, FREESTYLE DANIEL II meter kit, Supply, See instructions, # 1 EA, 1 Refill(s), Pharmacy: [facility] #[id number] Start Date: 08/15/22 Status: Ordered gabapentin 100 mg oral capsule See Instructions, take 1 capsules PO at night,, # 90 cap, 0 Refill(s), Pharmacy: [facility] #58, 163.83, cm, 01/10/23 10:34:00 EST, Height, [...] UNITS, # 15 mL, 3 Refill(s), Pharmacy: [facility] #58, 163, cm, 09/28/22 13:40:00 EDT, Height, [...] instructions, # 1 EA, 6 Refill(s), Pharmacy: [facility] #58 Start Date: 09/12/22 Status: Ordered Lantus 100 units/mL subcutaneous solution 16 units =, Subcutaneous, Daily, 16 units subcutaneous once in the morning, # 15 mL, 6 Refill(s), Pharmacy: [facility] #58 Start Date: 10/20/22 Status: Ordered lidocaine 5% topical film 1 patches, Topical, Daily, remove patches after 12 hours, # 30 patches, 2 Refill(s), Pharmacy: [facility] #58, 162.56, cm, 01/31/23 13:50:00 EST, Height, 74.15, kg, 03/27/23 13:49:00 EST, Weight Dosing Start Date: 03/27/23 Status: Ordered loratadine 10 mg oral tablet 10 mg = 1 tab, Oral, Daily, # 30 tab, 0 Refill(s) Start Date: 09/26/22 Status: Ordered losartan 25 mg oral tablet 25 mg = 1 tab, Oral, Daily, [facility] Endocrinology Started 02/08/23, # 90 tab, 0 Refill(s) Start Date: 02/20/23 Status: Ordered Mag-Ox 400 oral tablet 400 mg = 1 tab, Oral, Daily, # 90 tab, 3 Refill(s), Pharmacy: [facility] #58, 162.56, cm, 01/31/23 13:50:00 EST, Height, 64.41, kg, 01/31/23 13:53:00 EST, Weight Dosing Start Date: 02/01/23 Status: Ordered montelukast 10 mg oral tablet TAKE ONE TABLET BY MOUTH EVERY DAY Start Date: 09/26/22 Status: Ordered mupirocin 2% topical ointment 1 hector, Topical, TID, # 30 g, 0 Refill(s), Pharmacy: [facility] #58 Start Date: 08/23/22 Status: Ordered pravastatin 40 mg oral tablet 40 mg = 1 tab, Oral, Daily, # 90 tab, 3 Refill(s), Pharmacy: [facility] #58 Start Date: 09/08/22 Status: Ordered Right Wrist Brace Right Wrist Brace, Apply to wrist during the day when doing lifting or painful activities., Supply,See instructions, # 1 EA, 0 Refill(s) Start Date: 10/20/22 Status: Ordered Symbicort 80 mcg-4.5 mcg/inh inhalation aerosol 2 puffs, Inhale, BID, # 10.2 g, 6 Refill(s), Pharmacy: [facility] #[id number] Start Date: 10/11/22 Status: Ordered TECHLITE PEN NEEDLE 31GX3/16 TECHLITE PEN NEEDLE 31GX3/16, USE 4 ONCE DAILY WITH LONG ACTION AND SHORT ACTING INSULIN Start Date: 09/26/22 Status: Ordered Ventolin HFA 90 mcg/inh inhalation aerosol 1 puffs, Inhale, every 4 hr, PRN as needed for wheezing, # 18 g, 4 Refill(s), Pharmacy: [facility] #[id number] Start Date: 10/25/22 Status: Ordered Vitamin D3 1000 intl units oral capsule 25 mcg = 1 cap, Oral, Daily, take one capsule daily, # 90 cap, 0 Refill(s), Pharmacy: [facility] #58, 163.83, cm, 01/10/23 10:34:00 EST, Height, [...] related Confirmed Active Body dermatophytosis Confirmed Active [id number] of left forearm Confirmed Active GERD (gastroesophageal [...] Results Laboratory List Name Date .Urinalysis POCT 04/09/23 Most recent to oldest [Reference Range]: 1 Method of Collect POC Clean Catch *NA* (04/09/23 1:36 PM) Specific [place], Ur POC 1.010 *NA* (04/09/23 1:36 PM) Specimen Color POC Yellow *NA* (04/09/23 1:36 PM) Glucose, Urine POC [Negative] 2+ *ABN* (04/09/23 1:36 PM) Bilirubin, Urine POC [Negative] Negative (04/09/23 1:36 PM) Ketones, Urine POC [Negative] Negative (04/09/23 1:36 PM) Blood, Urine POC [Negative] Negative (04/09/23 1:36 PM) pH, Urine POC 5.5 *NA* (04/09/23 1:36 PM) Protein, Urine POC [Negative] Negative (04/09/23 1:36 PM) Urobilinogen, Urine POC Normal (04/09/23 1:36 PM) Nitrite, Urine POC [Negative] Negative (04/09/23 1:36 PM) Leuk Esterase, Urine POC [Negative] Nega tive (04/09/23 1:36 PM) Clarity, Urine POC [Clear] Clear (04/09/23 1:36 PM) Social History Social History Type Response Tobacco Former tobacco user Tobacco Use:. 1 PPD per day. Started age 8.0 Years. 1 Sex Female 1Pt reports she quit smoking last week in July 2022 Patient Care team information Care Team Personnel Name: Joey Moreau TRAINING ANALYST Position: Physician Member Role: Informed Provider Address: Address: [address] [place] [id number]- Care Team Related Persons Name: SADI GONZALEZ Address: Home [address] [place] [address], [phone] Name: HOLLIS GONZALEZ
--- OUTSIDE RECORDS SUMMARY | 2024-01-25 13:34 | XMS_ITS | Continuity of Care Document ---
Author Organization [facility] Address [address] [place] [address] Care Team Providers Care Cloth Classer Name Role Phone Joey Moreau Primary Care Physician Encounter [facility] Date(s): 05/01/23 - 05/01/[address] [address] Encounter Diagnosis Left wrist pain(Discharge Diagnosis) - 05/01/23 Discharge Disposition: Home or Self Care Attending Physician: Joey Moreau LOG SORTER Admitting Physician: Joey Moreau NP Referring Physician: Joey Moreau LOG SORTER Allergies, Adverse Reactions, Alerts Substance Reaction Severity [...] wheezing, # 8 g, 0 Refill(s), Pharmacy: [facility] #[id number] Start Date: 08/15/22 Status: Ordered ALCOHOL PADS ALCOHOL PADS, Alcohol pred pad, Supply, See instructions, # 100 EA, 6 Refill(s), Pharmacy: [facility] #[id number] Start Date: 08/15/22 Status: Ordered Bactrim DS 800 mg-160 mg oral tablet 1 tab, Oral, BID, # 20 tab, 0 Refill(s), Pharmacy: [facility] #58, 162.56, cm, 01/31/23 13:50:00 EST, Height, 74.15, kg, 03/27/23 13:49:00 EST, Weight Dosing Start Date: 03/27/23 Stop Date: 04/06/23 Status: Ordered BD SHARPS CONTAINER 1 GALLON BD SHARPS CONTAINER 1 GALLON, BD SHARPS CONTAINER 1 GALLON, Supply, See instructions, # 1 EA, 3 Refill(s), Pharmacy: [facility] #58 Start Date: 08/16/22 Status: Ordered cyclobenzaprine 5 mg oral tablet 1 tab, Oral, TID, PRN NEEDED FOR RESTLESS LEGS OR BACK PAIN NEEDED FOR MUSCLE SPASM, # 270 tab, 1 Refill(s), Pharmacy: [facility] #58, 162.56, cm, 01/31/23 13:50:00 EST, Height, 74.85, kg, 04/09/23 13:03:00 EST, Weight Dosing Start Date: 04/09/23 Status: Ordered doxycycline hyclate 100 mg oral capsule 100 mg = 1 cap, Oral, BID, # 20 cap, 0 Refill(s), Pharmacy: [facility] #58, 162.56, cm, 01/31/23 13:50:00 EST, Height, 77.75, kg, 05/01/23 8:57:00 EDT, Weight Dosing Start Date: 05/01/23 Stop Date: 05/11/23 Status: Ordered Freestyle Daniel 2 Sensor Kit Freestyle Daniel 2 Sensor Kit, Freestyle Daniel 2 Sensor Kit: Apply one sensor for 14 days, replace and apply new sensor in fresh location., Supply, See instructions, # 2 EA, 12 Refill(s), Pharmacy: [facility] #58 Start Date: 04/09/23 Status: Ordered FREESTYLE DANIEL II FREESTYLE DANIEL II, FREESTYLE DANIEL II meter kit, Supply, See instructions, # 1 EA, 1 Refill(s), Pharmacy: [facility] #[id number] Start Date: 08/15/22 Status: Ordered gabapentin 100 mg oral capsule See Instructions, take 1 capsules PO at night,, # 90 cap, 0 Refill(s), Pharmacy: [facility] #58, 163.83, cm, 01/10/23 10:34:00 EST, Height, [...] UNITS, # 15 mL, 3 Refill(s), Pharmacy: [facility] #58, 163, cm, 09/28/22 13:40:00 EDT, Height, [...] instructions, # 1 EA, 6 Refill(s), Pharmacy: [facility] #58 Start Date: 09/12/22 Status: Ordered Lantus 100 units/mL subcutaneous solution 16 units =, Subcutaneous, Daily, 16 units subcutaneous once in the morning, # 15 mL, 6 Refill(s), Pharmacy: [facility] #58 Start Date: 10/20/22 Status: Ordered lidocaine 5% topical film 1 patches, Topical, Daily, remove patches after 12 hours, # 30 patches, 2 Refill(s), Pharmacy: [facility] #58, 162.56, cm, 01/31/23 13:50:00 EST, Height, 74.15, kg, 03/27/23 13:49:00 EST, Weight Dosing Start Date: 03/27/23 Status: Ordered loratadine 10 mg oral tablet 10 mg = 1 tab, Oral, Daily, # 30 tab, 0 Refill(s) Start Date: 09/26/22 Status: Ordered losartan 25 mg oral tablet 25 mg = 1 tab, Oral, Daily, [facility] [place] Started 02/08/23, # 90 tab, 0 Refill(s) Start Date: 02/20/23 Status: Ordered Mag-Ox 400 oral tablet 400 mg = 1 tab, Oral, Daily, # 90 tab, 3 Refill(s), Pharmacy: [facility] #58, 162.56, cm, 01/31/23 13:50:00 EST, Height, 64.41, kg, 01/31/23 13:53:00 EST, Weight Dosing Start Date: 02/01/23 Status: Ordered montelukast 10 mg oral tablet TAKE ONE TABLET BY MOUTH EVERY DAY Start Date: 09/26/22 Status: Ordered mupirocin 2% topical ointment 1 hector, Topical, TID, # 30 g, 0 Refill(s), Pharmacy: [facility] #58 Start Date: 08/23/22 Status: Ordered pravastatin 40 mg oral tablet 40 mg = 1 tab, Oral, Daily, # 90 tab, 3 Refill(s), Pharmacy: [facility] #58 Start Date: 09/08/22 Status: Ordered predniSONE 10 mg oral tablet See Instruction, Oral, Daily, 4 tabs daily x3 days, 3 tabs daily x3 days, 2 tabs daily x3 days, 1 tab daily x3 days, # 30 tab, 0 Refill(s), Pharmacy: [facility] #58, 162.56, cm, 01/31/23 13:50:00 EST, Height, 77.75, kg, 05/01/23 8:57:00 EDT, Weight Dosing Start Date: 05/01/23 Status: Ordered Right Wrist Brace Right Wrist Brace, Apply to wrist during the day when doing lifting or painful activities., Supply,See instructions, # 1 EA, 0 Refill(s) Start Date: 10/20/22 Status: Ordered Symbicort 80 mcg-4.5 mcg/inh inhalation aerosol 2 puffs, Inhale, BID, # 10.2 g, 6 Refill(s), Pharmacy: [facility] #[id number] Start Date: 10/11/22 Status: Ordered TECHLITE PEN NEEDLE 31GX3/16 TECHLITE PEN NEEDLE 31GX3/16, USE 4 ONCE DAILY WITH LONG ACTION AND SHORT ACTING INSULIN Start Date: 09/26/22 Status: Ordered Ventolin HFA 90 mcg/inh inhalation aerosol 1 puffs, Inhale, every 4 hr, PRN as needed for wheezing, # 18 g, 4 Refill(s), Pharmacy: [facility] #[id number] Start Date: 10/25/22 Status: Ordered Vitamin D3 1000 intl units oral capsule 25 mcg = 1 cap, Oral, Daily, take one capsule daily, # 90 cap, 0 Refill(s), Pharmacy: [facility] #58, 163.83, cm, 01/10/23 10:34:00 EST, Height, [...] related Confirmed Active Body dermatophytosis Confirmed Active [id number] of left forearm Confirmed Active GERD (gastroesophageal [...] information Care Team Personnel Name: Joey Moreau NP Position: Physician Member Role: Informed Provider Address: Address: [address] [place] [address] [place] [address]- Care Team Related Persons Name: SADI GONZALEZ Address: Home [address] [place] [address], [phone] Name: HOLLIS GONZALEZ
--- OUTSIDE RECORDS SUMMARY | 2024-01-25 13:34 | XMS_ITS | Continuity of Care Document ---
Author Organization [facility] Address [address] [place] [address] Care Team Providers Care Hat Mender Name Role Phone Joey Moreau Primary Care Physician Encounter [facility] Date(s): 01/31/23 - 01/31/23 [facility] [address] [place] [address] Encounter Diagnosis Restless leg syndrome(Discharge Diagnosis) - 01/31/23 Leg cramps, sleep related(Discharge Diagnosis) - 01/31/23 Discharge Disposition: Home or Self Care Attending Physician: Norma Viera PRODUCT TRAINER Allergies, Adverse Reactions, Alerts Substance Reaction Severity Status Animal Dander Moderate Active Januvia Swelling Severe Active Victoza Throat swelling Severe Active Dust Mild Active Pollen 1 Moderate Active 1Pollen extracts, grass pollen. Assessment and Plan Future Appointments Future Scheduled Tests Laboratory* Ferritin 01/11/23 Radiology* BD Bone Density DEXA Axial Skeleton 12/12/22 Immunizations Given and Recorded Vaccine Date Status Refusal Reason tetanus/diphth/pertuss (Tdap) adult/adol 01/05/17 Recorded Medications albuterol 90 mcg/inh aerosol inhaler 1 puffs, Inhale, every 4 hr, PRN as needed for wheezing, # 8 g, 0 Refill(s), Pharmacy: [facility] #[id number] Start Date: 08/15/22 Status: Ordered ALCOHOL PADS ALCOHOL PADS, Alcohol pred pad, Supply, See instructions, # 100 EA, 6 Refill(s), Pharmacy: [facility] #[id number] Start Date: 08/15/22 Status: Ordered ALCOHOL PREP PAD MED 70% ALCOHOL PREP PAD MED 70%, 0 Refill(s) Start Date: 01/08/23 Status: Ordered ALCOHOL PREP PADS 100S ALCOHOL PREP PADS 100S, USE DIRECTED Start Date: 09/26/22 Status: Ordered BD SHARPS CONTAINER 1 GALLON BD SHARPS CONTAINER 1 GALLON, BD SHARPS CONTAINER 1 GALLON, Supply, See instructions, # 1 EA, 3 Refill(s), Pharmacy: [facility] #58 Start Date: 08/16/22 Status: Ordered ciprofloxacin 500 mg oral tablet 500 mg = 1 tab, Oral, every 12 hr, # 14 tab, 0 Refill(s), Pharmacy: [facility] #58, 163.83, cm, 01/10/23 10:34:00 EST, Height, 64.86, kg, 01/10/23 10:36:00 EST, Weight Dosing Start Date: 01/12/23 Stop Date: 01/19/23 Status: Ordered cyclobenzaprine 5 mg oral tablet 1 tab, Oral, TID, PRN NEEDED FOR RESTLESS LEGS OR BACK PAIN NEEDED FOR MUSCLE SPASM, # 45 tab, 2 Refill(s), Pharmacy: [facility] #58, 162.56, cm, 01/31/23 13:50:00 EST, Height, [...] instructions, # 2 EA, 6 Refill(s), Pharmacy: [facility]58 Start Date: 10/11/22 Status: Ordered FREESTYLE DANIEL II FREESTYLE DANIEL II, FREESTYLE DANIEL II meter kit, Supply, See instructions, # 1 EA, 1 Refill(s), Pharmacy: [facility] #[id number] Start Date: 08/15/22 Status: Ordered gabapentin 100 mg oral capsule See Instructions, take 1 capsules PO at night,, # 90 cap, 0 Refill(s), Pharmacy: [facility] #58, 163.83, cm, 01/10/23 10:34:00 EST, Height, [...] UNITS, # 15 mL, 3 Refill(s), Pharmacy: [facility] #58, 163, cm, 09/28/22 13:40:00 EDT, Height, [...] instructions, # 1 EA, 6 Refill(s), Pharmacy: [facility]58 Start Date: 09/12/22 Status: Ordered Lantus 100 units/mL subcutaneous solution 16 units =, Subcutaneous, Daily, 16 units subcutaneous once in the morning, # 15 mL, 6 Refill(s), Pharmacy: [facility]58 Start Date: 10/20/22 Status: Ordered loratadine 10 mg oral tablet 10 mg = 1 tab, Oral, Daily, # 30 tab, 0 Refill(s) Start Date: 09/26/22 Status: Ordered Mag-Ox 400 oral tablet 400 mg = 1 tab, Oral, Daily, # 90 tab, 3 Refill(s), Pharmacy: [facility] #58, 162.56, cm, 01/31/23 13:50:00 EST, Height, 64.41, kg, 01/31/23 13:53:00 EST, Weight Dosing Start Date: 02/01/23 Status: Ordered montelukast 10 mg oral tablet TAKE ONE TABLET BY MOUTH EVERY DAY Start Date: 09/26/22 Status: Ordered mupirocin 2% topical ointment 1 hector, Topical, TID, # 30 g, 0 Refill(s), Pharmacy: [facility] #58 Start Date: 08/23/22 Status: Ordered PEN NEEDLES MIS [id number] PEN NEEDLES MIS [id number], 0 Refill(s) Start Date: 09/26/22 Status: Ordered pravastatin 40 mg oral tablet 40 mg = 1 tab, Oral, Daily, # 90 tab, 3 Refill(s), Pharmacy: [facility] #58 Start Date: 09/08/22 Status: Ordered Right Wrist Brace Right Wrist Brace, Apply to wrist during the day when doing lifting or painful activities., Supply,See instructions, # 1 EA, 0 Refill(s) Start Date: 10/20/22 Status: Ordered Symbicort 80 mcg-4.5 mcg/inh inhalation aerosol 2 puffs, Inhale, BID, # 10.2 g, 6 Refill(s), Pharmacy: [facility] #[id number] Start Date: 10/11/22 Status: Ordered TECHLITE PEN NEEDLE 31GX3/16 TECHLITE PEN NEEDLE 31GX3/16, USE 4 ONCE DAILY WITH LONG ACTION AND SHORT ACTING INSULIN Start Date: 09/26/22 Status: Ordered Ventolin HFA 90 mcg/inh inhalation aerosol 1 puffs, Inhale, every 4 hr, PRN as needed for wheezing, # 18 g, 4 Refill(s), Pharmacy: [email or web address] #[id number] Start Date: 10/25/22 Status: Ordered Vitamin D3 1000 intl units oral capsule 25 mcg = 1 cap, Oral, Daily, take one capsule daily, # 90 cap, 0 Refill(s), Pharmacy: [facility] #58, 163.83, cm, 01/10/23 10:34:00 EST, Height, [...] related Confirmed Active Body dermatophytosis Confirmed Active [id number] of left forearm Confirmed Active GERD (gastroesophageal [...] 12/04/11. 5Partial one tube and ovary remaining. Vital Signs Most recent to oldest [Reference Range]: 1 Peripheral Pulse Rate [60-100 bpm] 93 bp m (01/31/23 1:50 PM) Blood Pressure [90-140/60-90 mmHg] 139/7 4mmHg (01/31/23 1:50 PM) Mean Arterial Pressure, Cuff [70-110 mmH g] 96 mmHg (01/31/23 1:50 PM) Weight 64.41 kg (01/31/23 1:50 PM) Weight Measured (lbs) 142 lb (01/31/23 1:50 PM) Weight Dosing 64.410 kg (01/31/23 1:50 PM) Height 162.56 cm (01/31/23 1:50 PM) Height/Length Measured (inches) 64 inch (01/31/23 1:50 PM) BSA Measured 1.71 m2 (01/31/23 1:50 PM) Body Mass Index 24.37 kg/m2 (01/31/23 1:50 PM) Social History Social History Type Response Tobacco Former tobacco user Tobacco Use:. 1 PPD per day. Started age 7.0 Years. 1 Sex Female 1Pt reports she quit smoking last week in July 2022 Physician Outpatient Note * Norma Viera PRODUCT TRAINER: PERFORM Event Display: Office Clinic Note Physician Authored Date: [id number] NOREEN DENNY Daniel :1960 Age:62 years Sex:Female Visit Date:01/31/2023 Primary Care Physician: Joey Moreau NP Chief Complaint rls follow up History of Present Illness 62 years??female??here for sleep follow up. ?? TODAY: She no longer is having her restless leg spasms at night now with gabapentin 100mg. She is having severe leg cramps at night now that she is not taking her muscle relaxer anymore. She is not noticingany side efx from the gabapentin. She has been taking cyclobenzaprine for about 8 months. Before starting it, she reports having severe Jesse horses and leg cramps, hand cramps that prevented her from safely driving. ?? Pt shares she had a fall recently where she tripped and fell on some stairs. It was on carpet and she was not injured. Review of Systems A 10-point REVIEW OF SYSTEM was obtained and reviewed, includes CONSTITUTIONAL, EYES, NOSE, THROAT,RESPIRATORY, HEART, GASTROINTESTINAL, UROLOGIC, MUSCULOSKELETAL, PSYCHIATRY, SKIN systems. Pertinent symptoms are discussed in history, otherwise negative. Physical Exam Vitals & Measurements HR:??93??(Peripheral)?? BP:??139/74?? SpO2:??98%?? HT:??162.56??cm?? WT:??64.41??kg?? BMI:??24.37?? BSA:??1.71?? General:??well appearing, appearing stated age, no acute distress,??normal??build HEENT: atraumatic skull, anicteric RESPIRATORY: quiet respiration, able to speak in full sentences without dyspnea, no accessory muscle use SKIN: no facial skin rash, no facial skin lesions PSYCHIATRIC: well groomed, fluent speech, good insight, linear thought process, good eye contact,balanced??affect NEUROLOGIC: alert, oriented, symmetric facial expression Clinic Assessment/Plan 1.??Restless leg syndrome??G25.81 Noreen Denny is a pleasant 62 year old female here for RLS follow up. She has trialed gabapentin 100mg at bedtime without her cyclobenzaprine. She has found that her restless legs have improved but now she is having severe leg camps at night and muscle spasms in her neck. She has not had any ill side efx from the gabapentin or significant drowsiness but did find that she slept well. She originally started cyclobenzaprine about 8 months ago for severe leg, neck, and hand cramps. When she was only on cyclobenzaprine, she had intermittent RLS of varying severity. Pt would like to hold off on the gabapentin and resume taking her cyclobenzaprine 5mg as she was previously. (rx'ed by her PCP) ?? Cont Mg 500mg daily for her leg cramps. ?? Follow up PRN as PCP is managing her rx. ?? 2.??Leg cramps, sleep related??G47.62 I provided greater than??30??minutes in the care of this patient, more than half the time was spentin [id number] counseling. ?with comorbidities of type 2 diabetes, allergic asthma, restless legs syndrome, peripheral neuropathy ? Clinical Data Reviewed: Randolph Sleepiness Scale: 02/28 ? Sleep Clinical Timeline:? 09/28/2022: New patient sleep consult at the??kind request of HEAVEN Butcher ([facility]). Suspect Obstructive Sleep Apnea based on snoring, frequent nocturnal awakenings, nonrestorative sleep, daytime fatigue, waking up with dry mouth, daytime neurocognitive changes, Mallampati 2-3, ESS 03/31 (likely an underestimation), Cheriton Questionnaire 03/10.??PSG ordered. She is taking Mg supplement for RLS/Leg cramps thru PCP. ?? 12/14/2022: Diagnostic PSG. Wt.: 64.9 kgs. ??BMI = 24.43 kg/m2.?? IMPRESSION: 1.??No evidence of sleep disordered breathing during this sleep study. No evidence of nocturnal hypoxemia. 2.??Normal sleep efficiency. Normal sleep onset latency. Normal REM sleep at 22% of total sleep time. All sleep stages observed. All sleep positions observed, including Supine REM sleep. 3.??Overall AHI: 1.4/hr; Overall RDI: 1.9/hr; REM AHI: 5.2/hr; Supine AHI: 3/hr; Right Lateral AHI:1 /hr; Left Lateral AHI: 1/hr; Prone AHI: N/A/hr. 4.??Mean SpO2: 94% and Beau SpO2: 89% on Room Air; 0.3 minutes spent with SpO2 less than or equal to 88% on Room Air. 5.??Severe Periodic Limb Movement Disorder without significant arousals. ??PLM index: 37.7/hr, PLM arousal index: 2.6/hr. ?? 01/10/2023:??No??sleep related??disordered breathing, no nocturnal hypoxemia.?? Severe PLMD, PLMindex: 37.7/hr, PLM arousal index: 2.6/hr., continue magnesium 2 to 400 mg nightly add in vitamin D??D3 1000 IUs nightly??trial??gabapentin 100 mg nightly, hold on cyclobenzaprine for now.?? Follow-up in 2 weeks. ??Ferritin level also ordered which she will plan to have done at her [place] [facility] [place].?? DM??type II under better control now that patient has resumed??her diabetic medications. ??History of peripheral neuropathy??and RLS. ?? 01/31/2023: Pt trialed gabapentin 100mg??and her RLS/ability to fall asleep improved, however she had return of severe leg cramps and neck spasms that she was originally started on [id number] for. She will d/c gabapentin and resume her muscle relaxer as rx'ed by her PCP. ? Today's Assessment and Plan: See above ?? Follow up: PRN ?? Remote Scribed by Wali Hughes Problem List/Past Medical History Ongoing [id number] of left forearm Acute gastritis Acute sinusitis Benign essential hypertension Bilateral hip pain Body dermatophytosis Chronic constipation COPD (chronic obstructive pulmonary disease) DM II (diabetes mellitus, type II), controlled GERD (gastroesophageal reflux disease) History of strep sore throat History of visual disturbance HLD (hyperlipidemia) Leg cramps, sleep related Microalbuminuria Muscle cramps Onychomycosis Osteoporosis Proteinuria Restless leg syndrome Restless legs syndrome Seasonal allergic rhinitis Snoring Tobacco use disorder Historical Disease caused by 2019 novel coronavirus Procedure/Surgical History ???Lung cancer screening (08/15/2022)???Ultrasound (10/22/2020)???Transvaginal ultrasonography of pelvis (12/14/2017)???Bone density scan (07/12/2017)???Mammogram - screening (07/12/2017)???Colonoscopy (02/21/2012)???Hysterectomy (02/18/1989) Medications What How Much When Why Instructions Unchanged albuterol (albuterol 90 mcg/ inh aerosol inhaler) 1 Puffs Inhale (breathe in) Every 4 hours as needed for as needed for wheezing Asthma Unchanged albuterol (Ventolin HFA 90 mcg/ inh inhalation aerosol) 1 Puffs Inhale (breathe in) Every 4 hours as needed for as needed for wheezing COPD (chronic obstructive pulmonary disease) Unchanged budesonide-formoterol (Symbicort 80 mcg-4.5 mcg/ inh inhalation aerosol) 2 Puffs Inhale (breathe in) 2 times a day Asthma Unchanged cholecalciferol (Vitamin D3 1000 intl units oral capsule) 1 Capsules Oral (given by mouth) Every day take one capsule daily ?? Unchanged ciprofloxacin (ciprofloxacin 500 mg oral tablet) 1 tab Oral (given by mouth) Every 12 hours Acute UTI Duration: 7 Days Unchanged cyclobenzaprine (cyclobenzaprine 5 mg oral tablet) See instructions Restless leg syndrome 1 tab Oral three times a day as needed for restless legs or back pain., As needed for as needed formuscle spasm ?? Unchanged Durable Medical Equipment for Prescription (ALCOHOL PADS) See instructions DMII (diabetes mellitus, type 2) Alcohol pred pad ?? Unchanged Durable Medical Equipment for Prescription (BD SHARPS CONTAINER 1 GALLON) See instructions BD SHARPS CONTAINER 1 GALLON ?? Unchanged Durable Medical Equipment for Prescription (Freestyle Daniel 2 Sensor Kit) See instructions Freestyle Daniel 2 Sensor Kit: Apply one sensor for 14 days, replace and apply new sensor in fresh location. ?? Unchanged Durable Medical Equipment for Prescription (FREESTYLE DANIEL II) See instructions DMII (diabetes mellitus, type 2) FREESTYLE DANIEL II meter kit ?? Unchanged Durable Medical Equipment for Prescription (Insulin Pen Needle (any brand Covered) 31 x 5mm) See instructions DMII (diabetes mellitus, type 2) Insulin Pen Needle (any brand Covered) 31 x 5 mm, 1 box of #90 uses 4 daily With long acting insulin and Short acting insulin prior to each meal 3x/ day ?? Unchanged Durable Medical Equipment for Prescription (Right Wrist Brace) See instructions Wrist pain, right Apply to wrist during the day when doing lifting or painful activities. ?? Unchanged gabapentin (gabapentin 100 mg oral capsule) See instructions PLMD (periodic limb movement disorder) take 1 ??capsules PO at night, ?? Unchanged glipiZIDE (glipiZIDE 10 mg oral tablet, extended release) TAKE ONE TABLET BY MOUTH EVERY DAY ?? Unchanged insulin glargine (Lantus 100 units/ mL subcutaneous solution) 16 Units Subcutaneous (under the skin) Every day DMII (diabetes mellitus, type 2) 16 units subcutaneous once in the morning ?? Unchanged insulin lispro (HumaLOG KwikPen 100 units/ mL injectable solution) See instructions DM II (diabetes mellitus, type II), controlled TAKE PER SLIDING SCALE: 70-120=0 UNITS, 121-150=2 UNITS, 151-200 4=UNITS, 201- 250=5 UNITS, 251-300=6 UNITS, 301-350=7 UNITS, 351-400=8 UNITS ?? Unchanged loratadine (loratadine 10 mg oral tablet) 1 tab Oral (given by mouth) Every day Unchanged magnesium oxide (Mag-Ox 400 oral tablet) 1 tab Oral (given by mouth) Every day Restless leg syndrome Unchanged montelukast (montelukast 10 mg oral tablet) TAKE ONE TABLET BY MOUTH EVERY DAY ?? Unchanged mupirocin topical (mupirocin 2% topical ointment) 1 Application Topical (on the skin) 3 times a day Diabetic feet Unchanged Other Prescription (ALCOHOL PREP PAD MED 70%) Unchanged Other Prescription (ALCOHOL PREP PADS 100S) USE DIRECTED ?? Unchanged Other Prescription (FREESTY LIBR KIT 2 SENSOR) Unchanged Other Prescription (FREESTY LIBR MIS 2 READER) Unchanged Other Prescription (FREESTYLE KIT SENSOR) Unchanged Other Prescription (FREESTYLE DANIEL 14 DAY SENSOR) APPLY ONE SENSOR EVERY 14 DAYS, REPLACE AND APPLY NEW SENSOR IN FRESH LOCATION ?? Unchanged Other Prescription (FREESTYLE DANIEL 2 READER DEVICE) USE DIRECTED ?? Unchanged Other Prescription (FREESTYLE DANIEL 2 SENSOR) Unchanged Other Prescription (PEN NEEDLES MIS [id number]) Unchanged Other Prescription (TECHLITE PEN NEEDLE 31GX3/ 16) USE 4 ONCE DAILY WITH LONG ACTION AND SHORT ACTING INSULIN ?? Unchanged pravastatin (pravastatin 40 mg oral tablet) 1 tab Oral (given by mouth) Every day HLD (hyperlipidemia) Allergies Januvia??(Swelling) Victoza??(Throat swelling) Animal Dander Pollen Dust Social History Alcohol Never Electronic Cigarette/Vaping Electronic Cigarette Use: Never. Employment/School Retired Home/Environment Lives with Siblings. Living situation: Home/Independent. Nutrition/Health Diet: Regular. Caffeine intake amount: 1 cups of coffee daily. Sleeping concerns: Yes. Substance Use Never Tobacco Former tobacco user Tobacco Use:. 1 PPD per day. Started age 8.0 Years.- Comments: Pt reports she quit smoking last week in July 2022 Family History Cancer of colon: Other. Diabetes mellitus: Father and Other. Immunizations Vaccine Date Status tetanus/diphth/pertuss (Tdap) adult/adol 01/05/2017 Recorded Electronically Signed on 01/31/23 02:59 PM Eric ROWENANorma Arora Ramy PRODUCT TRAINER Electronically Signed on 01/31/23 02:18 PM Wali Hughes Patient Care team information Care Team Personnel Name: Mona Forman Position: Ambulatory - RN/DIRECTOR GENERAL (Andre) Member Role: Assistant Professor Of Life Sciences Name: Joey Moreau PRODUCT TRAINER Position: Physician Member Role: Informed Provider Address: Address: [address] [place] [address], [place] [address]- Care Team Related Persons Name: SADI DENNY Address: [address] [id number] Name: HOLLIS DENNY
--- OUTSIDE RECORDS SUMMARY | 2024-01-25 13:34 | XMS_ITS | Continuity of Care Document ---
Author Organization [facility] Address [address] [place] [address] Care Team Providers Care Field Installation Technician Name Role Phone Joey Moreau Primary Care Physician Encounter [facility] Date(s): 01/27/23 - 01/27/[address] [id number] Encounter Diagnosis Foot sprain(Discharge Diagnosis) - 01/27/23 Sprain of left wrist(Discharge Diagnosis) - 01/27/23 Contusion of left hip region(Discharge Diagnosis) - 01/27/23 Fall(Discharge Diagnosis) - 01/27/23 Discharge Disposition: Home or Self Care Attending Physician: Eugenia Suggs MD Admitting Physician: Eugenia Suggs MD Allergies, Adverse Reactions, Alerts Substance Reaction Severity Status Animal Dander Moderate Active Januvia Swelling Severe Active Victoza Throat swelling Severe Active Dust Mild Active Pollen 1 Moderate Active 1Pollen extracts, grass pollen. Assessment and Plan Extracted from: Title:Clinical Document Author:Ab Castillo Date:01/27/23 Diagnosis: 1. Foot sprain Comment: Diagnosis: 2. Sprain of left wrist Comment: Diagnosis: 3. Contusion of left hip region Comment: Diagnosis: 4. Fall Comment: Diagnosis: Ankle injury - Minor Comment: Future Appointments Future Scheduled Tests Laboratory* Ferritin 01/11/23 Radiology* BD Bone Density DEXA Axial Skeleton 12/12/22 Immunizations Given and Recorded Vaccine Date Status Refusal Reason tetanus/diphth/pertuss (Tdap) adult/adol 01/05/17 Recorded Medications albuterol 90 mcg/inh aerosol inhaler 1 puffs, Inhale, every 4 hr, PRN as needed for wheezing, # 8 g, 0 Refill(s), Pharmacy: [facility] #[id number] Start Date: 08/15/22 Status: Ordered ALCOHOL PADS ALCOHOL PADS, Alcohol pred pad, Supply, See instructions, # 100 EA, 6 Refill(s), Pharmacy: [facility] #[id number] Start Date: 08/15/22 Status: Ordered ALCOHOL PREP PAD MED 70% ALCOHOL PREP PAD MED 70%, 0 Refill(s) Start Date: 01/08/23 Status: Ordered ALCOHOL PREP PADS 100S ALCOHOL PREP PADS 100S, USE DIRECTED Start Date: 09/26/22 Status: Ordered BD SHARPS CONTAINER 1 GALLON BD SHARPS CONTAINER 1 GALLON, BD SHARPS CONTAINER 1 GALLON, Supply, See instructions, # 1 EA, 3 Refill(s), Pharmacy: [facility] #[id number] Start Date: 08/16/22 Status: Ordered ciprofloxacin 500 mg oral tablet 500 mg = 1 tab, Oral, every 12 hr, # 14 tab, 0 Refill(s), Pharmacy: [facility] #58, 163.83, cm, 01/10/23 10:34:00 EST, Height, 64.86, kg, 01/10/23 10:36:00 EST, Weight Dosing Start Date: 01/12/23 Stop Date: 01/19/23 Status: Ordered cyclobenzaprine 5 mg oral tablet See Instructions, PRN as needed for muscle spasm, 1 tab Oral three times a day as needed for restless legs or back pain., # 45 tab, 2 Refill(s), Pharmacy: [facility][id number] Start Date: 10/10/22 Status: Ordered FREESTY [...] instructions, # 2 EA, 6 Refill(s), Pharmacy: [facility]58 Start Date: 10/11/22 Status: Ordered FREESTYLE DANIEL II FREESTYLE DANIEL II, FREESTYLE DANIEL II meter kit, Supply, See instructions, # 1 EA, 1 Refill(s), Pharmacy: [facility] #[id number] Start Date: 08/15/22 Status: Ordered gabapentin 100 mg oral capsule See Instructions, take 1 capsules PO at night,, # 90 cap, 0 Refill(s), Pharmacy: [facility] #58, 163.83, cm, 01/10/23 10:34:00 EST, Height, [...] UNITS, # 15 mL, 3 Refill(s), Pharmacy: [facility] #58, 163, cm, 09/28/22 13:40:00 EDT, Height, [...] instructions, # 1 EA, 6 Refill(s), Pharmacy: [facility]58 Start Date: 09/12/22 Status: Ordered Lantus 100 units/mL subcutaneous solution 16 units =, Subcutaneous, Daily, 16 units subcutaneous once in the morning, # 15 mL, 6 Refill(s), Pharmacy: [facility]58 Start Date: 10/20/22 Status: Ordered loratadine 10 mg oral tablet 10 mg = 1 tab, Oral, Daily, # 30 tab, 0 Refill(s) Start Date: 09/26/22 Status: Ordered Mag-Ox 400 oral tablet 400 mg = 1 tab, Oral, Daily, # 90 tab, 3 Refill(s), Pharmacy: [facility]58 Start Date: 09/11/22 Status: Ordered montelukast 10 mg oral tablet TAKE ONE TABLET BY MOUTH EVERY DAY Start Date: 09/26/22 Status: Ordered mupirocin 2% topical ointment 1 hector, Topical, TID, # 30 g, 0 Refill(s), Pharmacy: [facility]58 Start Date: 08/23/22 Status: Ordered PEN NEEDLES MIS 96DX6IL PEN NEEDLES MIS 92RK9AR, 0 Refill(s) Start Date: 09/26/22 Status: Ordered pravastatin 40 mg oral tablet 40 mg = 1 tab, Oral, Daily, # 90 tab, 3 Refill(s), Pharmacy: [facility]58 Start Date: 09/08/22 Status: Ordered Right Wrist Brace Right Wrist Brace, Apply to wrist during the day when doing lifting or painful activities., Supply,See instructions, # 1 EA, 0 Refill(s) Start Date: 10/20/22 Status: Ordered Symbicort 80 mcg-4.5 mcg/inh inhalation aerosol 2 puffs, Inhale, BID, # 10.2 g, 6 Refill(s), Pharmacy: [facility] #[id number] Start Date: 10/11/22 Status: Ordered TECHLITE PEN NEEDLE 31GX3/16 TECHLITE PEN NEEDLE 31GX3/16, USE 4 ONCE DAILY WITH LONG ACTION AND SHORT ACTING INSULIN Start Date: 09/26/22 Status: Ordered Ventolin HFA 90 mcg/inh inhalation aerosol 1 puffs, Inhale, every 4 hr, PRN as needed for wheezing, # 18 g, 4 Refill(s), Pharmacy: [facility] #[id number] Start Date: 10/25/22 Status: Ordered Vitamin D3 1000 intl units oral capsule 25 mcg = 1 cap, Oral, Daily, take one capsule daily, # 90 cap, 0 Refill(s), Pharmacy: [facility] #58, 163.83, cm, 01/10/23 10:34:00 EST, Height, 64.86, kg, 01/10/23 10:36:00 EST, Weight Dosing Start Date: 01/10/23 Status: Ordered Mental Status 01/27/23 Eye Opening Response Bertram Spontaneous ly Best Verbal Response Bertram Oriented Best Motor Response Barber Obeys comman ds Bertram Coma Score 15 Problem List Condition Confirmation Course Effective Dates Status H ealth Status Informant Acute gastritis Confirmed Active Acute sinusitis Confirmed Active Benign essential hypertension Confirmed 03/12/13 Active Chronic constipation Confirmed 11/21/11 Active COPD (chronic obstructive pulmonary disease) Confirmed 02/21/12 Active Muscle cramps Confirmed 12/11/19 Active Leg cramps, sleep related Confirmed Active Body dermatophytosis Confirmed Active [id number] of left forearm Confirmed Active GERD (gastroesophageal [...] Most recent to oldest [Reference Range]: 1 Temperature Temporal Artery [36-38 Deg C ] 36.1 Deg C (01/27/23 12:42 PM) Respiratory Rate [12-24 br/min] 18 br/mi n (01/27/23 12:42 PM) Blood Pressure [90-140/60-90 mmHg] 136/7 5mmHg (01/27/23 12:42 PM) Mean Arterial Pressure, Cuff [70-110 mmH g] 95 mmHg (01/27/23 12:42 PM) Weight 64 kg (01/27/23 12:42 PM) Weight Dosing 64.000 kg (01/27/23 12:42 PM) Height 163 cm (01/27/23 12:42 PM) Body Mass Index 24.09 kg/m2 (01/27/23 12:42 PM) Social History Social History Type Response Tobacco Former tobacco user Tobacco Use:. 1 PPD per day. Started age 8.0 Years. 1 Sex Female 1Pt reports she quit smoking last week in July 2022 Hospital Discharge Instructions Patient Education 01/27/2023 14:25:36 Wrist Sprain, Adult Wrist Sprain, Adult A wrist sprain is a stretch or tear in the strong tissues that connect the wrist bones to each other. These strong tissues are called ligaments. There are three types of wrist sprains: ??? Grade 1. The ligament is stretched more than normal. There may be a minor amount of wrist pain. ??? Grade 2. The ligament is partially torn. You may be able to move your wrist, but not very much.There may be a moderate amount of wrist pain. ??? Grade 3. The ligament or ligaments are completely torn. You may find it difficult to move your wrist even a little. There may be a significant amount of wrist pain. What are the causes? This condition may be caused by using the wrist too much during sports, exercise, or work. It can also happen due to a fall or during an accident. What increases the risk? You are more likely to develop this condition if: ??? You had a previous wrist or arm injury. ??? You have poor wrist strength and flexibility. ??? You play contact sports, such as football or soccer. ??? You participate in sports that may result in a fall, such as skateboarding, biking, skiing, or snowboarding. ??? You do not exercise regularly. ??? You use exercise equipment that does not fit well. What are the signs or symptoms? Symptoms of this condition include: ??? Pain in the wrist, arm, or hand. ??? Swelling or bruised skin near the wrist, hand, or arm. The skin may look yellow or blue. ??? Stiffness or trouble moving the hand. ??? Hearing a noise, like a pop or a snap, at the time of injury, or feeling a tear at the time of the injury. ??? A warm feeling in the skin around the wrist. How is this diagnosed? This condition is diagnosed with a physical exam. Sometimes an X-ray is taken to make sure a bone did not break. You may also have an MRI of your wrist to check for torn ligaments. How is this treated? This condition is treated by resting and applying ice to your wrist. Additional treatment may include: ??? Taking medicine for pain and inflammation. ??? Wearing a splint, brace, or cast for a short period of time to keep your wrist from moving (immobilized). ??? Doing exercises to strengthen and stretch your wrist. ??? Having surgery. This may be done if the ligament is completely torn. Follow these instructions at home: If you have a splint or brace: ??? Wear the splint or brace as told by your health care provider. Remove it only as told by your health care provider. ??? Loosen it if your fingers tingle, become numb, or turn cold and blue. ??? Keep it clean. ??? If the splint or brace is not waterproof: ??? Do not let it get wet. ??? Cover it with a watertight covering when you take a bath or a shower. If you have a cast: ??? Do not put pressure on any part of the cast until it is fully hardened. This may take several hours. ??? Do not stick anything inside the cast to scratch your skin. Doing that increases your risk of infection. ??? Check the skin around the cast every day. Tell your health care provider about any concerns. ??? You may put lotion on dry skin around the edges of the cast. Do not put lotion on the skin underneath the cast. ??? Keep it clean. ??? If the cast is not waterproof: ??? Do not let it get wet. ??? Cover it with a watertight covering when you take a bath or shower. Managing pain, stiffness, and swelling ??? If directed, put ice on the injured area. To do this: ??? If you have a removable splint or brace, remove it as told by your health care provider. ??? Put ice in a plastic bag. ??? Place a towel between your skin and the bag or between the splint or cast and the bag. ??? Leave the ice on for 20 minutes, 2???3 times a day. ??? Remove the ice if your skin turns bright red. This is very important. If you cannot feel pain, heat, or cold, you have a greater risk of damage to the area. ??? Move your fingers often to reduce stiffness and swelling. ??? Raise (elevate) the injured area above the level of your heart while you are sitting or lying down. Activity ??? Rest your wrist as told by your health care provider. Do not do things that cause pain. ??? Ask your health care provider when it is safe to drive if you have a splint, brace, or cast on your wrist. ??? Do exercises as told by your health care provider. ??? Return to your normal activities as told by your health care provider. Ask your health care provider what activities are safe for you. General instructions ??? Take bcxe-vda-nhpucst and prescription medicines only as told by your health care provider. ??? Do not use any products that contain nicotine or tobacco, such as cigarettes, e-cigarettes, andchewing tobacco. These can delay healing. If you need help quitting, ask your health care provider. ??? Keep all follow-up visits. This is important. Contact a health care provider if: ??? Your pain, bruising, or swelling gets worse. ??? Your skin becomes red, gets a rash, or has open sores. ??? Your pain does not get better or it gets worse. Get help right away if: ??? You have a new or sudden sharp pain in the hand, arm, or wrist. ??? You have tingling or numbness in your hand. ??? Your fingers turn white, very red, or cold and blue. ??? You cannot move your fingers. Summary ??? A wrist sprain is damage to ligaments in your wrist. ??? Wrist sprains can range from mild to severe. ??? Return to your normal activities as told by your health care provider. Ask your health care provider what activities are safe for you. ??? You may need to wear a splint, brace, or cast for a short period of time. This information is not intended to replace advice given to you by your health care provider. Make sure you discuss any questions you have with your health care provider. Document Revised: 05/31/2020 Document Reviewed: 05/31/2020 [employer] Patient Education ?? 2022 [employer]. 01/27/2023 14:25:29 Fall Prevention in the Home, Adult, Kbmf-pj-Khkz Fall Prevention in the Home, Adult Falls can cause injuries and can happen to people of all ages. There are many things you can do to make your home safe and to help prevent falls. Ask for help when making these changes. What actions can I take to prevent falls? General Instructions ??? Use good lighting in all rooms. Replace any light bulbs that burn out. ??? Turn on the lights in dark areas. Use night-lights. ??? Keep items that you use often in lqjt-go-vaodv places. Lower the shelves around your home if needed. ??? Set up your furniture so you have a clear path. Avoid moving your furniture around. ??? Do not have throw rugs or other things on the floor that can make you trip. ??? Avoid walking on wet floors. ??? If any of your floors are uneven, fix them. ??? Add color or contrast paint or tape to clearly mir and help you see: ??? Grab bars or handrails. ??? First and last steps of staircases. ??? Where the edge of each step is. ??? If you use a stepladder: ??? Make sure that it is fully opened. Do not climb a closed stepladder. ??? Make sure the sides of the stepladder are locked in place. ??? Ask someone to hold the stepladder while you use it. ??? Know where your pets are when moving through your home. What can I do in the bathroom? Keep the floor dry. Clean up any water on the floor right away. ??? Remove soap buildup in the tub or shower. ??? Use nonskid mats or decals on the floor of the tub or shower. ??? Attach bath mats securely with double-sided, nonslip rug tape. ??? If you need to sit down in the shower, use a plastic, nonslip stool. ??? Install grab bars by the toilet and in the tub and shower. Do not use towel bars as grab bars. What can I do in the bedroom? Make sure that you have a light by your bed that is easy to reach. ??? Do not use any sheets or blankets for your bed that hang to the floor. ??? Have a firm chair with side arms that you can use for support when you get dressed. What can I do in the kitchen? Clean up any spills right away. ??? If you need to reach something above you, use a step stool with a grab bar. ??? Keep electrical cords out of the way. ??? Do not use floor nauruan or wax that makes floors slippery. What can I do with my stairs? Do not leave any items on the stairs. ??? Make sure that you have a light switch at the top and the bottom of the stairs. ??? Make sure that there are handrails on both sides of the stairs. Fix handrails that are broken or loose. ??? Install nonslip stair treads on all your stairs. ??? Avoid having throw rugs at the top or bottom of the stairs. ??? Choose a carpet that does not hide the edge of the steps on the stairs. ??? Check carpeting to make sure that it is firmly attached to the stairs. Fix carpet that is looseor worn. What can I do on the outside of my home? Use bright outdoor lighting. ??? Fix the edges of walkways and driveways and fix any cracks. ??? Remove anything that might make you trip as you walk through a door, such as a raised step or threshold. ??? Trim any bushes or trees on paths to your home. ??? Check to see if handrails are loose or broken and that both sides of all steps have handrails. ??? Install guardrails along the edges of any raised decks and porches. ??? Clear paths of anything that can make you trip, such as tools or rocks. ??? Have leaves, snow, or ice cleared regularly. ??? Use sand or salt on paths during winter. ??? Clean up any spills in your garage right away. This includes grease or oil spills. What other actions can I take? Wear shoes that: ??? Have a low heel. Do not wear high heels. ??? Have rubber bottoms. ??? Feel good on your feet and fit well. ??? Are closed at the toe. Do not wear open-toe sandals. ??? Use tools that help you move around if needed. These include: ??? Canes. ??? Walkers. ??? Scooters. ??? Crutches. ??? Review your medicines with your doctor. Some medicines can make you feel dizzy. This can increase your chance of falling. Ask your doctor what else you can do to help prevent falls. Where to find more information ??? Centers for Disease Control and Prevention, [place]: www.cdc.gov ??? National [place] on Aging: www.adia.nih.gov Contact a doctor if: ??? You are afraid of falling at home. ??? You feel weak, drowsy, or dizzy at home. ??? You fall at home. Summary ??? There are many simple things that you can do to make your home safe and to help prevent falls. ??? Ways to make your home safe include removing things that can make you trip and installing grab bars in the bathroom. ??? Ask for help when making these changes in your home. This information is not intended to replace advice given to you by your health care provider. Make sure you discuss any questions you have with your health care provider. Document Revised: 10/24/2021 Document Reviewed: 08/25/2020 [employer] Patient Education ?? 2022 [employer]. 01/27/2023 14:25:22 Foot Sprain Foot Sprain A foot sprain is an injury to one of the ligaments in the feet. Ligaments are strong tissues that connect bones to each other. The ligament can be stretched too much. In some cases, it may tear. A tear can be either partial or complete. The severity of the sprain depends on how much of the ligamentwas damaged or torn. What are the causes? This condition is usually caused by suddenly twisting or pivoting your foot. What increases the risk? You are more likely to develop this condition if: ??? You play a sport, such as basketball or football. ??? You exercise or play a sport without first warming up your muscles. ??? You start a new workout or sport. ??? You suddenly increase how long or hard you exercise or play a sport. ??? You have injured your foot or ankle before. What are the signs or symptoms? Symptoms of this condition start soon after an injury and include: ??? Pain, especially in the arch of your foot. ??? Bruising. ??? Swelling. ??? Being unable to walk or use your foot to support body weight. How is this diagnosed? This condition is diagnosed with a medical history and physical exam. You may also have imaging tests, such as: ??? X-rays to check for broken bones (fractures). ??? An MRI to see if the ligament is torn. How is this treated? Treatment for this condition depends on the severity of the sprain. Mild sprains and major sprains can be treated with: ??? Rest, ice, pressure (compression), and elevation (RICE). Elevation means raising your injured foot. ??? Keeping your foot in a fixed position (immobilization) for a period of time. This is done if your ligament is overstretched or partially torn. Your health care provider will apply a bandage, splint, or walking boot to keep your foot from moving until it heals. ??? Using crutches or a scooter for a few weeks to avoid bearing weight on your foot while it is healing. ??? Physical therapy exercises to improve movement and strength in your foot. Major sprains may also be treated with: ??? Surgery. This is done if your ligament is fully torn and a procedure is needed to reconnect it to the bone. ??? A cast or splint. This will be needed after surgery. A cast or splint will need to stay on yourfoot while it heals. Follow these instructions at home: If you have a bandage, splint, or boot: ??? Wear it as told by your health care provider. Remove it only as told by your health care provider. ??? Loosen it if your toes tingle, become numb, or turn cold and blue. ??? Keep it clean and dry. If you have a cast: ??? Do not put pressure on any part of the cast until it is fully hardened. This may take several hours. ??? Do not stick anything inside the cast to scratch your skin. Doing that increases your risk for infection. ??? Check the skin around the cast every day. Tell your health care provider about any concerns. ??? You may put lotion on dry skin around the edges of the cast. Do not put lotion on the skin underneath the cast. ??? Keep it clean and dry. Bathing ??? Do not take baths, swim, or use a hot tub until your health care provider approves. Ask your health care provider if you may take showers. You may only be allowed to take sponge baths. ??? If the bandage, splint, boot, or cast is not waterproof: ??? Do not let it get wet. ??? Cover it with a watertight covering when you take a bath or shower. Managing pain, stiffness, and swelling ??? If directed, put ice on the injured area. To do this: ??? If you have a removable bandage, splint, or boot, remove it as told by your health care provider. ??? Put ice in a plastic bag. ??? Place a towel between your skin and the bag, or between your cast and the bag. ??? Leave the ice on for 20 minutes, 2???3 times per day. ??? Remove the ice if your skin turns bright red. This is very important. If you cannot feel pain, heat, or cold, you have a greater risk of damage to the area. ??? Move your toes often to reduce stiffness and swelling. ??? Elevate the injured area above the level of your heart while you are sitting or lying down. Activity ??? Do not use the injured foot to support your body weight until your health care provider says that you can. Use crutches or a scooter as told by your health care provider. ??? Ask your health care provider what activities are safe for you. Do exercises as told by your health care provider. ??? Gradually increase how much and how far you walk until your health care provider says it is safe to return to full activity. Driving ??? Ask your health care provider if the medicine prescribed to you requires you to avoid driving or using machinery. ??? Ask your health care provider when it is safe to drive if you have a bandage, splint, boot, or cast on your foot. General instructions ??? Take vbux-xyj-zhgzwbl and prescription medicines only as told by your health care provider. ??? When you can walk without pain, wear supportive shoes that have stiff soles. Do not wear flip-flops. Do not walk barefoot. ??? Keep all follow-up visits. This is important. Contact a health care provider if: ??? Medicine does not help your pain. ??? Your bruising or swelling gets worse or does not get better with treatment. ??? Your splint, boot, or cast is damaged. Get help right away if: ??? You develop severe numbness or tingling in your foot. ??? Your foot turns blue, white, or abdullahi, and it feels cold. Summary ??? A foot sprain is an injury to one of the ligaments in the feet. Ligaments are strong tissues that connect bones to each other. ??? You may need a bandage, splint, boot, or cast to support your foot while it heals. Sometimes, surgery may be needed. ??? You may need physical therapy exercises to improve movement and strength in your foot. This information is not intended to replace advice given to you by your health care provider. Make sure you discuss any questions you have with your health care provider. Document Revised: 05/14/2020 Document Reviewed: 05/14/2020 [employer] Patient Education ?? 2022 [employer] Physician Emergency department Note * Branden Castillo MD: PERFORM, MODIFY Event Display: ED Note Physician Authored Date: [id number] EMILE GONZALEZ :1960 Age:62 years Sex:Female Visit Date:01/27/2023 Primary Care Physician: Joey Moreau NP Basic Information Time Seen: Branden Castillo MD / 01/27/2023 12:48 Chief Complaint mech last evening down 4 steps no headstrike pt states she feels she rolled both ankls. +flex/extending, limited lateral movement. OTC meds helped pain, limited weight bearing non ambulatory. Was able to get them into snow boots. No meds on board today History Of Present Illness: 62-year-old female comes in ambulatory because feet injury from a fall last night. ??Patient statesshe missed a step??last night??going down??and she fell to the ground notably rolling her ankles aspain to both feet both ankles??notably her right pinky toe??to a lesser extent to her left wrist and her??neck is a little sore to.?? In hindsight she thinks her left hip is a little sore also. ??Denies headache chest pain abdominal pain or constitutional symptoms prior to falling. Review of Systems: Per HPI Physical Exam Vitals & Measurements T:??36.1?C ??(Temporal Artery)?? RR:??18?? BP:??136/75?? SpO2:??98%?? HT:??163??cm?? WT:??64??kg?? BMI:??24.09?? General:??alert,??no acute distress. Skin:??warm,??dry. Head:??no??trauma,??normocephalic. Neck:??trachea??midline,??no??adenopathy,??no??tenderness. Eye:??normal??conjunctiva, sclera??clear. Cardiovascular:??regular??rate and rhythm,??normal??peripheral perfusion. Respiratory: lungs??CTA, respirations??non-labored. Chest wall:??no??deformity. Gastrointestinal:??soft,??non distended,??no??tenderness,??no??guarding. Extremities:??no??deformity,??no??trauma. Left wrist shows previous surgery, no deformity or bruising but slight tenderness.?? Both feet and both ankles show no deformity or swelling but tenderness on palpation. ??Right pinky toe is not deformed or ecchymosis.?? I palpated the hips??when she first came in and there was no pain but eventually she told me that the left one was sore.?? Palpation of the vertebral thoracic and lumbar spine were unremarkable. Neurological:??oriented??x 4, LOC??appropriate for age, CN II-XII??intact, motor strength??equal & normal bilaterally, sensation??equal & normal bilaterally, speech??normal. Psychiatric:??cooperative, affect??appropriate for age,??normal??judgement,??normal??psychiatric thoughts. Medical Decision Making: Differential diagnoses include sprains, contusions, less likely to be fractures or dislocation. ?? Medical Decision-Making: ?? Tests in the radiology section of CPT??: ordered and reviewed -??Yes ?? Review and summarize past medical records -??Yes ?? Independent visualization of images, tracings, or specimens? Yes ?? On the x-rays I did not see any obvious acute fractures. ??Recommended??symptomatic treatment with either Motrin or Tylenol, elevate her feet when she is sitting, avoid activities that worsen the pain. ??She is discharged in stable condition. ??I did tell her that I would call her if any??differing??reads from the radiologist. ??Discharged in stable condition* Final Report * ?? XR Ankle Complete 3+ Views Bilateral PROCEDURE INFORMATION:?? Exam: XR Right Ankle?? Exam date and time: 01/27/2023 1:26 PM?? Age: 62 years old?? Clinical indication: Pain and swelling? TECHNIQUE:?? Imaging protocol: Radiologic exam of the right ankle.?? Views: 3 or more views.? COMPARISON:?? CR XR FOOT COMPLETE MIN 3V RT 27/01/2023 13:26? FINDINGS:?? Bones/joints: Ankle mortise joint is intact with no malleolar?? fracture.?? Soft tissues: Normal. No significant swelling.? IMPRESSION:?? Normal ankle.? PROCEDURE INFORMATION:?? Exam: XR Left Ankle?? Exam date and time: 01/27/2023 1:26 PM?? Age: 62 years old?? Clinical indication: Pain and swelling? TECHNIQUE:?? Imaging protocol: Radiologic exam of the left ankle.?? Views: 3 or more views.? COMPARISON:?? CR XR FOOT COMPLETE MIN 3V LT 27/01/2023 13:26? FINDINGS:?? Bones/joints: Ankle mortise joint is intact with no malleolar?? fracture.?? Soft tissues: Normal. No significant swelling.? IMPRESSION:?? Normal ankle.? Report signed by: Roverto [place] On 01/27/2023 ??16:03:59 ? URL [1] ? URL This document has an image ?? XR Foot Complete 3+ Views Left PROCEDURE INFORMATION:?? Exam: XR Left Foot?? Exam date and time: 01/27/2023 1:26 PM?? Age: 62 years old?? Clinical indication: Pain? TECHNIQUE:?? Imaging protocol: Radiologic exam of the left foot.?? Views: 3 or more views.? COMPARISON:?? CR XR FOOT COMPLETE MIN 3V LT 08/15/2022 11:46? FINDINGS:?? Bones/joints: Normal. ??Mild generalized osteopenia. ??No acute?? fracture or dislocation. Soft tissues: Normal.? IMPRESSION:?? No acute findings.? Report signed by: Roverto [place] On 01/27/2023 ??16:02:32 ?? [2] * Final Report * ?? XR Foot Complete 3+ Views Right PROCEDURE INFORMATION:?? Exam: XR Right Foot?? Exam date and time: 01/27/2023 1:26 PM?? Age: 62 years old?? Clinical indication: Injury? TECHNIQUE:?? Imaging protocol: Radiologic exam of the right foot.?? Views: 3 or more views.? COMPARISON:?? CR XR ANKLE COMPLETE MIN 3V BILAT-M2 27/01/2023 13:26? FINDINGS:?? Bones/joints: Generalized osteopenia. No acute fracture or?? dislocation.?? Soft tissues: Normal.? IMPRESSION:?? No acute findings.? Report signed by: Roverto [place] On 01/27/2023 ??16:01:45 ? [3] ?? XR Wrist Complete 3+ Views Left PROCEDURE INFORMATION:?? Exam: XR Left Wrist?? Exam date and time: 01/27/2023 1:26 PM?? Age: 62 years old?? Clinical indication: Injuiry? TECHNIQUE:?? Imaging protocol: Radiologic exam of the left wrist.?? Views: 3 or more views.? COMPARISON:?? No relevant prior studies available.? FINDINGS:?? Bones/joints: There are ventral side plates stabilizing old fractures?? of the distal radius and ulna. Generalized osteopenia. No acute?? fracture or dislocation.?? Soft tissues: Normal. No swelling.? IMPRESSION:?? No acute findings. ?? Report signed by: Roverto [place] On 01/27/2023 ??16:04:45 ?? [4] * Final Report * ?? XR Spine Cervical 2 or 3 Views PROCEDURE INFORMATION:?? Exam: XR Cervical Spine?? Exam date and time: 01/27/2023 1:30 PM?? Age: 62 years old?? Clinical indication: Pain, injury? TECHNIQUE:?? Imaging protocol: Radiologic exam of the cervical spine.?? Views: 2 or 3 views.? COMPARISON:?? CT CHEST LOW DOSE CA SCREENING 19/09/2022 12:58? FINDINGS:?? Bones/joints: Lateral view of the cervical spine shows normal height?? and alignment of cervical vertebral bodies. Disc space narrowing is?? present C5-C6 and C6-C7. Facet joints appear normal.?? Soft tissues: No prevertebral soft tissue swelling.? IMPRESSION:?? Lower cervical disc space narrowing. ??No sign of acute trauma. ?? Report signed by: Roverto [place] On 01/27/2023 ??16:03:20 ?? [5] * Final Report * ?? XR Hip 2-3 Views w/AP Pelvis Left PROCEDURE INFORMATION:?? Exam: XR Left Hip?? Exam date and time: 01/27/2023 3:12 PM?? Age: 62 years old?? Clinical indication: Pain? TECHNIQUE:?? Imaging protocol: Radiologic exam of the left hip.?? Views: 2 or 3 views hip with pelvis when performed.? COMPARISON:?? MR PELVIS WO CONTRAST 23/03/2020 10:30? FINDINGS:?? Bones/joints: There is no hip fracture or dislocation. No significant?? degenerative changes are present in the hip joint. The acetabulum is?? intact. There is no pelvic fracture or bony abnormality. Sacroiliac?? joints and pubic symphysis are normal..?? Soft tissues: Unremarkable.? IMPRESSION:?? No acute findings.? Report signed by: Roverto [place] On 01/27/2023 ??16:05:26 ? [6] Procedure No Qualifying Data Assessment/Plan 1.??Foot sprain??S93.609A Ordered: Discharge Patient, 01/27/23 15:25:00 EST, Home Independently, Constant Indicator ?? 2.??Sprain of left wrist??S63.502A Ordered: Discharge Patient, 01/27/23 15:25:00 EST, Home Independently, Constant Indicator ?? 3.??Contusion of left hip region??S70.02XA Ordered: Discharge Patient, 01/27/23 15:25:00 EST, Home Independently, Constant Indicator ?? 4.??Fall??W19.XXXA Ordered: Discharge Patient, 01/27/23 15:25:00 EST, Home Independently, Constant Indicator ?? Orders: XR Ankle Complete 3+ Views Bilateral, 01/27/23 13:13:00 EST, Stat, Reason: pain and swelling, Transport Mode: Stretcher, Exam to be performed outside organization? XR Foot Complete 3+ Views Left, 01/27/23 13:14:00 EST, Stat, Reason: pain, Transport Mode: Stretcher, Exam to be performed outside organization? XR Foot Complete 3+ Views Right, 01/27/23 13:14:00 EST, Stat, Reason: injury, Transport Mode: Stretcher, Exam to be performed outside organization? XR Hip 2-3 Views w/AP Pelvis Left, 01/27/23 14:27:00 EST, Stat, Reason: pain, Transport Mode: Stretcher, Exam to be performed outside organization? XR Spine Cervical 2 or 3 Views, 01/27/23 13:15:00 EST, Stat, Reason: pain, injury, Transport Mode: Stretcher, Exam to be performed outside organization? XR Wrist Complete 3+ Views Left, 01/27/23 13:13:00 EST, Stat, Reason: injuiry, Transport Mode: Stretcher, Exam to be performed outside organization? Patient Education Wrist Sprain, Adult Fall Prevention in the Home, Adult, [id number]-[id number] Foot Sprain Medication Reconciliation Unchanged albuterol (albuterol 90 mcg/inh aerosol inhaler)1 Puffs Inhale (breathe in) every 4 hours as neededas needed for wheezing. Refills: 0. ?? albuterol (Ventolin HFA 90 mcg/inh inhalation aerosol)1 Puffs Inhale (breathe in) every 4 hours as needed as needed for wheezing. Refills: 4. ?? budesonide-formoterol (Symbicort 80 mcg-4.5 mcg/inh inhalation aerosol)2 Puffs Inhale (breathe in) 2 times a day. Refills: 6. ?? cholecalciferol (Vitamin D3 1000 intl units oral capsule)1 Capsules Oral (given by mouth) every day. take one capsule daily. Refills: 0. ?? ciprofloxacin (ciprofloxacin 500 mg oral tablet)1 tab Oral (given by mouth) every 12 hours for 7 Days. Refills: 0. ?? cyclobenzaprine (cyclobenzaprine 5 mg oral tablet)1 tab Oral three times a day as needed for restless legs or back pain.; as needed as needed for muscle spasm. Refills: 2. ?? Durable Medical Equipment for Prescription (ALCOHOL PADS)Alcohol pred pad. Refills: 6. ?? Durable Medical Equipment for Prescription (BD SHARPS CONTAINER 1 GALLON)BD SHARPS CONTAINER 1 GALLON. Refills: 3. ?? Durable Medical Equipment for Prescription (Freestyle Daniel 2 Sensor Kit)Freestyle Daniel 2 Sensor Kit: Apply one sensor for 14 days, replace and apply new sensor in fresh location.. Refills: 6. ?? Durable Medical Equipment for Prescription (FREESTYLE DANIEL II)FREESTYLE DANIEL II meter kit. Refills: 1. ?? Durable Medical Equipment for Prescription (Insulin Pen Needle (any brand Covered) 31 x 5 mm)Insulin Pen Needle (any brand Covered) 31 x 5 mm, 1 box of #90 uses 4 daily With long acting insulin and Short acting insulin prior to each meal 3x/day. Refills: 6. ?? Durable Medical Equipment for Prescription (Right Wrist Brace)Apply to wrist during the day when doing lifting or painful activities.. Refills: 0. ?? gabapentin (gabapentin 100 mg oral capsule)take 1 capsules PO at night,. Refills: 0. ?? glipiZIDE (glipiZIDE 10 mg oral tablet, extended release)TAKE ONE TABLET BY MOUTH EVERY DAY. ?? insulin glargine (Lantus 100 units/mL subcutaneous solution)16 Units Subcutaneous (under the skin) every day. 16 units subcutaneous once in the morning. Refills: 6. ?? insulin lispro (HumaLOG KwikPen 100 units/mL injectable solution)TAKE PER SLIDING SCALE: 70-120=0 UNITS, 121-150=2 UNITS, 151-200 4=UNITS, 201-250=5 UNITS, 251-300=6 UNITS, 301-350=7 UNITS, 351-400=8UNITS. Refills: 3. ?? loratadine (loratadine 10 mg oral tablet)1 tab Oral (given by mouth) every day. ?? magnesium oxide (Mag-Ox 400 oral tablet)1 tab Oral (given by mouth) every day. Refills: 3. ?? montelukast (montelukast 10 mg oral tablet)TAKE ONE TABLET BY MOUTH EVERY DAY. ?? mupirocin topical (mupirocin 2% topical ointment)1 Application Topical (on the skin) 3 times a day.Refills: 0. ?? Other Prescription (ALCOHOL PREP PAD MED 70%) ?? Other Prescription (ALCOHOL PREP PADS 100S)USE DIRECTED. ?? Other Prescription (FREESTY LIBR KIT 2 SENSOR) ?? Other Prescription (FREESTY LIBR MIS 2 READER) ?? Other Prescription (FREESTYLE KIT SENSOR) ?? Other Prescription (FREESTYLE DANIEL 14 DAY SENSOR)APPLY ONE SENSOR EVERY 14 DAYS, REPLACE AND APPLYNEW SENSOR IN FRESH LOCATION. ?? Other Prescription (FREESTYLE DANIEL 2 READER DEVICE)USE DIRECTED. ?? Other Prescription (FREESTYLE DANIEL 2 SENSOR) ?? Other Prescription (PEN NEEDLES MIS 21XS0AO) ?? Other Prescription (TECHLITE PEN NEEDLE 31GX3/16)USE 4 ONCE DAILY WITH LONG ACTION AND SHORT ACTING INSULIN. ?? pravastatin (pravastatin 40 mg oral tablet)1 tab Oral (given by mouth) every day. Refills: 3. Problem List/Past Medical History Ongoing [id number] of left forearm Acute gastritis Acute sinusitis [...] scan (07/12/2017)???Mammogram - screening (07/12/2017)???Colonoscopy (02/21/2012)???Hysterectomy (02/18/1989) Allergies Januvia??(Swelling) Victoza??(Throat swelling) Animal Dander Pollen [...] colon: Other. Diabetes mellitus: Father and Other. Diagnostic Results Diagnostic Study Interpretation: C-spine x-rays interpreted by me is unremarkable, left wrist x-ray as interpreted by me is unremarkable.?? Both feet and both ankles as interpreted by me did not show any signs of obvious fracture,??I wondered about??small avulsion on the dorsum of the left calcaneum on the lateral view but??this may just be??calcification. [1]??XR Ankle Complete 3+ Views Bilateral; DomainUser, Generated 01/27/2023 13:26 EST [2]??XR Foot Complete 3+ Views Left; DomainUser, Generated 01/27/2023 13:26 EST [3]??XR Foot Complete 3+ Views Right; DomainUser, Generated 01/27/2023 13:26 EST [4]??XR Wrist Complete 3+ Views Left; DomainUser, Generated 01/27/2023 13:26 EST [5]??XR Spine Cervical 2 or 3 Views; DomainUser, Generated 01/27/2023 13:30 EST [6]??XR Hip 2-3 Views w/AP Pelvis Left; DomainUser, Generated 01/27/2023 15:12 EST Electronically Signed on 01/27/23 03:26 PM Branden Castillo MD Electronically Signed on 01/27/23 04:26 PM Branden Castillo MD Emergency department Discharge instructions * Branden Castillo MD: PERFORM Event Display: ED Discharge Information Authored Date: [id number] EMILE GONZALEZ :1960 Age:62 years Sex:Female Visit Date:01/27/2023 Primary Care Physician: Joey Moreau MATERIAL CUTTER Discharge Instructions We would like to thank you for allowing us to assist you with your healthcare needs. The following includes patient education materials and information regarding your injury/illness. Diagnosis from Today's Visit Foot sprain Sprain of left wrist Contusion of left hip region Fall Discharge Vitals Temperature??(Temporal Artery) 97.0 ??F (36.1 ??C) Respiratory Rate?? 18 Blood Pressure?? 136/75?? Height?? 64.17 in (163 cm) Weight?? 141.12 lb (64 kg) BMI?? 24.09 Allergies Januvia??(Swelling) Victoza??(Throat swelling) Animal Dander Pollen Dust What to Do Next Instructions from Your Care Team Can take Tylenol or ibuprofen as needed for pain. ??Avoid activities that worsen the pain,??after the first day you can do a heating pad 15 minutes every 2-3 hours to the painful areas.?? If there is??discrepancy in the official read from radiologist I will call you. Upcoming Scheduled Appointments Sunday 2:15 PM EST ?? [facility] Where: [facility] [address] [place] [address] Status: Confirmed Sunday 11:00 AM EST ?? Where: [facility] Cardiology Status: Confirmed You were treated today on an emergency basis; it may be flannery to contact your primary care provider to notify them of your visit today. You may have been referred to your regular doctor or a specialist, please follow up as instructed. If your condition worsens or you can't get in to see the doctor, contact the Emergency Department. Medications What How Much When Why Instructions Next Dose Unchanged albuterol (albuterol 90 mcg/ inh aerosol [...] SENSOR) Unchanged Other Prescription (PEN NEEDLES MIS 05OR4RN) Unchanged Other Prescription (TECHLITE PEN NEEDLE 31GX3/ 16) USE 4 ONCE DAILY WITH LONG ACTION AND SHORT ACTING INSULIN ?? Unchanged pravastatin (pravastatin 40 mg oral tablet) 1 tab Oral (given by mouth) Every day HLD (hyperlipidemia) Education Materials Wrist Sprain, Adult A wrist sprain is a stretch or tear in the strong tissues that connect the wrist bones to each other. These strong tissues are called ligaments. There are three types of wrist sprains: ? Grade 1. The ligament is stretched more than normal. There may be a minor amount of wrist pain. ? Grade 2. The ligament is partially torn. You may be able to move your wrist, but not very much. There may be a moderate amount of wrist pain. ? Grade 3. The ligament or ligaments are completely torn. You may find it difficult to move your wrist even a little. There may be a significant amount of wrist pain. What are the causes? This condition may be caused by using the wrist too much during sports, exercise, or work. It can also happen due to a fall or during an accident. What increases the risk? You are more likely to develop this condition if: ? You had a previous wrist or arm injury. ? You have poor wrist strength and flexibility. ? You play contact sports, such as football or soccer. ? You participate in sports that may result in a fall, such as skateboarding, biking, skiing, or snowboarding. ? You do not exercise regularly. ? You use exercise equipment that does not fit well. What are the signs or symptoms? Symptoms of this condition include: ? Pain in the wrist, arm, or hand. ? Swelling or bruised skin near the wrist, hand, or arm. The skin may look yellow or blue. ? Stiffness or trouble moving the hand. ? Hearing a noise, like a pop or a snap, at the time of injury, or feeling a tear at the time of the injury. ? A warm feeling in the skin around the wrist. How is this diagnosed? This condition is diagnosed with a physical exam. Sometimes an X-ray is taken to make sure a bone did not break. You may also have an MRI of your wrist to check for torn ligaments. How is this treated? This condition is treated by resting and applying ice to your wrist. Additional treatment may include: ? Taking medicine for pain and inflammation. ? Wearing a splint, brace, or cast for a short period of time to keep your wrist from moving (immobilized). ? Doing exercises to strengthen and stretch your wrist. ? Having surgery. This may be done if the ligament is completely torn. Follow these instructions at home: If you have a splint or brace: ? Wear the splint or brace as told by your health care provider. Remove it only as told by your health care provider. ? Loosen it if your fingers tingle, become numb, or turn cold and blue. ? Keep it clean. ? If the splint or brace is not waterproof: ? Do not let it get wet. ? Cover it with a watertight covering when you take a bath or a shower. If you have a cast: ? Do not put pressure on any part of the cast until it is fully hardened. This may take several hours. ? Do not stick anything inside the cast to scratch your skin. Doing that increases your risk of infection. ? Check the skin around the cast every day. Tell your health care provider about any concerns. ? You may put lotion on dry skin around the edges of the cast. Do not put lotion on the skin underneath the cast. ? Keep it clean. ? If the cast is not waterproof: ? Do not let it get wet. ? Cover it with a watertight covering when you take a bath or shower. Managing pain, stiffness, and swelling ? If directed, put ice on the injured area. To do this: ? If you have a removable splint or brace, remove it as told by your health care provider. ? Put ice in a plastic bag. ? Place a towel between your skin and the bag or between the splint or cast and the bag. ? Leave the ice on for 20 minutes, 2???3 times a day. ? Remove the ice if your skin turns bright red. This is very important. If you cannot feel pain, heat, or cold, you have a greater risk of damage to the area. ? Move your fingers often to reduce stiffness and swelling. ? Raise (elevate) the injured area above the level of your heart while you are sitting or lying down. Activity ? Rest your wrist as told by your health care provider. Do not do things that cause pain. ? Ask your health care provider when it is safe to drive if you have a splint, brace, or cast on yourwrist. ? Do exercises as told by your health care provider. ? Return to your normal activities as told by your health care provider. Ask your health care provider what activities are safe for you. General instructions ? Take jeph-afc-hbshsmq and prescription medicines only as told by your health care provider. ? Do not use any products that contain nicotine or tobacco, such as cigarettes, e- cigarettes, and chewing tobacco. These can delay healing. If you need help quitting, ask your health care provider. ? Keep all follow-up visits. This is important. Contact a health care provider if: ? Your pain, bruising, or swelling gets worse. ? Your skin becomes red, gets a rash, or has open sores. ? Your pain does not get better or it gets worse. Get help right away if: ? You have a new or sudden sharp pain in the hand, arm, or wrist. ? You have tingling or numbness in your hand. ? Your fingers turn white, very red, or cold and blue. ? You cannot move your fingers. Summary ? A wrist sprain is damage to ligaments in your wrist. ? Wrist sprains can range from mild to severe. ? Return to your normal activities as told by your health care provider. Ask your health care provider what activities are safe for you. ? You may need to wear a splint, brace, or cast for a short period of time. This information is not intended to replace advice given to you by your health care provider. Make sure you discuss any questions you have with your health care provider. Document Revised: 05/31/2020 Document Reviewed: 05/31/2020 [employer] Patient Education ?? 2022 [employer] Fall Prevention in the Home, Adult Falls can cause injuries and can happen to people of all ages. There are many things you can do to make your home safe and to help prevent falls. Ask for help when making these changes. What actions can I take to prevent falls? General Instructions ? Use good lighting in all rooms. Replace any light bulbs that burn out. ? Turn on the lights in dark areas. Use night-lights. ? Keep items that you use often in xcjl-us-trbwi places. Lower the shelves around your home if needed. ? Set up your furniture so you have a clear path. Avoid moving your furniture around. ? Do not have throw rugs or other things on the floor that can make you trip. ? Avoid walking on wet floors. ? If any of your floors are uneven, fix them. ? Add color or contrast paint or tape to clearly imr and help you see: ? Grab bars or handrails. ? First and last steps of staircases. ? Where the edge of each step is. ? If you use a stepladder: ? Make sure that it is fully opened. Do not climb a closed stepladder. ? Make sure the sides of the stepladder are locked in place. ? Ask someone to hold the stepladder while you use it. ? Know where your pets are when moving through your home. What can I do in the bathroom? Keep the floor dry. Clean up any water on the floor right away. ? Remove soap buildup in the tub or shower. ? Use nonskid mats or decals on the floor of the tub or shower. ? Attach bath mats securely with double-sided, nonslip rug tape. ? If you need to sit down in the shower, use a plastic, nonslip stool. ? Install grab bars by the toilet and in the tub and shower. Do not use towel bars as grab bars. What can I do in the bedroom? Make sure that you have a light by your bed that is easy to reach. ? Do not use any sheets or blankets for your bed that hang to the floor. ? Have a firm chair with side arms that you can use for support when you get dressed. What can I do in the kitchen? Clean up any spills right away. ? If you need to reach something above you, use a step stool with a grab bar. ? Keep electrical cords out of the way. ? Do not use floor nauruan or wax that makes floors slippery. What can I do with my stairs? Do not leave any items on the stairs. ? Make sure that you have a light switch at the top and the bottom of the stairs. ? Make sure that there are handrails on both sides of the stairs. Fix handrails that are broken or loose. ? Install nonslip stair treads on all your stairs. ? Avoid having throw rugs at the top or bottom of the stairs. ? Choose a carpet that does not hide the edge of the steps on the stairs. ? Check carpeting to make sure that it is firmly attached to the stairs. Fix carpet that is loose or worn. What can I do on the outside of my home? Use bright outdoor lighting. ? Fix the edges of walkways and driveways and fix any cracks. ? Remove anything that might make you trip as you walk through a door, such as a raised step or threshold. ? Trim any bushes or trees on paths to your home. ? Check to see if handrails are loose or broken and that both sides of all steps have handrails. ? Install guardrails along the edges of any raised decks and porches. ? Clear paths of anything that can make you trip, such as tools or rocks. ? Have leaves, snow, or ice cleared regularly. ? Use sand or salt on paths during winter. ? Clean up any spills in your garage right away. This includes grease or oil spills. What other actions can I take? Wear shoes that: ? Have a low heel. Do not wear high heels. ? Have rubber bottoms. ? Feel good on your feet and fit well. ? Are closed at the toe. Do not wear open-toe sandals. ? Use tools that help you move around if needed. These include: ? Canes. ? Walkers. ? Scooters. ? Crutches. ? Review your medicines with your doctor. Some medicines can make you feel dizzy. This can increase your chance of falling. Ask your doctor what else you can do to help prevent falls. Where to find more information ? Centers for Disease Control and Prevention, [place]: www.cdc.gov ? National [place] on Aging: www.adia.nih.gov Contact a doctor if: ? You are afraid of falling at home. ? You feel weak, drowsy, or dizzy at home. ? You fall at home. Summary ? There are many simple things that you can do to make your home safe and to help prevent falls. ? Ways to make your home safe include removing things that can make you trip and installing grab barsin the bathroom. ? Ask for help when making these changes in your home. This information is not intended to replace advice given to you by your health care provider. Make sure you discuss any questions you have with your health care provider. Document Revised: 10/24/2021 Document Reviewed: 08/25/2020 Elsevier Patient Education ?? 2022 [employer] Foot Sprain A foot sprain is an injury to one of the ligaments in the feet. Ligaments are strong tissues that connect bones to each other. The ligament can be stretched too much. In some cases, it may tear. A tear can be either partial or complete. The severity of the sprain depends on how much of the ligamentwas damaged or torn. What are the causes? This condition is usually caused by suddenly twisting or pivoting your foot. What increases the risk? You are more likely to develop this condition if: ? You play a sport, such as basketball or football. ? You exercise or play a sport without first warming up your muscles. ? You start a new workout or sport. ? You suddenly increase how long or hard you exercise or play a sport. ? You have injured your foot or ankle before. What are the signs or symptoms? Symptoms of this condition start soon after an injury and include: ? Pain, especially in the arch of your foot. ? Bruising. ? Swelling. ? Being unable to walk or use your foot to support body weight. How is this diagnosed? This condition is diagnosed with a medical history and physical exam. You may also have imaging tests, such as: ? X-rays to check for broken bones (fractures). ? An MRI to see if the ligament is torn. How is this treated? Treatment for this condition depends on the severity of the sprain. Mild sprains and major sprains can be treated with: ? Rest, ice, pressure (compression), and elevation (RICE). Elevation means raising your injured foot. ? Keeping your foot in a fixed position (immobilization) for a period of time. This is done if your ligament is overstretched or partially torn. Your health care provider will apply a bandage, splint, or walking boot to keep your foot from moving until it heals. ? Using crutches or a scooter for a few weeks to avoid bearing weight on your foot while it is healing. ? Physical therapy exercises to improve movement and strength in your foot. Major sprains may also be treated with: ? Surgery. This is done if your ligament is fully torn and a procedure is needed to reconnect it to the bone. ? A cast or splint. This will be needed after surgery. A cast or splint will need to stay on your foot while it heals. Follow these instructions at home: If you have a bandage, splint, or boot: ? Wear it as told by your health care provider. Remove it only as told by your health care provider. ? Loosen it if your toes tingle, become numb, or turn cold and blue. ? Keep it clean and dry. If you have a cast: ? Do not put pressure on any part of the cast until it is fully hardened. This may take several hours. ? Do not stick anything inside the cast to scratch your skin. Doing that increases your risk for infection. ? Check the skin around the cast every day. Tell your health care provider about any concerns. ? You may put lotion on dry skin around the edges of the cast. Do not put lotion on the skin underneath the cast. ? Keep it clean and dry. Bathing ? Do not take baths, swim, or use a hot tub until your health care provider approves. Ask your healthcare provider if you may take showers. You may only be allowed to take sponge baths. ? If the bandage, splint, boot, or cast is not waterproof: ? Do not let it get wet. ? Cover it with a watertight covering when you take a bath or shower. Managing pain, stiffness, and swelling ? If directed, put ice on the injured area. To do this: ? If you have a removable bandage, splint, or boot, remove it as told by your health care provider. ? Put ice in a plastic bag. ? Place a towel between your skin and the bag, or between your cast and the bag. ? Leave the ice on for 20 minutes, 2???3 times per day. ? Remove the ice if your skin turns bright red. This is very important. If you cannot feel pain, heat, or cold, you have a greater risk of damage to the area. ? Move your toes often to reduce stiffness and swelling. ? Elevate the injured area above the level of your heart while you are sitting or lying down. Activity ? Do not use the injured foot to support your body weight until your health care provider says that you can. Use crutches or a scooter as told by your health care provider. ? Ask your health care provider what activities are safe for you. Do exercises as told by your healthcare provider. ? Gradually increase how much and how far you walk until your health care provider says it is safe toreturn to full activity. Driving ? Ask your health care provider if the medicine prescribed to you requires you to avoid driving or using machinery. ? Ask your health care provider when it is safe to drive if you have a bandage, splint, boot, or giorgio your foot. General instructions ? Take [id number] and prescription medicines only as told by your health care provider. ? When you can walk without pain, wear supportive shoes that have stiff soles. Do not wear flip-flops. Do not walk barefoot. ? Keep all follow-up visits. This is important. Contact a health care provider if: ? Medicine does not help your pain. ? Your bruising or swelling gets worse or does not get better with treatment. ? Your splint, boot, or cast is damaged. Get help right away if: ? You develop severe numbness or tingling in your foot. ? Your foot turns blue, white, or abdullahi, and it feels cold. Summary ? A foot sprain is an injury to one of the ligaments in the feet. Ligaments are strong tissues that connect bones to each other. ? You may need a bandage, splint, boot, or cast to support your foot while it heals. Sometimes, surgery may be needed. ? You may need physical therapy exercises to improve movement and strength in your foot. This information is not intended to replace advice given to you by your health care provider. Make sure you discuss any questions you have with your health care provider. Document Revised: 05/14/2020 Document Reviewed: 05/14/2020 [employer] Patient Education ?? 2022 [employer]. Patient/Writing Tutor Signature Patient Name:EMILE GONZALEZ I have received this information and my questions have been answered. Patient/Writing Tutor Name: Patient/Writing Tutor Signature: Relationship to Patient: Witness Name/Signature: Date: Electronically Signed on: 01/27/2023 15:26 ESTSigned by:RISA Discharge summary * Ab Castillo: PERFORM Event Display: Discharge Note Authored Date: * Ab Castillo: PERFORM Event Display: Discharge Note Authored Date: Diagnosis: 1. Foot sprain Comment: Diagnosis: 2. Sprain of left wrist Comment: Diagnosis: 3. Contusion of left hip region Comment: Diagnosis: 4. Fall Comment: Diagnosis: Ankle injury - Minor Comment: Electronically Signed on 01/27/23 04:01 PM Ab Castillo Patient Care team information Care Team Personnel Name: Mona Forman Position: Ambulatory - RN/ROLLER [employer] UTILITY WORKER (Andre) Member Role: Internal Wholesaler Name: Joey Moreau NP Position: Physician Member Role: Informed Provider Address: Address: [address] [place] [address]- [place] Name: Branden Castillo MD Position: Physician Member Role: ED Physician Address: Address: [address] [place] [address]- [place] Name: Rohit, Arleen A Position: Nurse Member Role: ED Nurse Care Team Related Persons Name: SADI GONZALEZ Address: [address] [phone] Name: HOLLIS GONZALEZ
--- OUTSIDE RECORDS SUMMARY | 2024-01-25 13:34 | XMS_ITS | Continuity of Care Document ---
Author Organization [facility] Address [address] [place] [address] Care Team Providers Care Case Management Director Name Role Phone Joey Moreau Primary Care Physician [facility] - 12[facility]12/22 [facility] [address] [place] [address] Discharge Disposition: Home Allergies, Adverse Reactions, Alerts Substance Reaction Severity [...] wheezing, # 8 g, 0 Refill(s), Pharmacy: [facility] #[id number] Start Date: 08/15/22 Status: Ordered ALCOHOL PADS ALCOHOL PADS, Alcohol pred pad, Supply, See instructions, # 100 EA, 6 Refill(s), Pharmacy: [facility] #[id number] Start Date: 08/15/22 Status: Ordered ALCOHOL PREP PADS 100S ALCOHOL PREP PADS 100S, USE DIRECTED Start Date: 09/26/22 Status: Ordered BD SHARPS CONTAINER 1 GALLON BD SHARPS CONTAINER 1 GALLON, BD SHARPS CONTAINER 1 GALLON, Supply, See instructions, # 1 EA, 3 Refill(s), Pharmacy: [facility] #[id number] Start Date: 08/16/22 Status: Ordered cyclobenzaprine 5 mg oral tablet See Instructions, PRN as needed for muscle spasm, 1 tab Oral three times a day as needed for restless legs or back pain., # 45 tab, 2 Refill(s), Pharmacy: [facility] #58 Start Date: 10/10/22 Status: Ordered FREESTY [...] instructions, # 2 EA, 6 Refill(s), Pharmacy: [facility] #58 Start Date: 10/11/22 Status: Ordered FREESTYLE DANIEL II FREESTYLE DANIEL II, FREESTYLE DANIEL II meter kit, Supply, See instructions, # 1 EA, 1 Refill(s), Pharmacy: [facility] #[id number] Start Date: 08/15/22 Status: Ordered glipiZIDE 10 mg oral tablet, extended release TAKE ONE TABLET BY MOUTH EVERY DAY Start Date: 12/12/22 Status: Ordered HumaLOG KwikPen 100 units/mL injectable solution See Instructions, TAKE PER SLIDING SCALE: 70-120=0 UNITS, 121-150=2 UNITS, 151- 200 4=UNITS, 201-250=5 UNITS, 251-300=6 UNITS, 301-350=7 UNITS, 351-400=8 UNITS, # 15 mL, 3 Refill(s), Pharmacy: [facility] #[id number], 163, cm, 09/28/22 13:40:00 EDT, Height Start [...] instructions, # 1 EA, 6 Refill(s), Pharmacy: [facility] #58 Start Date: 09/12/22 Status: Ordered Lantus 100 units/mL subcutaneous solution 16 units =, Subcutaneous, Daily, 16 units subcutaneous once in the morning, # 15 mL, 6 Refill(s), Pharmacy: [facility] #58 Start Date: 10/20/22 Status: Ordered loratadine 10 mg oral tablet 10 mg = 1 tab, Oral, Daily, # 30 tab, 0 Refill(s) Start Date: 09/26/22 Status: Ordered Mag-Ox 400 oral tablet 400 mg = 1 tab, Oral, Daily, # 90 tab, 3 Refill(s), Pharmacy: [facility] #58 Start Date: 09/11/22 Status: Ordered montelukast 10 mg oral tablet TAKE ONE TABLET BY MOUTH EVERY DAY Start Date: 09/26/22 Status: Ordered mupirocin 2% topical ointment 1 hector, Topical, TID, # 30 g, 0 Refill(s), Pharmacy: [facility] #58 Start Date: 08/23/22 Status: Ordered NovoLOG [...] sites, # 15 mL, 6 Refill(s), Pharmacy: [facility] #58 Start Date: 08/15/22 Status: Ordered PEN NEEDLES MIS 45RN9KB PEN NEEDLES MIS [id number], 0 Refill(s) Start Date: 09/26/22 Status: Ordered pravastatin 40 mg oral tablet 40 mg = 1 tab, Oral, Daily, # 90 tab, 3 Refill(s), Pharmacy: [facility] #58 Start Date: 09/08/22 Status: Ordered Right Wrist Brace Right Wrist Brace, Apply to wrist during the day when doing lifting or painful activities., Supply,See instructions, # 1 EA, 0 Refill(s) Start Date: 10/20/22 Status: Ordered Symbicort 80 mcg-4.5 mcg/inh inhalation aerosol 2 puffs, Inhale, BID, # 10.2 g, 6 Refill(s), Pharmacy: [facility] #[id number] Start Date: 10/11/22 Status: Ordered TECHLITE PEN NEEDLE 31GX3/16 TECHLITE PEN NEEDLE 31GX3/16, USE 4 ONCE DAILY WITH LONG ACTION AND SHORT ACTING INSULIN Start Date: 09/26/22 Status: Ordered Ventolin HFA 90 mcg/inh inhalation aerosol 1 puffs, Inhale, every 4 hr, PRN as needed for wheezing, # 18 g, 4 Refill(s), Pharmacy: [facility] #[id number] Start Date: 10/25/22 Status: Ordered Problem List [...] 2019 novel coronavirus 1 Confirmed 10/24/22 Active [id number] of left forearm Confirmed Active GERD (gastroesophageal [...] Personnel Name: Mona Forman Position: Ambulatory - RN/MANAGER [employer] ([facility]) Member Role: Retail Security Professional Name: Joey Moreau NP Position: Physician Member Role: Informed Provider Address: Address: [address] [place] [address] [place] [address]- Care Team Related Persons Name: SADI GONZALEZ Address: Home [address] [place] [phone] Name: HOLLIS GONZALEZ
--- OUTSIDE RECORDS SUMMARY | 2024-01-25 13:34 | XMS_ITS | Continuity of Care Document ---
Author Organization [facility] Address [address] [place] [address] Care Team Providers Care Fnp Name Role Phone Joey Moreau Primary Care Physician Encounter [facility] Date(s): 01/10/23 - 01/10/23 [facility] [address] [place] [address] Encounter Diagnosis PLMD (periodic limb movement disorder)(Discharge Diagnosis) - 01/09/23 Discharge Disposition: Home or Self Care Attending Physician: Norma Viera NP Referring Physician: Norma Viera POCKETBOOK MAKER Allergies, Adverse Reactions, Alerts Substance Reaction Severity [...] wheezing, # 8 g, 0 Refill(s), Pharmacy: [facility] #[id number] Start Date: 08/15/22 Status: Ordered ALCOHOL PADS ALCOHOL PADS, Alcohol pred pad, Supply, See instructions, # 100 EA, 6 Refill(s), Pharmacy: [facility] #[id number] Start Date: 08/15/22 Status: Ordered ALCOHOL PREP PAD MED 70% ALCOHOL PREP PAD MED 70%, 0 Refill(s) Start Date: 01/08/23 Status: Ordered ALCOHOL PREP PADS 100S ALCOHOL PREP PADS 100S, USE DIRECTED Start Date: 09/26/22 Status: Ordered BD SHARPS CONTAINER 1 GALLON BD SHARPS CONTAINER 1 GALLON, BD SHARPS CONTAINER 1 GALLON, Supply, See instructions, # 1 EA, 3 Refill(s), Pharmacy: [facility] Start Date: 08/16/22 Status: Ordered cyclobenzaprine 5 mg oral tablet See Instructions, PRN as needed for muscle spasm, 1 tab Oral three times a day as needed for restless legs or back pain., # 45 tab, 2 Refill(s), Pharmacy: [facility] Start Date: 10/10/22 Status: Ordered FREESTY [...] instructions, # 2 EA, 6 Refill(s), Pharmacy: [facility] Start Date: 10/11/22 Status: Ordered FREESTYLE DANIEL II FREESTYLE DANIEL II, FREESTYLE DANIEL II meter kit, Supply, See instructions, # 1 EA, 1 Refill(s), Pharmacy: [facility] #[id number] Start Date: 08/15/22 Status: Ordered gabapentin 100 mg oral capsule See Instructions, take 1 capsules PO at night,, # 90 cap, 0 Refill(s), Pharmacy: [id number], 163.83, cm, 01/10/23 10:34:00 EST, Height, [...] UNITS, # 15 mL, 3 Refill(s), Pharmacy: [id number], 163, cm, 09/28/22 13:40:00 EDT, Height, [...] instructions, # 1 EA, 6 Refill(s), Pharmacy: [id number] Start Date: 09/12/22 Status: Ordered Lantus 100 units/mL subcutaneous solution 16 units =, Subcutaneous, Daily, 16 units subcutaneous once in the morning, # 15 mL, 6 Refill(s), Pharmacy: [facility] Start Date: 10/20/22 Status: Ordered loratadine 10 mg oral tablet 10 mg = 1 tab, Oral, Daily, # 30 tab, 0 Refill(s) Start Date: 09/26/22 Status: Ordered Mag-Ox 400 oral tablet 400 mg = 1 tab, Oral, Daily, # 90 tab, 3 Refill(s), Pharmacy: [facility] Start Date: 09/11/22 Status: Ordered montelukast 10 mg oral tablet TAKE ONE TABLET BY MOUTH EVERY DAY Start Date: 09/26/22 Status: Ordered mupirocin 2% topical ointment 1 hector, Topical, TID, # 30 g, 0 Refill(s), Pharmacy: [id number] Start Date: 08/23/22 Status: Ordered NovoLOG [...] sites, # 15 mL, 6 Refill(s), Pharmacy: [id number] Start Date: 08/15/22 Status: Ordered PEN NEEDLES MIS [id number] PEN NEEDLES MIS 88XM7QP, 0 Refill(s) Start Date: 09/26/22 Status: Ordered pravastatin 40 mg oral tablet 40 mg = 1 tab, Oral, Daily, # 90 tab, 3 Refill(s), Pharmacy: [facility] Start Date: 09/08/22 Status: Ordered Right Wrist Brace Right Wrist Brace, Apply to wrist during the day when doing lifting or painful activities., Supply,See instructions, # 1 EA, 0 Refill(s) Start Date: 10/20/22 Status: Ordered Symbicort 80 mcg-4.5 mcg/inh inhalation aerosol 2 puffs, Inhale, BID, # 10.2 g, 6 Refill(s), Pharmacy: [facility] #[id number] Start Date: 10/11/22 Status: Ordered TECHLITE PEN NEEDLE 31GX3/16 TECHLITE PEN NEEDLE 31GX3/16, USE 4 ONCE DAILY WITH LONG ACTION AND SHORT ACTING INSULIN Start Date: 09/26/22 Status: Ordered Ventolin HFA 90 mcg/inh inhalation aerosol 1 puffs, Inhale, every 4 hr, PRN as needed for wheezing, # 18 g, 4 Refill(s), Pharmacy: [facility] #[id number] Start Date: 10/25/22 Status: Ordered Vitamin D3 1000 intl units oral capsule 25 mcg = 1 cap, Oral, Daily, take one capsule daily, # 90 cap, 0 Refill(s), Pharmacy: [id number], 163.83, cm, 01/10/23 10:34:00 EST, Height, [...] 2019 novel coronavirus 1 Confirmed 10/24/22 Active [id number] of left forearm Confirmed Active GERD (gastroesophageal [...] Range]: 1 Peripheral Pulse Rate [60-100 bpm] 85 bp m (01/10/23 10:34 AM) Blood Pressure [90-140/60-90 mmHg] 110/7 2mmHg (01/10/23 10:34 AM) Mean Arterial Pressure, Cuff [70-110 mmH g] 85 mmHg (01/10/23 10:34 AM) Weight 64.86 kg (01/10/23 10:34 AM) Weight Measured (lbs) 142.992 lb (01/10/23 10:34 AM) Weight Dosing 64.860 kg (01/10/23 10:34 AM) Height 163.83 cm (01/10/23 10:34 AM) Height/Length Measured (inches) 64.5 inc h (01/10/23 10:34 AM) BSA Measured 1.72 m2 (01/10/23 10:34 AM) Body Mass Index 24.17 kg/m2 (01/10/23 10:34 AM) Social History Social History Type Response Tobacco Former tobacco user Tobacco Use:. 1 PPD per day. Started age 8.0 Years. 1 Sex Female 1Pt reports she quit smoking last week in July 2022 Physician Outpatient Note * Norma Viera POCKETBOOK MAKER: PERFORM Event Display: Office Clinic Note Physician Authored Date: [id number] EMILE GONZALEZ :1960 Age:62 years Sex:Female Visit Date:01/10/2023 Primary Care Physician: Joey Moreau NP Chief Complaint Follow-up PSG diagnostic results History of Present Illness The patient is a pleasant 62-year-old female who follows up today for her PSG diagnostic study results. ?? TODAY??the patient states that she slept okay on the night of her sleep study in fact: She feels she may have slept better??than what she does at home.?? She continues to endorse sleep related symptoms that includes frequent nocturnal awakening??and nonrestorative sleep.?? She continues to endorse RLS symptoms that she has had for several years??is currently taking??magnesium, however not every day??along with??cyclobenzaprine??as needed. ??She reserves using cyclobenzaprine for those nights when her RLS symptoms are particularly worse. ??She does have diabetes, uncontrolled for some time, fortunately she is back on her insulin??and reports that her sugars are under better control. ??She does also endorse??peripheral neuropathy. Review of Systems A 10-point REVIEW OF SYSTEM was obtained and reviewed, includes CONSTITUTIONAL, EYES, NOSE, THROAT,RESPIRATORY, HEART, GASTROINTESTINAL, UROLOGIC, MUSCULOSKELETAL, PSYCHIATRY, SKIN systems. Pertinent symptoms are discussed in history, otherwise negative. Physical Exam Vitals & Measurements HR:??85??(Peripheral)?? BP:??110/72?? SpO2:??97%?? HT:??163.83??cm?? WT:??64.86??kg?? BMI:??24.17?? BSA:??1.72?? General:??well appearing, appearing stated age, no acute distress,??normal??build HEENT: atraumatic skull, anicteric RESPIRATORY: quiet respiration, able to speak in full sentences without dyspnea, no accessory muscle use SKIN: no facial skin rash, no facial skin lesions PSYCHIATRIC: well groomed, fluent speech, good insight, linear thought process, good eye contact,balanced?affect NEUROLOGIC: alert, oriented, symmetric facial expression Clinic Assessment/Plan 1.??PLMD (periodic limb movement disorder)??G47.61 Patient is a pleasant 62-year-old female who follows up today for her PSG diagnostic results.PSG performed 12/14/2022 shows no evidence of sleep disordered breathing nor any evidence of nocturnal hypoxemia.?? On the night of her study her sleep efficiency was normal, all sleep stages were observed as well as all sleep positions including supine REM sleep.?? Overall AHI 1.4/h, 0.3 minutes spent with SpO2 less than or equal to 88% on room air. ?? The PSG??revealed that the patient has severe??periodic limb movement disorder,PLM index: 37.7/hr, PLM arousal index: 2.6/hr.??the patient also endorses??long history of RLS symptoms, peripheral neuropathy??and uncontrolled diabetes up until recently.?? She is currently taking magnesium??200 to 400 mg, although not every day. ??We discussed??the relationship between??controlling her diabetes, peripheral neuropathy, restless legs??syndrome??and periodic limb movement disorder. ??Recommend??taking magnesium??nightly along with adding in vitamin D3 at 1000 IUs. ??We also discussed trial of gabapentin, we reviewed the possible med??side effects??and potential interaction if taken along with her cyclobenzaprine. ??Recommend she trial gabapentin 100 mg nightly??and lieu of using her cyclobenzaprine for the next 2 weeks??and follow-up??in 2 weeks for med??side affects??and effectiveness. ??Ferritin level also ordered which she will plan to have done at her next??blood draw at [facility]??in early February 2023. Shared decision making, patient is in agreement with??plan of care Actions: ORDERED - gabapentin, See Instructions, take 1 capsules PO at night,, # 90 cap, 0 Refill(s), Pharmacy: [id number], 163.83, cm, 01/10/23 10:34:00 EST, Height, 64.86, kg, 01/10/23 10:36:00 EST, Weight Dosing, take 1 capsules PO at night, FUTURE - Ferritin, Blood, Routine, 01/10/23, Once, Lab Collect, PLMD (periodic limb movement disorder) Peripheral neuropathy Joint pain, Order for future visit ?? Additional Actions: ORDERED - cholecalciferol, 25 mcg = 1 cap, Oral, Daily, take one capsule daily, # 90 cap, 0 Refill(s), Pharmacy: [id number], 163.83, cm, 01/10/23 10:34:00 EST, Height, 64.86, kg, 01/10/23 10:36:00 EST, Weight Dosing, take one capsule daily I provided greater than??40??minutes in the care of this patient, more than half the time was spentin [id number] counseling. ?with comorbidities of type 2 diabetes, allergic asthma, restless legs syndrome, peripheral neuropathy ? Clinical Data Reviewed: Butler Sleepiness Scale: 05/29 ? Sleep Clinical Timeline:? 09/28/2022: New patient sleep consult at the??kind request of HEAVEN Butcher ([facility]). Suspect Obstructive Sleep Apnea based on snoring, frequent nocturnal awakenings, nonrestorative sleep, daytime fatigue, waking up with dry mouth, daytime neurocognitive changes, Mallampati 2-3, ESS 03/31 (likely an underestimation), [place] Questionnaire 03/10.??PSG ordered. She is taking Mg [...] to have done at her next??[facility]in early February 2023.?? DM??type II under better control now that patient has resumed??her diabetic medications. ??History of peripheral neuropathy??and RLS. ? Today's Assessment and Plan: See above ?? Follow up: 2 weeks or sooner if needed. Problem List/Past Medical History Ongoing [id number] of left forearm Acute gastritis Acute sinusitis Benign essential hypertension Bilateral hip pain Body dermatophytosis Chronic constipation COPD (chronic obstructive pulmonary disease) Disease caused by 2019 novel coronavirus DM II (diabetes mellitus, type II), controlled GERD (gastroesophageal reflux disease) History of strep sore throat History of visual disturbance HLD (hyperlipidemia) Leg cramps, sleep related Microalbuminuria Muscle cramps Onychomycosis Osteoporosis Proteinuria Restless leg syndrome Restless legs syndrome Seasonal allergic rhinitis Snoring Tobacco use disorder Historical No qualifying data Procedure/Surgical History ???Lung cancer screening (08/15/2022)???Ultrasound (10/22/2020)???Transvaginal ultrasonography of pelvis (12/14/2017)???Bone density scan (07/12/2017)???Mammogram - screening (07/12/2017)???Colonoscopy (02/21/2012)???Hysterectomy (02/18/1989) Medications What How Much When Why Instructions New cholecalciferol (Vitamin D3 1000 intl units oral capsule) 1 Capsules Oral (given by mouth) Every day take one capsule daily ?? Pickup at [facility] New gabapentin (gabapentin 100 mg oral capsule) See instructions PLMD (periodic limb movement disorder) take 1 ??capsules PO at night, ?? Pickup at [facility] Unchanged albuterol (albuterol 90 mcg/ inh aerosol inhaler) 1 Puffs Inhale (breathe in) Every 4 hours as needed for as needed for wheezing Asthma Contact prescribing physician if questions or concerns ?? Unchanged albuterol (Ventolin HFA 90 mcg/ inh inhalation aerosol) 1 Puffs Inhale (breathe in) Every 4 hours as needed for as needed for wheezing COPD (chronic obstructive pulmonary disease) Contact prescribing physician if questions or concerns ?? Unchanged budesonide-formoterol (Symbicort 80 mcg-4.5 mcg/ inh inhalation aerosol) 2 Puffs Inhale (breathe in) 2 times a day Asthma Contact prescribing physician if questions or concerns ?? Unchanged cyclobenzaprine (cyclobenzaprine 5 mg oral tablet) See instructions Restless leg syndrome 1 tab Oral three times a day as needed for restless legs or back pain., As needed for as needed formuscle spasm Contact prescribing physician if questions or concerns ?? Unchanged Durable Medical Equipment for Prescription (ALCOHOL PADS) See instructions DMII (diabetes mellitus, type 2) Alcohol pred pad Contact prescribing physician if questions or concerns ?? Unchanged Durable Medical Equipment for Prescription (BD SHARPS CONTAINER 1 GALLON) See instructions BD SHARPS CONTAINER 1 GALLON Contact prescribing physician if questions or concerns ?? Unchanged Durable Medical Equipment for Prescription (Freestyle Daniel 2 Sensor Kit) See instructions Freestyle Daniel 2 Sensor Kit: Apply one sensor for 14 days, replace and apply new sensor in fresh location. Contact prescribing physician if questions or concerns ?? Unchanged Durable Medical Equipment for Prescription (FREESTYLE DANIEL II) See instructions DMII (diabetes mellitus, type 2) FREESTYLE DANIEL II meter kit Contact prescribing physician if questions or concerns ?? Unchanged Durable Medical Equipment for Prescription (Insulin Pen Needle (any brand Covered) 31 x 5mm) See instructions DMII (diabetes mellitus, type 2) Insulin Pen Needle (any brand Covered) 31 x 5 mm, 1 box of #90 uses 4 daily With long acting insulin and Short acting insulin prior to each meal 3x/ day Contact prescribing physician if questions or concerns ?? Unchanged Durable Medical Equipment for Prescription (Right Wrist Brace) See instructions Wrist pain, right Apply to wrist during the day when doing lifting or painful activities. Contact prescribing physician if questions or concerns ?? Unchanged glipiZIDE (glipiZIDE 10 mg oral tablet, extended release) TAKE ONE TABLET BY MOUTH EVERY DAY Contact prescribing physician if questions or concerns ?? Unchanged insulin aspart (NovoLOG FlexPen 100 units/ mL injectable solution) See instructions DMII (diabetes mellitus, type 2) at beginning of meal or within 20 minutes of starting a meal With sliding scale. ?? Sliding scale: 70-120 0 units 121-150 2 units 151-200 4 units 201-250 5 units 251-300 6 units 301-350 7 units 351-400 8 units >400 call provider rotate njection sites Contact prescribing physician if questions or concerns ?? Unchanged insulin glargine (Lantus 100 units/ mL subcutaneous solution) 16 Units Subcutaneous (under the skin) Every day DMII (diabetes mellitus, type 2) 16 units subcutaneous once in the morning Contact prescribing physician if questions or concerns ?? Unchanged insulin lispro (HumaLOG KwikPen 100 units/ mL injectable solution) See instructions DM II (diabetes mellitus, type II), controlled TAKE PER SLIDING SCALE: 70-120=0 UNITS, 121-150=2 UNITS, 151-200 4=UNITS, 201- 250=5 UNITS, 251-300=6 UNITS, 301-350=7 UNITS, 351-400=8 UNITS Contact prescribing physician if questions or concerns ?? Unchanged loratadine (loratadine 10 mg oral tablet) 1 tab Oral (given by mouth) Every day Contact prescribing physician if questions or concerns ?? Unchanged magnesium oxide (Mag-Ox 400 oral tablet) 1 tab Oral (given by mouth) Every day Restless leg syndrome Contact prescribing physician if questions or concerns ?? Unchanged montelukast (montelukast 10 mg oral tablet) TAKE ONE TABLET BY MOUTH EVERY DAY Contact prescribing physician if questions or concerns ?? Unchanged mupirocin topical (mupirocin 2% topical ointment) 1 Application Topical (on the skin) 3 times a day Diabetic feet Contact prescribing physician if questions or concerns ?? Unchanged Other Prescription (ALCOHOL PREP PAD MED 70%) Contact prescribing physician if questions or concerns ?? Unchanged Other Prescription (ALCOHOL PREP PADS 100S) USE DIRECTED Contact prescribing physician if questions or concerns ?? Unchanged Other Prescription (FREESTY LIBR KIT 2 SENSOR) Contact prescribing physician if questions or concerns ?? Unchanged Other Prescription (FREESTY LIBR MIS 2 READER) Contact prescribing physician if questions or concerns ?? Unchanged Other Prescription (FREESTYLE KIT SENSOR) Contact prescribing physician if questions or concerns ?? Unchanged Other Prescription (FREESTYLE DANIEL 14 DAY SENSOR) APPLY ONE SENSOR EVERY 14 DAYS, REPLACE AND APPLY NEW SENSOR IN FRESH LOCATION Contact prescribing physician if questions or concerns ?? Unchanged Other Prescription (FREESTYLE DANIEL 2 READER DEVICE) USE DIRECTED Contact prescribing physician if questions or concerns ?? Unchanged Other Prescription (FREESTYLE DANIEL 2 SENSOR) Contact prescribing physician if questions or concerns ?? Unchanged Other Prescription (PEN NEEDLES MIS 42OL2PT) Contact prescribing physician if questions or concerns ?? Unchanged Other Prescription (TECHLITE PEN NEEDLE 31GX3/ 16) USE 4 ONCE DAILY WITH LONG ACTION AND SHORT ACTING INSULIN Contact prescribing physician if questions or concerns ?? Unchanged pravastatin (pravastatin 40 mg oral tablet) 1 tab Oral (given by mouth) Every day HLD (hyperlipidemia) Contact prescribing physician if questions or concerns ?? Pharmacy Information [facility]: [address] [facility] [address] [place], [place] [id number] [phone] Allergies Januvia??(Swelling) Victoza??(Throat swelling) Animal Dander Pollen [...] (Tdap) adult/adol 01/05/2017 Recorded Electronically Signed on 01/10/23 11:23 AM Norma Viera POCKETBOOK MAKER Patient Care team information Care Team Personnel Name: Mona Forman Position: Ambulatory - RN/FIELD RECRUITER (Andre) Member Role: Intelligence Research Specialist Name: Joey Moreau POCKETBOOK MAKER Position: Physician Member Role: Informed Provider Address: Address: [address] [place] [address] [place] [address]- Care Team Related Persons Name: SADI GONZALEZ Address: Home [address] [place], [place] [id number] Name: HOLLIS GONZALEZ
--- OUTSIDE RECORDS SUMMARY | 2024-01-25 13:34 | XMS_ITS | Continuity of Care Document ---
Author Organization [facility] Address [address] [place] [address] Care Team Providers Care Plug Making Operator Name Role Phone Joey Moreau Primary Care Physician Encounter [facility] Date(s): 01/02/24 - 01/02/[address] [address] Discharge Disposition: Home or Self Care Attending Physician: Joey Moreau NP Admitting Physician: Joey Moreau MARKER SHIPMENTS Allergies, Adverse Reactions, Alerts Substance Criticality Severity Reaction Reaction Severity Status Animal Dander High criticality Moderate Active Januvia High criticality Severe Swelling Act virgie Victoza High criticality Severe Throat swelling Active Pollen 1 High criticality Moderate Act virgie Rybelsus 2 High criticality Moderate Breathing abnormal Active Dust Low criticality Mild Acti ve 1Pollen extracts, grass pollen. 2Throat tightening x 2 weeks, difficulty swallowing Assessment and Plan Future Appointments Diagnostic Tests Pending * Urinalysis Notify Lab 01/02/24 * Urine Culture 01/02/24 Future Scheduled Tests Laboratory* Ferritin 01/11/23 Immunizations Given and Recorded Vaccine Date Status Refusal Reason tetanus/diphth/pertuss (Tdap) adult/adol 01/05/17 Recorded Medications albuterol 90 mcg/inh aerosol inhaler 1 puffs, Inhale, every 4 hr, PRN as needed for wheezing, # 8 g, 3 Refill(s), Pharmacy: [facility]93, 162.56, cm, 01/31/23 13:50:00 EST, Height, 77.75, kg, 05/01/23 8:57:00 EDT, Weight Dosing Start Date: 05/21/23 Status: Ordered ALCOHOL PADS ALCOHOL PADS, Alcohol pred pad, Supply, See instructions, # 100 EA, 6 Refill(s), Pharmacy: [facility]93 Start Date: 05/21/23 Status: Ordered BD SHARPS CONTAINER 1 GALLON BD SHARPS CONTAINER 1 GALLON, BD SHARPS CONTAINER 1 GALLON, Supply, See instructions, # 1 EA, 3 Refill(s), Pharmacy: [facility] #58 Start Date: 08/16/22 Status: Ordered cyclobenzaprine 5 mg oral tablet See Instructions, TAKE ONE TABLET BY MOUTH THREE TIMES A DAY NEEDED FOR RESTLESS LEGS OR BACK PAIN NEEDED FOR MUSCLE SPASMS, # 270 tab, 1 Refill(s), Pharmacy: [facility] #93, 162.56, cm, 01/31/23 13:50:00 EST, Height, 77.8, kg, 09/03/23 10:57:00 EDT, Weight Dosing Start Date: 11/07/23 Status: Ordered Diflucan 150 mg oral tablet 150 mg = 1 tab, Oral, Once, # 1 tab, 0 Refill(s), Pharmacy: [facility] #58, 162.56, cm, 01/31/23 13:50:00 EST, Height, 84.45, kg, 01/02/24 11:25:00 EST, Weight Dosing Start Date: 01/02/24 Status: Ordered fluticasone 50 mcg/inh nasal spray See Instructions, INSTILL 1 SPRAY INTO BOTH NOSTRILS EVERY MORNING, # 16 mL, 3 Refill(s), Pharmacy:[facility] #93, 162.56, cm, 01/31/23 13:50:00 EST, Height, 77.75, kg, 05/01/23 8:57:00 EDT, Weight Dosing Start Date: 07/18/23 Status: Ordered Freestyle Daniel 2 Sensor Kit Freestyle Daniel 2 Sensor Kit, Freestyle Daniel 2 Sensor Kit: Apply one sensor for 14 days, replace and apply new sensor in fresh location., Supply, See instructions, # 2 EA, 12 Refill(s), Pharmacy: [facility]93 Start Date: 05/21/23 Status: Ordered FREESTYLE DANIEL II FREESTYLE DANIEL II, FREESTYLE DANIEL II meter kit, Supply, See instructions, # 1 EA, 1 Refill(s), Pharmacy: [facility] #[id number] Start Date: 08/15/22 Status: Ordered gabapentin 100 mg oral capsule See Instructions, take 1 capsules PO at night,, # 90 cap, 0 Refill(s), Pharmacy: [facility] #58, 163.83, cm, 01/10/23 10:34:00 EST, [...] UNITS, # 15 mL, 3 Refill(s), Pharmacy: [facility] #93, 162.56, cm, 01/31/23 13:50:00 EST, Height, 77.75, kg, 05/01/23 8:57:00 EDT, Weight Dosing Start Date: 05/21/23 Status: Ordered Insulin Glargine Solostar Pen 100 units/mL subcutaneous solution 28 units =, Subcutaneous, Daily, # 400 mL, 1 Refill(s), Pharmacy: [facility] #93, 162.56, cm, 01/31/23 13:50:00 EST, Height, [...] instructions, # 1 EA, 6 Refill(s), Pharmacy: [facility]93 Start Date: 05/21/23 Status: Ordered ipratropium-albuterol 0.5 mg-2.5 mg/3 mL inhalation solution INHALE THE CONTENTS OF ONE VIAL VIA NEBULIZER FOUR TIMES A DAY NEEDED FOR WHEEZING Start Date: 12/10/23 Status: Ordered lidocaine 5% topical film See Instructions, APPLY ONE PATCH TOPICALLY TO THE SKIN DIRECTED, 12 HOURS ON AND THEN 12 HOURS OFF, # 30 patches, 2 Refill(s), Pharmacy: [facility] #93, 162.56, cm, 01/31/23 13:50:00 EST, Height, 77.8, kg, 09/03/23 10:57:00 EDT, Weight Dosing Start Date: 11/05/23 Status: Ordered loratadine 10 mg oral tablet 10 mg = 1 tab, Oral, Daily, # 30 tab, 0 Refill(s) Start Date: 09/26/22 Status: Ordered losartan 25 mg oral tablet 25 mg = 1 tab, Oral, Daily, [facility] Started 02/08/23, # 90 tab, 0 Refill(s) Start Date: 02/20/23 Status: Ordered Macrobid 100 mg oral capsule 100 mg = 1 cap, Oral, BID, # 14 cap, 0 Refill(s), Pharmacy: [facility] #58, 162.56, cm, 01/31/23 13:50:00 EST, Height, 84.45, kg, 01/02/24 11:25:00 EST, Weight Dosing Start Date: 01/02/24 Stop Date: 01/09/24 Status: Ordered Mag-Ox 400 oral tablet 800 mg = 2 tab, Oral, Daily, # 180 tab, 3 Refill(s), Pharmacy: [facility] #93, 162.56, cm, 01/31/23 13:50:00 EST, Height, 77.8, kg, 09/03/23 10:57:00 EDT, Weight Dosing Start Date: 10/03/23 Status: Ordered montelukast 10 mg oral tablet TAKE ONE TABLET BY MOUTH EVERY DAY Start Date: 09/26/22 Status: Ordered mupirocin 2% topical ointment 1 hector, Topical, TID, # 30 g, 0 Refill(s), Pharmacy: [facility]58 Start Date: 08/23/22 Status: Ordered omeprazole 20 mg oral delayed release capsule TAKE 1 CAPSULE BY MOUTH DAILY Start Date: 09/03/23 Status: Ordered pravastatin 40 mg oral tablet 40 mg = 1 tab, Oral, Daily, # 90 tab, 3 Refill(s), Pharmacy: [facility] #93, 162.56, cm, 01/31/2313:50:00 EST, Height, 77.75, kg, 05/01/23 8:57:00 EDT, Weight Dosing Start Date: 05/21/23 Status: Ordered Right Wrist Brace Right Wrist Brace, Apply to wrist during the day when doing lifting or painful activities., Supply,See instructions, # 1 EA, 0 Refill(s) Start Date: 10/20/22 Status: Ordered Spiriva Respimat 1.25 mcg/inh inhalation aerosol INHALE TWO PUFFS BY MOUTH EVERY DAY Start Date: 09/03/23 Status: Ordered Symbicort 80 mcg-4.5 mcg/inh inhalation aerosol 2 puffs, Inhale, BID, # 10.2 g, 6 Refill(s), Pharmacy: [facility] #93, 162.56, cm, 01/31/23 13:50:00 EST, Height, [...] DAILY, # 100 EA, 6 Refill(s), Pharmacy: [facility] #93, 162.56, cm, 01/31/23 13:50:00 EST, Height, 77.8, kg, 09/03/23 10:57:00 EDT, Weight Dosing Start Date: 12/02/23 Status: Ordered Ventolin HFA 90 mcg/inh inhalation aerosol 1 puffs, Inhale, every 4 hr, PRN as needed for wheezing, # 18 g, 4 Refill(s), Pharmacy: [facility] #93, 162.56, cm, 01/31/23 13:50:00 EST, Height, 77.75, kg, 05/01/23 8:57:00 EDT, Weight Dosing Start Date: 05/21/23 Status: Ordered Vitamin D3 1000 intl units oral capsule 25 mcg = 1 cap, Oral, Daily, take one capsule daily, # 90 cap, 0 Refill(s), Pharmacy: [facility] #58, 163.83, cm, 01/10/23 10:34:00 EST, Height, 64.86, kg, 01/10/23 10:36:00 EST, Weight Dosing Start Date: 01/10/23 Status: Ordered ZyrTEC 10 mg oral tablet 10 mg = 1 tab, Oral, Daily, # 90 tab, 0 Refill(s), Pharmacy: [facility] #93, 162.56, cm, 01/31/2313:50:00 EST, Height, 77.75, [...] related Confirmed Active Body dermatophytosis Confirmed Active Callus of foot Confirmed Active [id number] of left forearm Confirmed Active GERD (gastroesophageal [...] Results Laboratory List Name Date .Urinalysis POCT 01/02/24 Urinalysis Microscopic 01/02/24 Most recent to oldest [Reference Range]: 1 UA WBC [0-3] >100 *ABN* (01/02/24 11:21 AM) UA RBC [0-2] >100 (01/02/24 11:21 AM) UA Bacteria Few /HPF *ABN* (01/02/24 11:21 AM) UA Mucous None Seen /HPF (01/02/24 11:21 AM) UA Squam Epithelial [None Seen] None See n (01/02/24 11:21 AM) UA Culture Ind?. Indicated (01/02/24 11:21 AM) Method of Collect POC Clean Catch *NA* (01/02/24 11:21 AM) Specific [place], Ur POC 1.020 *NA* (01/02/24 11:21 AM) Specimen Color POC Yellow *NA* (01/02/24 11:21 AM) Glucose, Urine POC [Negative] Negative (01/02/24 11:21 AM) Bilirubin, Urine POC [Negative] Negative (01/02/24 11:21 AM) Ketones, Urine POC [Negative] Trace *ABN* (01/02/24 11:21 AM) Blood, Urine POC [Negative] Large *ABN* (01/02/24 11:21 AM) pH, Urine POC 6.5 *NA* (01/02/24 11:21 AM) Protein, Urine POC [Negative] 2+ *ABN* (01/02/24 11:21 AM) Urobilinogen, Urine POC Normal (01/02/24 11:21 AM) Nitrite, Urine POC [Negative] Negative (01/02/24 11:21 AM) Leuk Esterase, Urine POC [Negative] Mode rate *ABN* (01/02/24 11:21 AM) Clarity, Urine POC [Clear] Cloudy *ABN* (01/02/24 11:21 AM) Social History Social History Type Response Tobacco Former tobacco user Tobacco Use:. 1 PPD per day. Started age 7.0 Years. 1 Sex Female Sex Representation Female (finding) 1Pt reports she quit smoking last week in July 2022 Patient Care team information Care Team Personnel Name: Joey Moreau MARKER SHIPMENTS Position: Physician Member Role: Informed Provider Address: [address] [place] [address]- Care Team Related Persons Name: SADI GONZALEZ Name: HOLLIS GONZALEZ Insurance Providers Guarantor name: EMILE GONZALEZ Health Plan Information #: 1 Payer: [employer] Member Number: [id number] Policy Number: NA Health Plan Information #: 2 Payer: [facility] MEDICAID Member Number: [id number] Policy Number: NA
--- OUTSIDE RECORDS SUMMARY | 2024-01-25 13:34 | XMS_ITS | Continuity of Care Document ---
Author Organization [facility] Address [address] [place] [address] Care Team Providers Care Drapery And Upholstery Estimator Name Role Phone Joey Ambrose Primary Care Physician Encounter [facility] Date(s): 09/08/22 - 09/08/[address] [address] Discharge Disposition: Home or Self Care Attending Physician: Joey Ambrose NP Admitting Physician: Joey Ambrose OLEOMARGARINE MAKER Allergies, Adverse Reactions, Alerts No Known Medication Allergies Assessment and Plan Future Appointments Diagnostic Tests Pending * Urinalysis Notify Lab 09/08/22 Future Scheduled Tests Radiology* CT Low Dose Lung Screening 08/15/22 * US Renal Bilateral 08/18/22 Medications albuterol 90 mcg/inh aerosol inhaler 1 puffs, Inhale, every 4 hr, PRN as needed for wheezing, # 8 g, 0 Refill(s), Pharmacy: [facility] #[id number] Start Date: 08/15/22 Status: Ordered ALCOHOL PADS ALCOHOL PADS, Alcohol pred pad, Supply, See instructions, # 100 EA, 6 Refill(s), Pharmacy: [facility] #[id number] Start Date: 08/15/22 Status: Ordered BD SHARPS CONTAINER 1 GALLON BD SHARPS CONTAINER 1 GALLON, BD SHARPS CONTAINER 1 GALLON, Supply, See instructions, # 1 EA, 3 Refill(s), Pharmacy: [facility] #58 Start Date: 08/16/22 Status: Ordered cyclobenzaprine 5 mg oral tablet See Instructions, PRN as needed for muscle spasm, 1 tab Oral three times a day as needed for restless legs or back pain., # 45 tab, 1 Refill(s), Pharmacy: [facility] #58 Start Date: 09/08/22 Status: Ordered Freestyle Daniel 14 day Sensor Kit Freestyle Daniel 14 day Sensor Kit, Freestyle Daniel 14 day Sensor Kit: Apply one sensor for 14 days,replace and apply new sensor in fresh location., Supply, See instructions, # 6 EA, 3 Refill(s), Pharmacy: [facility] #58 Start Date: 08/16/22 Status: Ordered FREESTYLE DANIEL II FREESTYLE DANIEL II, FREESTYLE DANIEL II meter kit, Supply, See instructions, # 1 EA, 1 Refill(s), Pharmacy: [facility] #[id number] Start Date: 08/15/22 Status: Ordered Insulin Pen Needle (any brand Covered) 31 x 5 mm Insulin Pen Needle (any brand Covered) 31 x 5 mm, Insulin Pen Needle (any brand Covered) 31 x 5 mm,1 box of #90 uses 4 daily With long acting insulin and Short acting insulin prior to each meal 3x/day, Supply, See instructions, # 1 EA, 6 Refill(s), Pharmacy: [facility] #58 Start Date: 08/15/22 Status: Ordered Lantus 100 units/mL subcutaneous solution 10 units =, Subcutaneous, Daily, 10 units subcutaneous once in the morning, # 10 mL, 6 Refill(s) Start Date: 08/15/22 Status: Ordered mupirocin 2% topical ointment 1 hector, Topical, TID, # 30 g, 0 Refill(s), Pharmacy: [facility] #58 Start Date: 08/23/22 Status: Ordered NovoLOG [...] sites, # 15 mL, 6 Refill(s), Pharmacy: [facility] #58 Start Date: 08/15/22 Status: Ordered pravastatin 40 mg oral tablet 40 mg = 1 tab, Oral, Daily, # 90 tab, 3 Refill(s), Pharmacy: [facility] #58 Start Date: 09/08/22 Status: Ordered Symbicort 80 mcg-4.5 mcg/inh inhalation aerosol 2 puffs, Inhale, BID, # 6.9 g, 6 Refill(s), Pharmacy: [facility] #58 Start Date: 08/16/22 Status: Ordered Problem List Condition Confirmation Course Effective Dates Status Health St atus Informant HLD (hyperlipidemia) Confirmed Active Restless leg syndrome Confirmed Active DM II (diabetes mellitus, type II), controlled Confirmed Active Results Laboratory List Name Date .Urinalysis POCT 09/08/22 Most recent to oldest [Reference Range]: 1 Method of Collect POC Clean Catch *NA* (09/08/22 2:59 PM) Specific [place], Ur POC 1.010 *NA* (09/08/22 2:59 PM) Specimen Color POC Yellow *NA* (09/08/22 2:59 PM) Glucose, Urine POC [Negative] Negative (09/08/22 2:59 PM) Bilirubin, Urine POC [Negative] Negative (09/08/22 2:59 PM) Ketones, Urine POC [Negative] Negative (09/08/22 2:59 PM) Blood, Urine POC [Negative] Negative (09/08/22 2:59 PM) pH, Urine POC 5.5 *NA* (09/08/22 2:59 PM) Protein, Urine POC [Negative] Negative (09/08/22 2:59 PM) Urobilinogen, Urine POC Normal (09/08/22 2:59 PM) Nitrite, Urine POC [Negative] Negative (09/08/22 2:59 PM) Leuk Esterase, Urine POC [Negative] Nega tive (09/08/22 2:59 PM) Clarity, Urine POC [Clear] Clear (09/08/22 2:59 PM) Social History Social History Type Response Tobacco Former tobacco user Tobacco Use:. 1 PPD per day. Started age 7.0 Years. 1 Sex Female 1Pt reports she quit smoking last week in July 2022 Patient Care team information Care Team Personnel Name: Mona Forman Position: Ambulatory - RN/DICE TABLE OPERATOR (Andre) Member Role: Garage Manager Name: Joey Ambrose NP Position: Physician Member Role: Primary Care Physician Care Team Related Persons Name: SADI GONZALEZ Address: Home [address] [place] [address], [place] [phone] [place] Name: HOLLIS GONZALEZ Address: Home
--- OUTSIDE RECORDS SUMMARY | 2024-01-25 13:34 | XMS_ITS | Continuity of Care Document ---
Author Organization [facility] Address [address] [place] [address] Care Team Providers Care Quality Assurance Representative Name Role Phone Joey Ambrose Primary Care Physician Encounter [facility] Date(s): 08/15/22 - 08/15/[address] [address] Discharge Disposition: Home or Self Care Attending Physician: Joey Ambrose NP Admitting Physician: Joey Ambrose NP Referring Physician: Joey Ambrose PAINTER DRUM Allergies, Adverse Reactions, Alerts No Known Medication Allergies Assessment and Plan Future Appointments Future Scheduled Tests Radiology* CT Abdomen and Pelvis w/ Contrast 08/15/22 * CT Low Dose Lung Screening 08/15/22 Medications albuterol 90 mcg/inh aerosol inhaler 1 puffs, Inhale, every 4 hr, PRN as needed for wheezing, # 8 g, 0 Refill(s), Pharmacy: [facility] #[id number] Start Date: 08/15/22 Status: Ordered ALCOHOL PADS ALCOHOL PADS, Alcohol pred pad, Supply, See instructions, # 100 EA, 6 Refill(s), Pharmacy: [facility] #[id number] Start Date: 08/15/22 Status: Ordered BD SHARPS CONTAINER 1 GALLON BD SHARPS CONTAINER 1 GALLON, BD SHARPS CONTAINER 1 GALLON, Supply, See instructions, # 1 EA, 3 Refill(s), Pharmacy: [facility] #58 Start Date: 08/16/22 Status: Ordered Freestyle Daniel 14 day Sensor Kit Freestyle Daniel 14 day Sensor Kit, Freestyle Daniel 14 day Sensor Kit: Apply one sensor for 14 days,replace and apply new sensor in fresh location., Supply, See instructions, # 6 EA, 3 Refill(s), Pharmacy: [facility] #58 Start Date: 08/16/22 Status: Ordered FREESTYLE DANIEL II FREESTYLE DANIEL II, FREESTYLE DANIEL II meter kit, Supply, See instructions, # 1 EA, 1 Refill(s), Pharmacy: [facility] #[id number] Start Date: 08/15/22 Status: Ordered Insulin Pen [...] BID, # 6.9 g, 6 Refill(s), Pharmacy: [facility] #58 Start Date: 08/16/22 Status: Ordered Results Laboratory List Name Date CBC w/o Diff 08/15/22 Comprehensive Metabolic Panel (CMP) 08/15 Hemoglobin A1c 08/15/22 Lipid Panel 08/15/22 Thyroid Stimulating Hormone (TSH) 3 Most recent to oldest [Reference Range]: 1 WBC [5.0-10.0 x10^3/mcL] 6.2 x10^3/mcL (08/15/22 7:56 AM) RBC [4.1-5.3 x10^6/mcL] 4.3 x10^6/mcL (08/15/22 7:56 AM) BUN [7-18 mg/dL] 28 mg/dL *HI* (08/15/22 7:56 AM) Cholesterol Total [50-200 mg/dL] 223 mg/ dL *HI* (08/15/22 7:56 AM) LDL [0-130 mg/dL] 125 mg/dL (08/15/22 7:56 AM) Glucose Level [74-106 mg/dL] 345 mg/dL *HI* (08/15/22 7:56 AM) Potassium Level [3.5-5.1 mmol/L] 4.4 mmo l/L (08/15/22 7:56 AM) MCV [80.0-96.0 fL] 91.6 fL (08/15/22 7:56 AM) HDL [40-60 mg/dL] 52 mg/dL (08/15/22 7:56 AM) AST [15-37 unit/L] 17 unit/L (08/15/22 7:56 AM) ALT [14-59 unit/L] 30 unit/L (08/15/22 7:56 AM) MCHC [31.0-35.0 g/dL] 33.5 g/dL (08/15/22 7:56 AM) Sodium Level [136-145 mmol/L] 135 mmol/L *LOW* (08/15/22 7:56 AM) Hct [37.0-47.0 %] 39.4 % (08/15/22 7:56 AM) Triglycerides [0-150 mg/dL] 228 mg/dL *HI* (08/15/22 7:56 AM) Calcium Level [8.5-10.1 mg/dL] 8.9 mg/dL (08/15/22 7:56 AM) Albumin Level [3.4-5.0 g/dL] 3.4 g/dL (08/15/22 7:56 AM) Protein Total [6.4-8.2 g/dL] 7.2 g/dL (08/15/22 7:56 AM) MCH [26.0-32.0 pg] 30.7 pg (08/15/22 7:56 AM) Bilirubin Total [0.2-1.0 mg/dL] 0.3 mg/d L (08/15/22 7:56 AM) Hgb [12.0-16.0 g/dL] 13.2 g/dL (08/15/22 7:56 AM) Alk Phos [46-146 unit/L] 151 unit/L *HI* (08/15/22 7:56 AM) Platelets [130-450 x10^3/mcL] 274 x10^3/ mcL (08/15/22 7:56 AM) CO2 [21-32 mmol/L] 28 mmol/L (08/15/22 7:56 AM) TSH [0.358-3.740 mcIntlUnit/mL] 1.990 mc IntlUnit/mL (08/15/22 7:56 AM) eGFR Non-AA [>=60] 59 *LOW* (08/15/22 7:56 AM) eGFR AA [>=60] 59 *LOW* (08/15/22 7:56 AM) Hemoglobin A1c [4.0-6.0 %] >13.2 % *HI* (08/15/22 7:56 AM) Chloride Level [98-107 mmol/L] 101 mmol/ L (08/15/22 7:56 AM) RDW-CV [11.5-14.5 %] 12.2 % (08/15/22 7:56 AM) Creatinine Level [0.55-1.02 mg/dL] 1.06 mg/dL *HI* (08/15/22 7:56 AM) Social History Social History Type Response Tobacco Former tobacco user Tobacco Use:. 1 PPD per day. Started age 8.0 Years. 1 Sex Female 1Pt reports she quit smoking last week in July 2022 Patient Care team information Care Team Personnel Name: Mona Forman Position: Ambulatory - RN/CARGO STATION WORKER (Andre) Member Role: Tray Line Worker Name: Joey Ambrose NP Position: Physician Member Role: Primary Care Physician Care Team Related Persons Name: SADI GONZALEZ Address: Home [address] [place] [phone] Name: HOLLIS GONZALEZ Address: [place]
--- OUTSIDE RECORDS SUMMARY | 2024-01-25 13:34 | XMS_ITS | Continuity of Care Document ---
Author Organization [facility] Address [address] [place] [address] Care Team Providers Care Carpenter Helper Hardwood Flooring Name Role Phone Joey Ambrose Primary Care Physician [facility] Date(s): 10/24/22 - 10/24/[address] [address] Discharge Disposition: Home or Self Care Attending Physician: Joey Ambrose ROVING TELLER Admitting Physician: Joey Ambrose ROVING TELLER Referring Physician: Joey Ambrose ROVING TELLER Allergies, Adverse Reactions, Alerts Substance Reaction Severity Status Animal Dander Moderate Active Januvia Swelling Severe Active Victoza Throat swelling Severe Active Dust Mild Active Pollen 1 Moderate Active 1Pollen extracts, grass pollen. Assessment and Plan Future Appointments Immunizations Given and Recorded Vaccine Date Status Refusal Reason tetanus/diphth/pertuss (Tdap) adult/adol 01/05/17 Recorded Medications albuterol 90 mcg/inh aerosol inhaler 1 puffs, Inhale, every 4 hr, PRN as needed for wheezing, # 8 g, 0 Refill(s), Pharmacy: [facility] #[id number] Start Date: 08/15/22 Status: Ordered ALCOHOL PADS ALCOHOL PADS, Alcohol pred pad, Supply, See instructions, # 100 EA, 6 Refill(s), Pharmacy: [facility] #[id number] Start Date: 08/15/22 Status: Ordered ALCOHOL PREP PADS 100S ALCOHOL PREP PADS 100S, USE DIRECTED Start Date: 09/26/22 Status: Ordered BD SHARPS CONTAINER 1 GALLON BD SHARPS CONTAINER 1 GALLON, BD SHARPS CONTAINER 1 GALLON, Supply, See instructions, # 1 EA, 3 Refill(s), Pharmacy: [facility] #58 Start Date: 08/16/22 Status: Ordered cyclobenzaprine 5 mg oral tablet See Instructions, PRN as needed for muscle spasm, 1 tab Oral three times a day as needed for restless legs or back pain., # 45 tab, 2 Refill(s), Pharmacy: [facility] #58 Start Date: 10/10/22 Status: Ordered FREESTY [...] instructions, # 2 EA, 6 Refill(s), Pharmacy: [facility] #58 Start Date: 10/11/22 Status: Ordered FREESTYLE DANIEL II FREESTYLE DANIEL II, FREESTYLE DANIEL II meter kit, Supply, See instructions, # 1 EA, 1 Refill(s), Pharmacy: [facility] #[id number] Start Date: 08/15/22 Status: Ordered HumaLOG KwikPen 100 units/mL injectable solution TAKE PER SLIDING SCALE: 70-120=0 UNITS, 121-150=2 UNITS, 151-200 4=UNITS, 201- 250=5 UNITS, 251-300=6 UNITS, 301-350=7 UNITS, 351-400=8 UNITS Start Date: 09/26/22 Status: Ordered Insulin Pen Needle (any brand Covered) 31 x 5 mm Insulin Pen Needle (any brand Covered) 31 x 5 mm, Insulin Pen Needle (any brand Covered) 31 x 5 mm,1 box of #90 uses 4 daily With long acting insulin and Short acting insulin prior to each meal 3x/day, Supply, See instructions, # 1 EA, 6 Refill(s), Pharmacy: [facility] #58 Start Date: 09/12/22 Status: Ordered Lantus 100 units/mL subcutaneous solution 16 units =, Subcutaneous, Daily, 16 units subcutaneous once in the morning, # 15 mL, 6 Refill(s), Pharmacy: [facility] #58 Start Date: 10/20/22 Status: Ordered loratadine 10 mg oral tablet 10 mg = 1 tab, Oral, Daily, # 30 tab, 0 Refill(s) Start Date: 09/26/22 Status: Ordered Mag-Ox 400 oral tablet 400 mg = 1 tab, Oral, Daily, # 90 tab, 3 Refill(s), Pharmacy: [facility] #58 Start Date: 09/11/22 Status: Ordered montelukast 10 mg oral tablet TAKE ONE TABLET BY MOUTH EVERY DAY Start Date: 09/26/22 Status: Ordered mupirocin 2% topical ointment 1 hector, Topical, TID, # 30 g, 0 Refill(s), Pharmacy: [facility] #58 Start Date: 08/23/22 Status: Ordered NovoLOG [...] sites, # 15 mL, 6 Refill(s), Pharmacy: [facility] #58 Start Date: 08/15/22 Status: Ordered PEN NEEDLES MIS [id number] PEN NEEDLES MIS 54FU2OM, 0 Refill(s) Start Date: 09/26/22 Status: Ordered pravastatin 40 mg oral tablet 40 mg = 1 tab, Oral, Daily, # 90 tab, 3 Refill(s), Pharmacy: [facility] #58 Start Date: 09/08/22 Status: Ordered Right Wrist Brace Right Wrist Brace, Apply to wrist during the day when doing lifting or painful activities., Supply,See instructions, # 1 EA, 0 Refill(s) Start Date: 10/20/22 Status: Ordered Symbicort 80 mcg-4.5 mcg/inh inhalation aerosol 2 puffs, Inhale, BID, # 10.2 g, 6 Refill(s), Pharmacy: [facility] #[id number] Start Date: 10/11/22 Status: Ordered TECHLITE PEN NEEDLE 31GX3/16 TECHLITE PEN NEEDLE 31GX3/16, USE 4 ONCE DAILY WITH LONG ACTION AND SHORT ACTING INSULIN Start Date: 09/26/22 Status: Ordered Problem List Condition Confirmation Course [...] 2019 novel coronavirus 1 Confirmed 10/24/22 Active [id number] of left forearm Confirmed Active GERD (gastroesophageal [...] ovary remaining. Results Laboratory List Name Date SARS-CoV-2 (COVID-19)/Flu/RSV ([facility] ) (COVID-19/Flu/RSV ([facility])) 10/24/22 Most recent to oldest [Reference Range]: 1 SARS-CoV-2(Covid19)PCR([facility] COVFLURSV) [Negative] Positive *ABN* (10/24/22 10:48 AM) Flu A ([facility] COVFLURSV) [Negative] Nega tive (10/24/22 10:48 AM) RSV ([facility] COVFLURSV) [Negative] Negati ve (10/24/22 10:48 AM) Flu B ([facility] COVFLURSV) [Negative] Nega tive (10/24/22 10:48 AM) Social History Social History Type Response Tobacco Former tobacco user Tobacco Use:. 1 PPD per day. Started age 7.0 Years. 1 Sex Female 1Pt reports she quit smoking last week in July 2022 Patient Care team information Care Team Personnel Name: Mona Forman Position: Ambulatory - RN/AUTOMOBILE SERVICE STATION MANAGER (Andre) Member Role: Regulated Program Manager Name: Joey Ambrose ROVING TELLER Position: Physician Member Role: Primary Care Physician Care Team Related Persons Name: SADI GONZALEZ Address: [address] [phone] [place] Name: HOLLIS GONZALEZ
--- OUTSIDE RECORDS SUMMARY | 2024-01-25 13:35 | XMS_ITS | Continuity of Care Document ---
Author Organization [facility] Address [address] [place] [address] Care Team Providers Care Finish Filer Name Role Phone Joey Ambrose Primary Care Physician Encounter [facility] Date(s): 09/07/22 - 09/07/[address] [address] Discharge Disposition: Home or Self Care Attending Physician: Joey Ambrose NP Admitting Physician: Joey Ambrose NP Referring Physician: Joey Ambrose MATERIAL PLANNER Allergies, Adverse Reactions, Alerts No Known Medication Allergies Assessment and Plan Future Appointments Future Scheduled Tests Radiology* CT Low Dose Lung Screening 08/15/22 * US Renal Bilateral 08/18/22 Medications albuterol 90 mcg/inh aerosol inhaler 1 puffs, Inhale, every 4 hr, PRN as needed for wheezing, # 8 g, 0 Refill(s), Pharmacy: [facility] #[id number] Start Date: 08/15/22 Status: Ordered ALCOHOL PADS ALCOHOL PADS, Alcohol pred pad, Supply, See instructions, # 100 EA, 6 Refill(s), Pharmacy: [facility] #[id number] Start Date: 08/15/22 Status: Ordered BD SHARPS CONTAINER 1 GALLON BD SHARPS CONTAINER 1 GALLON, BD SHARPS CONTAINER 1 GALLON, Supply, See instructions, # 1 EA, 3 Refill(s), Pharmacy: [facility] #58 Start Date: 08/16/22 Status: Ordered Freestyle Daniel 14 day Sensor Kit Freestyle Daniel 14 day Sensor Kit, Freestyle Daniel 14 day Sensor Kit: Apply one sensor for 14 days,replace and apply new sensor in fresh location., Supply, See instructions, # 6 EA, 3 Refill(s), Pharmacy: [facility] #58 Start Date: 08/16/22 Status: Ordered FREESTYLE DANIEL II FREESTYLE DANIEL II, FREESTYLE DANIEL II meter kit, Supply, See instructions, # 1 EA, 1 Refill(s), Pharmacy: [facility] #[id number] Start Date: 08/15/22 Status: Ordered Insulin Pen Needle (any brand Covered) 31 x 5 mm Insulin Pen Needle (any brand Covered) 31 x 5 mm, Insulin Pen Needle (any brand Covered) 31 x 5 mm,1 box of #90 uses 4 daily With long acting insulin and Short acting insulin prior to each meal 3x/day, Supply, See instructions, # 1 EA, 6 Refill(s), Pharmacy: [facility] #58 Start Date: 08/15/22 Status: Ordered Lantus 100 units/mL subcutaneous solution 10 units =, Subcutaneous, Daily, 10 units subcutaneous once in the morning, # 10 mL, 6 Refill(s) Start Date: 08/15/22 Status: Ordered mupirocin 2% topical ointment 1 hector, Topical, TID, # 30 g, 0 Refill(s), Pharmacy: [facility] #58 Start Date: 08/23/22 Status: Ordered NovoLOG [...] sites, # 15 mL, 6 Refill(s), Pharmacy: [facility] #58 Start Date: 08/15/22 Status: Ordered Symbicort 80 mcg-4.5 mcg/inh inhalation aerosol 2 puffs, Inhale, BID, # 6.9 g, 6 Refill(s), Pharmacy: [facility] #58 Start Date: 08/16/22 Status: Ordered Results Laboratory List Name Date CBC w/o Diff 09/07/22 Comprehensive Metabolic Panel (CMP) Most recent to oldest [Reference Range]: 1 WBC [5.0-10.0 x10^3/mcL] 6.1 x10^3/mcL (09/07/22 10:31 AM) RBC [4.1-5.3 x10^6/mcL] 4.1 x10^6/mcL (09/07/22 10:31 AM) BUN [7-18 mg/dL] 32 mg/dL *HI* (09/07/22 10:31 AM) Glucose Level [74-106 mg/dL] 113 mg/dL *HI* (09/07/22 10: AM) Potassium Level [3.5-5.1 mmol/L] 4.1 mmo l/L (09/07/22 10:31 AM) MCV [80.0-96.0 fL] 93.4 fL (09/07/22 10: AM) AST [15-37 unit/L] 32 unit/L (09/07/22 10: AM) ALT [14-59 unit/L] 42 unit/L (09/07/22 10: AM) MCHC [31.0-35.0 g/dL] 33.2 g/dL (09/07/22 10:31 AM) Sodium Level [136-145 mmol/L] 137 mmol/L (09/07/22 10:31 AM) Hct [37.0-47.0 %] 38.0 % (09/07/22 10: AM) Calcium Level [8.5-10.1 mg/dL] 8.9 mg/dL (09/07/22 10:31 AM) Albumin Level [3.4-5.0 g/dL] 3.2 g/dL *LOW* (09/07/22 10:31 AM) Protein Total [6.4-8.2 g/dL] 6.9 g/dL (09/07/22 10:31 AM) MCH [26.0-32.0 pg] 31.0 pg (09/07/22 10:31 AM) Bilirubin Total [0.2-1.0 mg/dL] 0.2 mg/d L (09/07/22 10:31 AM) Hgb [12.0-16.0 g/dL] 12.6 g/dL (09/07/22 10:31 AM) Alk Phos [46-146 unit/L] 116 unit/L (09/07/22 10:31 AM) Platelets [130-450 x10^3/mcL] 278 x10^3/ mcL (09/07/22 10:31 AM) CO2 [21-32 mmol/L] 30 mmol/L (09/07/22 10:31 AM) eGFR Non-AA [>=60] 63 (09/07/22 10:31 AM) eGFR AA [>=60] 63 (09/07/22 10:31 AM) Chloride Level [98-107 mmol/L] 102 mmol/ L (09/07/22 10:31 AM) RDW-CV [11.5-14.5 %] 12.3 % (09/07/22 10:31 AM) Creatinine Level [0.55-1.02 mg/dL] 1.01 mg/dL (09/07/22 10:31 AM) Social History Social History Type Response Tobacco Former tobacco user Tobacco Use:. 1 PPD per day. Started age 7.0 Years. 1 Sex Female 1Pt reports she quit smoking last week in July 2022 Patient Care team information Care Team Personnel Name: Mona Forman Position: Ambulatory - RN/PIECE MAKER (Andre) Member Role: Vocational Director Name: Joey Ambrose NP Position: Physician Member Role: Primary Care Physician Care Team Related Persons Name: SADI GONZALEZ Address: [address] [phone] Name: HOLLIS GONZALEZ Address: [place]
--- OUTSIDE RECORDS SUMMARY | 2024-01-25 13:35 | XMS_ITS | Continuity of Care Document ---
Author Organization [facility] Address [address] [place] [address] Care Team Providers Care Laser Printing Operator Name Role Phone Joey Ambrose Primary Care Physician Encounter [facility] Date(s): 09/19/22 - 09/19/[address] [address] Encounter Diagnosis Former smoker(Discharge Diagnosis) - 09/19/22 Discharge Disposition: Home or Self Care Attending Physician: Joey Ambrose MEDIA PROFESSIONAL Admitting Physician: Joey Ambrose MEDIA PROFESSIONAL Referring Physician: Joey Ambrose MEDIA PROFESSIONAL Allergies, Adverse Reactions, Alerts No Known Medication Allergies Assessment and Plan Future Appointments Future Scheduled Tests Radiology* US Renal Bilateral 08/18/22 Medications albuterol 90 mcg/inh aerosol inhaler 1 puffs, Inhale, every 4 hr, PRN as needed for wheezing, # 8 g, 0 Refill(s), Pharmacy: [facility] #[id number] Start Date: 08/15/22 Status: Ordered ALCOHOL PADS ALCOHOL PADS, Alcohol pred pad, Supply, See instructions, # 100 EA, 6 Refill(s), Pharmacy: [facility] #[id number] Start Date: 08/15/22 Status: Ordered BD SHARPS CONTAINER 1 GALLON BD SHARPS CONTAINER 1 GALLON, BD SHARPS CONTAINER 1 GALLON, Supply, See instructions, # 1 EA, 3 Refill(s), Pharmacy: [facility] #58 Start Date: 08/16/22 Status: Ordered cyclobenzaprine 5 mg oral tablet See Instructions, PRN as needed for muscle spasm, 1 tab Oral three times a day as needed for restless legs or back pain., # 45 tab, 1 Refill(s), Pharmacy: [facility] #58 Start Date: 09/08/22 Status: Ordered Freestyle Daniel 14 day Sensor Kit Freestyle Daniel 14 day Sensor Kit, Freestyle Daniel 14 day Sensor Kit: Apply one sensor for 14 days,replace and apply new sensor in fresh location., Supply, See instructions, # 6 EA, 3 Refill(s), Pharmacy: [facility] #58 Start Date: 08/16/22 Status: Ordered FREESTYLE DANIEL II FREESTYLE DANIEL II, FREESTYLE DANIEL II meter kit, Supply, See instructions, # 1 EA, 1 Refill(s), Pharmacy: [facility] #[id number] Start Date: 08/15/22 Status: Ordered Insulin Pen Needle (any brand Covered) 31 x 5 mm Insulin Pen Needle (any brand Covered) 31 x 5 mm, Insulin Pen Needle (any brand Covered) 31 x 5 mm,1 box of #90 uses 4 daily With long acting insulin and Short acting insulin prior to each meal 3x/day, Supply, See instructions, # 1 EA, 6 Refill(s), Pharmacy: [facility] #58 Start Date: 09/12/22 Status: Ordered Lantus 100 units/mL subcutaneous solution 10 units =, Subcutaneous, Daily, 10 units subcutaneous once in the morning, # 10 mL, 6 Refill(s) Start Date: 08/15/22 Status: Ordered Mag-Ox 400 oral tablet 400 mg = 1 tab, Oral, Daily, # 90 tab, 3 Refill(s), Pharmacy: [facility] #58 Start Date: 09/11/22 Status: Ordered mupirocin 2% topical ointment 1 hector, Topical, TID, # 30 g, 0 Refill(s), Pharmacy: [facility] #58 Start Date: 08/23/22 Status: Ordered NovoLOG [...] sites, # 15 mL, 6 Refill(s), Pharmacy: [facility] #58 Start Date: 08/15/22 Status: Ordered pravastatin 40 mg oral tablet 40 mg = 1 tab, Oral, Daily, # 90 tab, 3 Refill(s), Pharmacy: [facility] #58 Start Date: 09/08/22 Status: Ordered Symbicort 80 mcg-4.5 mcg/inh inhalation aerosol 2 puffs, Inhale, BID, # 6.9 g, 6 Refill(s), Pharmacy: [facility] #58 Start Date: 08/16/22 Status: Ordered Problem List Condition Confirmation Course Effective Dates Status Health St atus Informant HLD (hyperlipidemia) Confirmed Active Restless leg syndrome Confirmed Active DM II (diabetes mellitus, type II), controlled Confirmed Active Social History Social History Type Response Tobacco Former tobacco user Tobacco Use:. 1 PPD per day. Started age 7.0 Years. 1 Sex Female 1Pt reports she quit smoking last week in July 2022 Patient Care team information Care Team Personnel Name: Mona Forman Position: Ambulatory - RN/JEWEL BEARING DRILLER (Andre) Member Role: Hides And Skins Colorer Name: Joey Ambrose MEDIA PROFESSIONAL Position: Physician Member Role: Primary Care Physician Care Team Related Persons Name: SADI GONZALEZ Address: [address] [phone] Name: HOLLIS GONZALEZ Address: [place]
--- OUTSIDE RECORDS SUMMARY | 2024-01-25 13:35 | XMS_ITS | Continuity of Care Document ---
Author Organization [facility] Address [address] [place] [address] Care Team Providers Care Beamer Hand Name Role Phone Joey Ambrose Primary Care Physician [facility] Date[facility]s): 09/13/22 - 09/13/22 [facility] [address] [place] [address] Allergies, Adverse Reactions, Alerts No Known Medication Allergies Assessment and Plan Future Appointments Future Scheduled Tests Radiology* CT Low Dose Lung Screening 08/15/22 * US Renal Bilateral 08/18/22 Medications albuterol 90 mcg/inh aerosol inhaler 1 puffs, Inhale, every 4 hr, PRN as needed for wheezing, # 8 g, 0 Refill(s), Pharmacy: [facility] #[id number] Start Date: 08/15/22 Status: Ordered ALCOHOL PADS ALCOHOL PADS, Alcohol pred pad, Supply, See instructions, # 100 EA, 6 Refill(s), Pharmacy: [facility] #[id number] Start Date: 08/15/22 Status: Ordered BD SHARPS CONTAINER 1 GALLON BD SHARPS CONTAINER 1 GALLON, BD SHARPS CONTAINER 1 GALLON, Supply, See instructions, # 1 EA, 3 Refill(s), Pharmacy: [facility] #58 Start Date: 08/16/22 Status: Ordered cyclobenzaprine 5 mg oral tablet See Instructions, PRN as needed for muscle spasm, 1 tab Oral three times a day as needed for restless legs or back pain., # 45 tab, 1 Refill(s), Pharmacy: [facility] #58 Start Date: 09/08/22 Status: Ordered Freestyle Daniel 14 day Sensor Kit Freestyle Daniel 14 day Sensor Kit, Freestyle Daniel 14 day Sensor Kit: Apply one sensor for 14 days,replace and apply new sensor in fresh location., Supply, See instructions, # 6 EA, 3 Refill(s), Pharmacy: [facility] #58 Start Date: 08/16/22 Status: Ordered FREESTYLE DANIEL II FREESTYLE DANIEL II, FREESTYLE DANIEL II meter kit, Supply, See instructions, # 1 EA, 1 Refill(s), Pharmacy: [facility] #[id number] Start Date: 08/15/22 Status: Ordered Insulin Pen Needle (any brand Covered) 31 x 5 mm Insulin Pen Needle (any brand Covered) 31 x 5 mm, Insulin Pen Needle (any brand Covered) 31 x 5 mm,1 box of #90 uses 4 daily With long acting insulin and Short acting insulin prior to each meal 3x/day, Supply, See instructions, # 1 EA, 6 Refill(s), Pharmacy: [facility] #58 Start Date: 09/12/22 Status: Ordered Lantus 100 units/mL subcutaneous solution 10 units =, Subcutaneous, Daily, 10 units subcutaneous once in the morning, # 10 mL, 6 Refill(s) Start Date: 08/15/22 Status: Ordered Mag-Ox 400 oral tablet 400 mg = 1 tab, Oral, Daily, # 90 tab, 3 Refill(s), Pharmacy: [facility] #58 Start Date: 09/11/22 Status: Ordered mupirocin 2% topical ointment 1 hector, Topical, TID, # 30 g, 0 Refill(s), Pharmacy: [facility] #58 Start Date: 08/23/22 Status: Ordered NovoLOG [...] sites, # 15 mL, 6 Refill(s), Pharmacy: [facility] #58 Start Date: 08/15/22 Status: Ordered pravastatin 40 mg oral tablet 40 mg = 1 tab, Oral, Daily, # 90 tab, 3 Refill(s), Pharmacy: [facility] #58 Start Date: 09/08/22 Status: Ordered Symbicort 80 mcg-4.5 mcg/inh inhalation aerosol 2 puffs, Inhale, BID, # 6.9 g, 6 Refill(s), Pharmacy: [facility] #58 Start Date: 08/16/22 Status: Ordered Problem [...] Personnel Name: Mona Forman Position: Ambulatory - RN/LOCK CORNER MACHINE OPERATOR (Andre) Member Role: Cushion Builder Name: Joey Ambrose NP Position: Physician Member Role: Primary Care Physician Care Team Related Persons Name: SADI GONZALEZ Address: [address] [phone] Name: HOLLIS GONZALEZ Address: [place]
--- OUTSIDE RECORDS SUMMARY | 2024-01-25 13:35 | XMS_ITS | Continuity of Care Document ---
Author Organization [facility] Address [address] [place] [address] Care Team Providers Care Certified Surgical Tech/First Assistant Name Role Phone Joey Moreau Primary Care Physician Encounter [facility] Date(s): 01/10/23 - 01/10/[address] [address] Discharge Disposition: Home or Self Care Attending Physician: Joey Moreau NP Admitting Physician: Joey Moreau NP Referring Physician: Joey Moreau LAMP SHADE SEWER Allergies, Adverse Reactions, Alerts Substance Reaction Severity Status Animal Dander Moderate Active Januvia Swelling Severe Active Victoza Throat swelling Severe Active Dust Mild Active Pollen 1 Moderate Active 1Pollen extracts, grass pollen. Assessment and Plan Future Appointments Diagnostic Tests Pending * Urine Culture 01/10/23 Future Scheduled Tests Laboratory* Ferritin 01/11/23 Radiology* BD Bone Density DEXA Axial Skeleton 12/12/22 Immunizations Given and Recorded Vaccine Date Status Refusal Reason tetanus/diphth/pertuss (Tdap) adult/adol 01/05/17 Recorded Medications albuterol 90 mcg/inh aerosol inhaler 1 puffs, Inhale, every 4 hr, PRN as needed for wheezing, # 8 g, 0 Refill(s), Pharmacy: [facility] #[id number] Start Date: 08/15/22 Status: Ordered ALCOHOL PADS ALCOHOL PADS, Alcohol pred pad, Supply, See instructions, # 100 EA, 6 Refill(s), Pharmacy: [facility] #[id number] Start Date: 08/15/22 Status: Ordered ALCOHOL PREP PAD MED 70% ALCOHOL PREP PAD MED 70%, 0 Refill(s) Start Date: 01/08/23 Status: Ordered ALCOHOL PREP PADS 100S ALCOHOL PREP PADS 100S, USE DIRECTED Start Date: 09/26/22 Status: Ordered BD SHARPS CONTAINER 1 GALLON BD SHARPS CONTAINER 1 GALLON, BD SHARPS CONTAINER 1 GALLON, Supply, See instructions, # 1 EA, 3 Refill(s), Pharmacy: [facility] #58 Start Date: 08/16/22 Status: Ordered cyclobenzaprine 5 mg oral tablet See Instructions, PRN as needed for muscle spasm, 1 tab Oral three times a day as needed for restless legs or back pain., # 45 tab, 2 Refill(s), Pharmacy: [facility] #58 Start Date: 10/10/22 Status: Ordered FREESTY [...] instructions, # 2 EA, 6 Refill(s), Pharmacy: [facility] #58 Start Date: 10/11/22 Status: Ordered FREESTYLE DANIEL II FREESTYLE DANIEL II, FREESTYLE DANILE II meter kit, Supply, See instructions, # 1 EA, 1 Refill(s), Pharmacy: [facility] #[id number] Start Date: 08/15/22 Status: Ordered gabapentin 100 mg oral capsule See Instructions, take 1 capsules PO at night,, # 90 cap, 0 Refill(s), Pharmacy: [facility] #58, 163.83, cm, 01/10/23 10:34:00 EST, Height, [...] UNITS, # 15 mL, 3 Refill(s), Pharmacy: [facility] #58, 163, cm, 09/28/22 13:40:00 EDT, Height, [...] instructions, # 1 EA, 6 Refill(s), Pharmacy: [facility] #58 Start Date: 09/12/22 Status: Ordered Lantus 100 units/mL subcutaneous solution 16 units =, Subcutaneous, Daily, 16 units subcutaneous once in the morning, # 15 mL, 6 Refill(s), Pharmacy: [facility] #58 Start Date: 10/20/22 Status: Ordered loratadine 10 mg oral tablet 10 mg = 1 tab, Oral, Daily, # 30 tab, 0 Refill(s) Start Date: 09/26/22 Status: Ordered Mag-Ox 400 oral tablet 400 mg = 1 tab, Oral, Daily, # 90 tab, 3 Refill(s), Pharmacy: [facility] #58 Start Date: 09/11/22 Status: Ordered montelukast 10 mg oral tablet TAKE ONE TABLET BY MOUTH EVERY DAY Start Date: 09/26/22 Status: Ordered mupirocin 2% topical ointment 1 hector, Topical, TID, # 30 g, 0 Refill(s), Pharmacy: [facility] #58 Start Date: 08/23/22 Status: Ordered NovoLOG [...] sites, # 15 mL, 6 Refill(s), Pharmacy: [facility] #58 Start Date: 08/15/22 Status: Ordered PEN NEEDLES MIS [id number] PEN NEEDLES MIS [id number], 0 Refill(s) Start Date: 09/26/22 Status: Ordered pravastatin 40 mg oral tablet 40 mg = 1 tab, Oral, Daily, # 90 tab, 3 Refill(s), Pharmacy: [facility] #58 Start Date: 09/08/22 Status: Ordered Right Wrist Brace Right Wrist Brace, Apply to wrist during the day when doing lifting or painful activities., Supply,See instructions, # 1 EA, 0 Refill(s) Start Date: 10/20/22 Status: Ordered Symbicort 80 mcg-4.5 mcg/inh inhalation aerosol 2 puffs, Inhale, BID, # 10.2 g, 6 Refill(s), Pharmacy: [facility] #[id number] Start Date: 10/11/22 Status: Ordered TECHLITE PEN NEEDLE 31GX3/16 TECHLITE PEN NEEDLE 31GX3/16, USE 4 ONCE DAILY WITH LONG ACTION AND SHORT ACTING INSULIN Start Date: 09/26/22 Status: Ordered Ventolin HFA 90 mcg/inh inhalation aerosol 1 puffs, Inhale, every 4 hr, PRN as needed for wheezing, # 18 g, 4 Refill(s), Pharmacy: [facility] #[id number] Start Date: 10/25/22 Status: Ordered Vitamin D3 1000 intl units oral capsule 25 mcg = 1 cap, Oral, Daily, take one capsule daily, # 90 cap, 0 Refill(s), Pharmacy: [facility] #58, 163.83, cm, 01/10/23 10:34:00 EST, Height, [...] 2019 novel coronavirus 1 Confirmed 10/24/22 Active [id number] of left forearm Confirmed Active GERD (gastroesophageal [...] ovary remaining. Results Laboratory List Name Date Urinalysis Microscopic 01/10/23 Urinalysis with Micro if Indicated and C ulture if Indicated 01/10/23 Most recent to oldest [Reference Range]: 1 UA Color Yellow (01/10/23 11:38 AM) UA WBC [0-3] >100 *ABN* (01/10/23 11:38 AM) UA Urobilinogen Normal (01/10/23 11:38 AM) UA Bili [Negative] Negative (01/10/23 11:38 AM) UA Ketones Negative (01/10/23 11:38 AM) UA RBC [0-2] 0-2 (01/10/23 11:38 AM) UA Leuk Est 2+ *ABN* (01/10/23 11:38 AM) UA Nitrite Positive *ABN* (01/10/23 11:38 AM) UA Glucose [Negative] Trace *ABN* (01/10/23 11:38 AM) UA Bacteria Moderate /HPF *ABN* (01/10/23 11:38 AM) UA Protein Negative (01/10/23 11:38 AM) UA Blood Negative (01/10/23 11:38 AM) UA Mucous None Seen /HPF (01/10/23 11:38 AM) UA Spec Grav <=1.005 *NA* (01/10/23 11:38 AM) UA Squam Epithelial [None Seen] Rare (01/10/23 11:38 AM) UA pH 5.5 *NA* (01/10/23 11:38 AM) UA Appear Hazy *ABN* (01/10/23 11:38 AM) UA WBC Clumps 0-1 (01/10/23 11:38 AM) UA Culture Ind?. Indicated (01/10/23 11:38 AM) UA Trans Epi Rare (01/10/23 11:38 AM) Social History Social History Type Response Tobacco Former tobacco user Tobacco Use:. 1 PPD per day. Started age 8.0 Years. 1 Sex Female 1Pt reports she quit smoking last week in July 2022 Patient Care team information Care Team Personnel Name: Dasia, Mona C Position: Ambulatory - RN/TOLL LINE MECHANIC (Andre) Member Role: Guide Name: Joey Moreau LAMP SHADE SEWER Position: Physician Member Role: Informed Provider Address: Address: [address] [place] [address] [place] [address]- Care Team Related Persons Name: SADI GONZALEZ Address: Home [address] [place] [phone] Name: HOLLIS GONZALEZ
--- OUTSIDE RECORDS SUMMARY | 2024-01-25 13:35 | XMS_ITS | Continuity of Care Document ---
Author Organization [facility] Address [address] [place] [address] Care Team Providers Care Senior Training And Development Rep Name Role Phone Joey Moreau Primary Care Physician Encounter [facility] [id number] Date(s): 12/14/22 - 12/14/[address] [address] Discharge Disposition: Home or Self Care Attending Physician: Norma Viera NP Admitting Physician: Norma Viera NP Referring Physician: Norma Viera SALESPERSON USED CARS Allergies, Adverse Reactions, Alerts Substance Reaction Severity [...] wheezing, # 8 g, 0 Refill(s), Pharmacy: [facility] #[id number] Start Date: 08/15/22 Status: Ordered ALCOHOL PADS ALCOHOL PADS, Alcohol pred pad, Supply, See instructions, # 100 EA, 6 Refill(s), Pharmacy: [facility] #[id number] Start Date: 08/15/22 Status: Ordered ALCOHOL PREP PADS 100S ALCOHOL PREP PADS 100S, USE DIRECTED Start Date: 09/26/22 Status: Ordered BD SHARPS CONTAINER 1 GALLON BD SHARPS CONTAINER 1 GALLON, BD SHARPS CONTAINER 1 GALLON, Supply, See instructions, # 1 EA, 3 Refill(s), Pharmacy: [facility] #58 Start Date: 08/16/22 Status: Ordered cyclobenzaprine 5 mg oral tablet See Instructions, PRN as needed for muscle spasm, 1 tab Oral three times a day as needed for restless legs or back pain., # 45 tab, 2 Refill(s), Pharmacy: [facility] #58 Start Date: 10/10/22 Status: Ordered FREESTY [...] instructions, # 2 EA, 6 Refill(s), Pharmacy: [facility] #58 Start Date: 10/11/22 Status: Ordered FREESTYLE DANIEL II FREESTYLE DANIEL II, FREESTYLE DANIEL II meter kit, Supply, See instructions, # 1 EA, 1 Refill(s), [id number] Start Date: 08/15/22 Status: Ordered glipiZIDE 10 mg oral tablet, extended release TAKE ONE TABLET BY MOUTH EVERY DAY Start Date: 12/12/22 Status: Ordered HumaLOG KwikPen 100 units/mL injectable solution See Instructions, TAKE PER SLIDING SCALE: 70-120=0 UNITS, 121-150=2 UNITS, 151- 200 4=UNITS, 201-250=5 UNITS, 251-300=6 UNITS, 301-350=7 UNITS, 351-400=8 UNITS, # 15 mL, 3 Refill(s), Pharmacy: [facility] #58, 163, cm, 09/28/22 13:40:00 EDT, Height, [...] instructions, # 1 EA, 6 Refill(s), Pharmacy: [facility] #58 Start Date: 09/12/22 Status: Ordered Lantus 100 units/mL subcutaneous solution 16 units =, Subcutaneous, Daily, 16 units subcutaneous once in the morning, # 15 mL, 6 Refill(s), Pharmacy: [facility] #58 Start Date: 10/20/22 Status: Ordered loratadine 10 mg oral tablet 10 mg = 1 tab, Oral, Daily, # 30 tab, 0 Refill(s) Start Date: 09/26/22 Status: Ordered Mag-Ox 400 oral tablet 400 mg = 1 tab, Oral, Daily, # 90 tab, 3 Refill(s), Pharmacy: [facility] #58 Start Date: 09/11/22 Status: Ordered montelukast 10 mg oral tablet TAKE ONE TABLET BY MOUTH EVERY DAY Start Date: 09/26/22 Status: Ordered mupirocin 2% topical ointment 1 hector, Topical, TID, # 30 g, 0 Refill(s), Pharmacy: [facility] #58 Start Date: 08/23/22 Status: Ordered NovoLOG [...] sites, # 15 mL, 6 Refill(s), Pharmacy: [facility] #58 Start Date: 08/15/22 Status: Ordered PEN NEEDLES MIS [id number] PEN NEEDLES MIS 27OP8LZ, 0 Refill(s) Start Date: 09/26/22 Status: Ordered pravastatin 40 mg oral tablet 40 mg = 1 tab, Oral, Daily, # 90 tab, 3 Refill(s), Pharmacy: [facility] #58 Start Date: 09/08/22 Status: Ordered Right Wrist Brace Right Wrist Brace, Apply to wrist during the day when doing lifting or painful activities., Supply,See instructions, # 1 EA, 0 Refill(s) Start Date: 10/20/22 Status: Ordered Symbicort 80 mcg-4.5 mcg/inh inhalation aerosol 2 puffs, Inhale, BID, # 10.2 g, 6 Refill(s), Pharmacy: [facility] #[id number] Start Date: 10/11/22 Status: Ordered TECHLITE PEN NEEDLE 31GX3/16 TECHLITE PEN NEEDLE 31GX3/16, USE 4 ONCE DAILY WITH LONG ACTION AND SHORT ACTING INSULIN Start Date: 09/26/22 Status: Ordered Ventolin HFA 90 mcg/inh inhalation aerosol 1 puffs, Inhale, every 4 hr, PRN as needed for wheezing, # 18 g, 4 Refill(s), Pharmacy: [facility] #[id number] Start Date: 10/25/22 Status: Ordered Problem List [...] 2019 novel coronavirus 1 Confirmed 10/24/22 Active [id number] of left forearm Confirmed Active GERD (gastroesophageal [...] Personnel Name: Mona Forman Position: Ambulatory - RN/GROUND CREW SUPERVISOR (Andre) Member Role: Geological Manager Name: Joey Moreau NP Position: Physician Member Role: Informed Provider Address: Address: [address] [place] [address] [place], [place] [address] Care Team Related Persons Name: SADI GONZALEZ Address: Home [address] [place] [phone] Name: HOLLIS GONZALEZ
--- OUTSIDE RECORDS SUMMARY | 2024-01-25 13:35 | XMS_ITS | Continuity of Care Document ---
Author Organization [facility] Address [address] [place] [address] Care Team Providers Care Beater Room Supervisor Name Role Phone Joey Ambrose Primary Care Physician Encounter [facility] Date(s): 08/18/22 - 08/18/[address] [address] Discharge Disposition: Home Allergies, Adverse Reactions, Alerts No Known Medication Allergies Assessment and Plan Future Appointments Future Scheduled Tests Radiology* CT Low Dose Lung Screening 08/15/22 * US Renal Bilateral 08/18/22 Medications albuterol 90 mcg/inh aerosol inhaler 1 puffs, Inhale, every 4 hr, PRN as needed for wheezing, # 8 g, 0 Refill(s), Pharmacy: [facility] #[id number] Start Date: 08/15/22 Status: Ordered ALCOHOL PADS ALCOHOL PADS, Alcohol pred pad, Supply, See instructions, # 100 EA, 6 Refill(s), Pharmacy: [facility] #[id number] Start Date: 08/15/22 Status: Ordered BD SHARPS CONTAINER 1 GALLON BD SHARPS CONTAINER 1 GALLON, BD SHARPS CONTAINER 1 GALLON, Supply, See instructions, # 1 EA, 3 Refill(s), Pharmacy: [facility] #58 Start Date: 08/16/22 Status: Ordered Freestyle Daniel 14 day Sensor Kit Freestyle Daniel 14 day Sensor Kit, Freestyle Daniel 14 day Sensor Kit: Apply one sensor for 14 days,replace and apply new sensor in fresh location., Supply, See instructions, # 6 EA, 3 Refill(s), Pharmacy: [facility] #58 Start Date: 08/16/22 Status: Ordered FREESTYLE DANIEL II FREESTYLE DANIEL II, FREESTYLE DANIEL II meter kit, Supply, See instructions, # 1 EA, 1 Refill(s), Pharmacy: [facility] #[id number] Start Date: 08/15/22 Status: Ordered Insulin Pen [...] BID, # 6.9 g, 6 Refill(s), Pharmacy: [facility] #58 Start Date: 08/16/22 Status: Ordered Social History Social History Type Response Tobacco Former tobacco user Tobacco Use:. 1 PPD per day. Started age 8.0 Years. 1 Sex Female 1Pt reports she quit smoking last week in July 2022 Patient Care team information Care Team Personnel Name: Mona Forman Position: Ambulatory - RN/ESCALATOR INSTALLER (Andre) Member Role: Residence Supervisor Name: Joey Ambrose NP Position: Physician Member Role: Primary Care Physician Care Team Related Persons Name: SADI GONZALEZ Address: Home [address] [place] [phone] Name: HOLLIS GONZALEZ Address: Home
--- OUTSIDE RECORDS SUMMARY | 2024-01-25 13:35 | XMS_ITS | Continuity of Care Document ---
Author Organization [facility] Address [address] [place] [address] Care Team Providers Care Signs Cleaner Name Role Phone Joey Ambrose Primary Care Physician [facility] Date(s): 09/28/22 - 09/28/22 [facility] [address] [place] [address] Encounter Diagnosis Snoring(Discharge Diagnosis) - 09/28/22 Leg cramps, sleep related(Discharge Diagnosis) - 09/28/22 Restless legs syndrome(Discharge Diagnosis) - 09/28/22 Discharge Disposition: Home or Self Care Attending Physician: Norma Viera QUICK SKETCH ARTIST Allergies, Adverse Reactions, Alerts Substance Reaction Severity Status Animal Dander Moderate Active Januvia Swelling Severe Active Victoza Throat swelling Severe Active Dust Mild Active Pollen 1 Moderate Active 1Pollen extracts, grass pollen. Assessment and Plan Future Appointments Future Scheduled Tests Radiology* US Renal Bilateral 08/18/22 Immunizations Given and Recorded Vaccine Date Status Refusal Reason tetanus/diphth/pertuss (Tdap) adult/adol 01/05/17 Recorded Medications albuterol 90 mcg/inh aerosol inhaler 1 puffs, Inhale, every 4 hr, PRN as needed for wheezing, # 8 g, 0 Refill(s), Pharmacy: [facility] #[id number] Start Date: 08/15/22 Status: Ordered ALCOHOL PADS ALCOHOL PADS, Alcohol pred pad, Supply, See instructions, # 100 EA, 6 Refill(s), Pharmacy: [facility] #[id number] Start Date: 08/15/22 Status: Ordered ALCOHOL PREP PADS 100S ALCOHOL PREP PADS 100S, USE DIRECTED Start Date: 09/26/22 Status: Ordered BD SHARPS CONTAINER 1 GALLON BD SHARPS CONTAINER 1 GALLON, BD SHARPS CONTAINER 1 GALLON, Supply, See instructions, # 1 EA, 3 Refill(s), Pharmacy: [facility][id number] Start Date: 08/16/22 Status: Ordered cyclobenzaprine 5 mg oral tablet See Instructions, PRN as needed for muscle spasm, 1 tab Oral three times a day as needed for restless legs or back pain., # 45 tab, 1 Refill(s), Pharmacy: [facility] #58 Start Date: 09/08/22 Status: Ordered FREESTY LIBR KIT 2 SENSOR FREESTY LIBR KIT 2 SENSOR, 0 Refill(s) Start Date: 09/26/22 Status: Ordered FREESTY LIBR MIS 2 READER FREESTY LIBR MIS 2 READER, 0 Refill(s) Start Date: 09/26/22 Status: Ordered Freestyle Daniel 14 day Sensor Kit Freestyle Daniel 14 day Sensor Kit, Freestyle Daniel 14 day Sensor Kit: Apply one sensor for 14 days,replace and apply new sensor in fresh location., Supply, See instructions, # 6 EA, 3 Refill(s), Pharmacy: [facility]58 Start Date: 08/16/22 Status: Ordered FREESTYLE DANIEL 2 READER DEVICE FREESTYLE DANIEL 2 READER DEVICE, USE DIRECTED Start Date: 09/26/22 Status: Ordered FREESTYLE DANIEL 2 SENSOR FREESTYLE DANIEL 2 SENSOR, 0 Refill(s) Start Date: 09/26/22 Status: Ordered FREESTYLE DANIEL II FREESTYLE DANIEL II, FREESTYLE DANIEL II meter kit, Supply, See instructions, # 1 EA, 1 Refill(s), Pharmacy: [facility] #[id number] Start Date: 08/15/22 Status: Ordered HumaLOG KwikPen [...] instructions, # 1 EA, 6 Refill(s), Pharmacy: [facility] #58 Start Date: 09/12/22 Status: Ordered Lantus 100 units/mL subcutaneous solution 10 units =, Subcutaneous, Daily, 10 units subcutaneous once in the morning, # 10 mL, 6 Refill(s) Start Date: 08/15/22 Status: Ordered loratadine 10 mg oral tablet 10 mg = 1 tab, Oral, Daily, # 30 tab, 0 Refill(s) Start Date: 09/26/22 Status: Ordered Mag-Ox 400 oral tablet 400 mg = 1 tab, Oral, Daily, # 90 tab, 3 Refill(s), Pharmacy: [facility]58 Start Date: 09/11/22 Status: Ordered montelukast 10 mg oral tablet TAKE ONE TABLET BY MOUTH EVERY DAY Start Date: 09/26/22 Status: Ordered mupirocin 2% topical ointment 1 hector, Topical, TID, # 30 g, 0 Refill(s), Pharmacy: [facility]58 Start Date: 08/23/22 Status: Ordered NovoLOG [...] sites, # 15 mL, 6 Refill(s), Pharmacy: [facility]58 Start Date: 08/15/22 Status: Ordered PEN NEEDLES MIS [id number] PEN NEEDLES MIS [id number], 0 Refill(s) Start Date: 09/26/22 Status: Ordered pravastatin 40 mg oral tablet 40 mg = 1 tab, Oral, Daily, # 90 tab, 3 Refill(s), Pharmacy: [facility]58 Start Date: 09/08/22 Status: Ordered Symbicort 80 mcg-4.5 mcg/inh inhalation aerosol 2 puffs, Inhale, BID, # 6.9 g, 6 Refill(s), Pharmacy: [facility]58 Start Date: 08/16/22 Status: Ordered TECHLITE PEN NEEDLE 31GX3/16 TECHLITE [...] related Confirmed Active Body dermatophytosis Confirmed Active [id number] of left forearm Confirmed Active GERD (gastroesophageal [...] Range]: 1 Peripheral Pulse Rate [60-100 bpm] 89 bp m (09/28/22 1:40 PM) Blood Pressure [90-140/60-90 mmHg] 138/7 1mmHg (09/28/22 1:40 PM) Weight 65.00 kg (09/28/22 1:40 PM) Weight Measured (lbs) 143.3 lb (09/28/22 1:40 PM) Height 163 cm (09/28/22 1:40 PM) Height/Length Measured (inches) 64.17 in ch (09/28/22 1:40 PM) BSA Measured 1.72 m2 (09/28/22 1:40 PM) Body Mass Index 24.46 kg/m2 (09/28/22 1:40 PM) Social History Social History Type Response Tobacco Former tobacco user Tobacco Use:. 1 PPD per day. Started age 8.0 Years. 1 Sex Female 1Pt reports she quit smoking last week in July 2022 Physician Outpatient Note * Norma Viera QUICK SKETCH ARTIST: PERFORM Event Display: Office Clinic Note Physician Authored Date: [id number] CARLOS NOREEN Daniel :1960 Age:62 years Sex:Female Visit Date:09/28/2022 Primary Care Physician: Joey Ambrose NP Chief Complaint new patient sleep consult History of Present Illness Sleep Medicine New Patient Consult pleasant??62 year old??female??who presents for sleep consultation at kind request of??HEAVEN Butcher ?? PREVIOUS SLEEP EVALUATION:None? CHIEF COMPLAINT/HISTORY OF PRESENT ILLNESS: Patients reports biggest problem with sleep is??insomnia, frequent nocturnal awakenings, ?? SLEEP SCHEDULE:??Bedtime 10 pm, Sleep onset latency??greater than 60 minutes??, wakes 1-2 times pernight, Able to fall back asleep within??few minutes, Wake time variable, typically 7am. Naps??Occasionally. She has been working to establish a stable sleep cycle. SLEEP ENVIRONMENT:Sleeps with TV/Radio on continuously.?? SLEEP QUALITY:Poor?? DAYTIME/NEUROCOGNITIVE FUNCTION:Low energy and sleepy..??Problems with memory, concentration and mood.??Recently started seeing Kisha Cardenas for psych through [facility], pt reports frequent crying, moodswings. SLEEP RELATED THOUGHTS/BEHAVIORS:Stressful thoughts interfering with sleep.___?? SLEEP BREATHING:Loud snoring.____?? LEG SYMPTOMS:Legs move before sleep and/or during sleep.___Leg cramps especially in the evening.Toss and turn at night._?? MOVEMENT SYMPTOMS:??No sleepwalking. DREAM SYMPTOMS:Deny dream enacting behavior..??Deny hypnogogic or hynopompic hallucinations..??No disturbing dreams.. WEAKNESS SYMPTOMS:Deny cataplexy related symptoms.Deny sleep paralysis.?? DRIVING:Deny drowsy driving._?? OTHER PERTINENT SYMPTOMS: Her brother has a hx of VALE and uses CPAP.?? 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 She takes melatonin at bedtime, seems to hyper her up. She exercises before bed, has found it helps keep her blood glucose lowers when she wakes up in themornings. PRODUCT/SUBSTANCE USE:??No smoking, quit recently. Quit smoking 9 weeks ago.??_.??No alcohol use.??No regular illicit drug use. 3 cups of coffee in AM. SOCIAL HISTORY:??Retired.??_. 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 Retired April 2021. Review of Systems + wakes up with dry mouth, heartburn Physical Exam Vitals & Measurements HR:??89??(Peripheral)?? BP:??138/71?? SpO2:??98%?? HT:??163??cm?? WT:??65.00??kg?? BMI:??24.46?? BSA:??1.72?? General:??well appearing, appearing stated age, no acute distress,??normal??build HEENT: atraumatic skull, anicteric, Mallampati 2-3 RESPIRATORY: quiet respiration, able to speak in full sentences without dyspnea, no accessory muscle use SKIN: no facial skin rash, no facial skin lesions PSYCHIATRIC: well groomed, fluent speech, good insight, linear thought process, good eye contact,balanced??affect NEUROLOGIC: alert, oriented, symmetric facial expression Assessment/Plan 1.??Snoring??R06.83 Noreen Denny is a pleasant 62 year old female here for a new patient sleep consult. Suspect Obstructive Sleep Apnea based on snoring, frequent nocturnal awakenings, nonrestorative sleep, daytime fatigue, waking up with dry mouth, daytime neurocognitive changes, Mallampati 2-3, ESS 2/24 (likely an u nderestimation), Freedom Questionnaire 2/3. ?? 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 She is working hard to establish a stable sleep schedule from 10p-7a and not nap during the daytime. Her goal is to get 7-8 uninterrupted hours of sleep. We discussed sleep hygiene, I encouraged her to continue avoid screen time before bed and continue her light evening exercise. ?? We had a thorough discussion of Obstructive Sleep Apnea, including pathophysiology, associated jail cardiovascular, neurocognitive, and overall health effects, and importance of treatment. Today, we discussed what to expect on the night of her sleep study. ?? Adhere to drowsy driving precautions as applicable. ?? Treatment options discussed. ?? Proceed with Diagnostic Polysomnogram. In-facility sleep study requested PSG Instructions: Obtain supine and lateral position sleep for comparison. Document medications taken on night of PSG. ?? 2.??Leg cramps, sleep related??G47.62 Patient is taking Magnesium supplement daily for her leg cramps and RLS, recommended by her PCP. Reports both have significantly improved with this supplement. Re-eval after PSG. ?? 3.??Restless legs syndrome??G25.81 RLS fairly well controlled, see above. RLS can impact her ability to stay asleep at night. ?? I provided greater than??60??minutes in the care of this patient, more than half the time was spentin wduq-[id number] counseling. ?with comorbidities of type 2 diabetes, allergic asthma, restless legs syndrome, peripheral neuropathy ? Clinical Data Reviewed: [place] Sleepiness Scale: 03/31 ?? Freedom Questionnaire: 2/3 ?? Sleep Clinical Timeline:? 09/28/2022: New patient sleep consult at the??kind request of HEAVEN Butcher ([facility]). Suspect Obstructive Sleep Apnea based on snoring, frequent nocturnal awakenings, nonrestorative sleep, daytime fatigue, waking up with dry mouth, daytime neurocognitive changes, Mallampati 2-3, ESS2/24 (likely an underestimation), Freedom Questionnaire /.??PSG ordered. She is taking Mg supplement for RLS/Leg cramps thru PCP. ? Today's Assessment and Plan: See above ?? Follow up: 2 months or sooner if needed. ?? Remote Scribed by Wali Hughes Future Orders [id number] SL Diagnostic PSG, 09/28/22, Future Order, Snoring Leg cramps, sleep related Restless legs syndrome Problem List/Past Medical History Ongoing [id number] of left forearm Acute gastritis Acute sinusitis [...] (07/12/2017)???Mammogram - screening (07/12/2017)???Colonoscopy (02/21/2012)???Hysterectomy (02/18/1989) Medications albuterol 90 mcg/inh aerosol inhaler, 1 puffs, Inhale, every 4 hr, PRN ALCOHOL PADS, See instructions, 6 refills ALCOHOL PREP PADS 100S BD SHARPS CONTAINER 1 GALLON, See instructions, 3 refills cyclobenzaprine 5 mg oral tablet, See Instructions, PRN, 1 refills FREESTY LIBR KIT 2 SENSOR FREESTY LIBR MIS 2 READER Freestyle Daniel 14 day Sensor Kit, See instructions, 3 refills FREESTYLE DANIEL 2 READER DEVICE FREESTYLE DANIEL 2 SENSOR FREESTYLE DANIEL II, See instructions, 1 refills HumaLOG KwikPen 100 units/mL injectable solution Insulin Pen Needle (any brand Covered) 31 x 5 mm, See instructions, 6 refills Lantus 100 units/mL subcutaneous solution, 10 units, Subcutaneous, Daily, 6 refills loratadine 10 mg oral tablet, 10 mg= 1 tab, Oral, Daily Mag-Ox 400 oral tablet, 400 mg= 1 tab, Oral, Daily, 3 refills montelukast 10 mg oral tablet mupirocin 2% topical ointment, 1 hector, Topical, TID NovoLOG FlexPen 100 units/mL injectable solution, See Instructions, 6 refills PEN NEEDLES MIS [id number] pravastatin 40 mg oral tablet, 40 mg= 1 tab, Oral, Daily, 3 refills Symbicort 80 mcg-4.5 mcg/inh inhalation aerosol, 2 puffs, Inhale, BID, 6 refills TECHLITE PEN NEEDLE 31GX3/16 Allergies Januvia??(Swelling) Victoza??(Throat swelling) Animal Dander Pollen [...] (Tdap) adult/adol 01/05/2017 Recorded Electronically Signed on 09/28/22 02:47 PM Norma Viera QUICK SKETCH ARTIST Electronically Signed on 09/28/22 02:45 PM Wali Hughes Patient Care team information Care Team Personnel Name: Mona Forman Position: Ambulatory - RN/PATHOLOGY COLLECTOR Benjamin) Member Role: Kitchen Helper Name: Joey Ambrose QUICK SKETCH ARTIST Position: Physician Member Role: Primary Care Physician Care Team Related Persons Name: SADI DENNY Address: Home [address] [place] [phone] Name: HOLLIS DENNY Address: Home
--- OUTSIDE RECORDS SUMMARY | 2024-01-25 13:35 | XMS_ITS | Continuity of Care Document ---
Author Organization [facility] Address [address] [place] [address] Care Team Providers Care Compensation Vice President Name Role Phone Joey Moreau Primary Care Physician Encounter [facility] Date(s): 01/02/24 - 01/02/[address] [address] Encounter Diagnosis Coccygeal pain(Discharge Diagnosis) - 01/02/24 Bilateral hip pain(Discharge Diagnosis) - 01/02/24 Discharge Disposition: Home or Self Care Attending Physician: Joey Moreau NP Admitting Physician: Joey Moreau NP Referring Physician: Joey Moreau WIRE DRAWER Allergies, Adverse Reactions, Alerts Substance Criticality Severity Reaction Reaction Severity Status Animal Dander High criticality Moderate Active Januvia High criticality Severe Swelling Act virgie Victoza High criticality Severe Throat swelling Active Dust Low criticality Mild Acti ve Pollen 1 High criticality Moderate Act virgie Rybelsus 2 High criticality Moderate Breathing abnormal Active 1Pollen extracts, grass pollen. 2Throat tightening x 2 weeks, difficulty swallowing Assessment and Plan Future Appointments Future Scheduled Tests Laboratory* Ferritin 01/11/23 Immunizations Given and Recorded Vaccine Date Status Refusal Reason tetanus/diphth/pertuss (Tdap) adult/adol 01/05/17 Recorded Medications albuterol 90 mcg/inh aerosol inhaler 1 puffs, Inhale, every 4 hr, PRN as needed for wheezing, # 8 g, 3 Refill(s), Pharmacy: [facility]#93, 162.56, cm, 01/31/23 13:50:00 EST, Height, 77.75, kg, 05/01/23 8:57:00 EDT, Weight Dosing Start Date: 05/21/23 Status: Ordered ALCOHOL PADS ALCOHOL PADS, Alcohol pred pad, Supply, See instructions, # 100 EA, 6 Refill(s), Pharmacy: [facility]93 Start Date: 05/21/23 Status: Ordered BD SHARPS CONTAINER 1 GALLON BD SHARPS CONTAINER 1 GALLON, BD SHARPS CONTAINER 1 GALLON, Supply, See instructions, # 1 EA, 3 Refill(s), Pharmacy: [facility] #58 Start Date: 08/16/22 Status: Ordered cyclobenzaprine 5 mg oral tablet See Instructions, TAKE ONE TABLET BY MOUTH THREE TIMES A DAY NEEDED FOR RESTLESS LEGS OR BACK PAIN NEEDED FOR MUSCLE SPASMS, # 270 tab, 1 Refill(s), Pharmacy: [facility] #93, 162.56, cm, 01/31/23 13:50:00 EST, Height, 77.8, kg, 09/03/23 10:57:00 EDT, Weight Dosing Start Date: 11/07/23 Status: Ordered Diflucan 150 mg oral tablet 150 mg = 1 tab, Oral, Once, # 1 tab, 0 Refill(s), Pharmacy: [facility] #58, 162.56, cm, 01/31/23 13:50:00 EST, Height, 84.45, kg, 01/02/24 11:25:00 EST, Weight Dosing Start Date: 01/02/24 Status: Ordered fluticasone 50 mcg/inh nasal spray See Instructions, INSTILL 1 SPRAY INTO BOTH NOSTRILS EVERY MORNING, # 16 mL, 3 Refill(s), Pharmacy:[facility] #93, 162.56, cm, 01/31/23 13:50:00 EST, Height, 77.75, kg, 05/01/23 8:57:00 EDT, Weight Dosing Start Date: 07/18/23 Status: Ordered Freestyle Daniel 2 Sensor Kit Freestyle Daniel 2 Sensor Kit, Freestyle Daniel 2 Sensor Kit: Apply one sensor for 14 days, replace and apply new sensor in fresh location., Supply, See instructions, # 2 EA, 12 Refill(s), Pharmacy: [facility]93 Start Date: 05/21/23 Status: Ordered FREESTYLE DANIEL II FREESTYLE DANIEL II, FREESTYLE DANIEL II meter kit, Supply, See instructions, # 1 EA, 1 Refill(s), Pharmacy: [facility] #[id number] Start Date: 08/15/22 Status: Ordered gabapentin 100 mg oral capsule See Instructions, take 1 capsules PO at night,, # 90 cap, 0 Refill(s), Pharmacy: [facility] #58, 163.83, cm, 01/10/23 10:34:00 EST, [...] UNITS, # 15 mL, 3 Refill(s), Pharmacy: [facility] #93, 162.56, cm, 01/31/23 13:50:00 EST, Height, 77.75, kg, 05/01/23 8:57:00 EDT, Weight Dosing Start Date: 05/21/23 Status: Ordered Insulin Glargine Solostar Pen 100 units/mL subcutaneous solution 28 units =, Subcutaneous, Daily, # 400 mL, 1 Refill(s), Pharmacy: [facility] #93, 162.56, cm, 01/31/23 13:50:00 EST, Height, [...] instructions, # 1 EA, 6 Refill(s), Pharmacy: [facility]93 Start Date: 05/21/23 Status: Ordered ipratropium-albuterol 0.5 mg-2.5 mg/3 mL inhalation solution INHALE THE CONTENTS OF ONE VIAL VIA NEBULIZER FOUR TIMES A DAY NEEDED FOR WHEEZING Start Date: 12/10/23 Status: Ordered lidocaine 5% topical film See Instructions, APPLY ONE PATCH TOPICALLY TO THE SKIN DIRECTED, 12 HOURS ON AND THEN 12 HOURS OFF, # 30 patches, 2 Refill(s), Pharmacy: [facility] #93, 162.56, cm, 01/31/23 13:50:00 EST, Height, 77.8, kg, 09/03/23 10:57:00 EDT, Weight Dosing Start Date: 11/05/23 Status: Ordered loratadine 10 mg oral tablet 10 mg = 1 tab, Oral, Daily, # 30 tab, 0 Refill(s) Start Date: 09/26/22 Status: Ordered losartan 25 mg oral tablet 25 mg = 1 tab, Oral, Daily, [facility] Started 02/08/23, # 90 tab, 0 Refill(s) Start Date: 02/20/23 Status: Ordered Macrobid 100 mg oral capsule 100 mg = 1 cap, Oral, BID, # 14 cap, 0 Refill(s), Pharmacy: [facility] #58, 162.56, cm, 01/31/23 13:50:00 EST, Height, 84.45, kg, 01/02/24 11:25:00 EST, Weight Dosing Start Date: 01/02/24 Stop Date: 01/09/24 Status: Ordered Mag-Ox 400 oral tablet 800 mg = 2 tab, Oral, Daily, # 180 tab, 3 Refill(s), Pharmacy: [facility] #93, 162.56, cm, 01/31/23 13:50:00 EST, Height, 77.8, kg, 09/03/23 10:57:00 EDT, Weight Dosing Start Date: 10/03/23 Status: Ordered montelukast 10 mg oral tablet TAKE ONE TABLET BY MOUTH EVERY DAY Start Date: 09/26/22 Status: Ordered mupirocin 2% topical ointment 1 hector, Topical, TID, # 30 g, 0 Refill(s), Pharmacy: [facility] Start Date: 08/23/22 Status: Ordered omeprazole 20 mg oral delayed release capsule TAKE 1 CAPSULE BY MOUTH DAILY Start Date: 09/03/23 Status: Ordered pravastatin 40 mg oral tablet 40 mg = 1 tab, Oral, Daily, # 90 tab, 3 Refill(s), Pharmacy: [facility] #93, 162.56, cm, 01/31/2313:50:00 EST, Height, 77.75, [...] BID, # 10.2 g, 6 Refill(s), Pharmacy: [facility] #93, 162.56, cm, 01/31/23 13:50:00 EST, Height, [...] DAILY, # 100 EA, 6 Refill(s), Pharmacy: [facility] #93, 162.56, cm, 01/31/23 13:50:00 EST, Height, 77.8, kg, 09/03/23 10:57:00 EDT, Weight Dosing Start Date: 12/02/23 Status: Ordered Ventolin HFA 90 mcg/inh inhalation aerosol 1 puffs, Inhale, every 4 hr, PRN as needed for wheezing, # 18 g, 4 Refill(s), Pharmacy: [facility] #93, 162.56, cm, 01/31/23 13:50:00 EST, Height, 77.75, kg, 05/01/23 8:57:00 EDT, Weight Dosing Start Date: 05/21/23 Status: Ordered Vitamin D3 1000 intl units oral capsule 25 mcg = 1 cap, Oral, Daily, take one capsule daily, # 90 cap, 0 Refill(s), Pharmacy: [facility] #58, 163.83, cm, 01/10/23 10:34:00 EST, Height, 64.86, kg, 01/10/23 10:36:00 EST, Weight Dosing Start Date: 01/10/23 Status: Ordered ZyrTEC 10 mg oral tablet 10 mg = 1 tab, Oral, Daily, # 90 tab, 0 Refill(s), Pharmacy: [facility] #93, 162.56, cm, 01/31/2313:50:00 EST, Height, 77.75, [...] Confirmed Active Callus of foot Confirmed Active [id number] of left forearm Confirmed Active GERD (gastroesophageal [...] Position: Physician Member Role: Informed Provider Address: [address] [place] [address]- Care Team Related Persons Name: SADI GONZALEZ Name: HOLLIS GONZALEZ Insurance Providers Guarantor name: EMILE GONZALEZ Health Plan Information #: 1 Payer: [employer] Member Number: [id number] Policy Number: NA Health Plan Information #: 2 Payer: [facility] MEDICA[facility] Member Number: [id number] Policy Number: NA
--- OUTSIDE RECORDS SUMMARY | 2024-01-25 13:35 | XMS_ITS | Continuity of Care Document ---
Author Organization [facility] Address [address] [place] [address] Care Team Providers Care Pmo Project Manager Name Role Phone Joey Ambrose Primary Care Phys[facility]29[facility] [address] [place] [address] Discharge Disposition: Home Allergies, Adverse Reactions, Alerts [...] wheezing, # 8 g, 0 Refill(s), Pharmacy: [facility] #[id number] Start Date: 08/15/22 Status: Ordered ALCOHOL PADS ALCOHOL PADS, Alcohol pred pad, Supply, See instructions, # 100 EA, 6 Refill(s), Pharmacy: [facility] #[id number] Start Date: 08/15/22 Status: Ordered ALCOHOL PREP PADS 100S ALCOHOL PREP PADS 100S, USE DIRECTED Start Date: 09/26/22 Status: Ordered BD SHARPS CONTAINER 1 GALLON BD SHARPS CONTAINER 1 GALLON, BD SHARPS CONTAINER 1 GALLON, Supply, See instructions, # 1 EA, 3 Refill(s), Pharmacy: [facility]58 Start Date: 08/16/22 Status: Ordered cyclobenzaprine 5 mg oral tablet See Instructions, PRN as needed for muscle spasm, 1 tab Oral three times a day as needed for restless legs or back pain., # 45 tab, 1 Refill(s), Pharmacy: [facility]58 Start Date: 09/08/22 Status: Ordered FREESTY [...] instructions, # 6 EA, 3 Refill(s), Pharmacy: [facility]58 Start Date: 08/16/22 Status: Ordered FREESTYLE DANIEL 2 READER DEVICE FREESTYLE DNAIEL 2 READER DEVICE, USE DIRECTED Start Date: 09/26/22 Status: Ordered FREESTYLE DANIEL 2 SENSOR FREESTYLE DANIEL 2 SENSOR, 0 Refill(s) Start Date: 09/26/22 Status: Ordered FREESTYLE DANIEL II FREESTYLE DANIEL II, FREESTYLE DANIEL II meter kit, Supply, See instructions, # 1 EA, 1 Refill(s), Pharmacy: [facility] #[id number] Start Date: 08/15/22 Status: Ordered HumaLOG KwikPen [...] instructions, # 1 EA, 6 Refill(s), Pharmacy: [facility]58 Start Date: 09/12/22 Status: Ordered Lantus [...] Daily, # 90 tab, 3 Refill(s), Pharmacy: [facility]58 Start Date: 09/11/22 Status: Ordered montelukast 10 mg oral tablet TAKE ONE TABLET BY MOUTH EVERY DAY Start Date: 09/26/22 Status: Ordered mupirocin 2% topical ointment 1 hector, Topical, TID, # 30 g, 0 Refill(s), Pharmacy: [facility]58 Start Date: 08/23/22 Status: Ordered NovoLOG [...] sites, # 15 mL, 6 Refill(s), Pharmacy: [facility]58 Start Date: 08/15/22 Status: Ordered PEN NEEDLES MIS [id number] PEN NEEDLES MIS [id number], 0 Refill(s) Start Date: 09/26/22 Status: Ordered pravastatin 40 mg oral tablet 40 mg = 1 tab, Oral, Daily, # 90 tab, 3 Refill(s), Pharmacy: [facility]58 Start Date: 09/08/22 Status: Ordered Symbicort 80 mcg-4.5 mcg/inh inhalation aerosol 2 puffs, Inhale, BID, # 6.9 g, 6 Refill(s), Pharmacy: [facility]58 Start Date: 08/16/22 Status: Ordered TECHLITE [...] related Confirmed Active Body dermatophytosis Confirmed Active [id number] of left forearm Confirmed Active GERD (gastroesophageal [...] Personnel Name: Mona Forman Position: Ambulatory - RN/MILKING MACHINE TECHNICIAN (Andre) Member Role: Fruit And Vegetable Classer Name: Joey Ambrose NP Position: Physician Member Role: Primary Care Physician Care Team Related Persons Name: CARLOSSADI Address: [address] [phone] [place] Name: HOLLIS GONZALEZ Address: Home
--- OUTSIDE RECORDS SUMMARY | 2024-01-25 13:35 | XMS_ITS | Continuity of Care Document ---
Author Organization [facility] Address [address] [place] [address] Care Team Providers Care Escapement Matcher Name Role Phone Joey Ambrose Primary Care Physician [facility] Date[facility] 10[facility]/22 - 10/05/[address] [address] Encounter Diagnosis Simple renal cyst(Discharge Diagnosis) - 10/05/22 Discharge Disposition: Home or Self Care Attending Physician: Joey Ambrose TELEPHONE MAINTENANCE MECHANIC Admitting Physician: Joey Ambrose NP Referring Physician: Joey Ambrose TELEPHONE MAINTENANCE MECHANIC Allergies, Adverse Reactions, Alerts Substance Reaction Severity [...] wheezing, # 8 g, 0 Refill(s), Pharmacy: [facility] #[id number] Start Date: 08/15/22 Status: Ordered ALCOHOL PADS ALCOHOL PADS, Alcohol pred pad, Supply, See instructions, # 100 EA, 6 Refill(s), Pharmacy: [facility] #[id number] Start Date: 08/15/22 Status: Ordered ALCOHOL PREP PADS 100S ALCOHOL PREP PADS 100S, USE DIRECTED Start Date: 09/26/22 Status: Ordered BD SHARPS CONTAINER 1 GALLON BD SHARPS CONTAINER 1 GALLON, BD SHARPS CONTAINER 1 GALLON, Supply, See instructions, # 1 EA, 3 Refill(s), Pharmacy: [facility] #58 Start Date: 08/16/22 Status: Ordered cyclobenzaprine 5 mg oral tablet See Instructions, PRN as needed for muscle spasm, 1 tab Oral three times a day as needed for restless legs or back pain., # 45 tab, 1 Refill(s), Pharmacy: [facility] #58 Start Date: 09/08/22 Status: Ordered FREESTY [...] instructions, # 6 EA, 3 Refill(s), Pharmacy: [facility] #58 Start Date: 08/16/22 Status: Ordered FREESTYLE DANIEL 2 READER DEVICE FREESTYLE DANIEL 2 READER DEVICE, USE DIRECTED Start Date: 09/26/22 Status: Ordered FREESTYLE DANIEL 2 SENSOR FREESTYLE DANIEL 2 SENSOR, 0 Refill(s) Start Date: 09/26/22 Status: Ordered FREESTYLE DANIEL II FREESTYLE DANIEL II, FREESTYLE DANIEL II meter kit, Supply, See instructions, # 1 EA, 1 Refill(s), Pharmacy: [facility] #[id number] Start Date: 08/15/22 Status: Ordered HumaLOG KwikPen [...] instructions, # 1 EA, 6 Refill(s), Pharmacy: [facility] #58 Start Date: 09/12/22 Status: Ordered Lantus [...] Daily, # 90 tab, 3 Refill(s), Pharmacy: [facility] #58 Start Date: 09/11/22 Status: Ordered montelukast 10 mg oral tablet TAKE ONE TABLET BY MOUTH EVERY DAY Start Date: 09/26/22 Status: Ordered mupirocin 2% topical ointment 1 hector, Topical, TID, # 30 g, 0 Refill(s), Pharmacy: [facility] #58 Start Date: 08/23/22 Status: Ordered NovoLOG [...] sites, # 15 mL, 6 Refill(s), Pharmacy: [facility] #58 Start Date: 08/15/22 Status: Ordered PEN NEEDLES MIS [id number] PEN NEEDLES MIS [id number], 0 Refill(s) Start Date: 09/26/22 Status: Ordered pravastatin 40 mg oral tablet 40 mg = 1 tab, Oral, Daily, # 90 tab, 3 Refill(s), Pharmacy: [facility] #58 Start Date: 09/08/22 Status: Ordered Symbicort 80 mcg-4.5 mcg/inh inhalation aerosol 2 puffs, Inhale, BID, # 6.9 g, 6 Refill(s), Pharmacy: [facility] #58 Start Date: 08/16/22 Status: Ordered TECHLITE [...] related Confirmed Active Body dermatophytosis Confirmed Active [id number] of left forearm Confirmed Active GERD (gastroesophageal [...] Personnel Name: Mona Forman Position: Ambulatory - RN/DYE MAKER (Andre) Member Role: C Unix Developer Name: Joey Ambrose TELEPHONE MAINTENANCE MECHANIC Position: Physician Member Role: Primary Care Physician Care Team Related Persons Name: SADI GONZALEZ Address: [address] [phone] Name: HOLLIS GONZALEZ Address: [place]
--- OUTSIDE RECORDS SUMMARY | 2024-01-25 13:35 | XMS_ITS | Continuity of Care Document ---
Author Organization [facility] Address [address] [place] [address] Care Team Providers Care Production Assembly Supervisor Name Role Phone Joey Moreau Primary Care Physician Encounter [facility] [id number] Date(s): 12/12/22 - 12/12/22 [facility] [address] [place] [address] Discharge Disposition: Home Allergies, Adverse Reactions, Alerts [...] wheezing, # 8 g, 0 Refill(s), Pharmacy: [facility] #[id number] Start Date: 08/15/22 Status: Ordered ALCOHOL PADS ALCOHOL PADS, Alcohol pred pad, Supply, See instructions, # 100 EA, 6 Refill(s), Pharmacy: [facility] #[id number] Start Date: 08/15/22 Status: Ordered ALCOHOL PREP PADS 100S ALCOHOL PREP PADS 100S, USE DIRECTED Start Date: 09/26/22 Status: Ordered BD SHARPS CONTAINER 1 GALLON BD SHARPS CONTAINER 1 GALLON, BD SHARPS CONTAINER 1 GALLON, Supply, See instructions, # 1 EA, 3 Refill(s), Pharmacy: [facility] #58 Start Date: 08/16/22 Status: Ordered cyclobenzaprine 5 mg oral tablet See Instructions, PRN as needed for muscle spasm, 1 tab Oral three times a day as needed for restless legs or back pain., # 45 tab, 2 Refill(s), Pharmacy: [facility] #58 Start Date: 10/10/22 Status: Ordered FREESTY [...] instructions, # 2 EA, 6 Refill(s), Pharmacy: [facility] #58 Start Date: 10/11/22 Status: Ordered FREESTYLE DANIEL II FREESTYLE DANIEL II, FREESTYLE DANIEL II meter kit, Supply, See instructions, # 1 EA, 1 Refill(s), Pharmacy: [facility] #[id number] Start Date: 08/15/22 Status: Ordered glipiZIDE 10 mg oral tablet, extended release TAKE ONE TABLET BY MOUTH EVERY DAY Start Date: 12/12/22 Status: Ordered HumaLOG KwikPen 100 units/mL injectable solution See Instructions, TAKE PER SLIDING SCALE: 70-120=0 UNITS, 121-150=2 UNITS, 151- 200 4=UNITS, 201-250=5 UNITS, 251-300=6 UNITS, 301-350=7 UNITS, 351-400=8 UNITS, # 15 mL, 3 Refill(s), Pharmacy: [facility] #[id number], 163, cm, 09/28/22 13:40:00 EDT, Height Start [...] instructions, # 1 EA, 6 Refill(s), Pharmacy: [facility] #58 Start Date: 09/12/22 Status: Ordered Lantus 100 units/mL subcutaneous solution 16 units =, Subcutaneous, Daily, 16 units subcutaneous once in the morning, # 15 mL, 6 Refill(s), Pharmacy: [facility] #58 Start Date: 10/20/22 Status: Ordered loratadine 10 mg oral tablet 10 mg = 1 tab, Oral, Daily, # 30 tab, 0 Refill(s) Start Date: 09/26/22 Status: Ordered Mag-Ox 400 oral tablet 400 mg = 1 tab, Oral, Daily, # 90 tab, 3 Refill(s), Pharmacy: [facility] #58 Start Date: 09/11/22 Status: Ordered montelukast 10 mg oral tablet TAKE ONE TABLET BY MOUTH EVERY DAY Start Date: 09/26/22 Status: Ordered mupirocin 2% topical ointment 1 hector, Topical, TID, # 30 g, 0 Refill(s), Pharmacy: [facility] #58 Start Date: 08/23/22 Status: Ordered NovoLOG [...] sites, # 15 mL, 6 Refill(s), Pharmacy: [facility] #58 Start Date: 08/15/22 Status: Ordered PEN NEEDLES MIS [id number] PEN NEEDLES MIS 08IZ3SR, 0 Refill(s) Start Date: 09/26/22 Status: Ordered pravastatin 40 mg oral tablet 40 mg = 1 tab, Oral, Daily, # 90 tab, 3 Refill(s), Pharmacy: [facility] #58 Start Date: 09/08/22 Status: Ordered Right Wrist Brace Right Wrist Brace, Apply to wrist during the day when doing lifting or painful activities., Supply,See instructions, # 1 EA, 0 Refill(s) Start Date: 10/20/22 Status: Ordered Symbicort 80 mcg-4.5 mcg/inh inhalation aerosol 2 puffs, Inhale, BID, # 10.2 g, 6 Refill(s), Pharmacy: [facility] #[id number] Start Date: 10/11/22 Status: Ordered TECHLITE PEN NEEDLE 31GX3/16 TECHLITE PEN NEEDLE 31GX3/16, USE 4 ONCE DAILY WITH LONG ACTION AND SHORT ACTING INSULIN Start Date: 09/26/22 Status: Ordered Ventolin HFA 90 mcg/inh inhalation aerosol 1 puffs, Inhale, every 4 hr, PRN as needed for wheezing, # 18 g, 4 Refill(s), Pharmacy: [facility] #[id number] Start Date: 10/25/22 Status: Ordered Problem List [...] 2019 novel coronavirus 1 Confirmed 10/24/22 Active [id number] of left forearm Confirmed Active GERD (gastroesophageal [...] Personnel Name: Mona Forman Position: Ambulatory - RN/BASEBALL GLOVE STUFFER ([facility]) Member Role: Trap Setter Name: Joey Moreau NP Position: Physician Member Role: Informed Provider Address: Address: [address] [place] [address] [place] [address]- Care Team Related Persons Name: SADI GONZALEZ Address: Home [address] [place] [phone] Name: HOLLIS GONZALEZ
--- OUTSIDE RECORDS SUMMARY | 2024-01-25 13:35 | XMS_ITS | Continuity of Care Document ---
Author Organization [facility] Address [address] [place] [address] Care Team Providers Care Photo Editor Name Role Phone Joey Ambrose Primary Care Physician Encounter [facility] Date(s): 08/18/22 - 08/18/[address] [address] Discharge Disposition: Home Allergies, Adverse Reactions, Alerts No Known Medication Allergies Assessment and Plan Future Appointments Future Scheduled Tests Radiology* CT Low Dose Lung Screening 08/15/22 * US Renal Bilateral 08/18/22 Medications albuterol 90 mcg/inh aerosol inhaler 1 puffs, Inhale, every 4 hr, PRN as needed for wheezing, # 8 g, 0 Refill(s), Pharmacy: [facility] #[id number] Start Date: 08/15/22 Status: Ordered ALCOHOL PADS ALCOHOL PADS, Alcohol pred pad, Supply, See instructions, # 100 EA, 6 Refill(s), Pharmacy: [facility] #[id number] Start Date: 08/15/22 Status: Ordered BD SHARPS CONTAINER 1 GALLON BD SHARPS CONTAINER 1 GALLON, BD SHARPS CONTAINER 1 GALLON, Supply, See instructions, # 1 EA, 3 Refill(s), Pharmacy: [facility] #58 Start Date: 08/16/22 Status: Ordered Freestyle Daniel 14 day Sensor Kit Freestyle Daniel 14 day Sensor Kit, Freestyle Daniel 14 day Sensor Kit: Apply one sensor for 14 days,replace and apply new sensor in fresh location., Supply, See instructions, # 6 EA, 3 Refill(s), Pharmacy: [facility] #58 Start Date: 08/16/22 Status: Ordered FREESTYLE DANIEL II FREESTYLE DANIEL II, FREESTYLE DANIEL II meter kit, Supply, See instructions, # 1 EA, 1 Refill(s), Pharmacy: [facility] #[id number] Start Date: 08/15/22 Status: Ordered Insulin Pen [...] BID, # 6.9 g, 6 Refill(s), Pharmacy: [facility] #58 Start Date: 08/16/22 Status: Ordered Social History Social History Type Response Tobacco Former tobacco user Tobacco Use:. 1 PPD per day. Started age 8.0 Years. 1 Sex Female 1Pt reports she quit smoking last week in July 2022 Patient Care team information Care Team Personnel Name: Mona Forman Position: Ambulatory - RN/HOBBING MACHINE OPERATOR (Andre) Member Role: Sales Order Coordinator Name: Joey Ambrose NP Position: Physician Member Role: Primary Care Physician Care Team Related Persons Name: SADI GONZALEZ Address: Home [address] [place] [phone] Name: HOLLIS GONZALEZ Address: Home
--- OUTSIDE RECORDS SUMMARY | 2024-01-25 13:35 | XMS_ITS | Continuity of Care Document ---
Author Organization [facility] Address [address] [place] [address] Care Team Providers Care Server Name Role Phone Joey Moreau Primary Care Physician Encounter [facility] Date(s): 02/19/23 - 02/19/[address] [address] Discharge Disposition: Home or Self Care Attending Physician: Denia Fortune MD Admitting Physician: Denia Fortune MD Referring Physician: Denia Fortune MD Allergies, Adverse Reactions, Alerts Substance Reaction [...] wheezing, # 8 g, 0 Refill(s), Pharmacy: [facility] #[id number] Start Date: 08/15/22 Status: Ordered ALCOHOL PADS ALCOHOL PADS, Alcohol pred pad, Supply, See instructions, # 100 EA, 6 Refill(s), Pharmacy: [facility] #[id number] Start Date: 08/15/22 Status: Ordered ALCOHOL PREP PAD MED 70% ALCOHOL PREP PAD MED 70%, 0 Refill(s) Start Date: 01/08/23 Status: Ordered ALCOHOL PREP PADS 100S ALCOHOL PREP PADS 100S, USE DIRECTED Start Date: 09/26/22 Status: Ordered BD SHARPS CONTAINER 1 GALLON BD SHARPS CONTAINER 1 GALLON, BD SHARPS CONTAINER 1 GALLON, Supply, See instructions, # 1 EA, 3 Refill(s), Pharmacy: [facility] #58 Start Date: 08/16/22 Status: Ordered ciprofloxacin 500 mg oral tablet 500 mg = 1 tab, Oral, every 12 hr, # 14 tab, 0 Refill(s), Pharmacy: [facility] #58, 163.83, cm, 01/10/23 10:34:00 EST, Height, 64.86, kg, 01/10/23 10:36:00 EST, Weight Dosing Start Date: 01/12/23 Stop Date: 01/19/23 Status: Ordered cyclobenzaprine 5 mg oral tablet 1 tab, Oral, TID, PRN NEEDED FOR RESTLESS LEGS OR BACK PAIN NEEDED FOR MUSCLE SPASM, # 45 tab, 2 Refill(s), Pharmacy: [facility] #58, 162.56, cm, 01/31/23 13:50:00 EST, Height, [...] instructions, # 2 EA, 6 Refill(s), Pharmacy: [facility] #58 Start Date: 10/11/22 Status: Ordered FREESTYLE DANIEL II FREESTYLE DANIEL II, FREESTYLE DANIEL II meter kit, Supply, See instructions, # 1 EA, 1 Refill(s), Pharmacy: [facility] #[id number] Start Date: 08/15/22 Status: Ordered gabapentin 100 mg oral capsule See Instructions, take 1 capsules PO at night,, # 90 cap, 0 Refill(s), Pharmacy: [facility] #58, 163.83, cm, 01/10/23 10:34:00 EST, Height, [...] UNITS, # 15 mL, 3 Refill(s), Pharmacy: [facility] #58, 163, cm, 09/28/22 13:40:00 EDT, Height, [...] instructions, # 1 EA, 6 Refill(s), Pharmacy: [facility] #58 Start Date: 09/12/22 Status: Ordered Lantus 100 units/mL subcutaneous solution 16 units =, Subcutaneous, Daily, 16 units subcutaneous once in the morning, # 15 mL, 6 Refill(s), Pharmacy: [facility] #58 Start Date: 10/20/22 Status: Ordered loratadine 10 mg oral tablet 10 mg = 1 tab, Oral, Daily, # 30 tab, 0 Refill(s) Start Date: 09/26/22 Status: Ordered Mag-Ox 400 oral tablet 400 mg = 1 tab, Oral, Daily, # 90 tab, 3 Refill(s), Pharmacy: [facility] #58, 162.56, cm, 01/31/23 13:50:00 EST, Height, 64.41, kg, 01/31/23 13:53:00 EST, Weight Dosing Start Date: 02/01/23 Status: Ordered montelukast 10 mg oral tablet TAKE ONE TABLET BY MOUTH EVERY DAY Start Date: 09/26/22 Status: Ordered mupirocin 2% topical ointment 1 hector, Topical, TID, # 30 g, 0 Refill(s), Pharmacy: [facility] #58 Start Date: 08/23/22 Status: Ordered PEN NEEDLES MIS 40YF1SE PEN NEEDLES MIS 11EN9OS, 0 Refill(s) Start Date: 09/26/22 Status: Ordered pravastatin 40 mg oral tablet 40 mg = 1 tab, Oral, Daily, # 90 tab, 3 Refill(s), Pharmacy: [facility] #58 Start Date: 09/08/22 Status: Ordered Right Wrist Brace Right Wrist Brace, Apply to wrist during the day when doing lifting or painful activities., Supply,See instructions, # 1 EA, 0 Refill(s) Start Date: 10/20/22 Status: Ordered Symbicort 80 mcg-4.5 mcg/inh inhalation aerosol 2 puffs, Inhale, BID, # 10.2 g, 6 Refill(s), Pharmacy: [facility] #[id number] Start Date: 10/11/22 Status: Ordered TECHLITE PEN NEEDLE 31GX3/16 TECHLITE PEN NEEDLE 31GX3/16, USE 4 ONCE DAILY WITH LONG ACTION AND SHORT ACTING INSULIN Start Date: 09/26/22 Status: Ordered Ventolin HFA 90 mcg/inh inhalation aerosol 1 puffs, Inhale, every 4 hr, PRN as needed for wheezing, # 18 g, 4 Refill(s), Pharmacy: [facility] #[id number] Start Date: 9/20/23 Status: Ordered Vitamin D3 1000 intl units oral capsule 25 mcg = 1 cap, Oral, Daily, take one capsule daily, # 90 cap, 0 Refill(s), Pharmacy: [facility] #58, 163.83, cm, 01/10/23 10:34:00 EST, Height, [...] related Confirmed Active Body dermatophytosis Confirmed Active [id number] of left forearm Confirmed Active GERD (gastroesophageal [...] Personnel Name: Mona Forman Position: Ambulatory - RN/ESL TUTOR (Andre) Member Role: Rn First Assistant Name: Joey Moreau STAPLING MACHINE OPERATOR Position: Physician Member Role: Informed Provider Address: Address: [address] [place] [address] [place], [place] [id number] [place] [address] Care Team Related Persons Name: SADI GONZALEZ Address: Home [address] [place] [address], [phone] Name: HOLLIS GONZALEZ
--- OUTSIDE RECORDS SUMMARY | 2024-01-25 13:35 | XMS_ITS | Continuity of Care Document ---
Author Organization [facility] Address [address] [place] [address] Care Team Providers Care Eye Glass Frame Polisher Name Role Phone Joey Moreau Primary Care Physician [facility] - 08/13/[address] [address] Encounter Diagnosis Lumbar spine pain(Discharge Diagnosis) - 08/13/23 Discharge Disposition: Home or Self Care Attending Physician: Joey Moreau MUSIC REHABILITATION THERAPIST Admitting Physician: Joey Moreau NP Referring Physician: Joey Moreau MUSIC REHABILITATION THERAPIST Allergies, Adverse Reactions, Alerts Substance Reaction Severity Status Animal Dander Moderate Active Januvia Swelling Severe Active Victoza Throat swelling Severe Active Dust Mild Active Pollen 1 Moderate Active 1Pollen extracts, grass pollen. Assessment and Plan Future Scheduled Tests Laboratory* Ferritin 01/11/23 Immunizations [...] instructions, # 100 EA, 6 Refill(s), Pharmacy: [facility] #93 Start Date: 05/21/23 Status: Ordered Artificial Tears 1 drop prn ou, 0 Refill(s) Start Date: 06/05/23 Status: Ordered BD SHARPS CONTAINER 1 GALLON BD SHARPS CONTAINER 1 GALLON, BD SHARPS CONTAINER 1 GALLON, Supply, See instructions, # 1 EA, 3 Refill(s), Pharmacy: [facility] #58 Start Date: 08/16/22 Status: Ordered cyclobenzaprine 5 mg oral tablet 1 tab, Oral, TID, PRN NEEDED FOR RESTLESS LEGS OR BACK PAIN NEEDED FOR MUSCLE SPASM, # 270 tab, 1 Refill(s), Pharmacy: [facility] #93, 162.56, cm, 01/31/23 13:50:00 EST, Height, 77.75, kg, 05/01/23 8:57:00 EDT, Weight Dosing Start Date: 05/21/23 Status: Ordered fluticasone 50 mcg/inh nasal spray See Instructions, INSTILL 1 SPRAY INTO BOTH NOSTRILS EVERY MORNING, # 16 mL, 3 Refill(s), Pharmacy:[facility] #93, 162.56, cm, 01/31/23 13:50:00 EST, Height, 77.75, kg, 05/01/23 8:57:00 EDT, Weight Dosing Start Date: 07/18/23 Status: Ordered Freestyle Daniel 2 Sensor Kit Freestyle Daniel 2 Sensor Kit, Freestyle Daniel 2 Sensor Kit: Apply one sensor for 14 days, replace and apply new sensor in fresh location., Supply, See instructions, # 2 EA, 12 Refill(s), Pharmacy: [facility] #93 Start Date: 05/21/23 Status: Ordered FREESTYLE DANIEL II FREESTYLE DANIEL II, FREESTYLE DANIEL II meter kit, Supply, See instructions, # 1 EA, 1 Refill(s), Pharmacy: [facility] #[id number] Start Date: 08/15/22 Status: Ordered gabapentin 100 mg oral capsule See Instructions, take 1 capsules PO at night,, # 90 cap, 0 Refill(s), Pharmacy: [facility] #58, 163.83, cm, 01/10/23 10:34:00 EST, [...] UNITS, # 15 mL, 3 Refill(s), Pharmacy: [facility] #93, 162.56, cm, 01/31/23 13:50:00 EST, Height, 77.75, kg, 05/01/23 8:57:00 EDT, Weight Dosing Start Date: 05/21/23 Status: Ordered Insulin Glargine Solostar Pen 100 units/mL subcutaneous solution 22 units =, Subcutaneous, Daily, # 400 mL, 1 Refill(s), Pharmacy: [facility] #93, 162.56, cm, 01/31/23 13:50:00 EST, Height, [...] instructions, # 1 EA, 6 Refill(s), Pharmacy: [facility] #93 Start Date: 05/21/23 Status: Ordered lidocaine 5% topical film 1 patches, Topical, Daily, remove patches after 12 hours, # 30 patches, 2 Refill(s), Pharmacy: [facility] #93, 162.56, cm, 01/31/23 13:50:00 EST, Height, 77.75, kg, 05/01/23 8:57:00 EDT, Weight Dosing Start Date: 05/21/23 Status: Ordered loratadine 10 mg oral tablet 10 mg = 1 tab, Oral, Daily, # 30 tab, 0 Refill(s) Start Date: 09/26/22 Status: Ordered losartan 25 mg oral tablet 25 mg = 1 tab, Oral, Daily, [facility] Started 02/08/23, # 90 tab, 0 Refill(s) Start Date: 02/20/23 Status: Ordered Mag-Ox 400 oral tablet 400 mg = 1 tab, Oral, Daily, # 90 tab, 3 Refill(s), Pharmacy: [facility] #93, 162.56, cm, 01/31/23 13:50:00 EST, Height, 77.75, kg, 05/01/23 8:57:00 EDT, Weight Dosing Start Date: 05/21/23 Status: Ordered montelukast 10 mg oral tablet TAKE ONE TABLET BY MOUTH EVERY DAY Start Date: 09/26/22 Status: Ordered mupirocin 2% topical ointment 1 hector, Topical, TID, # 30 g, 0 Refill(s), Pharmacy: [facility] #58 Start Date: 08/23/22 Status: Ordered pravastatin 40 mg oral tablet 40 mg = 1 tab, Oral, Daily, # 90 tab, 3 Refill(s), Pharmacy: [facility] #93, 162.56, cm, 01/31/2313:50:00 EST, Height, 77.75, [...] 0 Refill(s) Start Date: 07/10/23 Status: Ordered Symbicort 80 mcg-4.5 mcg/inh inhalation aerosol 2 puffs, Inhale, BID, # 10.2 g, 6 Refill(s), Pharmacy: [facility] #93, 162.56, cm, 01/31/23 13:50:00 EST, Height, [...] wheezing, # 18 g, 4 Refill(s), Pharmacy: [facility] #93, 162.56, cm, 01/31/23 13:50:00 EST, Height, 77.75, kg, 05/01/23 8:57:00 EDT, Weight Dosing Start Date: 05/21/23 Status: Ordered Vitamin D3 1000 intl units oral capsule 25 mcg = 1 cap, Oral, Daily, take one capsule daily, # 90 cap, 0 Refill(s), Pharmacy: [facility] #58, 163.83, cm, 01/10/23 10:34:00 EST, Height, 64.86, kg, 01/10/23 10:36:00 EST, Weight Dosing Start Date: 01/10/23 Status: Ordered ZyrTEC 10 mg oral tablet 10 mg = 1 tab, Oral, Daily, # 90 tab, 0 Refill(s), Pharmacy: [facility] #93, 162.56, cm, 01/31/2313:50:00 EST, Height, 77.75, [...] related Confirmed Active Body dermatophytosis Confirmed Active [id number] of left forearm Confirmed Active GERD (gastroesophageal reflux disease) Confirmed 03/12/13 Active History of visual disturbance 1 Confirmed 10/24/11 Active Bilateral hip pain Confirmed 09/12/17 Active History of strep sore throat 2 Confirmed 06/24/12 Active HLD (hyperlipidemia) Confirmed Active Onychauxis Confirmed Active Hyperkeratosis Confirmed Active Microalbuminuria Confirmed [...] Physician Member Role: Informed Provider Address: Address: [address] [place] [address] [place], [place] [address] Care Team Related Persons Name: SADI GONZALEZ Address: Home [address] [place] [address], [phone] Name: HOLLIS GONZALEZ
--- OUTSIDE RECORDS SUMMARY | 2024-01-25 13:36 | XMS_ITS | Encounter Summary ---
Author Organization [facility] Address [facility] [place] [address] Care Team Providers Care Ticket Taker Name Role Phone Joey Ambrose APRN Primary Care Provider + Encounter Details Date Type Department Care Team (Latest Contact Info) Description 12/20/2023 1:35 PM EST Laboratory Appointment Lab [address] [place] [phone] Type 2 diabetes mellitus with hyperglycemia, with [...] Care Team (Late st Contact Info) Description 04/17/2024 10:00 AM EDT Office [place] [phone] Park Gross PA [facility] [place] [address] Pending Results Name Type Priority Associated Diagnoses Date /Time Urine Hold Lab Routine 12/20/2023 12: 08 PM EST Scheduled Orders Name Type Priority Associated Diagnoses Orde r Schedule Urine Hold Lab Routine One Time for 1 Occurrences starting 12/20/2023 until 12/20/2023, 1 completed documented as of this encounter Procedures Procedure Name Priority Date/Time Associated Diagnosis Comments U ALBUMIN/CRE RATIO Routine 12/20/2023 1 2:08 PM EST Type 2 diabetes mellitus with hyperglycemia, with long-term current use of insulin CREATININE Routine 12/20/2023 12:03 PM EST Type 2 diabetes mellitus with hyperglycemia, with long-term current use of insulin LDL CHOLESTEROL, DIRECT Routine 12/20/2023 12:03 PM EST Type 2 diabetes mellitus with hyperglycemia, with long-term current use of insulin HDL/CHOL PROFILE Routine 12/20/2023 12:0 3 PM EST Type 2 diabetes mellitus with hyperglycemia, with long-term current use of insulin HEMOGLOBIN A1C Routine 12/20/2023 12:03 PM EST Type 2 diabetes mellitus with hyperglycemia, with long-term current use of insulin documented in this encounter Results * (ABNORMAL) U Albumin/Cre Ratio (12/20/2023 12:08 PM EST) Albumin, Urine 42.3 mg/L 12/20/2023 1:27 PM [facility] Creatinine, Urine 72 mg/dL 024 1:27 PM [facility] Albumin / Creatinine Ratio, Urine 59(H) 0 - 29 mcg/mg Cr 12/20/2023 1:27 PM [facility] Comment: Reference Ranges: ?? <30 mcg/mg: Normal ?? 30-300 mcg/mg: Moderately increased albuminuria.* ?? >300 mcg/mg: Severely increased albuminuria. ?? * ACEI or ARB recommended if diabetic; suggested if BP>130/80 without diabetes ?? ACEI or ARB strongly recommended if diabetic; recommended if BP>130/80 without diabetes ??Two of three specimens collected within a 3 to 6 month period should be abnormal before considering a patient to have albuminuria. Transient causes: exercise, fever, infection, CHF, marked hyperglycemia or hypertension. Persistent albuminuria indicates CKD and is an independent risk factor for ASCVD. ??ADA Standards of Medical Care in Diabetes-2016; KDIGO: Kidney International Supplements (2012) 2 ??[phone] Urine URINE SPECIMEN / Unknown Non Blood Collection / Unknown 12/20/2023 12:08 PM EST 12/20/2023 12:09 PM EST Roverto Burnette MD URINE ORDERABLES [facility] [place] [address] * HDL/Cholesterol Profile (12/20/2023 12:03 PM EST) Cholesterol, Total 128 mg/dL 12/20/2023 1:01 PM EST [facility] Comment: Desirable: < 200 mg/dL Borderline High: 200 - 239 mg/dL High: > or = 240 mg/dL HDL Cholesterol 72 mg/dL 1:01 PM EST [facility] Comment:Female: High Risk: < 50 mg/dL Non-HDL Cholesterol 56 mg/dL 12/20/2023 1:01 PM EST [facility] Comment: Desirable: <130 mg/dL Above Desirable: 130-159 mg/dL Borderline High: 160-189 mg/dL High: 190-219 mg/dL Very High: > or = 220 mg/dL Blood VENOUS BLOOD SPECIMEN / Unknown Venipuncture / Unknown 12/20/2023 12:03 PM EST 12/20/2023 12:04 PM EST Narrative [facility] - 12/20/2023 1:01 PM EST It is important to review the results of your lipid panel with your health care provider. You can compare your lipid results to the ranges below and whether they are in the desirable range. These ranges are only meant to be used for people without known cardiac disease, history of stroke, or peripheral vascular disease (blockages in the leg arteries or diabetes). If you have one of these conditions, your desirable LDL-C (bad cholesterol) will likely be even lower. ?? ACC/AHA Guidelines (most recently Kiana nguyen al. JAC 11/08/21): * For individuals with atherosclerotic cardiovascular disease (ASCVD) or LDL >=190 mg/dL, use a high-intensity statin(40-80 mg atorvastatin or 20-40 mg rosuvastatin with goal >=50% LDL reduction) * For individuals with diabetes, age 40-75 without ASCVD, moderate-intensity statin (goal 30-49% LDL reduction); consider high intensity statin for those with increased risk. * For adults without diabetes or ASCVD, aged 40-75 with LDL 70-189 mg/dL, estimate 10 year ASCVD risk with smartphrase ??.ASCVDRISK ??or Dynamed Decisions. If 10 year risk is 7.5%-19.9% (intermediate risk), consider moderate intensity statin based on risk enhancers and patient preference. Consider coronary artery calcium test (CT)if there is concern regarding the benefit of a statin. If ten year risk is >=20%, initiate high-intensity statin. * Evaluate for secondary causes of Triglycerides >500 mg/dL or LDL >190 mg/dL. * Lifestyle modification is a critical component of ASCVD risk reduction. * If not reaching LDL goals on maximally tolerated statin, consider ezetimibe and/or a PCSK9 inhibitor: ?* Target for primary prevention: LDL<100 ?* Target for those with ASCVD or diabetes and 10-year risk >=20%: LDL<70 ?* Target for those with very high risk ASCVD: LDL<55 (Very high risk being the presence of 2 or more of: recent acute coronary syndrome, past ? myocardial infarction, ischemic stroke, symptomatic peripheral artery disease) Roverto Burnette MD CHEMISTRY ORDERABLES [facility] [place] [address] * LDL Cholesterol, Direct (12/20/2023 12:03 PM EST) [facility] LDL Cholesterol, Direct 43 mg/dL 12/20/2023 1:01 PM EST [facility] Comment: Desirable: <100 mg/dL Above Desirable: 100-129 mg/dL Borderline High: 130-159 mg/dL High: 160-189 mg/dL Very High: > or =190 mg/dL If not reaching LDL goals on maximally tolerated statin, consider ezetimibe and/or a PCSK9 inhibitor: ? * Target for primary prevention: LDL<100 ? * Target for those with ASCVD or diabetes and 10-year risk?20%: LDL<70 ? * Target for those with very high risk ASCVD: LDL<55 (Very high risk being the presence of 2 or more of: recent acute coronary syndrome, past ?myocardial infarction, ischemic stroke, symptomatic peripheral artery disease). Blood VENOUS BLOOD SPECIMEN / Unknown Venipuncture / Unknown 12/20/2023 12:03 PM EST 12/20/2023 12:04 PM EST Roverto Burnette MD CHEMISTRY ORDERABLES [facility] [place] [address] * (ABNORMAL) Creatinine (12/20/2023 12:03 PM EST) Creatinine 1.35(H) 0.70 - 1.20 mg/dL 12/20/2023 1:01 PM EST [facility] Est Glomerular Filtration Rate - Female 44 mL/min/1. 73 m?? 12/20/2023 1:01 PM EST [facility] Comment: This patient's estimated GFR [...] urine creatinine clearance. Assignment of CKD stage 1 - 5 for patients with an eGFR near the transition point between stages may be based on clinical assessment of muscle mass and symptoms in addition to eGFR. Link: eGFR Calculator National Kidney Foundation Blood VENOUS BLOOD SPECIMEN / Unknown Venipuncture / Unknown 12/20/2023 12:03 PM EST 12/20/2023 12:04 PM EST Roverto Burnette MD CHEMISTRY ORDERABLES [facility] [place] [address] * (ABNORMAL) Hemoglobin A1c (12/20/2023 12:03 PM EST) Hemoglobin A1c 8.3(H) 4.3 - 5.6 % 12/20/2023 1:00 PM EST [facility] Comment: Per ADA guidelines, without clear symptoms of hyperglycemia or a random plasma glucose >199 mg/dL, a single abnormal A1c measurement cannot be used to diagnose diabetes mellitus. The diagnosis must be confirmed by either 1) a concurrent abnormal fasting plasma glucose or impaired response to oral glucose tolerance testing, or 2) an additional abnormal A1c, impaired fasting plasma glucose, or impaired response to oral glucose tolerance testing on a different day. A1c results obtained on patients with altered red blood cell turnover may not be outside sales account representative of glycemic control. Reference Interval: 4.3 - 5.6% 5.7 - 6.4%: Consistent with prediabetes >=6.5%: Consistent with diagnosis of diabetes mellitus Estimated Average Glucose 192 mg/dL 12/20/2023 1:00 PM EST [facility] Blood VENOUS BLOOD SPECIMEN / Unknown Venipuncture / Unknown 12/20/2023 12:03 PM EST 12/20/2023 12:04 PM EST Roverto Burnette MD CHEMISTRY ORDERABLES Performing Organization Address City/[facility]/ZIP Co de Phone Number [facility] [place] [address] documented in this encounter Visit Diagnoses Diagnosis Type 2 diabetes mellitus with hyperglycemia, with long-term current use of insulin documented in this encounter Care Teams Ticket Taker Relationship Specialty Start Date End Date Joey Ambrose, BUFFER IN[employer] PAD [address] [place] [address] [place] [address] PCP - General Family Medicine 11/09/22 documented as of this encounter
--- OUTSIDE RECORDS SUMMARY | 2024-01-25 13:36 | XMS_ITS | Encounter Summary ---
Author Organization [facility] Address [facility] [place] [address] Care Team Providers Care Pad Machine Offbearer Name Role Phone Joey Ambrose APRN Primary Care Provider + Encounter Details Date Type Department Care Team (Late st Contact Info) Description 10/09/2023 Orders [place] [phone] Roverto Burnette MD [facility] [address] Type 2 diabetes mellitus with hyperglycemia, with [...] 10:00 AM EDT Office [place] [phone] Park Gross PA [facility] [address] documented as of this encounter Visit Diagnoses Diagnosis Type 2 diabetes mellitus with hyperglycemia, with long-term current use of insulin documented in this encounter Care Teams Pad Machine Offbearer Relationship Specialty Start Date End Date Joey Ambrose APRN [address] [place] [address] [place] [address] PCP - General Family Medicine 11/09/22 documented as of this encounter
--- OUTSIDE RECORDS SUMMARY | 2024-01-25 13:36 | XMS_ITS | Encounter Summary ---
Author Organization [facility] [place] [address] Care Team Providers Care Cylindrical Mixer Name Role Phone Joey Ambrose APRN Primary Care Provider + Encounter Details Date Type Department Care Team (Late st Contact Info) Description 12/21/2023 Telephone Endocr[place] [phone] Lidia De La Paz RN Social History Tobacco Use Types Packs/Day Years Used Date Smoking Tobacco: Former Cigarettes Q uit: 2022 Smokeless Tobacco: Never Sex and Gender Information Value Date Recorded Sex Assigned at Not on file Gender Identity Not on file Sexual Orientation Not on file documented as of this encounter Miscellaneous Notes * Telephone Encounter - Lidia De La Paz RN - 12/21/2023 8:09 AM EST Patients name and was provided, this RN spoke to [employer] in [facility] and was told that the prescription was sent to the [facility] in [facility]. [facility], patients name and was provided. This RN was informed that the glipizide was not filled and it was being cancelled. * Telephone Encounter - Lidia De La Paz RN - 12/21/2023 8:04 AM EST ----- Message from Park Gross sent at 12/21/2023 7:26 AM EST ----- Regarding: Medication change--please call pt Pt does not use [facility]. Please call and advise that I was looking over her chart and actually don't want her to restart glipizide like we talked about last visit. Her kidney function has been up and down and glipizide is not recommended when there is any concern about kidney function. We'll adjust mealtime insulin instead. Also can you call [facility] (pt's pharmacy) and make sure they do not fill the glipizide. I sentit in error. Park Lund documented in this encounter Plan of Treatment Upcoming Encounters Date Type Department Care Team (Late st Contact Info) Description 04/17/2024 10:00 AM EDT Office Visit [place] [address] Park Gross PA [facility] [place] [address] documented as of this encounter Visit Diagnoses Not on filedocumented in this encounter Care Teams Cylindrical Mixer Relationship Specialty Start Date End Date Joey Ambrose APRN [address] [place] [address] [place] [address] PCP - General Family Medicine 11/09/22 documented as of this encounter
--- OUTSIDE RECORDS SUMMARY | 2024-01-25 13:36 | XMS_ITS | Continuity of Care Document ---
Author Organization [place] - [facility] DBL Acquisition [facility], [facility] Address [address] [place] [address] Care Team Providers Care Bobbin Doffer Name Role Phone JESSI SAENZ Primary Care Provider Assessment No assessment recorded. Plan of Treatment Reminders Order Date Submit Date Provider Last Modified By Organization Details Last Modified Time Details Appointments None recorded. Lab None recorded. Referral None recorded. Procedures None recorded. Surgeries None recorded. Imaging XR, chest, 2 view 2023 [facility], [address] [place], [address] 4 13:30:08 Medication Orders prednisone 20 mg tablet 2023 [facility], [address] [place], [address], 4 14:24:52 Patient TargetsNo targets recorded. Patient Instructions Encounter Date Encounter Id Patient Instructions Last Modified By Organization Details Last Modified Time 11/02/2023 [id number] 1. I am concerne d about possibility [...] Patien t Name: Mary Denny Unit #: [id number] Loc: DI Orderi [facility] er: Savanna Cabrera Accoun t #: [id number] Status : REG CLI Primar [...] this report in error, please notify us immmary savage at and return the origin al report to us at the addres s above. Thank- you. [email or web address] [facility] [address], [facility] [place], [address] 11/02/2023 15:16:37 Result Notes None recorded. Problems Name Problem SNOMED Code Status Onset Date Resolution Date Notes Provider Name and Address Organization Details Recorded Time Cough 68251959 Active [address], [place], [address], [facility] 4 13:46:24 Pneumonia 907233774 Active [address], [place], [address], [facility] 4 15:02:31 Asthma 698723629 Active [address], [place], [address] , [facility] 4 16:41:58 Dysuria 98353726 Active [address], [place], [address], [facility] 4 16:48:50 Persistent cough 474504232 Active [address], [place], [address] , [facility] 4 11:21:00 Problem Notes None recorded. Procedures Surgical History Date Name Laterality Status Provider Name and Address Organization Details Recorded Time 4 Nebulizer tx completed [address], [place], [address] 08/24/2023 13:09:07 4 Nebulizer tx completed [address], [place], [address] 08/17/2023 17:33:01 4 Nebulizer tx completed [address]Y [address], [facility] [address], [facility] 07/04/2023 15:07:04 Imaging Results None [...] Updated DateTime 4 163.83 cm 29.1 kg/m2 44374.8 9 g 96 % 96 % 101 /min 19 /min 99.3 [degF] 120 mm[Hg] 75 mm[Hg] Lidia Mina MA [facility] 11:08:18 Social History Question Answer Notes LastModified by Organizat ion Details LastModified Time Tobacco Smoking Status Former Smoker Liliana Vale [facility], [facility] 07/04/2023 12:23:26 When Did You Quit Smoking? 1-5yearssinc elastcigaret te Information not available 07/04/2023 What Was The Date Of Your Most Recent Tobacco Screening? 11/02/2023 [email or web address] Information not available 11/02/2023 On What Date Was Tobacco Cessation Counseling Provided? 11/02/2023 [email or web address] Information not available 11/02/2023 Sex: Female Functional Status None recorded. Mental Status None recorded. Family History Nothing Reported. Medical History No medical history recorded. Gynecological HistoryNo gynecological history recorded. Obstetrics History GPAL:G 0 P 0 0 0 0 Immunizations Vaccine Type Date Status Note Provider Nam e and Address Organization Details Recorded Time Td (adult), 2 Lf tetanus toxoid, preservative free, adsorbed 7 completed Kala Irene RN [facility], [facility] 08/17/2023 16:07:40 Past Encounters Encounter ID Performer Location Encounter Start Date Encounter Closed Date Diagnosis/Indication Diagnosis SNOMED-CT Code Diagnosis ICD10 Code [id number] SAVANNA CABRERA PA-C [address] [place] [address] 11/02/2023 10:46:46 11/02/2023 11:34:42 Persistent cough 834029255 R05.3 Health Concerns Section Related Observation LastModified by Organization Detai ls LastModified Time None Recorded Concern Status LastModified by Organization Details LastModified Time None Recorded Payers Encounter Date Sequence Insurance Name Policy Number Policy Roberson Covered Member ID Roberson Member ID Guarantor Name 11/02/2023 2 [facility] (MEDICAID) Noreen Denny [id number] Noreen Denny 11/02/2023 1 [place] [employer] Noreen Denny [id number] Noreen Denny Notes Date Note Type Note Provider Name and Address Organization Details Recorded Time 11/02/2023 text/html Noreen is a 63-year-old female with history of [...] yellow. SAVANNA CABRERA PA-C [address], [place], [address], [facility]. 11/02/2023 18:24:08 OBGyn Episode No OBEpisode recorded.
--- OUTSIDE RECORDS SUMMARY | 2024-01-25 13:36 | XMS_ITS | Encounter Summary ---
[place] [address] Care Team Providers Care Inventory Assistant Name Role Phone Hubert SorianoRileydebbi Rouse APRN Primary Care Provider + Reason for Visit * Reason Onset Date Comments Prior Authorization 09/18/2023 Encounter Details Date Type Department Care Team (Late st Contact Info) Description 09/18/2023 Telephone [place] [address] Georgette Westfall CCMA Prior Authorization Social History [...] PA Outcome: PA Denial [place] [address] DENIED: Rybelsus 7mg Case/Reference #: [id number] Additional Information from Insurance: * Telephone Encounter - Georgette Westfall CCMA - 09/18/2023 9:30 AM EDT Images from the original note were not included. PA Submitted Submitted Date: Date Submitted: 09/18/2023 Medication Prior Authorization Patient: Noreen Denny Patient : 1960 Insurance Company: [place] Medicaid Sent via: [facility] Chavez: [id number] Physician: Roverto Burnette Medication Requested: semaglutide (Rybelsus) [...] ago ains abnormal data Hemoglobin A1c Order: [id number] Status: Final result Visible to patient: No [...] 10:00 AM EDT Office [place] [address] Park Gross PA [facility] [place] [address] documented as of this encounter Visit Diagnoses Not on filedocumented in this encounter Care Teams Inventory Assistant Relationship Specialty Start Date End Date Joey Ambrose, COUPON CLERK [address] [place] [address] [place] [address] PCP - General Family Medicine 11/09/22 documented as of this encounter
--- OUTSIDE RECORDS SUMMARY | 2024-01-25 13:36 | XMS_ITS | Continuity of Care Document ---
Author Organization [place] [facility] Address [address] [place] [address] [place] [address] Care Team Providers Care Clerical Methods Analyst Name Role Phone JESSI SAENZ Primary Care Provider [phone] Assessment No assessment recorded. Plan of Treatment Reminders Order Date Submit Date Provider Last Modified By Organization Details Last Modified Time Details Appointments None recorded. Lab SARS CoV 2 RNA (COVID-19), QL, boot trimmer-PCR, respiratory specimen [address] [facility], [address] [place], [address] 4 17:31:39 Referral None recorded. Procedures None recorded. Surgeries [...] view Patien t Name: Mary Denny kevin Daniel Unit #: [id number] Loc: DI Orderi ng Provid er: Savanna Cabrera Accjodi t #: [id number] Status : REG CLI Primar [...] error, please notify us immedi ately at [phone] and return the origin al report to us at the addres s above. Thank- you. [email or web address] [facility] [address] , [place], [address] 11/02/2023 15:16:37 Result Notes None recorded. Problems Name Problem SNOMED Code Status Onset Date Resolution Date Notes Provider Name and Address Organization Details Recorded Time Cough 08720311 Active 024 SAVANNA CABRERA PA-C [address], [place], [address], [facility] 4 13:46:24 Pneumonia 738960621 Active [address], [facility] [address], [facility] 4 15:02:31 Asthma 638651948 Active [address], [facility] [address], [facility] 4 16:41:58 Dysuria 84834201 Active [address], [facility] [address] , [facility] 4 16:48:50 Persistent cough 203782986 Active [address], [facility] [address] , [facility] 4 11:21:00 Problem Notes None recorded. Procedures Surgical History Date Name Laterality Status Provider Name and Address Organization Details Recorded Time 4 Nebulizer tx completed AGATHA [address] Dr, [facility] [address], [facility] 08/24/2023 13:09:07 4 Nebulizer tx completed MAURY [address] Dr, [facility] [address], [facility] 08/17/2023 17:33:01 4 Nebulizer tx [address], [facility] [address], [facility] 07/04/2023 15:07:04 Imaging Results None recorded. [...] Tobacco Smoking Status Former Smoker Liliana Vale [facility], [place] - [facility]. 07/04/2023 12:23:26 When Did You Quit Smoking? 1-5yearssinc elastcigaret te Information not available 07/04/2023 What Was The Date Of Your Most Recent Tobacco Screening? 11/02/2023 [email or web address] Information not available 11/02/2023 On What Date Was Tobacco Cessation Counseling Provided? 11/02/2023 [email or web address] Information not available 11/02/2023 Sex: Female Functional [...] free, adsorbed 7 completed Kala Irene RN [facility], [facility] 08/17/2023 16:07:40 Past Encounters Encounter ID Performer Location Encounter Start Date Encounter Closed Date Diagnosis/Indication Diagnosis SNOMED-CT Code Diagnosis ICD10 Code [id number] SAVANNA CABRERA PA-C [address] [place] [address] 11/02/2023 10:46:46 11/02/2023 11:34:42 Persistent cough 044124087 R05.3 [id number] Kala Irene RN [address] [place] [address] 11/15/2023 13:19:55 11/15/2023 13:27:43 Exposure to SARS-CoV-2 982305973 Z20.822 Health Concerns Section Related Observation LastModified by Organization Detai ls LastModified Time None Recorded Concern Status LastModified by Organization Details LastModified Time None Recorded Payers Encounter Date Sequence Insurance Name Policy Number Policy Roberson Covered Member ID Roberson Member ID Guarantor Name 11/15/2023 2 [facility] (MEDICAID) Noreen Denny [id number] Noreen Denny 11/15/2023 1 [place] [employer] Noreen Denny [id number] Noreen Denny OBGyn Episode No OBEpisode recorded.
--- OUTSIDE RECORDS SUMMARY | 2024-01-25 13:36 | XMS_ITS | Encounter Summary ---
[place] [address] Care Team Providers Care Director Community Center Name Role Phone Joey Ambrose APRN Primary Care Provider + Encounter Details Date Type Department Care Team (Late st Contact Info) Description 12/21/2023 Telephone [place] [phone] Lidia De La Paz RN Social History [...] Lidia De La Paz RN - 12/21/2023 9:21 AM EST Patients name and was verified. This RN informed that per Park, she is not to start taking glipizide due to her kidney function being up and down and glipizide is not recommended when there is any concern with kidney function. Patient asked how she can improve her kidney function, this RN advised the patient to reach out to her PCP as Endocrinology does not treat issues with the Kidney, patient verbalized understanding. This RN also advised the patient to monitor for lows as she ups the dose of Trulicity and she can decrease her insulin b 10-20 % if needed. Patient verbalized understanding. * Telephone Encounter - Lidia De La Paz RN - 12/21/2023 9:19 AM EST ----- Message from Park Gross sent at 12/21/2023 8:53 AM EST ----- Regarding: RE: Medication change--please call pt Because she's increasing her Trulicity, I don't think right now we'll need to adjust for not havingglipizide. She should watch for lows as she ups the Trulicity and can decrease insulin (basal and bolus) by 10-20% if needed. Thanks. ----- Message ----- From: Lidia De La Paz RN Sent: 12/21/2023 8:15 AM EST To: HEAVEN Marc Subject: RE: Medication change--please call pt Will the patient know what to adjust for mealtime insulin or continue with what was discussed during your visit? I did call the pharmacy already ----- Message ----- From: Park Gross PA Sent: 12/21/2023 7:28 AM EST [place]: [facility] [place] Subject: Medication change--please call pt Pt does not [...] 10:00 AM EDT Office [place] [address] Park Gross PA [facility] [place] [address] documented as of this encounter Visit Diagnoses Not on filedocumented in this encounter Care Teams Director Community Center Relationship Specialty Start Date End Date Joey Ambrose APRN [address] [place] [address] [place] [address] PCP - General Family Medicine 11/09/22 documented as of this encounter
--- OUTSIDE RECORDS SUMMARY | 2024-01-25 13:36 | XMS_ITS ---
Author Organization Unknown Address [address] [place] [phone] Phone Care Team Providers Care Guest Relation Officer Name Role Phone MARIAMA Sanchez Attending Unavailable [...] Code Code Sys tem Peripheral vascular disease 12/21/2023 [id number] SNOMED-CT Personal Care Team Section Performer Name Performer Role Active Date Inactive Da te
--- OUTSIDE RECORDS SUMMARY | 2024-01-25 13:36 | XMS_ITS | Encounter Summary ---
Author Organization [facility] [place] [address] Care Team Providers Care Combine Operator Name Role Phone Joey Ambrose APRN Primary Care Provider + Encounter Details Date Type Department Care Team (Late st Contact Info) Description 12/21/2023 Telephone [place] [phone] Lidia De La Paz RN Social History [...] Lidia De La Paz RN - 12/21/2023 8:13 AM EST ----- Message from Park Gross [...] 10:00 AM EDT Office [place] [address] [facility] [place] [address] documented as of this encounter Visit Diagnoses Not on filedocumented in this encounter Care Teams Combine Operator Relationship Specialty Start Date End Date Joey Ambrose APRN [address] [place] [address] [place] [address] PCP - General Family Medicine 11/09/22 documented as of this encounter
--- OUTSIDE RECORDS SUMMARY | 2024-01-25 13:36 | XMS_ITS | Encounter Summary ---
Author Organization [facility] [place] [address] Care Team Providers Care General Maintenance Engineer Name Role Phone Hubert SorianoRileydebbi Rouse APRN Primary Care Provider + Encounter Details Date Type Department Care Team (Late st Contact Info) Description 01/14/2024 [place] [phone] Jackie Lomeli, RN Social History Tobacco Use Types Packs/Day Years Used Date Smoking Tobacco: Former Cigarettes Q uit: 2022 Smokeless Tobacco: Never Sex and Gender Information Value Date Recorded Sex Assigned at Not on file Gender Identity Not on file Sexual Orientation Not on file documented as of this encounter Miscellaneous Notes * Telephone Encounter - Jackie Lomeli RN - 01/14/2024 1:31 PM EST Called patient - states that she is getting both the 0.75mg dosage and the 1.5mg dosage at the sametime. She is using the 0.75mg dosage. Author advised patient to take Trulicity 0.75mg until she is out of the medications and then start taking the 1.5mg weekly dosage. Do not pick the 0.75mg dosage any longer. * Telephone Encounter - Jackie Lomeli, RN - 01/14/2024 1:31 PM EST Copied from CRM #[id number]. Topic: Specialty Dept CRMs - Medication Issues >> Jan 11, 2024 2:16 PM Tristin Garcia wrote: Medication Issues Specialist HEAVEN Jones Relationship (if other than patient-full name): self Reason for call: Medication Issue (if symptom based used Triage Subtopic) Message/information for the nurse: Name of Medication: dulaglutide (Trulicity) 0.75 mg/0.5 mL Pen Injector;dulaglutide (Trulicity) 1.5mg/0.5 mL Pen Injector Issue with the medication: Patient is hoping to speak with a nurse in regards to Trulicity. Patientis unsure when she is supposed to titrate. The pharmacy has continued to give her the lower dosage.Patient also believes she received a call from the office, though this agent was unable to find indication of outbound call. documented in this encounter Plan of Treatment Upcoming Encounters Date Type Department Care Team (Late st Contact Info) Description 04/17/2024 10:00 AM EDT Office [place] [address] Park Gross PA [facility] [place] [address] documented as of this encounter Visit Diagnoses Not on filedocumented in this encounter Care Teams General Maintenance Engineer Relationship Specialty Start Date End Date Joey Ambrose APRN [address] [place] [address] [place] [id number] PCP - General Family Medicine 11/09/22 documented as of this encounter
--- OUTSIDE RECORDS SUMMARY | 2024-01-25 13:36 | XMS_ITS ---
Author Organization Unknown Address [address] [place] [phone] Phone Care Team Providers Care Fashion Consultant Sales Name Role Phone MARIAMA Sanchez Attending Unavailable [...] Code Sys tem Peripheral vascular disease 03/20/2023 [id number] SNOMED-CT Personal Care Team Section Performer Name Performer Role Active Date Inactive Da te
--- OUTSIDE RECORDS SUMMARY | 2024-01-25 13:36 | XMS_ITS ---
Author Organization Unknown Address [address] [place] [phone] Phone Care Team Providers Care Attending Physician Name Role Phone MARIAMA Sanchez Attending Unavailable [...] Code Sys tem Peripheral vascular disease 09/14/2022 [id number] SNOMED-CT Personal Care Team Section Performer Name Performer Role Active Date Inactive Da te
--- OUTSIDE RECORDS SUMMARY | 2024-01-25 13:36 | XMS_ITS | Encounter Summary ---
[place] [address] Care Team Providers Care Utility Tender Carding Name Role Phone Hubert SorianoRileydebbi Rouse APRN Primary Care Provider + Reason for Visit * Reason Onset Date Comments Prior Authorization 12/21/2023 Encounter Details Date Type Department Care Team (Late st Contact Info) Description 12/21/2023 Telephone [place] [phone] Jordana Chin Prior Authorization Social History Tobacco Use Types Packs/Day Years Used Date Smoking Tobacco: Former Cigarettes Q uit: 2022 Smokeless Tobacco: Never Sex and Gender Information Value Date Recorded Sex Assigned at Not on file Gender Identity Not on file Sexual Orientation Not on file documented as of this encounter Miscellaneous Notes * Telephone Encounter - Jordana Chin - 01/07/2024 7:57 AM EST Images from the original note were not included. PA Outcome: PA Denial [place] [address] DENIED: Rybelsus 7mg Case/Reference #: [id number] Additional Information from Insurance: * Telephone Encounter - Jordana Chin - 12/25/2023 10:13 AM EST Images from the original note were not included. Information faxed to [place] Medicaid [phone] Tracking # [id number] * Telephone Encounter - Jordana Chin - 12/21/2023 7:58 AM EST Previous Medications Tried Medication: Metformin Medication: Januvia Medication: Glipizide Medication: Trulicity Medication: Victoza - throat swelling Medication: Ozempic - nausea * Telephone Encounter - Jordana Chin - 12/21/2023 7:51 AM EST Medication Prior Authorization Ginny Medication name/dose/directions: Rybelsus 7MG - take one daily Rationale for request: Type II DM (E11.65) Health plan: [place] Medicaid ([facility]) Chavez: [id number] Authorizing district representative name: Lea Sent to health plan on: 12/21/23 documented in this encounter Plan of Treatment Upcoming Encounters Date Type Department Care Team (Late st Contact Info) Description 04/17/2024 10:00 AM EDT Office [place] [address] Park Gross PA [facility] [place] [address] documented as of this encounter Visit Diagnoses Not on filedocumented in this encounter Care Teams Utility Tender Carding Relationship Specialty Start Date End Date Joey Ambrose APRN [address] [place] [address] [place] [address] PCP - General Family Medicine 11/09/22 documented as of this encounter
--- OUTSIDE RECORDS SUMMARY | 2024-01-25 13:36 | XMS_ITS | Encounter Summary ---
Author Organization [facility] Address [facility] [place] [address] Care Team Providers Care Reception Agent Name Role Phone Joey Ambrose APRN Primary Care Provider + Encounter Details Date Type Department Care Team (Latest Contact Info) Description 12/20/2023 Travel Social History Tobacco Use Types Packs/Day [...] 10:00 AM EDT Office [place] [address] Park Gross PA [facility] [place] [address] documented as of this encounter Visit Diagnoses Not on filedocumented in this encounter Care Teams Reception Agent Relationship Specialty Start Date End Date Joey Ambrose APRN [address] [place] [address] [place] [address] PCP - General Family Medicine 11/09/22 documented as of this encounter
--- OUTSIDE RECORDS SUMMARY | 2024-01-25 13:36 | XMS_ITS | Clinical Summary ---
Author Organization [facility] Address [facility] [place] [address] Care Team Providers Care Customer Greeter Name Role Phone Joey Ambrose APRN Primary Care Provider + Allergies Active Allergy Reactions Criticality Noted Date Comments Animal Dander 11/09/2022 Bee Pollen 11/09/2022 Pollen extracts, grass pollen. House Dust 11/09/2022 Semaglutide Other (See Comments) 12/20/2023 Made her throat feel like it was closing Medications Medication Sig Dispensed Refills Start Date [...] Sensor Kit 11/07/2022 Active FreeStyle Daniel 2 [place] Misc See Admin Instructions. 08/17/2022 Active magnesium oxide (Mag-Ox) 400 mg (241.3 mg magnesium) Tablet Take 1 tablet by mouth daily. Active montelukast (Singulair) 10 mg tablet Take 10 mg by mouth daily. Active losartan (Cozaar) 25 mg tabletIndications :Type 2 diabetes mellitus with hyperglycemia, with long-term current use of insulin Take 1 tablet by mouth daily. 90 tablet 3 02/08/2023 02/08/2024 Active omeprazole (PriLOSEC) [address] capsule Take 20 mg by mouth daily. Active insulin aspart U-100 (NovoLOG Flexpen U-100 [...] a week. 6 mL 3 10/09/2023 Active Additional Information Patient not taking.Reported on 12/20/2023 Encounters Date Type Department Care Team Description 01/14/2024 Telephone [place] [phone] Jackie Lomeli, RN 12/21/2023 Tele[place] [phone] Lidia De La Paz RN 12/21/2023 Tele[place] [phone] Lidia De La Paz RN 12/21/2023 Tele[place] [phone] Lidia De La Paz RN 12/21/2023 Tele[place] [phone] Jordana Chin Prior Authorization 12/20/2023 1:35 PM EST Laboratory Appointment Lab [address] [place] [address] Type 2 diabetes mellitus with hyperglycemia, with long-term current use of insulin 12/20/2023 10:30 AM EST Office [place] [address] Park Gross PA Type 2 diabetes mellitus with hyperglycemia, with long-term current use of insulin 12/20/2023 Travel from Last 3 Months Social History [...] Sign Reading Time Taken Comments Blood Pressure 119/76 12/20/2023 10:40 AM EST Pulse 102 12/20/2023 10:40 AM EST Temperature 37 ??C (98.6 ??F) 12/20/2023 10:40 AM EST Respiratory Rate 20 12/20/2023 10:40 AM EST Oxygen Saturation 96% 12/20/2023 10:40 AM EST Inhaled Oxygen Concentration - - Weight 84.6 kg (186 lb 6.4 oz) 12/20/2023 10:40 AM EST Height 163.8 cm (5' 4.5) 12/20/2023 10:40 AM ES T Body Mass Index 31.5 12/20/2023 10:40 AM EST Plan of Treatment Upcoming Encounters Date Type Department Care Team (Late st Contact Info) Description 04/17/2024 10:00 AM EDT Office [place] [address] Park Gross PA [facility] [place] [address] Health Maintenance Due Date Last Done Comments [...] Advance Directive 09/26/2014 Covid-19 Vaccine ( - season) 2023 Influenza (Flu) vaccine (1 o [...] Months Results * (ABNORMAL) U Albumin/Cre Ratio (12/20/2023 12:08 PM EST) Albumin, Urine 42.3 mg/L 12/20/2023 1:27 PM EST [facility] Creatinine, Urine 72 mg/dL 024 1:27 PM EST [facility] Albumin / Creatinine Ratio, Urine 59(H) 0 - 29 mcg/mg Cr 12/20/2023 1:27 PM EST [facility] Comment: Reference Ranges: ?? <30 [...] PM EST Roverto Burnette MD URINE ORDERABLES [facility] [place] [phone] * (ABNORMAL) Creatinine (12/20/2023 12:03 PM EST) Creatinine 1.35(H) 0.70 - 1.20 mg/dL 12/20/2023 1:01 PM EST [facility] Est Glomerular Filtration Rate - Female 44 mL/min/1. 73 m?? 12/20/2023 1:01 PM EST [facility] Comment: This patient's [...] Burnette MD CHEMISTRY ORDERABLES Performing Organization Address [facility] Co de Phone Number [facility] [place] [address] * LDL Cholesterol, Direct (12/20/2023 12:03 PM EST) LDL Cholesterol, Direct 43 mg/dL 12/20/2023 1:01 PM EST [facility] Comment: Desirable: <100 mg/dL Above [...] Burnette MD CHEMISTRY ORDERABLES Performing Organization Address [facility]/ZIP Co de Phone Number [facility] [place] [address] * HDL/Cholesterol Profile (12/20/2023 12:03 PM EST) Cholesterol, Total 128 mg/dL 12/20/2023 1:01 PM EST [facility] Comment: Desirable: < 200 mg/dL Borderline High: 200 - 239 mg/dL High: > or = 240 mg/dL HDL Cholesterol 72 mg/dL 1:01 PM EST [facility] Comment:Female: High Risk: < 50 mg/dL Non-HDL Cholesterol 56 mg/dL 12/20/2023 1:01 PM [facility] Comment: Desirable: <130 mg/dL Above Desirable: 130-159 mg/dL Borderline High: 160-189 mg/dL High: 190-219 mg/dL Very High: > or = 220 mg/dL Blood VENOUS BLOOD SPECIMEN / Unknown Venipuncture / Unknown 12/20/2023 12:03 PM EST 12/20/2023 12:04 PM EST [facility] - 12/20/2023 1:01 PM EST It [...] lower. ?? ACC/AHA Guidelines (most recently Kiana et al. [facility] 11/08/21): * For individuals with atherosclerotic cardiovascular [...] artery disease) Roverto Burnette MD CHEMISTRY ORDERABLES [facility] [place] [address] * (ABNORMAL) Hemoglobin A1c (12/20/2023 12:03 PM EST) [facility] Hemoglobin A1c 8.3(H) 4.3 - 5.6 % 12/20/2023 1:00 PM EST [facility] Comment: Per ADA guidelines, without [...] red blood cell turnover may not be business representative of glycemic control. Reference Interval: 4.3 - 5.6% 5.7 - 6.4%: Consistent with prediabetes >=6.5%: Consistent with diagnosis of diabetes mellitus Estimated Average Glucose 192 mg/dL 12/20/2023 1:00 PM EST [facility] Blood VENOUS BLOOD SPECIMEN / Unknown Venipuncture / Unknown 12/20/2023 12:03 PM EST 12/20/2023 12:04 PM EST Roverto Burnette MD CHEMISTRY ORDERABLES [facility] [place] [address] from Last 3 Months Care Teams Customer Greeter Relationship Specialty Start Date End Date Joey Ambrose, DOBBY LOOMS PEGGER [address] [place] [address] [place] [address] PCP - General Family Medicine 11/09/22
--- OUTSIDE RECORDS SUMMARY | 2024-01-25 13:36 | XMS_ITS | Encounter Summary ---
Author Organization [facility] Address [facility] [place] [address] Care Team Providers Care Information Engineer Name Role Phone Joey Ambrose APRN Primary Care Provider + Encounter Details Date Type Department Care Team (Late st Contact Info) Description 12/20/2023 10:30 AM EST Office [place] [phone] Park Gross PA [facility] [place] [address] Type 2 diabetes mellitus with hyperglycemia, with [...] Mass Index 31.5 12/20/2023 10:40 AM EST documented in this encounter Patient Instructions * Patient Instructions* Park Gross PA - 12/20/2023 10:30 AM EST --Restart Glipizide 10mg/day --Will be going up to 1.5mg once/week on Trulicity --Decrease Lantus to 24U/day --Decrease Humalog to 8-12U --Ask PCP about pneumonia vaccine and if you are due --Labs today, will contact with results --Follow up in 4mo, sooner as needed documented in this encounter Progress Notes * Park Gross PA - 12/20/2023 10:30 AM EST Images from the original note were not included. Diabetes Visit Note Name: Noreen Denny : 1960 PCP: Joey Ambrose, REED Date of visit: 12/20/2023 Reason for visit: follow up T2DM Plan from previous visit with Dr. Roverto Burnette on 06/28/23: 1) DM2 - her diabetes control is reasonable overall (ha1C) BUT HER 2 WEEK DANIEL LOOKS MUCH WORSE (gmi 9.0), tir 25 [...] has it regularly attended to by podiatry Interval history: Since last visit pt had throat tightening with higher dose of Rybelsus so stopped it. Restarted Trulicity 0.75mg weekly and will be increasing to 1.5mg next month. Gained weight, at a plateau now andhoping to lose with restart of Trulicity. Taking 26U of Lantus Aspart 10-15U before meals depending on BG. If 160 does 10, if >160 takes 15U. Not sure why glipizide was stopped When she urinates, has to push down hard. Asking if this is related to DM. Notable medical comorbidities: CKD, HTN CV risk reducing meds: pravastatin 24 dietary recall: 2-3 meals/day Breakfast: 2 fried eggs, romansh muffin, coffee Lunch: Skipped Dinner: Healthy choice dinner, beef with teriyaki Snacks: sometimes eats granola bar, special K bars, apples Exercise: trying to Eye doctor: up to date, had cataract surgery, ?DR Claros: has podiatry appointment tomorrow in [place] Vaccines: not interested in vaccines Glucose monitoring: Daniel 2 Prescriber information: Park Gross PA-C Review of systems: As noted in HPI, all other systems reviewed and negative Physical Exam: BP 119/76 (BP Location (NBP): Right arm, Patient Position: Sitting, BP Cuff Sizes: Large Adult (32-43 cm)) Pulse (!) 102 Temp 37 ??C (98.6 ??F) (Temporal) Resp 20 Ht 163.8 cm (5' 4.5) Wt 84.6 kg (186 lb 6.4 oz) SpO2 96% BMI 31.50 kg/m?? General appearance: Alert and cooperative. No acute distress. HEENT: EOMI Resp: breathing comfortably on room air, no audible stridor, normal respiratory effort Lower extremities: Deferred, pt has podiatry appt tomorrow Neuro: No observable neuro defects Skin: no visible acanthosis, jaundice or pallor Psych: normal affect, alert and oriented Laboratory Data: Ordered Medications: Medications 12/20/23 1045 Medication Sig Taking? dulaglutide (Trulicity) 0.75 mg/0.5 mL Pen Injector Inject 0.5 mLs subcutaneously once a week. Yes Lantus Solostar U-100 Insulin 100 unit/mL (3 mL) pen Inject 35 Units subcutaneously daily. Yes omeprazole (PriLOSEC) [address] capsule Take 20 mg by mouth daily. Yes insulin aspart U-100 (NovoLOG Flexpen U-100 Insulin) 100 unit/mL (3 mL) Insulin Pen Inject 15 Unitssubcutaneously 3 times daily (with meals). Yes losartan (Cozaar) 25 mg tablet Take [...] 2 Sensor Kit Yes FreeStyle Daniel 2 [place] Misc See Admin Instructions. Yes magnesium oxide (Mag-Ox) 400 mg (241.3 mg magnesium) Tablet Take 1 tablet by mouth daily. Yes montelukast (Singulair) 10 mg tablet Take 10 mg by mouth daily. Yes dulaglutide (Trulicity) 1.5 mg/0.5 mL Pen Injector Inject 0.5 mLs subcutaneously once a week. Patient not taking: Reported on 12/20/2023 glipiZIDE XL (Glucotrol XL) 10 mg ER 24 hr tablet Take 1 tablet by mouth daily. Assessment: Noreen Denny is a 63 y.o. female with a PMH of poorly controlled T2DM on MDI and using CGM. PMH also includes thyroid cysts, ?osteoporosis, hyperlipidemia, asthma/COPD, former smoker. Pt had negative reaction to oral semaglutide so was switched back to dulaglutide, doing well. Reviewed CGM with pt and insulin adjustments advised as she increases dulaglutide dose. Preventive care--pt does not get flu or COVID vaccines. Is open to pneumonia vaccine although does not know if she isdue. Says that PCP has her medical records from [place] so would appreciate PCP checking on status of need for pneumonia vaccine. Will definitely need to be updated next year after pt turns 64yo. Advised her that medical recommendations include annual flu vaccine and COVID vaccine, especially with having DM. Pt expressed understanding and declined. Will continue routine follow up. Plan: --Will be going up to 1.5mg once/week on Trulicity --Decrease Lantus to 24U/day --Decrease Humalog to 8-12U --Ask PCP about pneumonia vaccine and if you are due --Labs today, will contact with results --Follow up in 4mo, sooner as needed This was a 25 minute visit spent [id number] with patient discussing diabetes management and providing education including but not limited to information in history and plan. An additional 20 minutes was spent reviewing previous notes and labs, ordering labs and medications & completing documentation. I have reviewed the plan outlined above with the patient and the patient has verbalized understanding. Park Gross PA-C Department of Endocrinology [place], [place] documented in this encounter Plan of Treatment Upcoming Encounters Date Type Department Care Team (Late st Contact Info) Description 04/17/2024 10:00 AM EDT Office [place] [address] Park Gross PA [facility] [place] [address] documented as of this encounter Results * (ABNORMAL) U Albumin/Cre Ratio (12/20/2023 12:08 PM EST) Albumin, Urine 42.3 mg/L 12/20/2023 1:27 PM EST [facility] Creatinine, Urine 72 mg/dL 024 1:27 PM EST [facility] Albumin / Creatinine Ratio, Urine 59(H) 0 - 29 mcg/mg Cr 12/20/2023 1:27 PM EST [facility] Comment: Reference Ranges: ?? <30 [...] PM EST Roverto Burnette MD URINE ORDERABLES [facility] [place] [address] * HDL/Cholesterol Profile (12/20/2023 12:03 PM EST) Cholesterol, Total 128 mg/dL 12/20/2023 1:01 PM EST [facility] Comment: Desirable: < 200 mg/dL Borderline High: 200 - 239 mg/dL High: > or = 240 mg/dL HDL Cholesterol 72 mg/dL 1:01 PM EST [facility] Comment:Female: High Risk: < 50 mg/dL Non-HDL Cholesterol 56 mg/dL 12/20/2023 1:01 PM EST [facility] Comment: Desirable: <130 mg/dL Above Desirable: 130-159 mg/dL Borderline High: 160-189 mg/dL High: 190-219 mg/dL Very High: > or = 220 mg/dL Blood VENOUS BLOOD SPECIMEN / Unknown Venipuncture / Unknown 12/20/2023 12:03 PM EST 12/20/2023 12:04 PM EST Narrative [facility] - 12/20/2023 1:01 PM EST [...] ACC/AHA Guidelines (most recently Kiana et al. [facility] 11/08/21): * For individuals with atherosclerotic cardiovascular [...] artery disease) Roverto Burnette MD CHEMISTRY ORDERABLES Performing Organization Address [facility]/ZIP Co de Phone Number [facility] [place] [address] * LDL Cholesterol, Direct (12/20/2023 12:03 PM EST) LDL Cholesterol, Direct 43 mg/dL 12/20/2023 1:01 PM EST [facility] Comment: Desirable: <100 mg/dL Above [...] Burnette MD CHEMISTRY ORDERABLES Performing Organization Address [facility]/ZIP Co de Phone Number [facility] [place] [address] * (ABNORMAL) Creatinine (12/20/2023 12:03 PM EST) Creatinine 1.35(H) 0.70 - 1.20 mg/dL 12/20/2023 1:01 PM EST [facility] Est Glomerular Filtration Rate - Female 44 mL/min/1. 73 m?? 12/20/2023 1:01 PM EST [facility] Comment: This patient's estimated GFR [...] Organization Address City/[facility]/ZIP Co de Phone Number [facility] [place] [address] * (ABNORMAL) Hemoglobin A1c (12/20/2023 12:03 PM EST) Hemoglobin A1c 8.3(H) 4.3 - 5.6 % 12/20/2023 1:00 PM EST [facility] Comment: Per ADA guidelines, without [...] red blood cell turnover may not be authorization representative of glycemic control. Reference Interval: 4.3 - 5.6% 5.7 - 6.4%: Consistent with prediabetes >=6.5%: Consistent with diagnosis of diabetes mellitus Estimated Average Glucose 192 mg/dL 12/20/2023 1:00 PM EST [facility] Blood VENOUS BLOOD SPECIMEN / Unknown Venipuncture / Unknown 12/20/2023 12:03 PM EST 12/20/2023 12:04 PM EST Roverto Burnette MD CHEMISTRY ORDERABLES Performing Organization Address City/[facility]/ZIP Co de Phone Number [facility] [place] [address] documented in this encounter Visit Diagnoses Diagnosis Type 2 diabetes mellitus with hyperglycemia, with long-term current use of insulin documented in this encounter Care Teams Information Engineer Relationship Specialty Start Date End Date Joey Ambrose, JAMB CUTTER [address] [place] [address] [place] [address] PCP - General Family Medicine 11/09/22 documented as of this encounter
--- OUTSIDE RECORDS SUMMARY | 2024-01-25 13:37 | XMS_ITS | Encounter Summary ---
Author Organization [facility] Address [facility] [place] [address] Care Team Providers Care Pipe Installer Name Role Phone Joey Ambrose APRN Primary Care Provider + Encounter Details Date Type Department Care Team (Late st Contact Info) Description 02/08/2023 10:30 AM EST Office Visit [place] [phone] Park Gross PA [facility] [place] [address] Type 2 diabetes mellitus with hyperglycemia, with [...] 2 Sensor Kit Yes FreeStyle Daniel 2 [place] Misc See Admin Instructions. Yes magnesium oxide [...] active 68% of the time, did not picking machine operator helper on readings after 6pm for unclear reason, [...] This was a 25 minute visit spent [id number] with patient discussing diabetes management and providing education including but not limited to information in history and plan. An additional 20 minutes was spent reviewing previous notes and labs, ordering labs and medications, in case consultation & completing documentation. I have reviewed the plan outlined above with the patient and the patient has verbalized understanding. Park Gross PA-C Department of Endocrinology [place], [place] documented in this encounter Plan of Treatment Upcoming Encounters Date Type Department Care Team (Late st Contact Info) Description 04/17/2024 10:00 AM EDT Office Visit [place] [address] Park Gross PA [facility] [place] [address] documented as of this encounter Results * (ABNORMAL) Hemoglobin A1c (02/08/2023 11:36 AM EST) Hemoglobin A1c 7.6(H) 4.3 - 5.6 % [facility] Comment: Reference Range: 4.3 - [...] 1, S67-74 Estimated Average Glucose 173 mg/dL [facility] Comment: Note: The eAG calculation has not been proven valid for women, individuals below 18 years old or above 70 years old, or individuals with hemoglobinopathies. Estimated average glucose (eAG) is calculated from the equation described in: Arthur DM, Chloe J, Compa R, et al. ??Translating the A1C assay into estimated average glucose values. ??Diabetes Care 2008:31(8):1609-1077. Additional resources are available on the ADA website (diabetes.org). Blood 02/08/2023 11:3 6 AM EST 02/08/2023 11:49 AM EST Narrative Resulting Agency Comment Spec In Lab Ajay Ferrari MD CHEMISTRY ORDERABLES [facility] [place] [id number] documented in this encounter Visit Diagnoses Diagnosis Type 2 diabetes mellitus with hyperglycemia, with long-term current use of insulin documented in this encounter Care Teams Pipe Installer Relationship Specialty Start Date End Date Joey Ambrose, REED [address] [place] [address] [place] [address] PCP - General Family Medicine 11/09/22 documented as of this encounter
--- OUTSIDE RECORDS SUMMARY | 2024-01-25 13:37 | XMS_ITS | Encounter Summary ---
Author Organization [facility] Address [facility] [place] [address] Care Team Providers Care Viscosity Tester Name Role Phone Joey Ambrose APRN Primary Care Provider + Encounter Details Date Type Department Care Team (Late st Contact Info) Description 04/17/2023 Telephone [place] [address] Park Gross PA [facility] [place] [address] Social History Tobacco Use Types Packs/Day Years [...] to leave message--no answer as well. No [facility] patient portal set up so unable to write message to patient. Park Gross PA-C Department of Endocrinology [place], [place] documented in this encounter Plan of Treatment Upcoming Encounters Date Type Department Care Team (Late st Contact Info) Description 04/17/2024 10:00 AM EDT Office [place] [address] Park Gross PA [facility] [place] [address] documented as of this encounter Visit Diagnoses Not on filedocumented in this encounter Care Teams Viscosity Tester Relationship Specialty Start Date End Date Joey Ambrose, REED [address] [place] [address] [place] [address] PCP - General Family Medicine 11/09/22 documented as of this encounter
--- OUTSIDE RECORDS SUMMARY | 2024-01-25 13:37 | XMS_ITS | Clinical Summary ---
Author Organization [facility] Address [address] [place] [address] Care Team Providers Care Agency Legal Counsel Name Role Phone Hubert SorianoJoey Padma [facility] Primary Care Provider Social History Tobacco Use Types Packs/Day Years Used Date Smoking Tobacco: Never Assessed Comments Unknown Sex and Gender Information Value Date Recorded Sex Assigned at Not on file Legal Sex Female 16:52 EDT Gender Identity Female 10/11/2022 8:17 EDT Sexual Orientation Not on file Plan of Treatment Health Maintenance Due Date Last Done Comments Hepatitis C Screen 1960 COVID-19 Vaccine (2023- season) 2023 RSV Immunization ( o r 60+ Years) (1 - 1-dose 75+ series) 09/26/2034 Insurance MEDICAID [place]CO [place] Care Teams Agency Legal Counsel Relationship Specialty Start Date End Date Joey Ambrose, MANAGER OFFICE SERVICES- [address] [place] [address] [place] [phone] PCP - General Family Medicine - Primary Care 10/11/22
--- OUTSIDE RECORDS SUMMARY | 2024-01-25 13:37 | XMS_ITS | Encounter Summary ---
Author Organization [facility] [place] [address] Care Team Providers Care Patient Support Assistant Name Role Phone Hubert Soriano Joeydebbi Rouse APRN Primary Care Provider + Encounter Details Date Type Department Care Team (Late st Contact Info) Description 04/17/2023 [place] [address] Veronica Rios RN Social History [...] 10:00 AM EDT Office [place] [address] Park Gross PA [facility] [place] [address] documented as of this encounter Visit Diagnoses Not on filedocumented in this encounter Care Teams Patient Support Assistant Relationship Specialty Start Date End Date Joey Ambrose, SENIOR PUBLICATIONS SPECIALIST [address] [place] [address] [place] [address] PCP - General Family Medicine 11/09/22 documented as of this encounter
--- OUTSIDE RECORDS SUMMARY | 2024-01-25 13:37 | XMS_ITS | Referral Summary ---
Author Organization [facility] Address [address] [place] [address] Care Team Providers Care Dust Collector Operator Name Role Phone Hubert Joey Soriano Padma [facility] Primary Care Provider Social History Tobacco Use Types Packs/Day Years Used Date Smoking Tobacco: Never Assessed Comments Unknown Sex and Gender Information Value Date Recorded Sex Assigned at Not on file Legal Sex Female 16:52 EDT Gender Identity Female 10/11/2022 8:17 EDT Sexual Orientation Not on file Plan of Treatment Not on file Insurance [place] Care Teams Dust Collector Operator Relationship Specialty Start Date End Date Joey Ambrose, [facility]- [address] [place] [address] [place] [address] PCP - General Family Medicine - Primary Care 10/11/22
--- OUTSIDE RECORDS SUMMARY | 2024-01-25 13:37 | XMS_ITS | Encounter Summary ---
Author Organization [facility] [place] [address] Care Team Providers Care Collar Padder Blindstitch Name Role Phone Joey Ambrose APRN Primary Care Provider + Encounter Details Date Type Department Care Team (Late st Contact Info) Description 03/09/2023 [place] [phone] Veronica Rios RN Social History Tobacco Use [...] after noon on her cell phone listed [phone]. * Telephone Encounter - Veronica Rios RN - 03/09/2023 10:54 AM EST Copied from CRM #[id number]. Topic: Specialty Dept CRMs - Generic Call >> Mar 09, 2023 10:44 AM May wrote: Specialist: Ginny Relationship (if other than patient-full name): Self Reason for Call: Patient returning call to provider documented in this encounter Plan of Treatment Upcoming Encounters Date Type Department Care Team (Late st Contact Info) Description 04/17/2024 10:00 AM EDT Office [place] [address] Park Gross PA [facility] [place] [address] documented as of this encounter Visit Diagnoses Not on filedocumented in this encounter Care Teams Collar Padder Blindstitch Relationship Specialty Start Date End Date Joey Ambrose APRN [address] [place] [address] [place] [address] PCP - General Family Medicine 11/09/22 documented as of this encounter
--- OUTSIDE RECORDS SUMMARY | 2024-01-25 13:37 | XMS_ITS | Encounter Summary ---
Author Organization [facility] Address [facility] [place] [address] Care Team Providers Care Early Head Start Teacher Name Role Phone Joey Ambrose APRN Primary [...] 10:00 AM EDT Office [place] [address] Park Gross PA [facility] [place] [address] documented as of this encounter Visit Diagnoses Not on filedocumented in this encounter Care Teams Early Head Start Teacher Relationship Specialty Start Date End Date Joey Ambrose APRN [address] [place] [address] [place] [address] PCP - General Family Medicine 11/09/22 documented as of this encounter
--- OUTSIDE RECORDS SUMMARY | 2024-01-25 13:37 | XMS_ITS | Encounter Summary ---
Author Organization [facility] Address [facility] [place] [address] Care Team Providers Care American History Teacher Name Role Phone Joey Ambrose APRN Primary Care Provider + Encounter Details Date Type Department Care Team (Late st Contact Info) Description 06/28/2023 10:30 AM EDT Office [place] [phone] Roverto Burnette MD [facility] [place] [address] Type 2 diabetes mellitus with hyperglycemia, with [...] Ginny 11/2022 Had a DM specialist in [place] and the last time she saw them she was on Lantus 20 units/day and was taking Humalog ~10 units before meals. Was also on Januvia. After move to [place], pt's new PCP had pt taking Lantus 10 units/day, now titrated up to 16 units and using a sliding scale for Humalog. Lowest A1C was 6.5% in [place]. Summer 2021 at time of referral to [...] lbs) Interim Tried ozempic but was nauseated [facility] glipizide did much better but had many [...] function test (creatinine) last cholesterol panel: regular home health clinician visits: YES special shoes: YES flu shot [...] 10:00 AM EDT Office Visit Endocrinology [place] [address] Park Gross PA [facility] [place] [address] documented as of this encounter Procedures Procedure [...] Urine 108(H) 0 - 29 mcg/mg Cr [facility] [...] 2, 357? 362 Albumin, Urine 55.0 mg/L [facility] Creatinine, Urine 51 mg/dL [facility] Urine 06/28/2023 11:1 9 AM EDT 06/28/2023 11:28 AM EDT Narrative Resulting Agency Comment Spec In Lab Roverto Burnette MD URINE ORDERABLES Performing Organization Address [facility] Co de Phone Number [facility] [place] [phone] * TSH (06/28/2023 11:17 AM EDT) Thyroid Stimulating Hormone 2.32 0.27 - 4.20 mcIU/mL [facility] Comment: Reference Interval (mcIU/mL): Females: ??First Trimester: 0.23-3.88 ??Second Trimester: 0.22-3.90 ??Third Trimester: 0.44-4.66 Blood 06/28/2023 11:1 7 AM EDT 06/28/2023 11:33 AM EDT Narrative Resulting Agency Comment Spec In Lab Roverto Burnette MD CHEMISTRY ORDERABLES Performing Organization Address [facility] de Phone Number [facility] [place] [address] * (ABNORMAL) Creatinine (06/28/2023 11:17 AM EDT) Creatinine 1.13 0.70 - 1.20 mg/dL [facility] Est Glomerular Filtration Rate 55(L) >=60 mL/min/1. 73 m?? [facility] [...] Burnette MD CHEMISTRY ORDERABLES Performing Organization Address [facility] Co de Phone Number [facility] [place] [address] * (ABNORMAL) Hemoglobin A1c (06/28/2023 11:17 AM EDT) Hemoglobin A1c 8.3(H) 4.3 - 5.6 % [facility] [...] Diabetes Care 2013; 36: Suppl. 1, S6774 Estimated Average Glucose 191 mg/dL [facility] Blood 06/28/2023 11:1 7 AM EDT 06/28/2023 11:33 AM EDT Narrative Resulting Agency Comment Spec In Lab Roverto Burnette MD CHEMISTRY ORDERABLES Performing Organization Address [facility] Co de Phone Number [facility] [place] [address] documented in this encounter Visit Diagnoses Diagnosis Type 2 diabetes mellitus with hyperglycemia, with long-term current use of insulin documented in this encounter Care Teams American History Teacher Relationship Specialty Start Date End Date Joey Ambrose, REED [address] [place] [address] [place] [address] PCP - General Family Medicine 11/09/22 documented as of this encounter
--- OUTSIDE RECORDS SUMMARY | 2024-01-25 13:37 | XMS_ITS | Encounter Summary ---
[place] [address] Care Team Providers Care Reverberatory Furnace Operator Name Role Phone Joye Ambrose APRN Primary Care Provider + Encounter Details Date Type Department Care Team (Late st Contact Info) Description 03/13/2023 [place] [phone] Jackie Lomeli, RN Social History Tobacco Use [...] - 03/14/2023 10:12 AM EST Copied from [facility] #[id number]. Topic: Specialty Dept CRMs - Test Results >> Mar 12, 2023 3:20 PM Adrianne Hernandez wrote: Test Results Request Specialist: Park Gross PA Relationship (if other than patient-full name): self Ordering Provider: Park Gross PA Type of Test: A1C Date of Test: 02/08/23 Where Was This Test Performed: [facility] >> Mar 13, 2023 1:56 PM Tristin [...] 10:00 AM EDT Office [place] [address] Park Gross PA [facility] [place] [address] documented as of this encounter Visit Diagnoses Not on filedocumented in this encounter Care Teams Reverberatory Furnace Operator Relationship Specialty Start Date End Date Joey Ambrose APRN [address] [place] [address] [place] [address] PCP - General Family Medicine 11/09/22 documented as of this encounter
--- OUTSIDE RECORDS SUMMARY | 2024-01-25 13:37 | XMS_ITS | Encounter Summary ---
Author Organization [facility] Address [facility] [place] [address] Care Team Providers Care Psychiatric Mental Health Nurse Name Role Phone Joey Ambrose APRN Primary Care Provider + Reason for Visit * Consultation (Routine) - Closed Specialty Diagnoses / Procedures Referred By Noa orr Referred To Contact Endocrinology Diagnoses Type 2 diabetes mellitus without complications Joey Ambrose, REED [address] [place] [address] [place] [address] [facility] [address] [place] [id number] Referral ID Status Reason Start Date Expiration Date Visits Re quested Visits Authorized [id number] Closed 08/17/2022 08/17/2023 1 1 Encounter Details Date Type Department Care Team (Late st Contact Info) Description 11/09/2022 1:00 PM EDT Office [place] [address] Park Gross PA [facility] [place] [address] Type 2 diabetes mellitus with [...] the following: Had a DM specialist in [place] and the last time she saw them she was on Lantus 20 units/day and was taking Humalog ~10 units before meals. Was also on Januvia. After move to [place], pt's new PCP had pt taking Lantus 10 units/day, now titrated up to 16 units and using a sliding scale for Humalog. Lowest A1C was 6.5% in [place]. Summer 2021 at time of referral to [...] Pt had circulation test done recently in [place], [place]. Says that her L side isn't [...] toast, 2 sausage Lunch: 2 eggs, sausage, malay muffin Dinner: 1/2 cup frozen peas, 1 [...] 2 Sensor Kit Yes FreeStyle Daniel 2 Hudson Misc See Admin Instructions. Yes magnesium oxide [...] also saw the pt together with this abstract writer. Plan: --Labs today, will contact with [...] Park Gross PA-C (she/her/hers) Department of Endocrinology [place], [place] documented in this encounter Plan of Treatment Upcoming Encounters Date Type Department Care Team (Late st Contact Info) Description 04/17/2024 10:00 AM EDT Office [place] [address] Park Gross PA [facility] [place] [address] documented as of this encounter Procedures Procedure [...] Urine 78(H) 0 - 29 mcg/mg Cr [facility] Comment: Reference Ranges: <30 mcg/mg: Normal [...] 2, 357? 362 Albumin, Urine 78.3 mg/L [facility] Creatinine, Urine 100 mg/dL [facility] Urine 11/09/2022 2:45 PM EDT 11/09/2022 2:54 PM EDT Narrative Resulting Agency Comment Spec In Lab Roverto Burnette MD URINE ORDERABLES Performing Organization Address City/[facility] Co de Phone Number [facility] [place] [address] * Vitamin D, 25-Hydroxy (11/09/2022 2:42 PM EDT) Vitamin D Total 25 OH 51 21 - 100 ng/mL [facility] Vit D Interp Sufficient [facility] Blood 11/09/2022 2:42 PM EDT 11/09/2022 2:47 PM EDT Narrative Resulting Agency Comment Spec In Lab Roverto Burnette MD CHEMISTRY ORDERABLES Performing Organization Address City/[facility] Co de Phone Number [facility] [place] [address] * TSH [place] (11/09/2022 2:42 PM EDT) Thyroid Stimulating Hormone 0.99 0.27 - 4.20 mcIU/mL [facility] Comment: Reference Interval (mcIU/mL): Females: ??First Trimester: 0.23-3.88 ??Second Trimester: 0.22-3.90 ??Third Trimester: 0.44-4.66 Blood 11/09/2022 2:42 PM EDT 11/09/2022 2:47 PM EDT Narrative Resulting Agency Comment Spec In Lab Roverto Burnette MD CHEMISTRY ORDERABLES [facility] [place] [address] * (ABNORMAL) Basic Metabolic Panel (non-fasting) (11/09/2022 2:42 PM EDT) Glucose 124 65 - 199 mg/dL [facility] Comment:Diabetes: >=200 mg/d L plus symptoms Blood Urea Nitrogen 24(H) 8 - 18 mg/dL [facility] Creatinine 1.12 0.70 - 1.20 mg/dL [facility] Sodium 142 135 - 145 mmol/L [facility] Potassium 4.5 3.5 - 5.0 mmol/L [facility] Comment: Please note: ??Patients with WBC >100,000 may have falsely elevated Potassium levels. ??For accurate Potassium quantification in these patients send serum separator tube (gold top) for subsequent determinations. ??Contact the Clinical Chemistry Laboratory if there are any questions. Chloride 105 98 - 107 mmol/L [facility] Carbon Dioxide 25 22 - 31 mmol/L [facility] Anion Gap 12 5 - 15 mmol/L [facility] Calcium 9.8 8.5 - 10.5 mg/dL [facility] Est Glomerular Filtration Rate 55(L) >=60 mL/min/1. 73 m?? [facility] Comment: This patient's estimated GFR was [...] Burnette MD CHEMISTRY ORDERABLES Performing Organization Address [facility] Co de Phone Number [facility] [place] [address] * LDL Cholesterol, Direct (11/09/2022 2:42 PM EDT) LDL Cholesterol, Direct 54 mg/dL [facility] Comment: Lowest Risk: <100 mg/dL Lower Risk: 100-129 mg/dL Borderline High Risk: 130-159 mg/dL High Risk: 160-189 mg/dL Very High Risk: >pm=928 mg/dL Blood 11/09/2022 2:42 PM EDT 11/09/2022 2:47 PM EDT Narrative Resulting Agency Comment Spec In Lab Roverto Burnette MD CHEMISTRY ORDERABLES Performing Organization Address [facility] Phone Number [facility] [place] [address] * (ABNORMAL) Hemoglobin A1c (11/09/2022 2:42 PM EDT) Hemoglobin A1c 8.3(H) 4.3 - 5.6 % [facility] Comment: Reference Range: 4.3 - [...] Mellitus, Diabetes Care 2013; 36: Suppl. 1, U33-74 Estimated Average Glucose 192 mg/dL [facility] Comment: eAG equivalents for HbA1c [...] into estimated average glucose values. ??Diabetes Care 2008:31(8):4822-5704. Blood 11/09/2022 2:42 PM EDT 11/09/2022 2:47 PM EDT Narrative Resulting Agency Comment Spec In Lab Roverto Burnette MD CHEMISTRY ORDERABLES Performing Organization Address City/State/[facility] Co de Phone Number [facility] [place] [address] * GAD65 Antibody Assay (11/09/2022 2:42 PM EDT) Gad65 Ab (MAY) 0.02 <=0.02 nmol/L [facility] Comment: ADDITIONAL INFORMATION This test was developed and its performance characteristics determined by [facility] in a manner consistent with CLIA requirements. This test has not been cleared or approved by the U.S. Food and Drug Administration. Test Performed by: [facility] - [address] [address] Wheel Shop Supervisor: Rob Carbajal M.D. Ph.D.; CLIA# [id number] Blood 11/09/2022 2:42 PM EDT 11/09/2022 3:32 PM EDT Narrative Resulting Agency Comment Spec In Lab Roverto Burnette MD LAB SEND OUT ORDERAB LES Performing Organization Address City/State/[facility] Co de Phone Number [facility] [place] [address] documented in this encounter Visit Diagnoses Diagnosis Type 2 diabetes mellitus with hyperglycemia, with long-term current use of insulin documented in this encounter Care Teams Psychiatric Mental Health Nurse Relationship Specialty Start Date End Date Joey Ambrose, RN NIGHT [address] [place] [address] [place] [address] PCP - General Family Medicine 11/09/22 documented as of this encounter
--- OUTSIDE RECORDS SUMMARY | 2024-01-25 13:37 | XMS_ITS | Encounter Summary ---
[place] [address] Care Team Providers Care Placing Judge Name Role Phone Hubert EdgarJoey cardona Padma MCBRIDE Primary Care Provider + Encounter Details Date Type Department Care Team (Late st Contact Info) Description 11/10/2022 [place] [phone] Veronica Rios RN Social History Tobacco Use [...] - 11/10/2022 11:07 AM EDT Copied from [facility] #[id number]. Topic: Specialty Dept CRMs - Generic Call [...] 10:00 AM EDT [place] [address] Park Gross PA [facility] [address] documented as of this encounter Visit Diagnoses Not on filedocumented in this encounter Care Teams Placing Judge Relationship Specialty Start Date End Date Joey Ambrose, PRODUCT INSPECTION COORDINATOR [address] [place] [address] [place] [address] PCP - General Family Medicine 11/09/22 documented as of this encounter
--- OUTSIDE RECORDS SUMMARY | 2024-01-25 13:37 | XMS_ITS | Encounter Summary ---
Author Organization [facility] [place] [address] Care Team Providers Care Scheduler Maintenance Name Role Phone Hubert Soriano Joeydebbi Rouse APRN Primary Care Provider + Encounter Details Date Type Department Care Team (Late st Contact Info) Description 02/12/2023 Telephone [place] [address] Park Gross PA [facility] [place] [address] Social History Tobacco Use Types Packs/Day Years [...] dose. Park Gross PA-C Department of Endocrinology [place], [place] documented in this encounter Plan of Treatment Upcoming Encounters Date Type Department Care Team (Late st Contact Info) Description 04/17/2024 10:00 AM EDT Office [place] [address] Park Gross PA [facility] [place] [address] documented as of this encounter Visit Diagnoses Not on filedocumented in this encounter Care Teams Scheduler Maintenance Relationship Specialty Start Date End Date Joey Ambrose, [place] [address] [place] [address] [place] [address] PCP - General Family Medicine 11/09/22 documented as of this encounter
--- OUTSIDE RECORDS SUMMARY | 2024-01-25 13:37 | XMS_ITS | Encounter Summary ---
[place] [address] Care Team Providers Care Dinkey Brakeman Name Role Phone Hubert Joey Soriano Padma MCBRIDE Primary Care Provider + Encounter Details Date Type Department Care Team (Late st Contact Info) Description 04/17/2023 Telephone [place] [address] Veronica Rios RN Social History [...] - 04/17/2023 2:44 PM EDT Copied from [facility] #[id number]. Topic: Specialty Dept CRMs - Generic Call [...] 10:00 AM EDT Office [place] [address] Park Gross PA [facility] [place] [address] documented as of this encounter Visit Diagnoses Not on filedocumented in this encounter Care Teams Dinkey Brakeman Relationship Specialty Start Date End Date Joey Ambrose APRN [address] [place] [address] [place] [address] PCP - General Family Medicine 11/09/22 documented as of this encounter
--- OUTSIDE RECORDS SUMMARY | 2024-01-25 13:37 | XMS_ITS | Encounter Summary ---
Author Organization [facility] Address [facility] [place] [address] Care Team Providers Care Support Staff Name Role Phone Joey Ambrose APRN Primary [...] 10:00 AM EDT Office [place] [address] Park Gross PA [facility] [place] [address] documented as of this encounter Visit Diagnoses Not on filedocumented in this encounter Care Teams Support Staff Relationship Specialty Start Date End Date Joey Ambrose APRN [address] [place] [address] [place] [address] PCP - General Family Medicine 11/09/22 documented as of this encounter
--- OUTSIDE RECORDS SUMMARY | 2024-01-25 13:37 | XMS_ITS | Encounter Summary ---
Author Organization [facility] Address [address] [place] [address] Care Team Providers Care Shrinker Name Role Phone Joey Ambrose [facility] Primary Care Provider Reason for Visit * Reason Comments Leg Pain * Vascular Lab (Routine) - Authorization Not Required Specialty Diagnoses / Procedures Referred By Noa orr Referred To Contact Diagnoses Unspecified disturbances of skin sensation Cramp and spasm Procedures US LOWER ARTERIAL DUPLEX Esther Hernández, DP [address] [place] [address] Phone: tel: fax: [facility] Vascular Lab Referral ID Status Reason Start Date Expiration Date Visits Requested Visits Authorized [id number] Authorization Not Required 09/15/2022 1 1 Encounter Details Date Type Department Care Team (Latest Contact Info) Description 10/13/2022 14:30 EDT Ancillary Procedure [facility] Vascular Surgery [place] [address] [facility] [place] [address] Unspecified disturbances of skin sensation; Cramp and spasm; Peripheral arterial disease ([facility]-CMS) Social History Tobacco Use Types Packs/Day Years Used Date Smoking Tobacco: Never Assessed Comments Unknown Sex and Gender Information Value Date Recorded Sex Assigned at Not on file Legal Sex Female 16:52 EDT Gender Identity Female 10/11/2022 8:17 EDT Sexual Orientation Not on file documented as of this encounter Progress Notes * Shlomo Dwyer - 10/13/2022 1430 EDT [place] outreach. documented in this encounter Plan of [...] CARDIO Left DUSTY 0.88 MERGE CARDIO Right SUPERVISOR BUILDING MAINTENANCE dist sys PSV 157 cm/s MERGE CARDIO [...] sys PSV 61 cm/s MERGE CARDIO Left SUPERVISOR BUILDING MAINTENANCE dist sys PSV 153 cm/s MERGE CARDIO [...] tobacco use and Diabetes Mellitus. Esther Hernández DPDaniel [facility] VASCULAR ORDERABLES Final Result documented in this encounter Visit Diagnoses Diagnosis Unspecified disturbances of skin sensation Cramp and spasm Peripheral arterial disease (HCC-CMS) Peripheral vascular disease, unspecified documented in this encounter Care Teams Shrinker Relationship Specialty Start Date End Date Joey Ambrose, [facility]- [address] [place] [address] [place] [address] PCP - General Family Medicine - Primary Care 10/11/22 documented as of this encounter
--- OUTSIDE RECORDS SUMMARY | 2024-01-25 13:37 | XMS_ITS | Encounter Summary ---
Author Organization [facility] [place] [address] Care Team Providers Care Hog Driver Name Role Phone Joey Ambrose APRN Primary Care Provider + Reason for Visit * Reason Onset Date Comments Medication Problem 06/29/2023 Encounter Details Date Type Department Care Team (Late st Contact Info) Description 06/29/2023 Telephone [place] [phone] Shawn Marc, visual artist Problem Social History Tobacco Use Types Packs/Day [...] the medications that Dr. Burnette sent to [facility], and that she needs to check with [...] understanding. Milan Marc RN MSN Copied from [facility] #[id number]. Topic: Specialty Dept CRMs - Generic Call [...] 10:00 AM EDT Office [place] [address] Park Gross PA [facility] [place] [address] documented as of this encounter Visit Diagnoses Diagnosis Type 2 diabetes mellitus with hyperglycemia, with long-term current use of insulin documented in this encounter Care Teams Hog Driver Relationship Specialty Start Date End Date Joey Ambrose, REED [address] [place] [address] [place] [address] PCP - General Family Medicine 11/09/22 documented as of this encounter
--- OUTSIDE RECORDS SUMMARY | 2024-01-25 13:37 | XMS_ITS | Encounter Summary ---
Author Organization [facility] Address [address] [place] [address] Care Team Providers Care Maintenance Team Leader Name Role Phone Hubert SorianoJoey Padma [facility] Primary Care Provider Encounter Details Date Type Department Care Team (Late st Contact Info) Description 09/12/2022 Lab Requisition [facility] Pathology & Laboratory Medicine - [facility] [address] [place] [address] Outr Resulting Lab, Provider Social History Tobacco [...] IgE 11 <158 IU/mL 09/13/2022 8:27 EDT [facility] Blood VENOUS BLOOD / Unknown 09/12/2022 14:30 EDT 09/12/2022 21:27 EDT us Provider Outr Resulting Lab CHEMISTRY & BLOOD GA S ORDERABLES Final Result [facility] [address] [place] [address] documented in this encounter Visit Diagnoses Not on filedocumented in this encounter Care Teams Maintenance Team Leader Relationship Specialty Start Date End Date Joey Ambrose, PRECISION INSTRUMENT MAKER- [address] [place] [address] [place] [phone] PCP - General Family Medicine - Primary Care 10/11/22 documented as of this encounter
--- OUTSIDE RECORDS SUMMARY | 2024-01-25 13:37 | XMS_ITS | Encounter Summary ---
Author Organization [facility] Address [facility] [place] [address] Care Team Providers Care Optimization Consultant Name Role Phone Joey Ambrose APRN [...] 10:00 AM EDT Office [place] [address] Park Gross PA [facility] [place] [address] documented as of this encounter Visit Diagnoses Not on filedocumented in this encounter Care Teams Optimization Consultant Relationship Specialty Start Date End Date Joey Ambrose APRN [address] [place] [address] [place] [address] PCP - General Family Medicine 11/09/22 documented as of this encounter
--- OUTSIDE RECORDS SUMMARY | 2024-01-25 13:37 | XMS_ITS | Encounter Summary ---
Author Organization [facility] [place] [address] Care Team Providers Care Yarn Handler Name Role Phone Joey Ambrose APRN Primary Care Provider + Encounter Details Date Type Department Care Team (Late st Contact Info) Description 11/10/2022 Telephone [place] [address] Park Gross PA [facility] [place] [address] Social History Tobacco Use Types Packs/Day Years [...] Ozempic. Park Gross PA-C Department of Endocrinology [place], [place] documented in this encounter Plan of Treatment Upcoming Encounters Date Type Department Care Team (Late st Contact Info) Description 04/17/2024 10:00 AM EDT Office Visit [place] [address] Park Gross PA [facility] [place] [address] documented as of this encounter Visit Diagnoses Not on filedocumented in this encounter Care Teams Yarn Handler Relationship Specialty Start Date End Date Joey Ambrose, MANAGER OF FINANCIAL PLANNING [address] [place] [address] [place] [address] PCP - General Family Medicine 11/09/22 documented as of this encounter
--- OUTSIDE RECORDS SUMMARY | 2024-01-25 13:37 | XMS_ITS | Encounter Summary ---
Author Organization [facility] [place] [address] Care Team Providers Care Chief Deputy Court Clerk Name Role Phone Joey Ambrose APRN Primary Care Provider + Encounter Details Date Type Department Care Team (Late st Contact Info) Description 08/27/2023 Tele[place] [phone] Shani Hardwick RN Social History Tobacco Use [...] for patient to call and schedule with PRESS READER/OPERATIONS ADMINISTRATOR * Telephone Encounter - Shani Hardwick RN [...] 10:00 AM EDT Office [place] [address] Park Gross PA [facility] [address] documented as of this encounter Visit Diagnoses Not on filedocumented in this encounter Care Teams Chief Deputy Court Clerk Relationship Specialty Start Date End Date Joey Ambrose APRN [address] [place] [address] [place] [address] PCP - General Family Medicine 11/09/22 documented as of this encounter
--- OUTSIDE RECORDS SUMMARY | 2024-01-25 13:37 | XMS_ITS | Encounter Summary ---
Author Organization [facility] Address [facility] [place] [address] Care Team Providers Care Field Examiner Name Role Phone Joey Ambrose APRN Primary Care Provider + Reason for Visit * Reason Comments Medication Refill Encounter Details Date Type Department Care Team (Late st Contact Info) Description 05/21/2023 [place] [address] Park Gross PA [facility] [place] [address] Type 2 diabetes mellitus with hyperglycemia, with [...] not useable, pharmacy advised that she contact supervisor cd area. Advised that Park COLLADO had recommended in February to discontinue glipizide as she is on basal/bolusinsulin, will send message to provider to confirm plan. Advised that patient contact [employer], customer service number provided. Confirmed that current Lantus pen is working well. Patient has appt with Dr. Burnette on 06/28/2023 Updated demographics in chart to reflect new phone # and address per patient documented in this encounter Plan of Treatment Upcoming Encounters Date Type Department Care Team (Late st Contact Info) Description 04/17/2024 10:00 AM EDT Office [place] [address] Park Gross PA [facility] [place] [address] documented as of this encounter Visit Diagnoses Diagnosis Type 2 diabetes mellitus with hyperglycemia, with long-term current use of insulin documented in this encounter Care Teams Field Examiner Relationship Specialty Start Date End Date Joey Ambrose, EXPERIENCE DESIGNER [address] [place] [address] [address] [place], [place] [address] PCP - General Family Medicine 11/09/22 documented as of this encounter
--- OUTSIDE RECORDS SUMMARY | 2024-01-25 13:37 | XMS_ITS | Encounter Summary ---
Author Organization [facility] [place] [address] Care Team Providers Care Firer Helper Name Role Phone Joey Ambrose APRN Primary Care Provider + Encounter Details Date Type Department Care Team (Late st Contact Info) Description 11/10/2022 Orders [place] [phone] [facility] [place] [address] Type 2 diabetes mellitus with hyperglycemia, with [...] 10:00 AM EDT Office [place] [address] [facility] [place] [address] documented as of this encounter Visit Diagnoses Diagnosis Type 2 diabetes mellitus with hyperglycemia, with long-term current use of insulin documented in this encounter Care Teams Firer Helper Relationship Specialty Start Date End Date Joey Ambrose APRN [address] [place] [address] [place] [address] PCP - General Family Medicine 11/09/22 documented as of this encounter
--- OUTSIDE RECORDS SUMMARY | 2024-01-25 13:37 | XMS_ITS | Encounter Summary ---
Author Organization [facility] Address [facility] [place] [address] Care Team Providers Care Coverage Specialist Name Role Phone Joey Ambrose APRN Primary Care Provider + Encounter Details Date Type Department Care Team (Latest Contact Info) Description 02/08/2023 11:30 AM EST Laboratory Appointment Lab [address] [place] [id number] Type 2 diabetes mellitus with hyperglycemia, with [...] 10:00 AM EDT Office [place] [address] Park Gross PA [facility] [place] [address] documented as of this encounter Procedures Procedure Name Priority Date/Time Associated Diagnosis Comments HEMOGLOBIN A1C Routine 02/08/2023 11:36 AM EST Type 2 diabetes mellitus with hyperglycemia, with long-term current use of insulin documented in this encounter Results * (ABNORMAL) Hemoglobin A1c (02/08/2023 11:36 AM EST) Hemoglobin A1c 7.6(H) 4.3 - 5.6 % [facility] Comment: Reference Range: 4.3 [...] 1, S67-74 Estimated Average Glucose 173 mg/dL [facility] Comment: Note: The eAG calculation has not been proven valid for women, individuals below 18 years old or above 70 years old, or individuals with hemoglobinopathies. Estimated average glucose (eAG) is calculated from the equation described in: Arthur DONOHUE, Chloe J, Compa R, et al. ??Translating the A1C assay into estimated average glucose values. ??Diabetes Care 2008:31(8):9023-3283. Additional resources are available on the ADA website (diabetes.org). Blood 02/08/2023 11:3 6 AM EST 02/08/2023 11:49 AM EST Narrative Resulting Agency Comment Spec In Lab Ajay Ferrari MD CHEMISTRY ORDERABLES [facility] [place] [address] documented in this encounter Visit Diagnoses Diagnosis Type 2 diabetes mellitus with hyperglycemia, with long-term current use of insulin documented in this encounter Care Teams Coverage Specialist Relationship Specialty Start Date End Date Joey Ambrose APRN [address] [place] [address] [place] [address] PCP - General Family Medicine 11/09/22 documented as of this encounter
[2024-01-25 17:37] LABS: Bilirubin Negative (Negative); Blood Moderate (Negative); Clarity Turbid (Clear); Glucose Negative (Negative); Ketones Negative (Negative); Leukocyte Esterase Moderate (Negative); Nitrite Negative (Negative); Urobilinogen 0.2 mg/dL (Up to 0.2); pH 5.5 (5-8)
[2024-01-25 17:44] LABS: C & S Indicated? Yes; WBC >50 HPF (0-5)
== END 2024-01-25 13:27 | disposition home or self-care (01) ==
LOC: LBO 13:32 → LBN 16:08
PROVIDERS: PCP Registered Nurse; Visit Provider Registered Nurse
DX: R35.0 Frequency of micturition (principal); R39.9 Unspecified symptoms and signs involving the genitourinary system
CPT/HCPCS: 87077; 81003; 81015; 87086; 87186

== ENCOUNTER → 2024-04-07 09:12 | Outpatient (BNVA) | payer MEDICARE, SELFPAY | PROVIDERS: PCP Registered Nurse; Referring Provider Registered Nurse; Visit Provider Student in an Organized Health Care Education/Training Program | DX: M16.12 Unilateral primary osteoarthritis, left hip (principal); M70.62 Trochanteric bursitis, left hip | CPT/HCPCS: 99213 ==

== ENCOUNTER → 2024-08-12 10:51 | Outpatient (BNVA) | payer MEDICARE, SELFPAY | PROVIDERS: PCP Registered Nurse; Referring Provider Registered Nurse; Visit Provider Internal Medicine Pulmonary Disease | DX: J45.50 Severe persistent asthma, uncomplicated (principal); Z87.891 Personal history of nicotine dependence; K21.9 Gastro-esophageal reflux disease without esophagitis; Z23 Encounter for immunization | CPT/HCPCS: 99215; 90471; G0296; 90684 ==

== ENCOUNTER 2024-08-15 01:12 | Outpatient (CLI) | payer MEDICARE, SELFPAY ==
[2024-08-15] MEDS: Inhaler, Assist Device 1 EACH MC (16:14)
[2024-08-15] MEDS: Levalbuterol HFA 15 GM INH 4 PUFF IH (16:15)
--- NOTE | 2024-09-01 12:16 | W.PFT ---
Date of service: 08/15/24 Time of Service: 14:53 Pulmonary Function Test Result Indications: Asthma Impression 1. Good patient effort was noted. ATS standards for reproducibility were met. 2. Spirometry showed mild obstructive lung disease, given reduced FEV1:FVC ratio relative to predicted and moderate reduction in the midflows. 3. Following the administration of a bronchodilator there was not a significant response 4. TLC was normal. No evidence of restrictive lung disease 5. DLCO was 69%, consistent with a moderate defect in alveolar gas exchange
== END 2024-08-15 01:13 | disposition home or self-care (01) ==
LOC: RT 01:13
PROVIDERS: PCP Registered Nurse; Referring Provider Internal Medicine Pulmonary Disease; Visit Provider Internal Medicine Pulmonary Disease
DX: J44.1 Chronic obstructive pulmonary disease with (acute) exacerbation (principal)
CPT/HCPCS: 94060; 94726; 94729

== ENCOUNTER 2024-09-03 03:07 | Outpatient (CLI) | payer MEDICARE, SELFPAY ==
--- NOTE | 2024-09-03 07:15 | DI.CTLCSR_ITS ---
Exam(s) CT CHEST LUNG CANCER SCREEN EXAM: CT CHEST LUNG CANCER SCREEN CLINICAL HISTORY: Screening for lung cancer Z87.891 PERS HX NICOTINE DEPENDENCE TECHNIQUE: Imaging Protocol: Axial computed tomography images with coronal and sagittal reformatted images were created and reviewed. Low dose screening protocol. COMPARISON: CT CT CHEST LOW DOSE CA SCREENING from 09/19/[address] CHEST WO from 08/16/2023 CR XR CHEST 2V PA LATERAL from 11/02/2023 FINDINGS: Tracheobronchial tree: No bronchiectasis or mucus plugging. Mediastinum and Shefali: No dominant adenopathy or fluid collection. Pulmonary parenchyma: No consolidation or dominant measurable mass. Minimal emphysematous changes. New multiple tree-in-bud opacities noted in the right middle lobe and lingula. Patchy densities at the left costophrenic angle. Findings could represent atelectasis Lung Nodules: Stable 4 millimeter nodule anterior right lower lobe. Pleura: No effusion. No pneumothorax. Heart: The heart is not dilated. No coronary artery calcifications are seen. No pericardial effusion. Aorta: Thoracic aorta non-dilated. Upper abdomen: Unremarkable. Bones: Unremarkable for age. Soft Tissues: Unremarkable. IMPRESSION: No suspicious pulmonary nodules. Stable 4 millimeter non Jewel anterior right lower lobe. Tree-in-bud opacities in the right middle lobe and lingula consistent with affection is or inflammatory process. Clinical correlation recommended. Findings appear new from the prior exam. Lung RADS Cat 2 - Benign Appearance / Behavior: Nodules with a very low likelihood of becoming a clinically active cancer due to size or lack of growth Modifier S Lung-RADS 1.0 CATEGORIES: Category 0 - Prior chest CT exam(s) being located for comparison. Category 1 - Annual screening in 12 months. No nodules or definitely benign nodules. Category 2 - Annual screening in 12 months. Benign appearance. Nodules with low likelihood of becoming active cancer. Category 3 - 6-month follow-up. Probably benign. Short-term follow-up suggested. Nodules with low likelihood of becoming active cancer. Category 4A - 3-month follow-up and CT/PET if >8 mm in size. Suspicious finding. Findings which require additional testing. Category 4B - Findings which require additional testing and tissue sampling. Category 4X - Category 3 or 4 nodules with additional features or imaging findings that increases the suspicion of malignancy. Modifier S- Potentially clinically significant findings (non lung cancer) RADIATION DOSE DELIVERED: 28.67mGy.cm Total DLP DATA REPOSITORY: All CT scans at this facility are submitted to the National Radiology Data Registry (NRDR) Dose Index Registry (DIR) with the [employer] (ACR). RADIATION OPTIMIZATION: All CT scans at this facility use at least one of these dose optimization techniques: automated exposure control; mA and/or kV adjustment per patient size (includes targeted exams where dose is matched to clinical indication); or iterative reconstruction.
== END 2024-09-03 03:27 ==
PROVIDERS: PCP Registered Nurse; Visit Provider Internal Medicine Pulmonary Disease
DX: Z12.2 Encounter for screening for malignant neoplasm of respiratory organs (principal); Z87.891 Personal history of nicotine dependence; R91.8 Other nonspecific abnormal finding of lung field
CPT/HCPCS: 71271

== ENCOUNTER → 2024-09-15 10:37 | Outpatient (BNVA) | payer MEDICARE, SELFPAY | PROVIDERS: PCP Registered Nurse; Referring Provider Registered Nurse; Visit Provider Internal Medicine Pulmonary Disease | DX: J45.50 Severe persistent asthma, uncomplicated (principal); R91.8 Other nonspecific abnormal finding of lung field; Z87.891 Personal history of nicotine dependence | CPT/HCPCS: 99214 ==

== ENCOUNTER 2024-09-15 11:51 | Outpatient (CLI) | payer MEDICARE, SELFPAY ==
--- NOTE | 2024-09-15 11:29 | DI.RAD_ITS ---
Exam(s) XR CHEST 2V PA LATERAL EXAM: XR CHEST 2V PA LATERAL CLINICAL HISTORY: dyspnea, cough, pulmonary infiltrates, R91.8 TECHNIQUE: 2D digital imaging was performed. Two views. COMPARISON: CR XR CHEST 2V PA LATERAL from 11/02/[address] CHEST LUNG CANCER SCREEN from 09/03/2024 FINDINGS: HEART: Normal size. Aorta: Not dilated. PULMONARY VASCULATURE: Normal. MEDIASTINUM: Unremarkable. LUNGS: Left basilar scarring. No infiltrates are visible. PLEURAL SPACE: No pleural effusion or pneumothorax. BONE:Unremarkable for age. SOFT TISSUES: Unremarkable. IMPRESSION: No visible infiltrates. DATA REPOSITORY: RADIATION DOSE DELIVERED:
== END 2024-09-15 12:11 ==
PROVIDERS: PCP Registered Nurse; Visit Provider Internal Medicine Pulmonary Disease
DX: R91.8 Other nonspecific abnormal finding of lung field (principal)
CPT/HCPCS: 71046

== ENCOUNTER 2024-09-15 18:03 | Outpatient (REF) | payer MEDICARE, SELFPAY ==
[2024-09-15 14:18] LABS: Glucose >=1000 mg/dL (Negative)
[2024-09-15 14:36] LABS: C & S Indicated? No; RBC 0-2 HPF (0-2)
== END 2024-09-15 18:04 | disposition home or self-care (01) ==
LOC: LBN 18:03
PROVIDERS: PCP Registered Nurse; Visit Provider Internal Medicine Pulmonary Disease
DX: N39.0 Urinary tract infection, site not specified (principal)
CPT/HCPCS: 81003; 81015

== ENCOUNTER 2024-12-05 12:37 | Outpatient (REF) | payer MEDICARE, SELFPAY | END 2024-12-05 12:38 | disposition home or self-care (01) | LOC: LBN 12:37 | PROVIDERS: PCP Registered Nurse; Visit Provider Physician Assistant Medical | DX: J02.9 Acute pharyngitis, unspecified (principal) | CPT/HCPCS: 87070 ==

== ENCOUNTER → 2024-12-08 02:08 | Outpatient (CLI) | payer MEDICARE, SELFPAY ==
--- NOTE | 2024-12-08 08:00 | DI.CT_ITS ---
Exam(s) CT CHEST WO EXAM: CT CHEST WO CLINICAL HISTORY: pulmonary infiltrates on LDCT R91.8 ABNL FINDINGS. TECHNIQUE: Imaging protocol: Axial computed tomography images were obtained and coronal and sagittal reformatted images were created and reviewed. Lung Computer Aided Detection (CAD) was utilized. COMPARISON: CT CT CHEST LOW DOSE CA SCREENING from 09/19/[address] CHEST WO from 08/16/[address] CHEST LUNG CANCER SCREEN from 09/03/2024 CR XR CHEST 2V PA LATERAL from 09/15/2024 FINDINGS: Tracheobronchial tree: Patent where visualized. No bronchiectasis is present. Pulmonary parenchyma: Interval progression of the nodular infiltrate in the lungs. The infiltrate has a somewhat tree-in-bud appearance. Findings are most marked in the right middle lobe and lingula. There are areas of consolidation seen in the right middle lobe and the right lower lobe. To a lesser degree findings are also seen in the lingula and the left lower lobe. No architectural distortion. Mediastinum and Shefali: No dominant adenopathy or fluid collection. The esophagus is unremarkable. Thyroid gland: Unremarkable. Pleura: No effusion or pneumothorax. Heart: The heart is not dilated. Coronary artery calcifications are present. No pericardial effusion. Aorta: Thoracic aorta non-dilated. Atherosclerotic calcification is present. Upper abdomen: Cholelithiasis. Lymph nodes: Within normal limits. Soft tissues: Unremarkable. Bones:Within normal limits for the patient's age. IMPRESSION: Interval progression of the nodular infiltrate in the lungs with increasing areas of consolidation. Differential considerations include small airways disease including infection, including atypical pathogens such as fungal or viral pathogens, ABPA, bronchiolitis or neoplasm. RADIATION DOSE DELIVERED: 191.37mGy.cm Total DLP 191.37mGy.cm Total DLP DATA REPOSITORY: All CT scans at this facility are submitted to the National Radiology Data Registry (NRDR) Dose Index Registry (DIR) with the [employer] (ACR). RADIATION OPTIMIZATION: All CT scans at this facility use at least one of these dose optimization techniques: automated exposure control; mA and/or kV adjustment per patient size (includes targeted exams where dose is matched to clinical indication); or iterative reconstruction.
== END ==
LOC: DI 02:09
PROVIDERS: PCP Registered Nurse; Visit Provider Internal Medicine Pulmonary Disease
DX: R91.8 Other nonspecific abnormal finding of lung field (principal)
CPT/HCPCS: 71250

== ENCOUNTER → 2024-12-15 10:39 | Outpatient (BNVA) | payer MEDICARE, SELFPAY | PROVIDERS: PCP Registered Nurse; Referring Provider Registered Nurse; Visit Provider Internal Medicine Pulmonary Disease | DX: J45.50 Severe persistent asthma, uncomplicated (principal); R91.8 Other nonspecific abnormal finding of lung field; Z87.891 Personal history of nicotine dependence | CPT/HCPCS: 99214; 36415 ==

== ENCOUNTER 2024-12-15 14:26 | Outpatient (REF) | payer MEDICARE, SELFPAY ==
[2024-12-15 15:05] LABS: Abs Immature Grans 0.05 10^3/uL (0.0-0.06); HCT 35.1 % (36.0-46.0); HGB 11.0 g/dL (11.2-15.7); Immature Grans % 0.8 %; MCH 27.3 pg (27.0-33.0); MCHC 31.3 % (32.0-36.0); MCV 87 fL (80-95); MPV 9.3 fL (8.0-11.0); Platelet Count 462 10^3/uL (130-400); RBC 4.03 10^6/uL (3.93-5.22); RDW 15.7 % (11.7-14.6); RDW-SD 50.0 fL; WBC 6.59 10^3/uL (4.4-10.8)
== END 2024-12-15 14:27 | disposition home or self-care (01) ==
LOC: LBN 14:26
PROVIDERS: PCP Registered Nurse; Visit Provider Internal Medicine Pulmonary Disease
DX: J45.50 Severe persistent asthma, uncomplicated (principal)
CPT/HCPCS: 82785; 85025

== ENCOUNTER 2024-12-29 11:01 | Day surgery (SDC) | payer MEDICARE, SELFPAY ==
[2024-12-29] VITALS (17 sets, daily range): BP systolic 87–151; BP diastolic 52–71; PULSE 101–109; RESP 18–27; TEMP 35.6–37; O2SAT 93–97; BMI 29.1
[2024-12-29] MEDS: Lactated Ringers 1,000 ML 30 ML IV (11:52)
--- NOTE | 2024-12-29 11:55 | W.ANESPRE ---
General Info Date of Service Date Performed: 12/29/24 Height: 5 ft 4.5 in Weight: 78.2 kg Body Mass Index (BMI): 29.1 Surgical Procedure: Operation Date: 12/29/24 13:10 Proposed Procedure Side Surgeon p Bronchoscopy Kilo Paez MD Meds Allergies and Home Medications Allergies Allergy/AdvReac Type Severity Reaction Status Date / Time animal dander Allergy Intermediate Other (See Verified 12/29/24 11:36 Comment) grass pollen Allergy Intermediate Other (See Verified 12/29/24 11:36 Comment) pollen extracts Allergy Intermediate Other (See Verified 12/29/24 11:36 Comment) semaglutide (From Rybelsus) AdvReac throat Verified 12/29/24 11:36 swelling smoke Allergy Intermediate Other (See Uncoded 12/29/24 11:36 Comment) Dust Allergy Mild Other (See Uncoded 12/29/24 11:36 Comment) Home Medication Medication Instructions Recorded albuterol sulfate 90 mcg/actuation 1 puff inhalation Q4H PRN 09/11/22 aerosol inhaler flash glucose sensor ([employer] 09/11/22 Daniel 2 Sensor kit) insulin aspart U-100 100 unit/mL 100 unit subcut DIRECTED 09/11/22 (3 mL) subcutaneous pen (Novolog FlexPen U-100 Insulin aspart) cyclobenzaprine 5 mg tablet 5 mg PO QHS 09/12/22 lidocaine 5 % topical patch 1 patch topical DAILY 08/26/23 (DermacinRx Lidocan) losartan 25 mg tablet (Cozaar) 25 mg PO DAILY 08/26/23 magnesium oxide 400 mg PO DAILY 08/26/23 cetirizine 10 mg tablet (Allergy 10 mg PO DAILY PRN 10/02/23 Relief (cetirizine)) lidocaine 5 % topical patch 1 patch topical DAILY 10/02/23 pravastatin 40 mg tablet 40 mg PO DAILY 10/02/23 dulaglutide 0.75 mg/0.5 mL 0.75 mg subcut QWEEK 11/19/23 subcutaneous pen injector ([facility]) ipratropium bromide 21 mcg (0.03 2 spray intranasal BID #30 mL 11/19/23 %) nasal spray gabapentin 100 mg capsule 100 mg PO DAILY 02/04/24 glipizide 10 mg tablet, extended 10 mg PO DAILY 02/04/24 release 24 hr insulin glargine 100 unit/mL (3 28 unit subcut QPM 02/04/24 mL) subcutaneous pen omeprazole 20 mg capsule,delayed 20 mg PO BID #60 caps 02/25/24 release budesonide-formoterol HFA 160 2 puff inhalation BID #10.2 grams 08/12/24 mcg-4.5 mcg/actuation aerosol inhaler (Symbicort) montelukast 10 mg tablet 10 mg PO DAILY #90 tabs 08/12/24 empagliflozin 10 mg tablet 10 mg PO DAILY 09/15/24 (Jardiance) brimonidine 0.1 % eye drops 1 drp ophthalmic (eye) Q8H 12/15/24 ipratropium 0.5 mg-albuterol 3 mg 3 ml inhalation Q6H PRN shortness 12/17/24 (2.5 mg base)/3 mL nebulization of breath #180 mL soln Current Visit Medications: Current Medications Generic Name Dose Route Start Last Admin Trade Name Freq PRN Reason Stop Dose Admin Albuterol Sulfate 2.5 mg 12/29/24 06:00 Albuterol 2.5 Mg/3 Ml Inh Soln Vial UPD 12/29/24 23:59 PREOP MIGUEL Ringer's Solution 1,000 mls @ 30 mls/hr 12/29/24 06:00 12/29/24 11:52 IV 01/25/25 23:59 30 mls/hr INFUSION MIGUEL Administration IV Miscellaneous Supplies 1 each 12/29/24 06:00 Iv Access IV 01/25/25 23:59 DIRECTED MIGUEL Lidocaine HCl 2 ml 12/29/24 06:00 Lidocaine 2% Pres-Free 2 Ml Vial IH 12/29/24 23:59 PREOP MIGUEL Sodium Chloride 0 ml 12/29/24 06:00 Normal Saline Flush 10 Ml Syr IV 01/25/25 23:59 PRN PRN Sodium Chloride 0 ml 12/29/24 06:00 Normal Saline 10 Ml Vial IJ 01/25/25 23:59 DIRECTED PRN Sterile Water 0 ml 12/29/24 06:00 Water,Injection,Sterile 10 Ml Vial IJ 01/25/25 23:59 DIRECTED PRN PFSH Active Problems Active Problems: Problem Status Onset Code Pulmonary nodule Acute R91.1 Pulmonary infiltrates Acute R91.8 Personal history of nicotine dependence Acute Z87.891 Severe persistent asthma Acute J45.50 Trochanteric bursitis, left hip Acute M70.62 Osteoarthritis of left hip Acute M16.12 Phlegm in throat Acute R09.89 Former cigarette smoker Acute Z87.891 GERD (gastroesophageal reflux disease) Chronic K21.9 Chest pressure Acute R07.89 Snoring Acute R06.83 Allergic asthma Acute J45.909 Diabetic feet Acute E11.8 Acute asthma Acute J45.909 Type 2 diabetes mellitus Acute E11.9 Medical History Medical History Urinary tract infection Medical History Comments:: CGM in situ (L) arm Tobacco Smoking/Tobacco Use Status: Former Tobacco Use Passive smoking exposure: Yes Alcohol Alcohol Intake: never Substance Use Substance use type: does not use Vital Signs and Lab Results Vital Signs Most Recent Vital Signs in EMR: Most Recent Vital Signs Temp Pulse Resp BP Pulse Ox 35.6 C L 108 H 22 142/65 H 96 12/29/24 11:10 12/29/24 11:10 12/29/24 11:10 12/29/24 11:10 12/29/24 11:10 Lab Results Complete Blood Count: WBC, (4.4-10.8) 6.59 10^3/uL 12/15/24, 11:20 RBC, (3.93-5.22) 4.03 10^6/uL 12/15/24, 11:20 Hgb, (11.2-15.7) 11.0 g/dL L 12/15/24, 11:20 Hct, (36.0-46.0) 35.1 % L 12/15/24, 11:20 Plt Count, (130-400) 462 10^3/uL H 12/15/24, 11:20 Anesthesia Assessment and Plan Anesthesia History Personal History: No History of Anesthesia Complications Family History: No Family History of Anesthesia Complications Exercise Tolerance Exercise Tolerance: Metabolic Equivalents>4 Pertinent Negatives Pertinent Negatives: No History of CVA/TIA Cardiac & Pulmonary Exam Cardiac Exam: Normal S1/S2 Heart Sounds Pulmonary Exam: Wheezing Present, Rhonchi Present, Rales Present and Active Dry Cough Implantable Cardiac Device Does patient have a Pacemaker or an ICD?: No Airway Exam Known Difficult Airway: No Mallampati Class: 2 Mouth Opening: Normal (> 3cm) Thyromental Distance: Greater than 3 cm Neck Range of Motion: Full ROM Neck Circumference: Normal Teeth Condition: Edentulous ASA Classification ASA Score: ASA 3 Emergency Case?: No NPO Status NPO Status: NPO Clears >2 hours, Solids >8 hours Anesthesia Plan Resuscitation Status: Full Code Anesthesia Technique: General Anesthesia Airway Planned: Endotracheal Tube Monitors Used: Standard Monitors Preoperative Comments:: Discussed significant pulmonary risk. Patient aware.
[2024-12-29] MEDS: Albuterol 2.5 MG/3 ML INH SOLN VIAL UPD (12:15)
[2024-12-29] MEDS: Lidocaine 2% Pres-Free 2 ML VIAL IH (12:15)
--- NOTE | 2024-12-29 12:19 | W.PM.OP ---
Operative Note Operative Note PRE-OP DIAGNOSIS: Pulmonary infiltrates, chronic cough POST-OP DIAGNOSIS: same PROCEDURE: Flexible fiberoptic bronchoscopy, diagnostic and therapeutic SURGEON: Kilo Paez ANESTHESIA TYPE: General LMA/ETT (Under the direction the anesthesiology team and as per anesthesia record) Refer to Anesthesia Record PATHOLOGY: other (Bronchoalveolar lavage was obtained in the medial segment of the RML and posterior segment of the LLL. Samples were sent for bacterial, fungal and AFB cultures, cell count, and cytopathology) COMPLICATIONS: None Procedure Description: The risks (including bleeding, respiratory failure, and pneumothorax), benefits, and alternatives of the procedure were discussed with the patient and consent was obtained. A Time Out was held and the above information confirmed. Following the induction of general anesthesia, the patient was ventilation through an 8.0 ET tube. The bronchoscope was passed through the ET tube and into the trachea. Additional lidocaine was used topically. A full endobronchial examination was performed. There were purulent secretions in the distal trachea, main stem bronchi, RML bronchus, RLL bronchus, CHERIE bronchus and LLL bronchus. No endobronchial lesions were seen. The secretions were suctioned to clear. 75 mL of saline was injected into the medial segment of the RML and 30 mL was aspirated. The fluid appeared opaque 75 mL of saline was injected into the posterior segment of the and LLL mL was aspirated. The fluid appeared opaque The Patient was taken to the Endoscopy Recovery area in satisfactory condition. Date of Procedure: 12/29/24
--- NOTE | 2024-12-29 12:52 | PAPNONF_PTH ---
PATIENT: Noreen Denny LOC: [facility] U#:[id number] AGE/SX: 64/F ROOM: RE12/29/[address]: Kilo Paez : 1960 BED: DIS: 12/29/2024 SPEC #: [id number] RECD: 12/29/24 18:09 STATUS: CHIO REElizabeth #: [id number] DOMONIQUE: 12/29/24 12:[address]: Kilo Paez DEPT: [facility] Cytology RECD BY: Judie Yee ENTERED: 12/29/24 18:10 SP TYPE: RY FORRESTER DR: Joey Moreau Tissues: 1 - BODY FLUID CYTO(NOT S/U/N/EM)[facility] 2 - BODY FLUID CYTO(NOT S/U/N/EM)[facility] Procedures: BODY FLUID CYTO(NOT SPU/UR/NIP/ENDOM)[facility] Comments: [id number] (TV #1=15 ml, #2=20 ml, SENT FRESH)(REFRIGERATED)
--- NOTE | 2024-12-29 13:23 | W.ANESPOSTOP ---
Postoperative Evaluation Date, Time and Location Date Performed: 12/29/24 Time Performed: 13:23 Patient Location: Day Surgery Unit Vital Signs Most Recent Imported Vital Signs: Most Recent Vital Signs Temp Pulse Resp BP Pulse Ox 36.6 C 104 H 25 H 128/56 L 95 12/29/24 13:13 12/29/24 13:12 12/29/24 13:12 12/29/24 13:12 12/29/24 13:12 Assessment Mental Status: Awake (Alert & Oriented to Patient Baseline) Airway and Respiratory Function: Patent airway with normal (patient baseline) respiratory exam Cardiovascular Function: Hemodynamically Stable Hydration Status: Adequately Hydrated Nausea & Vomiting: No Nausea or Vomiting Pain: Pt. Denies Any Pain Peripheral Nerve Block: Patient did not receive a nerve block
[2024-12-30 08:47] LABS: Eosinophils Fluid Relative 1 % ((See Note)); Lymphocytes Fluid Relative 5 % ((See Note)); Mono/Macrophage Fluid Relative 5 % ((See Note)); Neutrophils Fluid Relative 89 % ((See Note))
[2024-12-30 08:47] LABS: Lymphocytes Fluid Relative 6 % ((See Note)); Mono/Macrophage Fluid Relative 2 % ((See Note)); Neutrophils Fluid Relative 92 % ((See Note))
== END 2024-12-29 15:35 | disposition home or self-care (01) ==
PROVIDERS: PCP Registered Nurse; Visit Provider Internal Medicine Pulmonary Disease
PROC: 0BJ08ZZ Inspection of Tracheobronchial Tree, Via Natural or Artificial Opening Endoscopic (ICD-10-PCS; CPT 31622; principal; 2024-12-29 13:00)
DX: R05.3 Chronic cough (principal); R91.8 Other nonspecific abnormal finding of lung field; Z79.899 Other long term (current) drug therapy; Z79.4 Long term (current) use of insulin; E11.9 Type 2 diabetes mellitus without complications; J45.909 Unspecified asthma, uncomplicated; K21.9 Gastro-esophageal reflux disease without esophagitis
CPT/HCPCS: 31645; 80162; 87070; 87102; 87116; 87205; 87206; 88104; 94640; J2003; J2405; J2704; J7613

== ENCOUNTER 2025-01-05 14:46 | Observation (INO) | payer MEDICARE, SELFPAY ==
[2025-01-05] VITALS (25 sets, daily range): BP systolic 119–172; BP diastolic 62–78; PULSE 78–105; RESP 17–19; TEMP 35.8–36.7; O2SAT 93–100
--- NOTE | 2025-01-05 14:45 | DI.RAD_ITS ---
Exam(s) XR CHEST 2V PA LATERAL EXAM: XR CHEST 2V PA LATERAL CLINICAL HISTORY: pneumonia TECHNIQUE: 2D digital imaging was performed of the chest. Two images were obtained. PA and lateral views were obtained. COMPARISON: CR XR CHEST 2V PA LATERAL from 08/26/2023 CR XR CHEST 2V PA LATERAL from 09/15/[address] CHEST WO from 12/08/2024 FINDINGS: MEDIASTINUM: Normal. HEART: Normal. PULMONARY VASCULATURE: Normal. LUNGS: The infiltrate seen in the right lung on the CT scan from 12/08/2024 persists. The left lung appears clear. No new infiltrates are seen. PLEURAL SPACE: No pleural effusion or pneumothorax. BONE:Within normal limits for the patient's age. OTHER FINDINGS:Normal. IMPRESSION: Persistent right middle lobe infiltrate. DATA REPOSITORY: RADIATION DOSE DELIVERED:
--- NOTE | 2025-01-05 14:49 | W.ED.GENAD ---
Discharge Plan Discharge Details Chief Complaint: RespSymp Admit Date/Time: 01/05/25 17:36 Admit Provider: Alejandro Cullen Attending Provider: Alejandro Cullen Primary Care Provider: Joey Moreau ED Provider: Salty Garg Discharge Data Discharge Date/Time-TO BE ENTERED AT DEPARTURE: 01/05/25 18:41 HPI General Date/Time Provider Initiated Documentation: 01/05/25 14:49. 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 Vital signs notable for mild tachycardia physical exam notable for rhonchi in the right lung bhat. Will obtain screening labs to rule out sepsis, and renal function before starting recommended IV Bactrim. ED course: CBC notable for leukocytosis, renal function not significantly elevated, will start IV Bactrim and admit for further management. 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 Paez, for the past several weeks, who 2 weeks ago underwent bronchioloalveolar lavage, and was found to have Arcanobacter pneumonia which has been resistant to her outpatient prescribed Augmentin presents for evaluation for admission and IV antibiotics for further management. She notes a cough for the past several months has not been significantly worse in intensity. Denies associated fever, significant shortness of breath or any other new or concerning symptoms. ROS: Negative besides as mentioned above Exam: Gen: A&O NAD HEENT: NCAT, EOMI, not icteric. External ears normal. No rhinorrhea. Moist mucous membranes. Neck: Supple, full range of motion, no observable masses, No meningeal sign. Lungs: No Respiratory distress. Right sided rhonchi CV: Tachycardia, no edema. Abdomen: Soft, nondistended, No rebound tenderness. MSK: No joint swelling, no redness. Skin: No rashes, petechiae, lesions. Normal color per patient. Neuro: Normal Gait, Grossly intact. Psych: Appropriate for situation. Labs: 12/01/25 16:00 Blood Blood Culture - Preliminary NO GROWTH 24 HOURS 01/05/25 15:50 Blood Blood Culture - Preliminary NO GROWTH 24 HOURS Laboratory Tests Range/Units 01/05/25 15:50 WBC (4.4-10.8) 10^3/uL 10.83 H RBC (3.93-5.22) 10^6/uL 3.82 L Hgb (11.2-15.7) g/dL 10.7 L Hct (36.0-46.0) % 33.9 L MCV (80-95) fL 89 MCH (27.0-33.0) pg 28.0 MCHC (32.0-36.0) % 31.6 L RDW (11.7-14.6) % 15.9 H Plt Count (130-400) 10^3/uL 449 H MPV (8.0-11.0) fL 8.9 Immature Gran % % 0.9 Neutrophils % % 76.3 Lymphocytes % % 14.2 Monocytes % % 4.9 Eosinophils % % 3.0 Basophils % % 0.7 Nucleated RBC % (0.0-0.3) % 0.0 Absolute Neutrophils (1.2-6.7) 10^3/uL 8.26 H Absolute Lymphocytes (1.2-3.4) 10^3/uL 1.54 Absolute Monocytes (0.1-0.8) 10^3/uL 0.53 Absolute Eosinophils (0.0-0.7) 10^3/uL 0.32 Absolute Basophils (0.0-0.2) 10^3/uL 0.08 PT (9.1-11.1) sec 10.5 INR (0.9-1.1) 1.0 APTT (20.6-30.2) sec 23.5 VBG pH (7.31-7.41) 7.39 VBG pCO2 (41-51) mmHg 45 VBG pO2 mmHg 28 VBG HCO3 (23-28) mmol/L 27 VBG Total CO2 (24-29) mmol/L 25 VBG O2 Saturation % 46 VBG Base Excess (-2-3) mmol/L 2 VBG Lactate (<or=2.0) mmol/L 1.2 Sodium (136-145) mmol/L 140 Potassium (3.5-5.1) mmol/L 4.7 Chloride (98-107) mmol/L 106 Carbon Dioxide (20.0-31.0) mmol/L 25.8 Anion Gap (3-11) mmol/L 8.2 BUN (9-23) mg/dL 15 Creatinine (0.55-1.02) mg/dL 1.39 H Est GFR (CKD-EPI 2020) (mL/min/1.73m2) 38.02 Glucose (74-106) mg/dL 98 Calcium (8.3-10.6) mg/dL 9.3 Total Bilirubin (0.2-1.2) mg/dL 0.20 AST (<34) U/L 19 ALT (10-49) U/L 10 Alkaline Phosphatase (46-116) U/L 122 H Troponin I (<35) ng/L < 3 C-Reactive Protein (<=0.50) mg/dL 2.66 H Total Protein (5.7-8.2) g/dL 8.0 Albumin (3.2-5.0) g/dL 4.3 Radiology: Accession No. : [id number] Creator : KALEIGH ARNDT Dictator : KALEIGH ARNDT Restaurant Hospitality Manager : Vegetable Washer : KALEIGH ARNDT Approver2 : Report Date : 01/05/2025 16:41:50 Exam(s) XR CHEST 2V PA LATERAL EXAM: XR CHEST 2V PA LATERAL CLINICAL HISTORY: pneumonia TECHNIQUE: 2D digital imaging was performed of the chest. Two images were obtained. PA and lateral views were obtained. COMPARISON: CR XR CHEST 2V PA LATERAL from 08/26/2023 CR XR CHEST 2V PA LATERAL from 09/15/[address] CHEST WO from 12/08/2024 FINDINGS: MEDIASTINUM: Normal. HEART: Normal. PULMONARY VASCULATURE: Normal. LUNGS: The infiltrate seen in the right lung on the CT scan from 12/08/2024 persists. The left lung appears clear. No new infiltrates are seen. PLEURAL SPACE: No pleural effusion or pneumothorax. BONE:Within normal limits for the patient's age. OTHER FINDINGS:Normal. IMPRESSION: Persistent right middle lobe infiltrate. DATA REPOSITORY: RADIATION DOSE DELIVERED: Related Data Home Medications ?Medication ?Instructions ?Recorded ?Confirmed albuterol sulfate 90 mcg/actuation 1 puff inhalation Q4H PRN 09/11/22 01/05/25 aerosol inhaler flash glucose sensor (FreeStyle 09/11/22 01/05/25 Daniel 2 Sensor kit) insulin aspart U-100 100 unit/mL 100 unit subcut DIRECTED 09/11/22 01/05/25 (3 mL) subcutaneous pen (Novolog FlexPen U-100 Insulin aspart) cyclobenzaprine 5 mg tablet 5 mg PO QHS 09/12/22 01/05/25 lidocaine 5 % topical patch 1 patch topical DAILY 08/26/23 01/05/25 (DermacinRx Lidocan) losartan 25 mg tablet (Cozaar) 25 mg PO DAILY 08/26/23 01/05/25 magnesium oxide 400 mg PO DAILY 08/26/23 01/05/25 cetirizine 10 mg tablet (Allergy 10 mg PO DAILY PRN 10/02/23 01/05/25 Relief (cetirizine)) lidocaine 5 % topical patch 1 patch topical DAILY 10/02/23 01/05/25 pravastatin 40 mg tablet 40 mg PO DAILY 10/02/23 01/05/25 dulaglutide 0.75 mg/0.5 mL 0.75 mg subcut QWEEK 11/19/23 01/05/25 subcutaneous pen injector (Trulicity) ipratropium bromide 21 mcg (0.03 2 spray intranasal BID #30 mL 11/19/23 01/05/25 %) nasal spray gabapentin 100 mg capsule 100 mg PO DAILY 02/04/24 01/05/25 glipizide 10 mg tablet, extended 10 mg PO DAILY 02/04/24 01/05/25 release 24 hr insulin glargine 100 unit/mL (3 28 unit subcut DAILY 02/04/24 01/05/25 mL) subcutaneous pen omeprazole 20 mg capsule,delayed 20 mg PO BID #60 caps 02/25/24 01/05/25 release budesonide-formoterol HFA 160 2 puff inhalation BID #10.2 grams 08/12/24 01/05/25 mcg-4.5 mcg/actuation aerosol inhaler (Symbicort) montelukast 10 mg tablet 10 mg PO DAILY #90 tabs 08/12/24 01/05/25 empagliflozin 10 mg tablet 10 mg PO DAILY 09/15/24 01/05/25 (Jardiance) brimonidine 0.1 % eye drops 1 drp ophthalmic (eye) Q8H 12/15/24 01/05/25 ipratropium 0.5 mg-albuterol 3 mg 3 ml inhalation Q6H PRN shortness 12/17/24 01/05/25 (2.5 mg base)/3 mL nebulization of breath #180 mL soln amoxicillin 875 mg-potassium 1 tab PO BID 7 days #14 tabs 12/31/24 01/05/25 clavulanate 125 mg tablet sulfamethoxazole 800 1 tab PO BID 10 days #20 tabs 01/05/25 01/05/25 mg-trimethoprim 160 mg tablet (Bactrim DS) Previous Rx's ?Medication ?Instructions ?Recorded ipratropium bromide 21 mcg (0.03 2 spray intranasal BID #30 mL 11/18/ %) nasal spray omeprazole 20 mg capsule,delayed 20 mg PO BID #60 caps 02/25/24 release budesonide-formoterol HFA 160 2 puff inhalation BID #10.2 grams 08/12/24 mcg-4.5 mcg/actuation aerosol inhaler (Symbicort) montelukast 10 mg tablet 10 mg PO DAILY #90 tabs 08/12/24 ipratropium 0.5 mg-albuterol 3 mg 3 ml inhalation Q6H PRN shortness 12/17/24 (2.5 mg base)/3 mL nebulization of breath #180 mL soln amoxicillin 875 mg-potassium 1 tab PO BID 7 days #14 tabs 12/31/24 clavulanate 125 mg tablet sulfamethoxazole 800 1 tab PO BID 10 days #20 tabs 01/05/25 mg-trimethoprim 160 mg tablet (Bactrim DS) Allergies Allergy/AdvReac Type Severity Reaction Status Date / Time animal dander Allergy Intermediate Other (See Verified 01/05/25 14:53 Comment) grass pollen Allergy Intermediate Other (See Verified 01/05/25 14:53 Comment) pollen extracts Allergy Intermediate Other (See Verified 01/05/25 14:53 Comment) semaglutide (From Rybelsus) AdvReac throat Verified 01/05/25 14:53 swelling smoke Allergy Intermediate Other (See Uncoded 01/05/25 14:53 Comment) Dust Allergy Mild Other (See Uncoded 01/05/25 14:53 Comment) General MAYCOL: 2 PFSH All Active Problems (Updated 01/06/25 @ 06:32 by Kilo Paez MD) Achromobacter pneumonia (Acute) DVT prophylaxis (Acute) Discharge planning issues (Acute) Elevated alkaline phosphatase level (Acute) Leukocytosis (Acute) Anemia (Chronic) Chronic kidney disease (Chronic) Pulmonary nodule (Acute) Pulmonary infiltrates (Acute) Personal history of nicotine dependence (Acute) Severe persistent asthma (Acute) Trochanteric bursitis, left hip (Acute) Osteoarthritis of left hip (Acute) Phlegm in throat (Acute) Former cigarette smoker (Acute) GERD (gastroesophageal reflux disease) (Chronic) Chest pressure (Acute) Snoring (Acute) Allergic asthma (Acute) Diabetic feet (Acute) Acute asthma (Acute) Type 2 diabetes mellitus (Acute) Medical History (Updated 01/06/25 @ 06:32 by Kilo Paez MD) Urinary tract infection Social History (Updated 09/11/22 @ 10:55 by Saundra Maloney) Smoking/Tobacco Use Status: Former Tobacco Use Quit Date: 02/05/22 Smoking risk assessment performed?: Yes Alcohol Intake: never Substance use type: does not use Housing: apartment Do you feel safe at home: Yes Do you feel safe in your relationship?: Yes
[2025-01-05 15:58] LABS: BE (Venous) 2 mmol/L (-2-3); HCO3 (Venous) 27 mmol/L (23-28); O2 Sat (Venous) 46 %; TCO2 (Venous) 25 mmol/L (24-29); pCO2 (Venous) 45 mmHg (41-51); pO2 (Venous) 28 mmHg
[2025-01-05 16:05] LABS: Abs Immature Grans 0.10 10^3/uL (0.0-0.06); HCT 33.9 % (36.0-46.0); HGB 10.7 g/dL (11.2-15.7); Immature Grans % 0.9 %; MCH 28.0 pg (27.0-33.0); MCHC 31.6 % (32.0-36.0); MCV 89 fL (80-95); MPV 8.9 fL (8.0-11.0); Platelet Count 449 10^3/uL (130-400); RBC 3.82 10^6/uL (3.93-5.22); RDW 15.9 % (11.7-14.6); RDW-SD 51.8 fL; WBC 10.83 10^3/uL (4.4-10.8)
[2025-01-05 16:28] LABS: ALT 10 U/L (10-49); AST 19 U/L (<34); Albumin 4.3 g/dL (3.2-5.0); Alkaline Phosphatase 122 U/L (46-116); Anion Gap 8.2 mmol/L (3-11); BUN 15 mg/dL (9-23); Bilirubin, Total 0.20 mg/dL (0.2-1.2); CO2 25.8 mmol/L (20.0-31.0); Calcium 9.3 mg/dL (8.3-10.6); Chloride 106 mmol/L (98-107); Glucose 98 mg/dL (74-106); INR 1.0 (0.9-1.1); PTT Activated 23.5 sec (20.6-30.2); Potassium 4.7 mmol/L (3.5-5.1); Prothrombin Time 10.5 sec (9.1-11.1); Sodium 140 mmol/L (136-145); Total Protein 8.0 g/dL (5.7-8.2)
[2025-01-05] MEDS: Normal Saline 1,000 ML 1000 ML IV (16:34)
[2025-01-05 16:38] LABS: Troponin I < 3 ng/L (<35)
[2025-01-05] MEDS: SULFA IVPB (17:41)
[2025-01-05] MEDS: DEXTROSE 5% IVPB (17:41)
[2025-01-05] MEDS: WATER IVPB (17:41)
[2025-01-05] MEDS: TRIMETH IVPB (17:41)
--- NOTE | 2025-01-05 18:27 | W.PC.ACHO ---
Registration Status: REG ER Primary Language: Preferred Language: ED Information & Data Chief Complaint RespSymp 01/05/25 14:52 Chief Complaint RespSymp 01/05/25 14:49 Triage Note pt states she has an 01/05/25 14:49 infection in her lungs on oral antibiotics onset 4 days ago Medical / Surgical History (Last Reviewed 12/29/24 @ 11:45 by Amalia Amaro) Urinary tract infection Most Recent Vital Signs Temperature 36.6 C 01/05/25 15:36 Temperature Source Tympanic 01/05/25 15:36 Pulse 81 01/05/25 18:10 Respiratory Rate 18 01/05/25 15:36 Respiratory Effort Normal, Non-Labored 01/05/25 15:36 Respiratory Depth Normal 01/05/25 15:36 Blood Pressure 168/74 H 01/05/25 18:01 Blood Pressure Mean 101 01/05/25 18:01 Pulse Oximetry 97 01/05/25 18:10 Oxygen Delivery Method Room Air 01/05/25 15:36 Oxygen Flow Rate 0 01/05/25 15:36 Pain Level 0 01/05/25 15:36 Allergies animal dander Allergy (Intermediate, Verified 01/05/25 14:53) Other (See Comment) grass pollen Allergy (Intermediate, Verified 01/05/25 14:53) Other (See Comment) pollen extracts Allergy (Intermediate, Verified 01/05/25 14:53) Other (See Comment) semaglutide (From Rybelsus) Adverse Reaction (Verified 01/05/25 14:53) throat swelling smoke Allergy (Intermediate, Uncoded 01/05/25 14:53) Other (See Comment) From wood smoke Dust Allergy (Mild, Uncoded 01/05/25 14:53) Other (See Comment) IV IV Catheter Type [Right Hand] Saline Lock IV Catheter Gauge [Right Hand] 22 Diet Orders Category Date Time Status Regular/Normal [DIET] Nutrition 01/06/25 Breakfast Ordered Diagnostics 01/05/25 Range/Units 15:50 WBC 10.83 H (4.4-10.8) 10^3/uL RBC 3.82 L (3.93-5.22) 10^6/uL Hgb 10.7 L (11.2-15.7) g/dL Hct 33.9 L (36.0-46.0) % MCV 89 (80-95) fL MCH 28.0 (27.0-33.0) pg MCHC 31.6 L (32.0-36.0) % RDW 15.9 H (11.7-14.6) % Plt Count 449 H (130-400) 10^3/uL MPV 8.9 (8.0-11.0) fL Immature Gran % 0.9 % Neutrophils % 76.3 % Lymphocytes % 14.2 % Monocytes % 4.9 % Eosinophils % 3.0 % Basophils % 0.7 % Nucleated RBC % 0.0 (0.0-0.3) % Absolute Neutrophils 8.26 H (1.2-6.7) 10^3/uL Absolute Lymphocytes 1.54 (1.2-3.4) 10^3/uL Absolute Monocytes 0.53 (0.1-0.8) 10^3/uL Absolute Eosinophils 0.32 (0.0-0.7) 10^3/uL Absolute Basophils 0.08 (0.0-0.2) 10^3/uL PT 10.5 (9.1-11.1) sec INR 1.0 (0.9-1.1) APTT 23.5 (20.6-30.2) sec VBG pH 7.39 (7.31-7.41) VBG pCO2 45 (41-51) mmHg VBG pO2 28 mmHg VBG HCO3 27 (23-28) mmol/L VBG Total CO2 25 (24-29) mmol/L VBG O2 Saturation 46 % VBG Base Excess 2 (-2-3) mmol/L VBG Lactate 1.2 (<or=2.0) mmol/L Sodium 140 (136-145) mmol/L Potassium 4.7 (3.5-5.1) mmol/L Chloride 106 (98-107) mmol/L Carbon Dioxide 25.8 (20.0-31.0) mmol/L Anion Gap 8.2 (3-11) mmol/L BUN 15 (9-23) mg/dL Creatinine 1.39 H (0.55-1.02) mg/dL Est GFR (CKD-EPI 2020) 38.02 (mL/min/1.73m2) Glucose 98 (74-106) mg/dL Calcium 9.3 (8.3-10.6) mg/dL Total Bilirubin 0.20 (0.2-1.2) mg/dL AST 19 (<34) U/L ALT 10 (10-49) U/L Alkaline Phosphatase 122 H (46-116) U/L Troponin I < 3 (<35) ng/L Total Protein 8.0 (5.7-8.2) g/dL Albumin 4.3 (3.2-5.0) g/dL 01/05/25 16:00 Blood Culture - Pending Blood 01/05/25 15:50 Blood Culture - Pending Blood Intake and Output - 24 Hour Total 01/05/25 14:46 thru 01/05/25 17:34 Intake Total 1000 Balance 1000 Weight 77.564 kg Intake: IV 1000 Falls Risk Assessment History of Falls No History 01/05/25 15:36 Contributing Factors No Factors 01/05/25 15:36 Ambulatory Aids Independent 01/05/25 15:36 Tubes/Lines None 01/05/25 15:36 Gait Evaluation No gait disturbance 01/05/25 15:36 Cognition No cognitive impairment 01/05/25 15:36 Fall Total Score 0 01/05/25 15:36 Level of Risk Standard/Low Risk 01/05/25 15:36 Attestation Statement: By documenting the first initial, last name, and credentials of the reporting nurse below, both parties acknowledge that all relevant information regarding the patient handoff has been communicated, and that all questions have been addressed to ensure continuity and safety of care. Additional Patient Information/Comments: Paged at [phone], report called at [phone]. 20 G R wrist US guided. Report Received From: [facility] ED RN
--- NOTE | 2025-01-05 18:35 | HPE_ITS ---
Date of service: 01/05/25 Time of Service: 18:35 Assessment and Plan Assessment and plan (1) Pulmonary infiltrates: Status: Acute Assessment and plan: Chronic Viral v fungal v bacterial Bactrim IV Pulmonolgy consult Bronch 12/29 - bronchoalveolar lavage obtained medial segment of the RML and posterior segment of the LLL - samples were sent for bacterial, fungal and AFB cultures, cell count, and cytopathology) BC pending Sputum cx pending (collected and sent to lab) (2) Severe persistent asthma: Status: Acute Assessment and plan: Continue Symbicort 160 BID, Singulair, and PRN albuterol. Oxygen prn Duo Nebs niels; albuterol prn RT consult Pulmonology consult Sputum cx pending No steroids recommended by pulmonology (3) Pulmonary nodule: Status: Acute Assessment and plan: Stable for over a year, no significant change. Continue routine monitoring. (4) Type 2 diabetes mellitus: Status: Acute Assessment and plan: A1c 01/2024 - 8 Will check A1c 01/06/25. Continue glupizide 10 mg oral daily Patient is on trulicity weekly SSI AC FS ACHS Glargine 20 units q pm (decreased from home 28 units) (5) GERD (gastroesophageal reflux disease): Status: Chronic Assessment and plan: Stable continue omeprazole (6) Chronic kidney disease: Status: Chronic Assessment and plan: Stable creatinine, likely within the patient's baseline. No acute renal dysfunction at this time. * Continue to monitor renal function * Ensure hydration and avoid nephrotoxic medications as appropriate. (7) Anemia: Status: Chronic Assessment and plan: Mild anemia, could be chronic or secondary to underlying disease (e.g., chronic lung disease, infection, or inflammation). * Monitor hemoglobin and assess for other causes of anemia (e.g., iron studies, B12/folate levels, renal function). * Consider referring to hematology if anemia becomes more pronounced or unexplained. (8) Leukocytosis: Status: Acute Assessment and plan: Slightly elevated WBC likely reflects an ongoing infectious or inflammatory process. * Recheck WBC and other inflammatory markers if clinical symptoms worsen. * Continue to monitor for signs of infection (e.g., fever, purulent sputum). (9) Elevated alkaline phosphatase level: Status: Acute Assessment and plan: Mildly elevated alkaline phosphatase, possibly related to bone or liver involvement, or could be related to an inflammatory process. * Consider repeat liver function tests (LFTs) and bone panel if clinically warranted. * If elevated in subsequent tests or accompanied by other symptoms (e.g., jaundice), investigate liver or bone pathology further. (10) Former cigarette smoker: Status: Acute Assessment and plan: 1 pack per day for 55 years, quit in 2022. (11) DVT prophylaxis: Status: Acute Assessment and plan: Enoxaparin (12) Discharge planning issues: Status: Acute Assessment and plan: Pulmonology to see Home when stable Discussed with Dr Cullen History of Present Illness Narrative: 64-year-old female with a history of severe persistent asthma, chronic tobacco use, and glaucoma, presenting for follow-up regarding pulmonary infiltrates. She is currently on Symbicort 160 BID, Spiriva 1.25 mcg daily, Singulair, and PRN albuterol. She has had a history of asthma exacerbations, including a recent one in September 2024. The patient came to the ED for increasing shortness of breath and is experiencing persistent cough with yellowish mucous production, and has had sinus drainage. Recent imaging: * LDCT (08/2024) showed new right middle lobe and lingular tree-in-bud opacities. She completed a course of Levaquin for possible infection. * Repeat CT (12/2024) noted increasing bilateral infiltrates, with areas of consolidation. Differential diagnosis includes small airway disease, atypical infections (e.g., fungal, viral), ABPA, bronchiolitis, or neoplasm per Pulmonology note. * Bronch (12/29/2024) Bronchoalveolar lavage obtained medial segment of the RML and posterior segment of the LLL - samples were sent for bacterial, fungal and AFB cultures, cell count, and cytopathology) - Negative for malignancy, alveolar macrophages in a background of abundant acute inflammation and bacterial colonies. No fever reported. She has glaucoma and is awaiting surgery. Smoking history: 1 pack per day for 55 years, quit in 2022. Chest X-ray Findings * Persistent right middle lobe infiltrate: Suggestive of ongoing or unresolved infection or inflammatory process. Given the chronicity, further evaluation with CT may be warranted if not already performed. Possible non-tuberculous mycobacteria, fungal infection, or even neoplasm), especially in the context of a smoking history and chronic lung disease. Lab Results * WBC: 10.83 (slightly elevated) ? Suggestive of ongoing infection or inflammation. * Hemoglobin (Hgb): 10.7 ? Mild anemia, which may be chronic or related to underlying disease. * Sodium (Na): 140 ? Within normal limits. * Potassium (K): 4.7 ? Normal. * Creatinine: 1.39 (baseline) ? This may be within the patient's baseline, but if there are concerns about renal function, recheck or evaluate trend. * Alkaline Phosphatase (Alk Phos): 122 ? Mildly elevated, could indicate liver or bone involvement, or even inflammation. Should be further explored if clinically indicated (liver, bone, or biliary system). Patient was started on Bactrim IV in the ED. Nebs. Patient being admitted to the medical floor for testing/treatment. Will consult pulmonology (established patient). Patient is a full code. Patient agrees with plan of care. Review of Systems Narrative: * General: Negative except for cough and sinus drainage * Respiratory: Persistent cough with yellowish mucous; denies wheezing or hemoptysis * Cardiovascular: No chest pain or palpitations * GI: No abdominal pain, nausea, or vomiting * Neurological: No dizziness or syncope * Musculoskeletal: No joint pain or swelling * Psychiatric: No depression or anxiety PFSH All Active Problems (Updated 01/05/25 @ 19:10 by Gracie Tomas NP) DVT prophylaxis (Acute) Discharge planning issues (Acute) Elevated alkaline phosphatase level (Acute) Leukocytosis (Acute) Anemia (Chronic) Chronic kidney disease (Chronic) Pulmonary nodule (Acute) Pulmonary infiltrates (Acute) Personal history of nicotine dependence (Acute) Severe persistent asthma (Acute) Trochanteric bursitis, left hip (Acute) Osteoarthritis of left hip (Acute) Phlegm in throat (Acute) Former cigarette smoker (Acute) GERD (gastroesophageal reflux disease) (Chronic) Chest pressure (Acute) Snoring (Acute) Allergic asthma (Acute) Diabetic feet (Acute) Acute asthma (Acute) Type 2 diabetes mellitus (Acute) Medical History (Updated 01/05/25 @ 19:10 by Gracie Tomsa NP) Urinary tract infection Social History (Updated 09/11/22 @ 10:55 by Saundra Maloney) Smoking/Tobacco Use Status: Former Tobacco Use Quit Date: 02/05/22 Smoking risk assessment performed?: Yes Alcohol Intake: never Substance use type: does not use Housing: apartment Do you feel safe at home: Yes Do you feel safe in your relationship?: Yes Meds Allergies and Home Medications Allergies Allergy/AdvReac Type Severity Reaction Status Date / Time animal dander Allergy Intermediate Other (See Verified 01/05/25 14:53 Comment) grass pollen Allergy Intermediate Other (See Verified 01/05/25 14:53 Comment) pollen extracts Allergy Intermediate Other (See Verified 01/05/25 14:53 Comment) semaglutide (From Rybelsus) AdvReac throat Verified 01/05/25 14:53 swelling smoke Allergy Intermediate Other (See Uncoded 01/05/25 14:53 Comment) Dust Allergy Mild Other (See Uncoded 01/05/25 14:53 Comment) Home Medications ?Medication ?Instructions ?Recorded ?Confirmed ?Type albuterol sulfate 90 mcg/actuation 1 puff inhalation Q 4H PRN 09/11/22 01/05/25 History aerosol inhaler flash glucose sensor (FreeStyle 09/11/22 01/05/25 His 1,2,3 Listoe 2 Sensor kit) insulin aspart U-100 100 unit/mL 100 unit subcut DI RECTED 09/11/22 01/05/25 History (3 mL) subcutaneous pen (Novolog FlexPen U-100 Insulin aspart) cyclobenzaprine 5 mg tablet 5 mg PO QHS 09/12/2201/05 History lidocaine 5 % topical patch 1 patch topical DAILY 08/0601/05/25 History (DermacinRx Lidocan) losartan 25 mg tablet (Cozaar) 25 mg PO DAILY 08/26/23 01/05/25 History magnesium oxide 400 mg PO DAILY 08/26/2303/01 History cetirizine 10 mg tablet (Allergy 10 mg PO DAILY PRN 01/05/25 History Relief (cetirizine)) lidocaine 5 % topical patch 1 patch topical DAILY 09/0601/05/25 History pravastatin 40 mg tablet 40 mg PO DAILY 10/02/2303/01 History dulaglutide 0.75 mg/0.5 mL 0.75 mg subcut QWEEK 01/05/25 [facility] ipratropium bromide 21 mcg (0.03 2 spray intranasal BI D #30 mL 11/19/23 01/05/25 Rx %) nasal spray gabapentin 100 mg capsule 100 mg PO DAILY 02/04/2403/01 History glipizide 10 mg tablet, extended 10 mg PO DAILY 01/05/25 History release 24 hr insulin glargine 100 unit/mL (3 28 unit subcut QPM 01/05/25 History mL) subcutaneous pen omeprazole 20 mg capsule,delayed 20 mg PO BID #60 caps 02/25/24 01/05/25 Rx release budesonide-formoterol HFA 160 2 puff inhalation BID #1 0.2 grams 08/12/24 01/05/25 Rx mcg-4.5 mcg/actuation aerosol inhaler (Symbicort) montelukast 10 mg tablet 10 mg PO DAILY #90 tabs /09/2901/05/25 Rx empagliflozin 10 mg tablet 10 mg PO DAILY 09/15/2403/01 History (Jardiance) brimonidine 0.1 % eye drops 1 drp ophthalmic (eye) Q8H 12/15/24 01/05/25 History ipratropium 0.5 mg-albuterol 3 mg 3 ml inhalation Q6H PRN shortness 12/17/24 01/05/25 Rx (2.5 mg base)/3 mL nebulization of breath #180 mL soln amoxicillin 875 mg-potassium 1 tab PO BID 7 days #14 t abs 12/31/24 01/05/25 Rx clavulanate 125 mg tablet sulfamethoxazole 800 1 tab PO BID 10 days #20 tab s 01/05/25 01/05/25 Rx mg-trimethoprim 160 mg tablet (Bactrim DS) Exam Narrative Exam Narrative: General: Alert, no acute distress Head/Neck: Normocephalic, trachea midline Eyes: Glaucoma in the left eye, awaiting surgery ENT: No stridor Cardiovascular: Regular rate and rhythm Respiratory: Bilateral rhonchi, no wheezing or crackles - speaking in full sentences; no O2 requirement Abdomen: Soft, non-tender, non-distended Extremities: No edema or digital clubbing Skin: No rashes Psychiatric: Normal affect Results Labs 01/05/25 15:50 01/05/25 15:50 Labs: Laboratory Results - last 24 hr 01/05/25 15:50 WBC 10.83 H RBC 3.82 L Hgb 10.7 L Hct 33.9 L MCV 89 MCH 28.0 MCHC 31.6 L RDW 15.9 H Plt Count 449 H MPV 8.9 Immature Gran % 0.9 Neutrophils % 76.3 Lymphocytes % 14.2 Monocytes % 4.9 Eosinophils % 3.0 Basophils % 0.7 Nucleated RBC % 0.0 Absolute Neutrophils 8.26 H Absolute Lymphocytes 1.54 Absolute Monocytes 0.53 Absolute Eosinophils 0.32 Absolute Basophils 0.08 PT 10.5 INR 1.0 APTT 23.5 VBG pH 7.39 VBG pCO2 45 VBG pO2 28 VBG HCO3 27 VBG Total CO2 25 VBG O2 Saturation 46 VBG Base Excess 2 VBG Lactate 1.2 Sodium 140 Potassium 4.7 Chloride 106 Carbon Dioxide 25.8 Anion Gap 8.2 BUN 15 Creatinine 1.39 H Est GFR (CKD-EPI 2020) 38.02 Glucose 98 Calcium 9.3 Total Bilirubin 0.20 AST 19 ALT 10 Alkaline Phosphatase 122 H Troponin I < 3 Total Protein 8.0 Albumin 4.3 Last Vital Signs Temp 36.6 C 01/05/25 15:36 Pulse 81 01/05/25 18:10 Resp 18 01/05/25 15:36 BP 168/74 H 01/05/25 18:01 Pulse Ox 97 01/05/25 18:10 VTE Prohylaxis Risk Level: Low Risk Contraindications: None Prophylaxis: Patient anticoagulated (Asael Prediction Score - 3 - Pharmacologic prophylaxis is NOT indicated. Consider using mechanical prophylaxis. Patient was already started on Enoxaparin) Time Spent Time spent with Patient: 55-74 minutes Time was spent: preparing to see the patient(eg.review tests), obtaining and/or reviewing separately otained hiistory, ordering medications,tests, procedures, referring, communicating with other health careers adviser, indepentently interpreting results, counseling the patient and care coordination
[2025-01-05 19:21] LABS: Lab Add On Test DONE
[2025-01-05 19:34] LABS: C-Reactive Protein 2.66 mg/dL (<=0.50)
[2025-01-05] MEDS: Cyclobenzaprine 10 MG TAB 5 MG PO (19:50)
[2025-01-05] MEDS: Omeprazole 20 MG CAPCR PO (19:52)
[2025-01-05] MEDS: Pravastatin 40 MG TAB PO (19:52)
[2025-01-05] MEDS: Budesonide/Formoterol 160/4.5 6 GM 60 PUFF INH IH (20:32)
[2025-01-06] VITALS (8 sets, daily range): BP systolic 123–136; BP diastolic 53–90; PULSE 82–98; RESP 16–20; TEMP 35.9–36.7; O2SAT 90–96
[2025-01-06] MEDS: WATER IVPB ×2 (05:52→17:59)
[2025-01-06] MEDS: SULFA IVPB ×2 (05:52→17:59)
[2025-01-06] MEDS: DEXTROSE 5% IVPB ×2 (05:52→17:59)
[2025-01-06] MEDS: TRIMETH IVPB ×2 (05:52→17:59)
--- NOTE | 2025-01-06 06:27 | PUCON_ITS ---
General Date Of Service Date of service: 01/06/25 Time of Service: 06:55 Requesting physician: Alejandro Cullen Recommendations: Assessment: 1. Achromobacter pneumonia - failed outpatient antibiotics. BAL culture from 12/29 showed 2/2 cultures positive for Achromobacter - sensitive to bactrim. 2. Severe persistent asthma - not in exacerbation. No significant obstruction on last PFT's. IgE level only 11 in 09/2022. Peripheral eos 180 / mcL in 08/2023 3. Pulmonary infiltrates - due to (1) 4. Pulmonary nodule - 0.4 cm RLL nodule - stable for > 1 year Recommendations: - will hold losartan while she is receiving bactrim - continue bactrim IV today. Plan to transition to PO tomorrow. Plan for 10 day course of antibiotics - monitor renal function and potassium - continue symbicort 160 BID and PRN albuterol - anticipate that she will be ready for discharge tomorrow Assessment and Plan Assessment and plan (1) Achromobacter pneumonia: Status: Acute (2) Severe persistent asthma: Status: Acute (3) Pulmonary infiltrates: Status: Acute (4) Pulmonary nodule: Status: Acute History of Present Illness Narrative: Patient is a 63 yo with a history of asthma, and tobacco abuse who was admitted on 01/05 for pneumonia. LDCT in 08/2024 noted new RML and lingular tree-in-bud opacities. She completed a course of levaquin around that time. Repeat CT chest in 12/2024 noted increased bilateral infiltrates. She has had a persistent cough with yellowish mucous production. Bronchoscopy with BAL was completed 12/29/24. BAL cultures were positive for achromobacter (2/2). Showed resistance to multiple antibiotics, but was sensitive to bactrim. Due to worsening cough/dyspnea and failure of outpatient antibiotics, she presented to the ED and was admitted. She is currently using breyna 160 BID, spiriva 1,25 daily, singulair and PRN albuterol for asthma management. She was treated for an asthma exacerbation in 09/2024. She is currently on room air. Has a cough with very thick sputum. Denied hemoptysis. Has had some chest pain with coughing. Smoking history: smoked 1 ppd x 55 years. Quit 2022 ROS: 10 pt ROS negative except as in HPI PFSH All Active Problems (Updated 01/06/25 @ 06:32 by Kilo Paez MD) Achromobacter pneumonia (Acute) DVT prophylaxis (Acute) Discharge planning issues (Acute) Elevated alkaline phosphatase level (Acute) Leukocytosis (Acute) Anemia (Chronic) Chronic kidney disease (Chronic) Pulmonary nodule (Acute) Pulmonary infiltrates (Acute) Personal history of nicotine dependence (Acute) Severe persistent asthma (Acute) Trochanteric bursitis, left hip (Acute) Osteoarthritis of left hip (Acute) Phlegm in throat (Acute) Former cigarette smoker (Acute) GERD (gastroesophageal reflux disease) (Chronic) Chest pressure (Acute) Snoring (Acute) Allergic asthma (Acute) Diabetic feet (Acute) Acute asthma (Acute) Type 2 diabetes mellitus (Acute) Medical History (Updated 01/06/25 @ 06:32 by Kilo Paez MD) Urinary tract infection Social History (Updated 09/11/22 @ 10:55 by Saundra Maloney) Smoking/Tobacco Use Status: Former Tobacco Use Quit Date: 02/05/22 Smoking risk assessment performed?: Yes Alcohol Intake: never Substance use type: does not use Housing: apartment Do you feel safe at home: Yes Do you feel safe in your relationship?: Yes Visit Medication and Allergies Active Medications Generic Name Dose Route Start Last Admin Trade Name Freq PRN Reason Stop Dose Admin Acetaminophen 650 mg 01/05/25 17:35 Acetaminophen 325 Mg Tab PO Q4H PRN PRN Albuterol Sulfate 1 puff 01/05/25 17:39 Albuterol Hfa 8 Gm 60 Puff Inh IH Q4H PRN PRN Albuterol/Ipratropium 3 ml 01/05/25 17:39 Albuterol/Ipratropium 3 Ml Upd Vial IH Q6H PRN PRN Shortness of Breath Budesonide/Formoterol Fumarate 2 puff 01/05/25 20:00 01/05/25 20:32 Budesonide/Formoterol 160/4.5 6 Gm 60 Puff Inh IH 2 puff BID MIGUEL Administration Cetirizine HCl 10 mg 01/05/25 17:39 Cetirizine 10 Mg Tab PO DAILY PRN PRN Cyclobenzaprine HCl 5 mg 01/05/25 20:00 01/05/25 19:50 Cyclobenzaprine 10 Mg Tab PO 5 mg HS MIGUEL Administration Dextrose 0 gm 01/05/25 17:42 Glucose Oral Gel 15 Gm/37.5 Gm Tube PO DIRECTED PRN Dextrose/Water 0 gm 01/05/25 17:42 Dextrose 50%-Water 25 Gm/50 Ml Syr IVP DIRECTED PRN Empagliflozin 10 mg 01/06/25 08:30 Empaglifozin 10 Mg Tab PO DAILY [facility] Enoxaparin Sodium 40 mg 01/06/25 08:30 Enoxaparin 40 Mg/0.4 Ml Syr SC DAILY [facility] Gabapentin 100 mg 01/06/25 08:30 Gabapentin 100 Mg Cap PO DAILY [facility] Glipizide 10 mg 01/06/25 07:30 Glipizide 10 Mg Tab PO DAILY@0730 [facility] Trimethoprim/Sulfamethoxazole 260 mls @ 250 mls/hr 01/06/25 06:00 01/06/25 05:52 10 ml/ Dextrose/Water IVPB 250 mls/hr Q12H [facility] Administration Insulin Aspart 0 units 01/06/25 08:00 Insulin Aspart 300 Units/3 Ml Pen SC 0800,1200,1700 [facility] Protocol Insulin Glargine 20 units 01/05/25 20:00 01/05/25 22:43 Insulin Glargine 300 Units/3 Ml Pen SC Not Given QPM [facility] Lidocaine 1 patch 01/06/25 08:30 Lidocaine 5% Patch TP DAILY [facility] Magnesium Oxide 400 mg 01/06/25 08:30 Magnesium Oxide 400 Mg Tab PO DAILY [facility] Miscellaneous 1 each 01/05/25 20:30 01/05/25 19:53 Patch Removal Lidocaine TP Not Given Q24H [facility] Montelukast Sodium 10 mg 01/06/25 08:30 Montelukast 10 Mg Tab PO DAILY [facility] Non-Formulary Medication 1 drp 01/05/25 17:45 Brimonidine OP Q8H [facility] Non-Formulary Medication 0.75 mg 01/05/25 17:45 Dulaglutide [Trulicity] SC QWEEK [facility] Non-Formulary Medication 2 spray 01/05/25 17:39 Ipratropium [place] SARAH BID PRN Omeprazole 20 mg 01/05/25 20:00 01/05/25 19:52 Omeprazole 20 Mg Capcr PO 20 mg BID@0730,2000 [facility] Administration Polyethylene Glycol 17 gm 01/05/25 17:35 Polyethylene Glycol 3350 17 Gm Packet PO DAILY PRN PRN Constipation Pravastatin Sodium 40 mg 01/05/25 20:00 01/05/25 19:52 Pravastatin 40 Mg Tab PO 40 mg QPM MIGUEL Administration Allergies animal dander Allergy (Intermediate, Verified 01/05/25 14:53) Other (See Comment) grass pollen Allergy (Intermediate, Verified 01/05/25 14:53) Other (See Comment) pollen extracts Allergy (Intermediate, Verified 01/05/25 14:53) Other (See Comment) semaglutide (From Rybelsus) Adverse Reaction (Verified 01/05/25 14:53) throat swelling smoke Allergy (Intermediate, Uncoded 01/05/25 14:53) Other (See Comment) Dust Allergy (Mild, Uncoded 01/05/25 14:53) Other (See Comment) Exam Narrative Exam Narrative: General: alert, no acute distress Head: normocephalic ENT: no stridor, trachea midline CV: normal rate, regular rhythm Respiratory: no wheezing, no crackles, bilateral rhonchi, no prolonged expiration GI: abd soft, non-tender, non-distended Skin: no rashes Extremities: no edema, no digital clubbing Psych: normal affect Results Last Vital Signs Temp 35.9 C L 01/06/25 03:37 Pulse 98 H 01/06/25 03:37 Resp 18 01/06/25 03:37 BP 130/53 L 01/06/25 03:37 Pulse Ox 91 L 01/06/25 03:37 Labs 01/06/25 06:40 01/06/25 06:40 Labs: Laboratory Results - last 24 hr 01/05/25 01/05/25 15:50 19:21 WBC 10.83 H RBC 3.82 L Hgb 10.7 L Hct 33.9 L MCV 89 MCH 28.0 MCHC 31.6 L RDW 15.9 H Plt Count 449 H MPV 8.9 Immature Gran % 0.9 Neutrophils % 76.3 Lymphocytes % 14.2 Monocytes % 4.9 Eosinophils % 3.0 Basophils % 0.7 Nucleated RBC % 0.0 Absolute Neutrophils 8.26 H Absolute Lymphocytes 1.54 Absolute Monocytes 0.53 Absolute Eosinophils 0.32 Absolute Basophils 0.08 PT 10.5 INR 1.0 APTT 23.5 VBG pH 7.39 VBG pCO2 45 VBG pO2 28 VBG HCO3 27 VBG Total CO2 25 VBG O2 Saturation 46 VBG Base Excess 2 VBG Lactate 1.2 Sodium 140 Potassium 4.7 Chloride 106 Carbon Dioxide 25.8 Anion Gap 8.2 BUN 15 Creatinine 1.39 H Est GFR (CKD-EPI 2020) 38.02 Glucose 98 Calcium 9.3 Total Bilirubin 0.20 AST 19 ALT 10 Alkaline Phosphatase 122 H Troponin I < 3 C-Reactive Protein 2.66 H Total Protein 8.0 Albumin 4.3 Add-On Test Request DONE Imaging Chest x-ray: report reviewed and image reviewed CT scan - chest: report reviewed and image reviewed
[2025-01-06 06:54] LABS: Abs Immature Grans 0.04 10^3/uL (0.0-0.06); Immature Grans % 0.5 %; WBC 8.40 10^3/uL (4.4-10.8)
[2025-01-06 07:26] LABS: Anion Gap 9.6 mmol/L (3-11); BUN 15 mg/dL (9-23); CO2 24.4 mmol/L (20.0-31.0); Calcium 8.9 mg/dL (8.3-10.6); Chloride 106 mmol/L (98-107); Glucose 134 mg/dL (74-106); Potassium 3.9 mmol/L (3.5-5.1); Sodium 140 mmol/L (136-145)
[2025-01-06] MEDS: Budesonide/Formoterol 160/4.5 6 GM 60 PUFF INH IH ×2 (07:51→20:10)
[2025-01-06 07:53] LABS: Hemoglobin A1C 6.9 % (<5.7)
[2025-01-06] MEDS: Enoxaparin 40 MG/0.4 ML SYR SC (08:31)
[2025-01-06] MEDS: Lidocaine 5% Patch 1 PATCH TP (08:31)
[2025-01-06] MEDS: Magnesium Oxide 400 MG TAB PO (08:32)
[2025-01-06] MEDS: Montelukast 10 MG TAB PO (08:32)
[2025-01-06] MEDS: Omeprazole 20 MG CAPCR PO ×2 (08:32→20:48)
[2025-01-06] MEDS: Gabapentin 100 MG CAP PO (08:32)
[2025-01-06] MEDS: glipiZIDE 10 MG TAB PO (08:32)
[2025-01-06] MEDS: Empaglifozin 10 MG TAB PO (08:32)
--- NOTE | 2025-01-06 11:58 | PDOC.CMIN ---
Date of service: 01/06/25 Time of Service: 11:58 Care Management Initial Assmt Initial Assessment Reason for Hospitalization: Achromobacter Pneumonia Functional Status/Living Situation Patient Presentation: Noreen was sitting up and having lunch when CM met with her. She presented to the ED with increasing shortness of breath and reports a persistent productive cough. Per report, Noreen is followed by pulmonology as an outpatient, and they have been consulted during this hospitalization. Per provider, she is expected to transition to oral medications tomorrow, with discharge anticipated thereafter. She has not required supplemental oxygen. Noreen was pleasant and engaged appropriately in conversation. She shared that she grew up in [place] but moved away at age 17, returning only recently. She has nine siblings, five of whom are still living. Although none are local, she remains in regular contact with them. Noreen reports that she currently lives alone in [facility] and has no local family or children. 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 Noreen does not currently receive any home health services and does not feel a need for them. She is familiar with the [facility] and has utilized their assistance for insurance-related needs. Noreen is independent at baseline, including driving. CM will continue to follow. 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) Instrumental Activities of Daily Living (ADLs): Independent Medications Medication Management: No Issues/Barriers identified Advance Directives Advance Directives: Do you have an Advance Directive: AD On File at [facility]: N 04/09/24, 11:47 Date Asked 01/05/25 Today, 03:42 AD Date Reviewed COLST On File at [facility] No 01/05/25, 17:47 COLST Date Scanned Code Status Resuscitation Status Full Code Portal Pt does not currently have a portal and education provided: Yes Insurance Coverage/Financial Issues Insurance: BC/BS [facility] Advantage - [id number] FINANCIAL ASST [phone] [id number] Care Team Visit Care Team Role Provider Type Gracie Tomas NP MD [facility] STAFF PHYSICIAN Joey Moreau Primary Care Provider NON-[facility] STAFF PHYSICIAN Kilo Paez MD Other Providers [facility] STAFF PHYSICIAN Salty Garg MD Emergency Provider [facility] STAFF PHYSICIAN Alejandro Cullen Admit Provider [facility] STAFF PHYSICIAN Attending Provider Discharge Potential Discharge Needs: PCP F/U Appt Anticipated Barriers to Discharge: None Identified Patient/Family Education Needs: Review discharge instructions, discuss Ask Me Three Transportation: Private vehicle (Patient's car is in parking lot) Plan: Anticipate Noreen will be discharged home tomorrow, with no new services. It is recommended she follow up with pulmonology, community providers, and discharge plan of care. She will transport herself home via her vehicle in the parking lot. CM will follow. Social Determinants of Health Screening Social Determinants of health last assessed in clinic: 01/06/25 Will the Patient Participate in the Screening?: Yes Do you worry about having a steady place to live?: no Problems where you live: no known problems In the past 12 months, have you had to go without electric, gas, oil or water in your home?: no 1. Within the past 12 months, we worried whether our food would run out before we got money to buy more.: Don't know/refused 2. Within the past 12 months, the food we bought just didn't last and we didn't have money to get more.: Don't know/refused Has lack of transportation kept you from medical appointments or from doing things needed for daily living?: no Has anyone in your life made you feel unsafe or unsupported?: no How hard is it for you to pay for the very basics like food, housing, medical care, and heating? Would you say it is:: Not hard at all Do you want help finding or keeping work or a job?: I do not need or want help If for any reason you need help with day-to-day activities such as bathing, preparing meals, shopping, managing finances, etc., do you get the help you need?: I don?t need any help How often do you feel lonely or isolated from those around you?: Never Do you speak a language other than Faroese at home?: No Does the patient want assistance with any of the above?: No PFSH All Active Problems (Updated 01/06/25 @ 06:32 by Kilo Paez MD) Achromobacter pneumonia (Acute) DVT prophylaxis (Acute) Discharge planning issues (Acute) Elevated alkaline phosphatase level (Acute) Leukocytosis (Acute) Anemia (Chronic) Chronic kidney disease (Chronic) Pulmonary nodule (Acute) Pulmonary infiltrates (Acute) Personal history of nicotine dependence (Acute) Severe persistent asthma (Acute) Trochanteric bursitis, left hip (Acute) Osteoarthritis of left hip (Acute) Phlegm in throat (Acute) Former cigarette smoker (Acute) GERD (gastroesophageal reflux disease) (Chronic) Chest pressure (Acute) Snoring (Acute) Allergic asthma (Acute) Diabetic feet (Acute) Acute asthma (Acute) Type 2 diabetes mellitus (Acute) Medical History (Updated 01/06/25 @ 06:32 by Kilo Paez MD) Urinary tract infection Social History (Updated 09/11/22 @ 10:55 by Saundra Maloney) Smoking/Tobacco Use Status: Former Tobacco Use Quit Date: 02/05/22 Smoking risk assessment performed?: Yes Alcohol Intake: never Substance use type: does not use Housing: apartment Do you feel safe at home: Yes Do you feel safe in your relationship?: Yes
[2025-01-06] MEDS: Acetylcysteine 20% *ORAL/INHALED* 6000 MG/30 ML VIAL 600 MG UPD ×2 (14:43→20:10)
[2025-01-06] MEDS: Albuterol/Ipratropium 3 ML UPD VIAL IH ×2 (14:43→20:09)
--- NOTE | 2025-01-06 19:18 | PGE_ITS ---
Date of Service Date of service: 01/06/25 Time of Service: 19:18 Assessment and Plan Assessment and plan (1) Pulmonary infiltrates: Status: Acute Assessment and plan: Chronic Viral v fungal v bacterial Bactrim IV - plan to convert to oral and discharge patient 01/07 Pulmonolgy consult Bronch 12/29 - bronchoalveolar lavage obtained medial segment of the RML and posterior segment of the LLL - samples were sent for bacterial, fungal and AFB cultures, cell count, and cytopathology) BC pending Sputum cx pending (collected and sent to lab) Mucomyst 600 mg updraft TID added by pulmonology (2) Severe persistent asthma: Status: Acute Assessment and plan: Continue Symbicort 160 BID, Singulair, and PRN albuterol. Oxygen prn Duo Nebs niels; albuterol prn RT consult Pulmonology consult Sputum cx pending No steroids recommended by pulmonology (3) Pulmonary nodule: Status: Acute Assessment and plan: Stable for over a year, no significant change. Continue routine monitoring. (4) Type 2 diabetes mellitus: Status: Acute Assessment and plan: A1c 01/2024 - 8 Will check A1c 01/06/25. Continue glupizide 10 mg oral daily Patient is on trulicity weekly SSI AC FS ACHS Glargine 20 units q pm (decreased from home 28 units) (5) GERD (gastroesophageal reflux disease): Status: Chronic Assessment and plan: Stable continue omeprazole (6) Chronic kidney disease: Status: Chronic Assessment and plan: Stable creatinine, likely within the patient's baseline. No acute renal dysfunction at this time. * Continue to monitor renal function * Ensure hydration and avoid nephrotoxic medications as appropriate. (7) Anemia: Status: Chronic Assessment and plan: Mild anemia, could be chronic or secondary to underlying disease (e.g., chronic lung disease, infection, or inflammation). * Monitor hemoglobin and assess for other causes of anemia (e.g., iron studies, B12/folate levels, renal function). * Consider referring to hematology if anemia becomes more pronounced or unexplained. (8) Leukocytosis: Status: Acute Assessment and plan: Slightly elevated WBC likely reflects an ongoing infectious or inflammatory process. * Recheck WBC and other inflammatory markers if clinical symptoms worsen. * Continue to monitor for signs of infection (e.g., fever, purulent sputum). (9) Elevated alkaline phosphatase level: Status: Acute Assessment and plan: Mildly elevated alkaline phosphatase, possibly related to bone or liver involvement, or could be related to an inflammatory process. * Consider repeat liver function tests (LFTs) and bone panel if clinically warranted. * If elevated in subsequent tests or accompanied by other symptoms (e.g., jaundice), investigate liver or bone pathology further. (10) Former cigarette smoker: Status: Acute Assessment and plan: 1 pack per day for 55 years, quit in 2022. (11) DVT prophylaxis: Status: Acute Assessment and plan: Enoxaparin (12) Discharge planning issues: Status: Acute Assessment and plan: Pulmonology to see Home when stable Discussed with Dr Cullen Subjective Subjective Patient reports: no new complaints, feels better, tolerating a regular diet, v oiding w/o difficulty, bowel movement, shortness of breath (unchanged - no oxygen requirement) and afebrile; denies diarrhea, nausea or vomiting Interval history since last seen: Awake, alert, conversant, pleasant - no complaints. Agrees with plan of care. Exam Narrative Exam Narrative: General: Alert, no acute distress Head/Neck: Normocephalic, trachea midline Eyes: Glaucoma in the left eye, awaiting surgery ENT: No stridor Cardiovascular: Regular rate and rhythm Respiratory: Bilateral rhonchi, no wheezing or crackles - speaking in full se ntences; no O2 requirement Abdomen: Soft, non-tender, non-distended Extremities: No edema or digital clubbing Skin: No rashes Psychiatric: Normal affect Objective Last Vital Signs Temp 36.7 C 01/06/25 15:19 Pulse 85 01/06/25 15:19 Resp 18 01/06/25 15:19 BP 136/90 01/06/25 15:19 Pulse Ox 92 01/06/25 15:19 Laboratory Results - last 24 hr 01/05/25 01/05/25 01/06/25 15:50 19:21 06:40 WBC 8.40 Immature Gran % 0.5 Neutrophils % 64.2 Lymphocytes % 23.8 Monocytes % 6.7 Eosinophils % 4.2 Basophils % 0.6 Absolute Neutrophils 5.40 Absolute Lymphocytes 2.00 Absolute Monocytes 0.56 Absolute Eosinophils 0.35 Absolute Basophils 0.05 Sodium 140 Potassium 3.9 Chloride 106 Carbon Dioxide 24.4 Anion Gap 9.6 BUN 15 Creatinine 1.40 H Est GFR (CKD-EPI 2020) 37.71 Glucose 134 H Hemoglobin A1c 6.9 H Calcium 8.9 C-Reactive Protein 2.66 H Add-On Test Request DONE VTE Prohylaxis Risk Level: Moderate/High Risk Contraindications: None Prophylaxis: Pharmacologic Time Spent with Patient Time Spent with Patient: 25-34 minutes Time was spent: preparing to see the patient(eg.review tests), ordering medications,tests, procedures, referring, communicating with other health direct care staffer, indepentently interpreting results, counseling the patient and care coordination
[2025-01-06] MEDS: Pravastatin 40 MG TAB PO (20:48)
[2025-01-06] MEDS: Cyclobenzaprine 10 MG TAB 5 MG PO (20:48)
[2025-01-06] MEDS: Insulin Glargine 300 UNITS/3 ML PEN 20 UNITS SC (20:49)
[2025-01-06] MEDS: BRIMONIDINE 0.1% OP (20:50)
[2025-01-06] MEDS: EYE OP (20:50)
[2025-01-06] MEDS: Patch Removal LIDOCAINE 1 EACH TP (20:50)
[2025-01-07 03:01] VITALS: BP 112/52; PULSE 98; RESP 18; TEMP 36.2; O2SAT 90
[2025-01-07 05:25] VITALS: BP 125/62; PULSE 88; RESP 16; O2SAT 92
[2025-01-07] MEDS: SULFA IVPB (05:43)
[2025-01-07] MEDS: TRIMETH IVPB (05:43)
[2025-01-07] MEDS: DEXTROSE 5% IVPB (05:43)
[2025-01-07] MEDS: WATER IVPB (05:43)
--- NOTE | 2025-01-07 06:28 | W.PULMPROG ---
Assessment and Plan Assessment and plan (1) Achromobacter pneumonia: Status: Acute (2) Severe persistent asthma: Status: Acute (3) Pulmonary infiltrates: Status: Acute (4) Pulmonary nodule: Status: Acute General Date Of Service Date of service: 01/07/25 Time of Service: 07:00 Requesting physician: Alejandro Cullen Recommendations: Assessment: 1. Achromobacter pneumonia - failed outpatient antibiotics. BAL culture from 12/29 showed 2/2 cultures positive for Achromobacter - sensitive to bactrim. 2. Severe persistent asthma - not in exacerbation. No significant obstruction on last PFT's. IgE level only 11 in 09/2022. Peripheral eos 180 / mcL in 08/2023 3. Pulmonary infiltrates - due to (1) 4. Pulmonary nodule - 0.4 cm RLL nodule - stable for > 1 year Recommendations: - hold losartan while she is receiving bactrim. Can resume when antibiotic course has completed - should have BMP checked with PCP next week - transition to PO bactrim today. Send home with bactrim DS, 1 tab BID. Plan for 14 day course of antibiotics (D3/14 today) - continue symbicort 160 BID and PRN albuterol upon discharge - mucinex 600 mg Q12H PRN and flutter valve (should continue at home) to help with airway clearance - will see in clinic in 1-2 weeks for re-evaluation - OK for discharge from a pulmonary standpoint Discussed with Dr. Cullen Subjective Note Note: Patient is a 63 yo with a history of asthma, and tobacco abuse who was admitted on 01/05 for pneumonia. LDCT in 08/2024 noted new RML and lingular tree-in-bud opacities. She completed a course of levaquin around that time. Repeat CT chest in 12/2024 noted increased bilateral infiltrates. She has had a persistent cough with yellowish mucous production. Bronchoscopy with BAL was completed 12/29/24. BAL cultures were positive for achromobacter (2/2). Showed resistance to multiple antibiotics, but was sensitive to bactrim. Due to worsening cough/dyspnea and failure of outpatient antibiotics, she presented to the ED and was admitted. She is currently using breyna 160 BID, spiriva 1,25 daily, singulair and PRN albuterol for asthma management. She was treated for an asthma exacerbation in 09/2024. Afebrile. On room air. Has been able to cough up a significant amount of mucous over the past day. Feels better today. Cough improved. Dyspnea improved. No hemoptysis. Smoking history: smoked 1 ppd x 55 years. Quit 2022 ROS: 6 pt ROS negative except as in HPI Exam Narrative Exam Narrative: General: alert, no acute distress Head: normocephalic ENT: no stridor, trachea midline CV: normal rate, regular rhythm Respiratory: no wheezing, no crackles, improved bilateral rhonchi, no prolonged expiration GI: abd soft, non-tender, non-distended Skin: no rashes Extremities: no edema, no digital clubbing Psych: normal affect Objective Last Vital Signs Temp 36.2 C L 01/07/25 03:01 Pulse 88 01/07/25 05:25 Resp 16 01/07/25 05:25 BP 125/62 01/07/25 05:25 Pulse Ox 92 01/07/25 05:25 Laboratory Results - last 24 hr 01/06/25 06:40 WBC 8.40 Immature Gran % 0.5 Neutrophils % 64.2 Lymphocytes % 23.8 Monocytes % 6.7 Eosinophils % 4.2 Basophils % 0.6 Absolute Neutrophils 5.40 Absolute Lymphocytes 2.00 Absolute Monocytes 0.56 Absolute Eosinophils 0.35 Absolute Basophils 0.05 Sodium 140 Potassium 3.9 Chloride 106 Carbon Dioxide 24.4 Anion Gap 9.6 BUN 15 Creatinine 1.40 H Est GFR (CKD-EPI 2020) 37.71 Glucose 134 H Hemoglobin A1c 6.9 H Calcium 8.9 Results Medications Medications: Active Medications Generic Name Dose Route Start Last Admin Trade Name Freq PRN Reason Stop Dose Admin Acetaminophen 650 mg 01/05/25 17:35 Acetaminophen 325 Mg Tab PO Q4H PRN PRN Acetylcysteine 600 mg 01/06/25 08:30 01/06/25 20:10 Acetylcysteine 20% *Oral/Inhaled* 6000 Mg/30 Ml Vial UPD 01/07/25 20:00 600 mg TID MIGUEL Administration Albuterol Sulfate 1 puff 01/05/25 17:39 Albuterol Hfa 8 Gm 60 Puff Inh IH Q4H PRN PRN Albuterol/Ipratropium 3 ml 01/05/25 17:39 01/06/25 20:09 Albuterol/Ipratropium 3 Ml Upd Vial IH 3 ml Q6H PRN PRN Administration Shortness of Breath Budesonide/Formoterol Fumarate 2 puff 01/05/25 20:00 01/06/25 20:10 Budesonide/Formoterol 160/4.5 6 Gm 60 Puff Inh IH 2 puff BID MIGUEL Administration Cetirizine HCl 10 mg 01/05/25 17:39 Cetirizine 10 Mg Tab PO DAILY PRN PRN Cyclobenzaprine HCl 5 mg 01/05/25 20:00 01/06/25 20:48 Cyclobenzaprine 10 Mg Tab PO 5 mg HS MIGUEL Administration Dextrose 0 gm 01/05/25 17:42 Glucose Oral Gel 15 Gm/37.5 Gm Tube PO DIRECTED PRN Dextrose/Water 0 gm 01/05/25 17:42 Dextrose 50%-Water 25 Gm/50 Ml Syr IVP DIRECTED PRN Empagliflozin 10 mg 01/06/25 08:30 01/06/25 08:32 Empaglifozin 10 Mg Tab PO 10 mg DAILY MIGUEL Administration Enoxaparin Sodium 40 mg 01/06/25 08:30 01/06/25 08:31 Enoxaparin 40 Mg/0.4 Ml Syr SC 40 mg DAILY MIGUEL Administration Gabapentin 100 mg 01/06/25 08:30 01/06/25 08:32 Gabapentin 100 Mg Cap PO 100 mg DAILY MIGUEL Administration Glipizide 10 mg 01/06/25 07:30 01/06/25 08:32 Glipizide 10 Mg Tab PO 10 mg DAILY@0730 MIGUEL Administration Trimethoprim/Sulfamethoxazole 260 mls @ 250 mls/hr 01/06/25 06:00 01/07/25 05:43 10 ml/ Dextrose/Water IVPB 250 mls/hr Q12H MIGUEL Administration Insulin Aspart 0 units 01/06/25 08:00 01/06/25 16:56 Insulin Aspart 300 Units/3 Ml Pen SC Not Given 0800,1200,1700 [facility] Protocol Insulin Glargine 20 units 01/05/25 20:00 01/06/25 20:49 Insulin Glargine 300 Units/3 Ml Pen SC 20 units QPM MIGUEL Administration Lidocaine 1 patch 01/06/25 08:30 01/06/25 08:31 Lidocaine 5% Patch TP 1 patch DAILY MIGUEL Administration Magnesium Oxide 400 mg 01/06/25 08:30 01/06/25 08:32 Magnesium Oxide 400 Mg Tab PO 400 mg DAILY MIGUEL Administration Miscellaneous 1 each 01/05/25 20:30 01/06/25 20:50 Patch Removal Lidocaine TP 1 each Q24H MIGUEL Administration Montelukast Sodium 10 mg 01/06/25 08:30 01/06/25 08:32 Montelukast 10 Mg Tab PO 10 mg DAILY MIGUEL Administration Omeprazole 20 mg 01/05/25 20:00 01/06/25 20:48 Omeprazole 20 Mg Capcr PO 20 mg BID@0730,2000 [facility] Administration Pt's Own Dulaglutide 1 each 01/09/25 08:30 [Trulicity] 0.75 Mg SC /0.5 Ml Pen Injector Fr [facility] Patient's Own 0 each 01/06/25 20:00 01/06/25 20:50 Brimonidine 0.1 % OP 1 each Eye Drops Q12H MIGUEL Administration Polyethylene Glycol 17 gm 01/05/25 17:35 Polyethylene Glycol 3350 17 Gm Packet PO DAILY PRN PRN Constipation Pravastatin Sodium 40 mg 01/05/25 20:00 01/06/25 20:48 Pravastatin 40 Mg Tab PO 40 mg QPM MIGUEL Administration Allergies animal dander Allergy (Intermediate, Verified 01/05/25 14:53) Other (See Comment) grass pollen Allergy (Intermediate, Verified 01/05/25 14:53) Other (See Comment) pollen extracts Allergy (Intermediate, Verified 01/05/25 14:53) Other (See Comment) semaglutide (From Rybelsus) Adverse Reaction (Verified 01/05/25 14:53) throat swelling smoke Allergy (Intermediate, Uncoded 01/05/25 14:53) Other (See Comment) Dust Allergy (Mild, Uncoded 01/05/25 14:53) Other (See Comment) Labs 01/07/25 06:30 01/06/25 06:40 Labs: 01/05/25 16:00 Blood Blood Culture - Preliminary NO GROWTH 24 HOURS 01/05/25 15:50 Blood Blood Culture - Preliminary NO GROWTH 24 HOURS 01/05/25 19:21 Sputum Sputum Culture - Pending 01/05/25 19:21 Sputum Gram Stain - Final Laboratory Tests Range/Units 01/05/25 01/05/25 01/06/25 15:50 19:21 06:40 WBC (4.4-10.8) 10^3/uL 10.83 H 8.40 RBC (3.93-5.22) 10^6/uL 3.82 L Hgb (11.2-15.7) g/dL 10.7 L Hct (36.0-46.0) % 33.9 L MCV (80-95) fL 89 MCH (27.0-33.0) pg 28.0 MCHC (32.0-36.0) % 31.6 L RDW (11.7-14.6) % 15.9 H Plt Count (130-400) 10^3/uL 449 H MPV (8.0-11.0) fL 8.9 Immature Gran % % 0.9 0.5 Neutrophils % % 76.3 64.2 Lymphocytes % % 14.2 23.8 Monocytes % % 4.9 6.7 Eosinophils % % 3.0 4.2 Basophils % % 0.7 0.6 Nucleated RBC % (0.0-0.3) % 0.0 Absolute Neutrophils (1.2-6.7) 10^3/uL 8.26 H 5.40 Absolute Lymphocytes (1.2-3.4) 10^3/uL 1.54 2.00 Absolute Monocytes (0.1-0.8) 10^3/uL 0.53 0.56 Absolute Eosinophils (0.0-0.7) 10^3/uL 0.32 0.35 Absolute Basophils (0.0-0.2) 10^3/uL 0.08 0.05 PT (9.1-11.1) sec 10.5 INR (0.9-1.1) 1.0 APTT (20.6-30.2) sec 23.5 VBG pH (7.31-7.41) 7.39 VBG pCO2 (41-51) mmHg 45 VBG pO2 mmHg 28 VBG HCO3 (23-28) mmol/L 27 VBG Total CO2 (24-29) mmol/L 25 VBG O2 Saturation % 46 VBG Base Excess (-2-3) mmol/L 2 VBG Lactate (<or=2.0) mmol/L 1.2 Sodium (136-145) mmol/L 140 140 Potassium (3.5-5.1) mmol/L 4.7 3.9 Chloride (98-107) mmol/L 106 106 Carbon Dioxide (20.0-31.0) mmol/L 25.8 24.4 Anion Gap (3-11) mmol/L 8.2 9.6 BUN (9-23) mg/dL 15 15 Creatinine (0.55-1.02) mg/dL 1.39 H 1.40 H Est GFR (CKD-EPI 2020) (mL/min/1.73m2) 38.02 37.71 Glucose (74-106) mg/dL 98 134 H Hemoglobin A1c (<5.7) % 6.9 H Calcium (8.3-10.6) mg/dL 9.3 8.9 Total Bilirubin (0.2-1.2) mg/dL 0.20 AST (<34) U/L 19 ALT (10-49) U/L 10 Alkaline Phosphatase (46-116) U/L 122 H Troponin I (<35) ng/L < 3 C-Reactive Protein (<=0.50) mg/dL 2.66 H Total Protein (5.7-8.2) g/dL 8.0 Albumin (3.2-5.0) g/dL 4.3 Add-On Test Request DONE Imaging Chest x-ray: report reviewed and image reviewed
[2025-01-07 07:10] VITALS: RESP 20; O2SAT 96
[2025-01-07] MEDS: Albuterol/Ipratropium 3 ML UPD VIAL IH ×2 (07:10→13:03)
[2025-01-07] MEDS: Budesonide/Formoterol 160/4.5 6 GM 60 PUFF INH IH (07:10)
[2025-01-07 07:31] VITALS: BP 127/56; PULSE 93; RESP 16; TEMP 36.4; O2SAT 94
[2025-01-07 07:31] LABS: Abs Immature Grans 0.06 10^3/uL (0.0-0.06); HCT 29.6 % (36.0-46.0); HGB 9.3 g/dL (11.2-15.7); Immature Grans % 0.4 %; MCH 27.4 pg (27.0-33.0); MCHC 31.4 % (32.0-36.0); MCV 87 fL (80-95); MPV 9.1 fL (8.0-11.0); Platelet Count 456 10^3/uL (130-400); RBC 3.39 10^6/uL (3.93-5.22); RDW 15.9 % (11.7-14.6); RDW-SD 50.5 fL; WBC 13.52 10^3/uL (4.4-10.8)
[2025-01-07 07:59] LABS: Anion Gap 10.6 mmol/L (3-11); BUN 22 mg/dL (9-23); CO2 24.4 mmol/L (20.0-31.0); Calcium 8.9 mg/dL (8.3-10.6); Chloride 106 mmol/L (98-107); Glucose 179 mg/dL (74-106); Magnesium 2.2 mg/dL (1.6-2.6); Potassium 4.3 mmol/L (3.5-5.1); Sodium 141 mmol/L (136-145)
[2025-01-07] MEDS: Empaglifozin 10 MG TAB PO (08:21)
[2025-01-07] MEDS: glipiZIDE 10 MG TAB PO (08:21)
[2025-01-07] MEDS: Lidocaine 5% Patch 1 PATCH TP (08:21)
[2025-01-07] MEDS: Enoxaparin 40 MG/0.4 ML SYR SC (08:21)
[2025-01-07] MEDS: Magnesium Oxide 400 MG TAB PO (08:21)
[2025-01-07] MEDS: Omeprazole 20 MG CAPCR PO (08:21)
[2025-01-07] MEDS: Gabapentin 100 MG CAP PO (08:21)
[2025-01-07] MEDS: Insulin Aspart 300 UNITS/3 ML PEN SC ×2 (08:22→12:57)
[2025-01-07] MEDS: Montelukast 10 MG TAB PO (08:29)
[2025-01-07] MEDS: EYE OP (09:00)
[2025-01-07] MEDS: BRIMONIDINE 0.1% OP (09:00)
[2025-01-07 11:23] VITALS: BP 117/62; PULSE 85; RESP 20; TEMP 37.1; O2SAT 91
[2025-01-07] MEDS: Acetylcysteine 20% *ORAL/INHALED* 6000 MG/30 ML VIAL 600 MG UPD (13:07)
--- NOTE | 2025-01-07 13:20 | DSE_ITS ---
Date of service: 01/07/25 Time of Service: 13:20 DS: Diagnosis Discharge Diagnosis (1) Achromobacter pneumonia: Status: Acute (2) Severe persistent asthma: Status: Acute (3) Pulmonary infiltrates: Status: Acute (4) Pulmonary nodule: Status: Acute Discharge Plan Disposition Patient Disposition: Home Condition: Improving Discharge Details Reason For Visit: Achromobacter Pneumonia Admit Date/Time: 01/05/25 17:36 Admit Provider: Alejandro Cullen Attending Provider: Alejandro Cullen Primary Care Provider: Joey Moreau Hospital Course Hospital Course: The patient is a 64-year-old female with a history of severe persistent asthma, chronic tobacco use, and glaucoma, admitted for follow-up regarding pulmonary infiltrates and increasing respiratory symptoms. She presented with increasing shortness of breath, persistent cough with yellowish mucous, and sinus drainage. Recent imaging, including a low-dose CT (LDCT) from August 2024, showed new right middle lobe and lingular tree-in-bud opacities, and a repeat CT in December 2024 demonstrated increasing bilateral infiltrates with areas of consolidation. A bronchoscopy with bronchoalveolar lavage performed in December 2024 showed no malignancy but revealed abundant acute inflammation and bacterial colonies, suggesting an ongoing infection or inflammatory process. The differential diagnosis includes small airway disease, atypical infections (e.g., fungal, viral), allergic bronchopulmonary aspergillosis (ABPA), bronchiolitis, or neoplasm, particularly given her smoking history and chronic lung disease. Her chest X-ray demonstrated a persistent right middle lobe infiltrate, which raises concern for unresolved infection or an inflammatory process, with possible non-tuberculous mycobacteria, fungal infection, or neoplasm, consider ing her smoking history and chronic lung disease. Her lab results showed a slightly elevated white blood cell count (WBC 10.83), suggesting ongoing infection or inflammation, mild anemia (Hgb 10.7), and an elevated alkaline phosphatase level (122), which may indicate liver, bone, or biliary system involvement and warrants further investigation. The patient was started on Bactrim IV in the ED for presumed infection and is being admitted to the medical floor for further testing and treatment. Nebulizer treatments have been initiated, and pulmonology consultation has been requested. Given the complexity of her case, pulmonology recommended that she continue her current asthma medications (Symbicort, Spiriva, Singulair) and Bactrim for infection management. The team also considered the possibility of an atypical infection or fungal etiology and recommended close monitoring of her respiratory status and imaging follow-up. Patient improved - no oxygen requirement. Electrolytes unremarkable. Creatinine at baseline 1.48. Her discharge plan includes continued management of asthma, monitoring for infection or inflammation, and follow-up with pulmonology as an outpatient. Follow upw tih PCP in one week with recommendations for BMP in one week. Patient is discharged on Bactim twice a day for 10 days and guaifenesin 600 mg twice a day with encouragement to use flutter device. Recommendations for Follow Up Recommended tests to be ordered by follow up provider: BMP in one week. Home Meds and New Rx's Prescriptions: New sulfamethoxazole-trimethoprim [Bactrim DS] 800-160 mg tablet 1 tab PO BID Qty: 23 0RF Rx Instructions: Hold Losartan while taking guaifenesin 600 mg tablet extended release 12hr 600 mg PO BID Qty: 30 0RF Continued albuterol sulfate 90 mcg/actuation HFA aerosol inhaler 1 puff inhalation Q4H PRN (DME) FreeStyle Daniel 2 Sensor Kit See Rx Instructions .Route Rx Instructions: As directed insulin aspart U-100 [Novolog FlexPen U-100 Insulin] 100 unit/mL (3 mL) insulin pen 100 unit subcut DIRECTED cyclobenzaprine 5 mg tablet 5 mg PO QHS pravastatin 40 mg tablet 40 mg PO DAILY lidocaine 5 % adhesive patch,medicated 1 patch topical DAILY Rx Instructions: leave on most painful area for up to 12 hrs cetirizine [Allergy Relief (cetirizine)] 10 mg tablet 10 mg PO DAILY PRN Trulicity 0.75 mg/0.5 mL pen injector 0.75 mg subcut QWEEK ipratropium bromide 21 mcg (0.03 %) spray,non-aerosol 2 spray intranasal BID Qty: 30 12RF Rx Instructions: administer into each nostril budesonide-formoterol [Symbicort] 160-4.5 mcg/actuation HFA aerosol inhaler 2 puff inhalation BID Qty: 10.2 8RF montelukast 10 mg tablet 10 mg PO DAILY Qty: 90 4RF brimonidine 0.1 % drops 1 drp ophthalmic (eye) Q8H ipratropium-albuterol 0.5 mg-3 mg(2.5 mg base)/3 mL solution for nebulization 3 ml inhalation Q6H PRN (Reason: shortness of breath) Qty: 180 6RF Jardiance 10 mg tablet 10 mg PO DAILY Patient Comments: 09/15/24- pt unsure of dose amoxicillin-pot clavulanate 875-125 mg tablet 1 tab PO BID 7 Days Qty: 14 0RF gabapentin 100 mg capsule 100 mg PO DAILY glipizide 10 mg tablet extended release 24hr 10 mg PO DAILY insulin glargine 100 unit/mL (3 mL) insulin pen 28 unit subcut DAILY omeprazole 20 mg capsule,delayed release(DR/EC) 20 mg PO BID Qty: 60 12RF sulfamethoxazole-trimethoprim [Bactrim DS] 800-160 mg tablet 1 tab PO BID 10 Days Qty: 20 0RF lidocaine [DermacinRx Lidocan] 5 % adhesive patch,medicated 1 patch topical DAILY Rx Instructions: leave on most painful area for up to 12 hrs magnesium oxide 400 mg magnesium capsule 400 mg PO DAILY losartan [Cozaar] 25 mg tablet 25 mg PO DAILY Discharge Instructions Instructions: Pneumonia, Adult (DC), Sulfamethoxazole and Trimethoprim, Guaifenesin Additional Instructions: continue symbicort 160 BID and albuterol as needed mucinex 600 mg Q12H PRN and flutter valve (should continue at home) to help with airway clearance Stand Alone Forms: Portal Information, Nursing Discharge Form Referrals: Kilo Paez MD [ [facility] STAFF PHYSICIAN, Pulmonology] Referral Note: 1-2 weeks Office will give you a call to set up an appointment. Joey Moreau [Primary Care Provider, Medicine] Referral Note: 1 week post hospitalization for pneumonia - recommend BMP in one week. If you do not hear from your PCP, please reach out. Activity:: Activity as Tolerated Equipment/Supplies:: Blood Glucose Monitor Diet:: As Tolerated Discharge Orders Discharge Orders: Discharge Order (Routine); Ordered 01/07/25 Ordered By: Gracie Tomas Discharge Data Discharge Date/Time-TO BE ENTERED AT DEPARTURE: 01/07/25 14:26 DS: Summary Time Spent with Patient providing and/or coordinating discharge services: Greater than 30 minutes Status at Discharge Functional status at discharge: independent ambulation Overall status at discharge: patient is progressing back to baseline Mental Status: mental status grossly normal Speech and Movement: speech and movement normal Mood: congruent mood Affect: normal affect Exam Narrative Exam Narrative: General: Alert, no acute distress Head/Neck: Normocephalic, trachea midline Eyes: Glaucoma in the left eye, awaiting surgery ENT: No stridor Cardiovascular: Regular rate and rhythm Respiratory: Bilateral rhonchi, no wheezing or crackles - speaking in full sentences; no O2 requirement Abdomen: Soft, non-tender, non-distended Extremities: No edema or digital clubbing Skin: No rashes Psychiatric: Normal affect Psych Mental Status: mental status grossly normal Speech and Movement: speech and movement normal Mood: congruent mood Affect: normal affect DS: Data Vitals/I&O Vitals and I&O: Vital Signs Temperature 37.1 C 01/07/25 11:23 Temperature Source Tympanic 01/07/25 11:23 Pulse 85 01/07/25 11:23 Pulse Rhythm Regular 01/05/25 18:40 Respiratory Rate 20 01/07/25 11:23 Respiratory Effort Normal, Short of Breath 01/05/25 18:40 Respiratory Depth Normal 01/05/25 18:40 Respiratory Pattern Normal 01/05/25 18:40 Blood Pressure 117/62 01/07/25 11:23 Blood Pressure Mean 80 01/07/25 11:23 Pulse Oximetry 91 L 01/07/25 11:23 Oxygen Delivery Method Room Air 01/07/25 11:23 Oxygen Flow Rate 0 01/07/25 11:23 Pain Level 0 01/07/25 11:23 Comment pt sleeping. 01/06/25 23:25 Intake & Output 01/06/25 01/07/25 01/07/25 23:59 11:59 23:59 Intake Total 770 / 1280 430 / 430 Output Total 900 / 1100 900 / 900 Balance -130 / 180 -470 / -470 Weight 76.3 kg Intake: IV 280 / 550 Oral 490 / 730 420 / 420 Output: Urine 900 / 1100 900 / 900 Other: Urine Color Pale Yellow Urine Appearance Clear Clear Urine Odor None Normal Comment pT stated that she has been using the bathroom and voiding. pt voids to toilet. Data Completed and Pending Pending Labs at Discharge: 01/05/25 01/05/25 01/06/25 15:50 19:21 06:40 WBC 10.83 H 8.40 RBC 3.82 L Hgb 10.7 L Hct 33.9 L MCV 89 MCH 28.0 MCHC 31.6 L RDW 15.9 H Plt Count 449 H MPV 8.9 Immature Gran % 0.9 0.5 Neutrophils % 76.3 64.2 Lymphocytes % 14.2 23.8 Monocytes % 4.9 6.7 Eosinophils % 3.0 4.2 Basophils % 0.7 0.6 Nucleated RBC % 0.0 Absolute Neutrophils 8.26 H 5.40 Absolute Lymphocytes 1.54 2.00 Absolute Monocytes 0.53 0.56 Absolute Eosinophils 0.32 0.35 Absolute Basophils 0.08 0.05 PT 10.5 INR 1.0 APTT 23.5 VBG pH 7.39 VBG pCO2 45 VBG pO2 28 VBG HCO3 27 VBG Total CO2 25 VBG O2 Saturation 46 VBG Base Excess 2 VBG Lactate 1.2 Sodium 140 140 Potassium 4.7 3.9 Chloride 106 106 Carbon Dioxide 25.8 24.4 Anion Gap 8.2 9.6 BUN 15 15 Creatinine 1.39 H 1.40 H Est GFR (CKD-EPI 2020) 38.02 37.71 Glucose 98 134 H Hemoglobin A1c 6.9 H Calcium 9.3 8.9 Magnesium Total Bilirubin 0.20 AST 19 ALT 10 Alkaline Phosphatase 122 H Troponin I < 3 C-Reactive Protein 2.66 H Total Protein 8.0 Albumin 4.3 Add-On Test Request DONE 01/07/25 06:30 WBC 13.52 H RBC 3.39 L Hgb 9.3 L Hct 29.6 L MCV 87 MCH 27.4 MCHC 31.4 L RDW 15.9 H Plt Count 456 H MPV 9.1 Immature Gran % 0.4 Neutrophils % 80.1 Lymphocytes % 11.6 Monocytes % 5.4 Eosinophils % 2.1 Basophils % 0.4 Nucleated RBC % 0.0 Absolute Neutrophils 10.83 H Absolute Lymphocytes 1.57 Absolute Monocytes 0.73 Absolute Eosinophils 0.28 Absolute Basophils 0.05 PT INR APTT VBG pH VBG pCO2 VBG pO2 VBG HCO3 VBG Total CO2 VBG O2 Saturation VBG Base Excess VBG Lactate Sodium 141 Potassium 4.3 Chloride 106 Carbon Dioxide 24.4 Anion Gap 10.6 BUN 22 Creatinine 1.48 H Est GFR (CKD-EPI 2020) 35.36 Glucose 179 H Hemoglobin A1c Calcium 8.9 Magnesium 2.2 Total Bilirubin AST ALT Alkaline Phosphatase Troponin I C-Reactive Protein Total Protein Albumin Add-On Test Request Preliminary micro results at discharge 01/05/25 19:21 Sputum Sputum Culture - Preliminary Normal Belle 01/05/25 16:00 Blood Blood Culture - Preliminary NO GROWTH 24 HOURS 01/05/25 15:50 Blood Blood Culture - Preliminary NO GROWTH 24 HOURS PFSH All Active Problems (Updated 01/06/25 @ 06:32 by Kilo Paez MD) Achromobacter pneumonia (Acute) DVT prophylaxis (Acute) Discharge planning issues (Acute) Elevated alkaline phosphatase level (Acute) Leukocytosis (Acute) Anemia (Chronic) Chronic kidney disease (Chronic) Pulmonary nodule (Acute) Pulmonary infiltrates (Acute) Personal history of nicotine dependence (Acute) Severe persistent asthma (Acute) Trochanteric bursitis, left hip (Acute) Osteoarthritis of left hip (Acute) Phlegm in throat (Acute) Former cigarette smoker (Acute) GERD (gastroesophageal reflux disease) (Chronic) Chest pressure (Acute) Snoring (Acute) Allergic asthma (Acute) Diabetic feet (Acute) Acute asthma (Acute) Type 2 diabetes mellitus (Acute) Medical History (Updated 01/06/25 @ 06:32 by Kilo Paez MD) Urinary tract infection Social History (Updated 09/11/22 @ 10:55 by Saundra Maloney) Smoking/Tobacco Use Status: Former Tobacco Use Quit Date: 02/05/22 Smoking risk assessment performed?: Yes Alcohol Intake: never Substance use type: does not use Housing: apartment Do you feel safe at home: Yes Do you feel safe in your relationship?: Yes Time Spent with Patient Time Spent with Patient: 45-69 minutes Time was spent: preparing to see the patient(eg.review tests), ordering medications,tests, procedures, referring, communicating with other health residential caregiver, indepentently interpreting results, counseling the patient and care coordination
[2025-01-07 13:29] VITALS: PULSE 103; O2SAT 95
--- NOTE | 2025-01-07 13:44 | PDOC.CMDIS ---
Date of service: 01/07/25 Time of Service: 13:44 LACE Index Scoring Tool Questions: Length of Stay (in days): 2 Was the patient admitted via the E.D.?: Yes Comorbidities: Diabetes w/o Complication and Liver or Renal Disease E.D. Visits: 0 Answers: Total Score: 10 Risk of Readmission: High Risk Care Management Discharge Plan Reason for Hospitalization: Pneumonia Discharge Plan: Noreen will return home today with no new services. She will drive herself home with her private vehicle which is in the parking lot. She will follow up with her PCP and discharge plan of care. She is happy to be going home. Patient/Family Education Needs: Review discharge instructions and limitations, discussion of self care needs including ask me three.
== END 2025-01-07 14:26 | disposition home or self-care (01) ==
LOC: ER 17:47 → MS 01-06 03:42
PROVIDERS: Admitting Provider Family Medicine; Emergency Provider General Practice; PCP Registered Nurse; Responsible Provider Nurse Practitioner Family; Visit Provider Family Medicine
DX: J15.69 Pneumonia due to other Gram-negative bacteria (principal); J45.50 Severe persistent asthma, uncomplicated; R91.1 Solitary pulmonary nodule; Z87.891 Personal history of nicotine dependence; D72.829 Elevated white blood cell count, unspecified; D64.9 Anemia, unspecified; N18.9 Chronic kidney disease, unspecified; E11.22 Type 2 diabetes mellitus with diabetic chronic kidney disease; K21.9 Gastro-esophageal reflux disease without esophagitis; M16.12 Unilateral primary osteoarthritis, left hip; M70.62 Trochanteric bursitis, left hip; Z79.4 Long term (current) use of insulin; R74.8 Abnormal levels of other serum enzymes; H40.9 Unspecified glaucoma; Z79.84 Long term (current) use of oral hypoglycemic drugs
CPT/HCPCS: 00123; 36415; 80048; 80053; 82805; 85048; 87040; 94640; 96361; 96365; 99222; 99232; 99285; J1650; 71046; 83036; 83605; 83735; 84484; 85007; 85025; 85610; 85730; 86140; 87070; 87205; 94664; 94667; 94760; 99231; 99239; G0378; J1815; J3490; J7608; J7620

== ENCOUNTER → 2025-01-08 14:10 | Outpatient (BNVA) | payer MEDICARE, SELFPAY | PROVIDERS: PCP Registered Nurse; Referring Provider Registered Nurse; Visit Provider Internal Medicine Pulmonary Disease ==

== ENCOUNTER → 2025-01-12 08:38 | Outpatient (BNVA) | payer MEDICARE, SELFPAY | PROVIDERS: PCP Registered Nurse; Referring Provider Registered Nurse; Visit Provider Physician Assistant Surgical | DX: J15.69 Pneumonia due to other Gram-negative bacteria (principal); J45.909 Unspecified asthma, uncomplicated; K21.9 Gastro-esophageal reflux disease without esophagitis; D64.9 Anemia, unspecified; Z87.891 Personal history of nicotine dependence | CPT/HCPCS: 99214; 36415 ==

== ENCOUNTER → 2025-01-12 10:30 | Outpatient (CLI) | payer MEDICARE, SELFPAY ==
--- NOTE | 2025-01-12 09:38 | DI.RAD_ITS ---
Exam(s) XR CHEST 2V PA LATERAL EXAM: XR CHEST 2V PA LATERAL CLINICAL HISTORY: pneumonia, J15.69 TECHNIQUE: 2D digital imaging was performed. Two views. COMPARISON: CR XR CHEST 2V PA LATERAL from 09/15/[address] CHEST WO from 12/08/2024 CR XR CHEST 2V PA LATERAL from 01/05/2025 FINDINGS: HEART: Normal size. Aorta: Not dilated. PULMONARY VASCULATURE: Normal. MEDIASTINUM: Unremarkable. LUNGS: Clearing of previously noted right middle lobe infiltrate. No new abnormalities. PLEURAL SPACE: No pleural effusion or pneumothorax. BONE:Unremarkable for age. SOFT TISSUES: Unremarkable. IMPRESSION: No acute abnormality. DATA REPOSITORY: RADIATION DOSE DELIVERED:
== END ==
LOC: DI 10:30
PROVIDERS: PCP Registered Nurse; Visit Provider Physician Assistant Surgical
DX: J15.69 Pneumonia due to other Gram-negative bacteria (principal)
CPT/HCPCS: 71046

== ENCOUNTER 2025-01-12 14:58 | Outpatient (REF) | payer MEDICARE, SELFPAY ==
[2025-01-12 10:23] LABS: Abs Immature Grans 0.03 10^3/uL (0.0-0.06); HCT 32.6 % (36.0-46.0); HGB 10.2 g/dL (11.2-15.7); Immature Grans % 0.4 %; MCH 27.3 pg (27.0-33.0); MCHC 31.3 % (32.0-36.0); MCV 87 fL (80-95); MPV 9.3 fL (8.0-11.0); Platelet Count 510 10^3/uL (130-400); RBC 3.74 10^6/uL (3.93-5.22); RDW 16.2 % (11.7-14.6); RDW-SD 52.6 fL; WBC 7.91 10^3/uL (4.4-10.8)
[2025-01-12 10:42] LABS: Anion Gap 11.1 mmol/L (3-11); BUN 24 mg/dL (9-23); CO2 20.9 mmol/L (20.0-31.0); Calcium 9.3 mg/dL (8.3-10.6); Chloride 105 mmol/L (98-107); Glucose 84 mg/dL (74-106); Potassium 4.9 mmol/L (3.5-5.1); Sodium 137 mmol/L (136-145)
== END 2025-01-12 14:59 | disposition home or self-care (01) ==
LOC: LBN 14:58
PROVIDERS: PCP Registered Nurse; Visit Provider Physician Assistant Surgical
DX: J45.909 Unspecified asthma, uncomplicated (principal); J15.69 Pneumonia due to other Gram-negative bacteria
CPT/HCPCS: 80048; 85025

== ENCOUNTER → 2025-01-22 09:35 | Outpatient (BNVA) | payer MEDICARE, SELFPAY | PROVIDERS: PCP Registered Nurse; Referring Provider Registered Nurse; Visit Provider Physician Assistant Surgical | DX: J45.909 Unspecified asthma, uncomplicated (principal); K21.9 Gastro-esophageal reflux disease without esophagitis; D64.9 Anemia, unspecified; J15.69 Pneumonia due to other Gram-negative bacteria; Z87.891 Personal history of nicotine dependence | CPT/HCPCS: 99214 ==